=== PATIENT | female | born 1985 | race Caucasian/White ===

== ENCOUNTER 2023-05-27 11:06 | Outpatient (AMB) | payer OTHER, SELFPAY ==
--- NOTE | 2023-05-31 13:03 | MHC.OFFVISPS ---
Intake Intake Visit Reasons: depression, OCD, anxiety Medication List - Last Reconciled 05/27/23 by Mary Ellen Marie APRN buspirone 7.5 mg PO BID levothyroxine 75 mcg PO DAILY lorazepam mg PO trazodone 25 - 50 mg PO BEDTIME PRN trazodone 100 - 200 mg PO BEDTIME vortioxetine (Trintellix) mg PO HPI- Psychiatric Chief Complaint: depression, OCD, anxiety Intake Note: Patient reports continued anxiety. She is 4 months . . HPI Narrative: Patient reports continued anxiety. She is 4 months . Since the of her baby she has had more Obsessive Compulsive Disorder symptoms. She had a difficult with vaginal tearing and need for surgery which was very painful and also her from the baby. Patient has intrusive thoughts of bad things happening. She is currently very upset with her therapist who cut back her hours and is less available. Patient is obsessing about the situation with her therapist and trying to fix it despite knowing that she can not. This is triggering childhood abandonment issues. Patient reports SI with no plan and no intent. But then choose thoughts of hurting herself are very distressing this has historically been part of her Obsessive Compulsive Disorder in the past. She is taking her medication no side effects we discussed alternatives and agreed to add a small amount of Cymbalta. We discussed the options of partial hospitalization especially since her therapist is less available. I also discussed the pros and cons finding a new therapist as she has been unhappy with this therapist for quite some time. Past Psychiatric History: struggled when OCD increased 7-12 grades really good in high school and college, social anxiety decreased sports and music, friends and therapy helped . OCD at age 9, saw child psychologist for many years ages [age] OCD, anxiety, depression, suicidality, at age 14 things got a lot better; age [age] good but then anxiety increased significantly when she was in transition from HS to college ; put on xanax by PCP at age 19. No IPLOC. Has tried multpile medications lexapro- don't recall why stopped vyvanse helped adderall- rebound agitation/anxiety ritalin- agitated/anxious/paranoid/wary Effexor jittery Zoloft jittery Paxil doesnt recall Prozac doesnt recall Pristiq for years, stopped working Xanax helped with panic and insomnia Ativan Wellbutrin jittery Clonazepam helpful lamictal- not helpful and early am waking Subjective Subjective Subjective Medication Compliance: Yes Side effects from medications: No Review of Systems Medical Review of Systems: unchanged Mental Status Exam Mental Status Exam Patient Appearance: Well Grooomed and Appropriate Patient Orientation: Person, Place, Time and Situation Level of Consciousness: Awake Patient Behavior: Appropriate Mood Description: Anxious and Sad Affect Description: Sad Patient Cognition Impaired: No Ability to Follow Directions: Excellent Speech Pattern: Clear Memory Description: Intact Hallucinations: None Delusions: Not Present Thought Process: Rumination Thought Content: positive for Obsessional Thoughts Judgement: Good Judgement and Insight: insight and judgment good Assessment and Plan Assessment & Plan (1) OCD (obsessive compulsive disorder): Status: Acute Code(s): F42.9 - Obsessive-compulsive disorder, unspecified (2) anxiety: Status: Acute Code(s): O99.345 - Other mental disorders complicating the puerperium; F41.8 - Other specified anxiety disorders (3) Major depression, recurrent: Status: Acute Code(s): F33.9 - Major depressive disorder, recurrent, unspecified (4) ADHD: Status: Acute Code(s): F90.9 - Attention-deficit hyperactivity disorder, unspecified type Plan pt has been on trintellix and low dose of cymbalta in past together and done well; discussed adding cymbalta 20 mg daily pt agree to retrial return in 3 weeks Medications: New vortioxetine (Trintellix) 20 mg PO DAILY 30 days 30 tabs 3RF Counseling and coordination of Care Pt. Self Management counseling: Exercise, Light exposure, Maintenance-social rhythm, Mindfulness, Mod caffeine/ETOH intake, Sleep hygiene, Behavior activation, General coping skills and Problem solving Medication management counseling: Effectiveness, Side effects, Dosing range, Duration, Drug interaction and Adherence Diagnosis and Prognosis Counseling: Accuracy of diagnosis, Prognosis over time, Impact of diagnosis on life functions, Impact of family relationship, Problematic behaviors secondary to diagnosis and Adequacy of current interventions Details: I spent 45 minutes reviewing the record, seeing the patient and documenting in the medical record. Counseling provided to the patient/caregiver as outlined below. Addressed patient/caregiver concerns regarding current medication regime including effective adherence. Addressed patient/caregiver concerns regarding diagnosis and prognosis including accuracy of diagnosis, prognosis over time, impact of diagnosis. Addressed patient/caregiver concerns regarding impact of recent stressors. 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
--- NOTE | 2023-06-03 16:37 | ...WebTmpl.AM.PHNO ---
Nursing Note phone call to richard- pt couldn't tolerate adding cuym Cymbalta 20 mg it gave her nausea. Discussed options with her for medication. Asked her to think about tapering off the Trintellix and restarting Cymbalta or another antidepressant. Or as an alternative add Abilify or Rexulti. Patient said she will think about it and call me back.
== END 2023-05-27 12:10 | disposition home or self-care (01) ==
LOC: HO.HOP 11:06
PROVIDERS: Visit Provider Clinical Nurse Specialist Psychiatric/Mental Health
DX: F33.1 Major depressive disorder, recurrent, moderate (principal); F42.9 Obsessive-compulsive disorder, unspecified; O99.345 Other mental disorders complicating the puerperium; F41.8 Other specified anxiety disorders; F90.9 Attention-deficit hyperactivity disorder, unspecified type
CPT/HCPCS: 99215

== ENCOUNTER → 2023-05-27 11:06 | Outpatient (BNVA) | payer OTHER, SELFPAY | PROVIDERS: Visit Provider Clinical Nurse Specialist Psychiatric/Mental Health ==

== ENCOUNTER 2023-06-17 10:43 | Outpatient (AMB) | payer OTHER, SELFPAY ==
--- NOTE | 2023-06-17 11:41 | A.OFFPSYCH_ITS ---
Intake Intake Visit Reasons: depression, OCD (obsessive compulsive disorder), anxiety Log Check Scaler Required: No Allergies Penicillins Allergy (Intermediate, Verified 06/17/23 11:43) Rash Medication List - Last Reconciled 06/17/23 by Mary Ellen Marie, SERGEY buspirone 7.5 mg PO BID levothyroxine 75 mcg PO DAILY lorazepam 0.5 mg PO DAILY PRN trazodone 25 - 50 mg PO BEDTIME PRN vortioxetine (Trintellix) 20 mg PO DAILY 30 days HPI- Psychiatric Chief Complaint: depression, OCD (obsessive compulsive disorder), anxiety HPI Narrative: pt tried the cymbalta again but it caused GI upset and blurry vision. she stopped it. pt still feeling sad, low energy, little enjoyment. She is still struggling with her therapist feeling at an impasse but having difficulty making a change; she is struggling with daily pain from pulled ligaments during and . She continues with OCD symptoms including mental rituals and intrusive thoughts; her mood is low, she is anxious intermittently; using c oping skills with success. no SI or HI. she is having MRI today to eval the ligaments and she is hopeful to get some help with the pain. Past Psychiatric History: OCD at age 9, saw child psychologist for many years ages [age] OCD, anxiety, depression, suicidality, at age 14 things got a lot better; age [age] good but then anxiety increased significantly when she was in transition from HS to college; symptoms better in high school and college, social anxiety decreased sports and music, friends and therapy helped. put on xanax by PCP at age 19. No IPLOC. Has tried multiple medications lexapro- don't recall why stopped vyvanse helped adderall- rebound agitation/anxiety ritalin- agitated/anxious/paranoid/wary Effexor jittery Zoloft jittery Paxil doesnt recall Prozac doesnt recall Pristiq for years, stopped working Xanax helped with panic and insomnia Ativan Wellbutrin jittery Clonazepam helpful lamictal- not helpful and early am waking Subjective Subjective Subjective Medication Compliance: Yes Side effects from medications: Yes (from cymbalta ) Details: blurry vision, gi upset- pt stopped cymbalta with improvement Review of Systems Medical Review of Systems: unchanged Review of Systems Review of Systems pain from pelvic ligament strain reported Yes all other systems are reviewed and are negative Mental Status Exam Mental Status Exam Patient Appearance: Well Grooomed and Appropriate Patient Orientation: Person, Place, Time and Situation Level of Consciousness: Awake Patient Behavior: Appropriate and Cooperative Mood Description: Sad Affect Description: Anxious and Sad Patient Cognition Impaired: Yes Ability to Follow Directions: Excellent Speech Pattern: Clear Memory Description: Intact Hallucinations: None Thought Process: Intact Thought Content: positive for Intact and positive for Goal Oriented Judgement: Good Assessment and Plan Assessment & Plan (1) OCD (obsessive compulsive disorder): Status: Acute Qualifiers: Obsessive-compulsive disorder type: mixed obsessional thoughts and acts Qualified Code(s): F42.2 - Mixed obsessional thoughts and acts Code(s): F42.9 - Obsessive-compulsive disorder, unspecified (2) anxiety: Status: Acute Code(s): O99.345 - Other mental disorders complicating the puerperium; F41.8 - Other specified anxiety disorders (3) Major depressive disorder, recurrent episode, moderate degree: Status: Acute Code(s): F33.1 - Major depressive disorder, recurrent, moderate Plan discussed option of changing trintellix to pristiq which she was on in the past with good effect; discussed adding abilify or rexulti as options for both depression and OCD; discussed pros, cons, risks vs benefits of each options and expected outcome. Pt will continue same meds for now. Labs ordered to rule out anemia, vit D level, tsh and metabolic profile due to ongoing low mood and low energy. return in 4 weeks Medications: New buspirone 7.5 mg PO BID 60 tabs 0RF Changed From lorazepam PO To lorazepam 0.5 mg PO DAILY PRN 30 tabs 0RF anxiety Refilled vortioxetine (Trintellix) 20 mg PO DAILY 30 days 30 tabs 3RF Orders: Orders Complete Blood Count Auto Diff Today Z79.899 - Other skilled nursing (current) drug therapy Vitamin D 25-OH (D2 and D3) Today E55.9 - Vitamin D deficiency, unspecified TSH reflex Free T4 Today E03.9 - Hypothyroidism, unspecified Comprehensive [place]. 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 Self Management counseling: General coping skills Medication management counseling: Effectiveness, Side effects, Dosing range, Duration, Drug interaction and Adherence Diagnosis and Prognosis Counseling: Accuracy of diagnosis, Prognosis over time, Impact of diagnosis on life functions, Impact of family relationship, Problematic behaviors secondary to diagnosis and Adequacy of current interventions Details: I spent 30 minutes reviewing the record, seeing the patient and documenting in the medical record. Counseling provided to the patient/caregiver as outlined below. Addressed patient/caregiver concerns regarding current medication regime including effective adherence. Addressed patient/caregiver concerns regarding diagnosis and prognosis including accuracy of diagnosis, prognosis over time, impact of diagnosis. Addressed patient/caregiver concerns regarding impact of recent stressors. 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
== END 2023-06-17 11:34 | disposition home or self-care (01) ==
LOC: HO.HOP 10:43
PROVIDERS: Visit Provider Clinical Nurse Specialist Psychiatric/Mental Health
DX: F42.2 Mixed obsessional thoughts and acts (principal); O99.345 Other mental disorders complicating the puerperium; F41.8 Other specified anxiety disorders; F33.1 Major depressive disorder, recurrent, moderate
CPT/HCPCS: 99214

== ENCOUNTER → 2023-06-17 10:43 | Outpatient (BNVA) | payer OTHER, SELFPAY | PROVIDERS: Visit Provider Clinical Nurse Specialist Psychiatric/Mental Health ==

== ENCOUNTER 2023-07-09 13:15 | Outpatient (AMB) | payer OTHER, SELFPAY ==
--- NOTE | 2023-07-09 13:17 | MHC.OFFVISPS ---
Intake Intake Visit Reasons: depression, OCD (obsessive compulsive disorder), ADHD, Anxiety Allergies Penicillins Allergy (Intermediate, Verified 06/17/23 11:43) Rash HPI- Psychiatric Chief Complaint: depression, OCD (obsessive compulsive disorder), ADHD, Anxiety HPI Narrative: pt still depressed; worried often; ruminates; has intrusive thoughts; not sleeping well due to baby waking many times; pt reports financial stress; work stress. she reports trouble with paper work an disorganization at home and work; house is a mess per pt; she has trouble keeping things organized; dzx with ADHD in past and had trial of adderal and vyvanse; adderall caused anxiety and vyvanse caused blurry vision. Pt denies SI or HI. she does report feeling rageful at times when she is overwhelmed with too much stimulli; she's seeing zulema MCKENNA for therapy and working on issues- finds it very helpful. Pt did not get blood work done Past Psychiatric History: OCD at age 9, saw child psychologist for many years ages [age] OCD, anxiety, depression, suicidality, at age 14 things got a lot better; age [age] good but then anxiety increased significantly when she was in transition from HS to college; symptoms better in high school and college, social anxiety decreased sports and music, friends and therapy helped. put on xanax by PCP at age 19. No IPLOC. Has tried multiple medications lexapro- don't recall why stopped vyvanse blurry vision adderall- rebound agitation/anxiety ritalin high dose - agitated/anxious/paranoid/wary Effexor jittery Zoloft jittery Paxil doesnt recall Prozac doesnt recall Pristiq for years, stopped working Xanax helped with panic and insomnia Ativan Wellbutrin jittery Clonazepam helpful lamictal- not helpful and early am waking Subjective Subjective Subjective Medication Compliance: Yes Side effects from medications: No Review of Systems Medical Review of Systems: unchanged Mental Status Exam Mental Status Exam Patient Appearance: Appropriate Patient Orientation: Person, Place, Time and Situation Level of Consciousness: Awake Patient Behavior: Appropriate Mood Description: Anxious and Sad Affect Description: Anxious and Sad Patient Cognition Impaired: No Ability to Follow Directions: Good Speech Pattern: Clear Memory Description: Intact Hallucinations: None Thought Process: Intact and Goal Oriented Thought Content: positive for Intact and positive for Obsessional Thoughts Judgement: Fair Assessment and Plan Assessment & Plan (1) OCD (obsessive compulsive disorder): Status: Acute Qualifiers: Obsessive-compulsive disorder type: mixed obsessional thoughts and acts Qualified Code(s): F42.2 - Mixed obsessional thoughts and acts Code(s): F42.9 - Obsessive-compulsive disorder, unspecified (2) Major depressive disorder, recurrent episode, moderate degree: Status: Acute Code(s): F33.1 - Major depressive disorder, recurrent, moderate (3) ADHD: Status: Acute Qualifiers: Attention deficit-hyperactivity disorder type: predominantly inattentive Qualified Code(s): F90.0 - Attention-deficit hyperactivity disorder, predominantly inattentive type Code(s): F90.9 - Attention-deficit hyperactivity disorder, unspecified type Plan continue trintellix 20 mg daily continue other home meds discussed pros and cons and looked together at available research on [facility] for each medication Medications: New trazodone take 1/2 to whole tablet as needed for sleep 50 mg PO BEDTIME PRN 30 tabs 2RF sleep methylphenidate HCl (Ritalin) Partial Fill upon patient request. 2.5 mg (1/2 x 5 mg) PO TID 30 days 45 tabs 0RF Counseling and coordination of Care Pt. Self Management counseling: Maintenance-social rhythm, Mod caffeine/ETOH intake and Sleep hygiene Medication management counseling: Effectiveness, Side effects, Dosing range, Duration, Drug interaction and Adherence Diagnosis and Prognosis Counseling: Accuracy of diagnosis, Prognosis over time, Impact of diagnosis on life functions, Impact of family relationship, Problematic behaviors secondary to diagnosis and Adequacy of current interventions Details: I spent 45 minutes reviewing the record, seeing the patient and documenting in the medical record. Counseling provided to the patient/caregiver as outlined below. Addressed patient/caregiver concerns regarding current medication regime including effective adherence. Addressed patient/caregiver concerns regarding diagnosis and prognosis including accuracy of diagnosis, prognosis over time, impact of diagnosis. Addressed patient/caregiver concerns regarding impact of recent stressors. 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
== END 2023-07-09 14:33 | disposition home or self-care (01) ==
LOC: HO.HOP 13:15
PROVIDERS: Visit Provider Clinical Nurse Specialist Psychiatric/Mental Health
DX: F42.2 Mixed obsessional thoughts and acts (principal); F33.1 Major depressive disorder, recurrent, moderate; F90.0 Attention-deficit hyperactivity disorder, predominantly inattentive type
CPT/HCPCS: 99215

== ENCOUNTER → 2023-07-09 13:15 | Outpatient (BNVA) | payer OTHER, SELFPAY | PROVIDERS: Visit Provider Clinical Nurse Specialist Psychiatric/Mental Health | DX: Z79.899 Other long term (current) drug therapy (principal); E55.9 Vitamin D deficiency, unspecified; E03.9 Hypothyroidism, unspecified ==

== ENCOUNTER 2023-08-12 14:10 | Outpatient (AMB) | payer OTHER, SELFPAY ==
--- NOTE | 2023-08-12 14:13 | MHC.OFFVISPS ---
Intake Intake Visit Reasons: Depression, OCD (obsessive compulsive disorder) Allergies Penicillins Allergy (Intermediate, Verified 06/17/23 11:43) Rash Medication List - Last Reconciled 08/13/23 by Mary Ellen Marie APRN buspirone 7.5 mg PO BID levothyroxine 75 mcg PO DAILY lorazepam 0.5 mg PO DAILY PRN trazodone 50 mg orally take 1- 1&1/2 tablets at bedtime as needed PRN; vortioxetine (Trintellix) 20 mg PO DAILY 30 days HPI- Psychiatric Chief Complaint: Depression, OCD (obsessive compulsive disorder) HPI Narrative: pt continues to struggle with depression and anxiety; high level of stress with new baby, work, moving, medical issues, and complicated therapeutic impasse with therapist; pt is working with new therapist but has not been able to end with old therpaist and at this time the dyad unable to work through impasse and its causing pt a lot of distress. pt is more irritable and easily frustrated. no SI or HI. discussed options for meds and breast feeding impact. [facility] compared lamictal and abilify as options for mood. Past Psychiatric History: OCD at age 9, saw child psychologist for many years ages 9-12 OCD, anxiety, depression, suicidality, at age 14 things got a lot better; age [age] good but then anxiety increased significantly when she was in transition from HS to college; symptoms better in high school and college, social anxiety decreased sports and music, friends and therapy helped. put on xanax by PCP at age 19. No IPLOC. Has tried multiple medications lexapro- don't recall why stopped vyvanse helped adderall- rebound agitation/anxiety ritalin- agitated/anxious/paranoid/wary Effexor jittery Zoloft jittery Paxil doesnt recall Prozac doesnt recall Pristiq for years, stopped working Xanax helped with panic and insomnia Ativan Wellbutrin jittery Clonazepam helpful lamictal- not helpful and early am waking Subjective Subjective Subjective Medication Compliance: Yes Side effects from medications: No Review of Systems Medical Review of Systems: unchanged Mental Status Exam Mental Status Exam Patient Appearance: Well Grooomed and Appropriate Patient Orientation: Person, Place, Time and Situation Level of Consciousness: Awake Patient Behavior: Appropriate Mood Description: Anxious Affect Description: Blunted Patient Cognition Impaired: No Ability to Follow Directions: Good Speech Pattern: Clear and Delayed Memory Description: Intact Hallucinations: None Delusions: Not Present Thought Process: Intact and Distracted Thought Content: positive for Intact and positive for Preoccupation Judgement: Fair Assessment and Plan Assessment & Plan (1) OCD (obsessive compulsive disorder): Status: Acute Qualifiers: Obsessive-compulsive disorder type: mixed obsessional thoughts and acts Qualified Code(s): F42.2 - Mixed obsessional thoughts and acts Code(s): F42.9 - Obsessive-compulsive disorder, unspecified (2) anxiety: Status: Acute Code(s): O99.345 - Other mental disorders complicating the puerperium; F41.8 - Other specified anxiety disorders (3) ADHD: Status: Acute Qualifiers: Attention deficit-hyperactivity disorder type: predominantly inattentive Qualified Code(s): F90.0 - Attention-deficit hyperactivity disorder, predominantly inattentive type Code(s): F90.9 - Attention-deficit hyperactivity disorder, unspecified type (4) Major depressive disorder, recurrent episode, moderate degree: Status: Acute Code(s): F33.1 - Major depressive disorder, recurrent, moderate Medications: New trazodone 50 mg orally take 1- 1&1/2 tablets at bedtime as needed PRN; 45 tabs 2RF sleep aripiprazole (Abilify) 1 mg (1/2 x 2 mg) PO BEDTIME 15 tabs 0RF Refilled buspirone 7.5 mg PO BID 60 tabs 0RF vortioxetine (Trintellix) 20 mg PO DAILY 30 tabs 3RF 30 days lorazepam 0.5 mg PO DAILY PRN 30 tabs 0RF anxiety Discontinued trazodone Discontinued Reason: Doctor's Order 50 mg orally take 1-1 & 1/2 tab at bedtime sleep Counseling and coordination of Care Pt. Self Management counseling: Maintenance-social rhythm, Sleep hygiene, Behavior activation, General coping skills and Problem solving Medication management counseling: Effectiveness, Side effects, Dosing range, Duration, Drug interaction and Adherence Diagnosis and Prognosis Counseling: Accuracy of diagnosis, Prognosis over time, Impact of diagnosis on life functions, Impact of family relationship, Problematic behaviors secondary to diagnosis and Adequacy of current interventions Details: I spent 30 minutes reviewing the record, seeing the patient and documenting in the medical record. Counseling provided to the patient/caregiver as outlined below. Addressed patient/caregiver concerns regarding current medication regime including effective adherence. Addressed patient/caregiver concerns regarding diagnosis and prognosis including accuracy of diagnosis, prognosis over time, impact of diagnosis. Addressed patient/caregiver concerns regarding impact of recent stressors. 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
== END 2023-08-12 15:13 | disposition home or self-care (01) ==
LOC: HO.HOP 14:10
PROVIDERS: Visit Provider Clinical Nurse Specialist Psychiatric/Mental Health
DX: F42.2 Mixed obsessional thoughts and acts (principal); O99.345 Other mental disorders complicating the puerperium; F41.8 Other specified anxiety disorders; F90.0 Attention-deficit hyperactivity disorder, predominantly inattentive type; F33.1 Major depressive disorder, recurrent, moderate
CPT/HCPCS: 99214

== ENCOUNTER → 2023-08-12 14:10 | Outpatient (BNVA) | payer OTHER, SELFPAY | PROVIDERS: Visit Provider Clinical Nurse Specialist Psychiatric/Mental Health ==

== ENCOUNTER 2023-08-27 16:38 | Outpatient (AMB) | payer OTHER, SELFPAY ==
--- NOTE | 2023-08-27 10:29 | A.OFFPSYCH_ITS ---
Intake Intake Visit Reasons: depression, OCD Allergies Penicillins Allergy (Intermediate, Verified 06/17/23 11:43) Rash Medication List - Last Reconciled 08/27/23 by Mary Ellen Marie APRN aripiprazole (Abilify) 1 mg (1/2 x 2 mg) PO BEDTIME buspirone 7.5 mg PO BID levothyroxine 75 mcg PO DAILY lorazepam 0.5 mg PO DAILY PRN trazodone 50 mg orally take 1- 1&1/2 tablets at bedtime as needed PRN; vortioxetine (Trintellix) 20 mg PO DAILY 30 days HPI- Psychiatric Chief Complaint: depression, OCD HPI Narrative: pt struggling with stress of parenting, financial, owrk; her long time therapist abruptly ended with her and pt feeling intense feelings about that, ruminating at times; getting support from family and firends; pr tried the abilify but felt worse but only took 2 times so she is not sure the abilify caused worsening. no SI or HI . Past Psychiatric History: OCD at age 9, saw child psychologist for many years ages [age] OCD, anxiety, depression, suicidality, at age 14 things got a lot better; age [age] good but then anxiety increased significantly when she was in transition from HS to college; symptoms better in high school and college, s ocial anxiety decreased sports and music, friends and therapy helped. put on xanax by PCP at age 19. No IPLOC. Has tried multiple medications lexapro- don't recall why stopped vyvanse helped adderall- rebound agitation/anxiety ritalin- agitated/anxious/paranoid/wary Effexor jittery Zoloft jittery Paxil doesnt recall Prozac doesnt recall Pristiq for years, stopped working Xanax helped with panic and insomnia Ativan Wellbutrin jittery Clonazepam helpful lamictal- not helpful and early am waking Subjective Subjective Subjective Medication Compliance: Yes Review of Systems Medical Review of Systems: unchanged Mental Status Exam Mental Status Exam Patient Appearance: Well Grooomed and Appropriate Patient Orientation: Person, Place, Time and Situation Level of Consciousness: Awake Patient Behavior: Appropriate and Cooperative Mood Description: Anxious and Sad Affect Description: Anxious and Sad Patient Cognition Impaired: No Ability to Follow Directions: Good Speech Pattern: Clear and Appropriate Memory Description: Intact Hallucinations: None Delusions: Not Present Thought Process: Intact and Rumination Thought Content: positive for Intact and positive for Obsessional Thoughts Judgement: Fair Assessment and Plan Assessment & Plan (1) Major depressive disorder, recurrent episode, moderate degree: Status: Acute Code(s): F33.1 - Major depressive disorder, recurrent, moderate (2) ADHD: Status: Acute Qualifiers: Attention deficit-hyperactivity disorder type: predominantly inattentive Qualified Code(s): F90.0 - Attention-deficit hyperactivity disorder, predominantly inattentive type Code(s): F90.9 - Attention-deficit hyperactivity disorder, unspecified type (3) anxiety: Status: Acute Code(s): O99.345 - Other mental disorders complicating the puerperium; F41.8 - Other specified anxiety disorders (4) OCD (obsessive compulsive disorder): Status: Acute Qualifiers: Obsessive-compulsive disorder type: mixed obsessional thoughts and acts Qualified Code(s): F42.2 - Mixed obsessional thoughts and acts Code(s): F42.9 - Obsessive-compulsive disorder, unspecified Plan ativan 0.5 mg BID abilify 1mg daily buspar 7.5mg BID trintellix 20 mg daily trazodone as needed Counseling and coordination of Care Medication management counseling: Effectiveness, Side effects, Dosing range, Duration, Drug interaction and Adherence Diagnosis and Prognosis Counseling: Accuracy of diagnosis, Prognosis over time, Impact of diagnosis on life functions, Impact of family relationship, Problematic behaviors secondary to diagnosis and Adequacy of current interventions Details: I spent 30 minutes reviewing the record, seeing the patient and documenting in the medical record. Counseling provided to the patient/caregiver as outlined below. Addressed patient/caregiver concerns regarding current medication regime including e ffective adherence. Addressed patient/caregiver concerns regarding diagnosis and prognosis including accuracy of diagnosis, prognosis over time, impact of diagnosis. Addressed patient/caregiver concerns regarding impact of recent stressors. 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
== END 2023-08-27 18:32 | disposition home or self-care (01) ==
LOC: HO.HOP 16:38
PROVIDERS: Visit Provider Clinical Nurse Specialist Psychiatric/Mental Health
DX: F33.1 Major depressive disorder, recurrent, moderate (principal); F90.0 Attention-deficit hyperactivity disorder, predominantly inattentive type; O99.345 Other mental disorders complicating the puerperium; F41.8 Other specified anxiety disorders; F42.2 Mixed obsessional thoughts and acts
CPT/HCPCS: 99214

== ENCOUNTER → 2023-08-27 16:38 | Outpatient (BNVA) | payer OTHER, SELFPAY | PROVIDERS: Visit Provider Clinical Nurse Specialist Psychiatric/Mental Health ==

== ENCOUNTER 2023-09-10 16:02 | Outpatient (AMB) | payer OTHER, SELFPAY ==
--- NOTE | 2023-09-10 16:25 | MHC.OFFVISPS ---
Intake Intake Visit Reasons: Depression Allergies Penicillins Allergy (Intermediate, Verified 06/17/23 11:43) Rash Medication List - Last Reconciled 09/10/23 by Mary Ellen Marie APRN aripiprazole (Abilify) 2 mg PO BEDTIME buspirone 7.5 mg PO BID levothyroxine 75 mcg PO DAILY lorazepam 0.5 mg PO DAILY PRN trazodone 50 mg orally take 1- 1&1/2 tablets at bedtime as needed PRN; vortioxetine (Trintellix) 20 mg PO DAILY 30 days HPI- Psychiatric Chief Complaint: Depression HPI Narrative: pt struggling with depresson and worseing of OCD. Pt has tried many medications with inadequate response and side effects; she thinks the 1mg abilify might be helping slightly but has reduced her breast milk production in half and also increased her appetite and she is concerned about more weight gain; she is consistent with other meds but inadequate response. hhe is fatigued from baby not sleeping; partner is supportive; they are moving tomorrow morning so that is stressful as well; she is struggling with the ending with a therpaist of 12 yrs that ended with her abruptly due to impasse. Pt feel the therapist has consistently given mixed messages to her; she has started seeing awilda lara in [place] and is paying her out of pocket due to insurance not covering it. We discussed possibility of TMS as pt has not done well on many meds and now has the additional concern about nursing. pt is interested in TMS. Past Psychiatric History: OCD at age 9, saw child psychologist for many years ages [age] OCD, anxiety, depression, suicidality, at age 14 things got a lot better; age [age] good but then anxiety increased significantly when she was in transition from HS to college; symptoms better in high school and college, social anxiety decreased sports and music, friends and therapy helped. put on xanax by PCP at age 19. No IPLOC. Has tried multiple medications lexapro- pt doesn't recall why stopped vyvanse helped adderall- rebound agitation/anxiety ritalin- agitated/anxious/paranoid/wary Effexor jittery Zoloft jittery Paxil doesnt recall Prozac doesnt recall Pristiq for years, stopped working Xanax helped with panic and insomnia Ativan some help Wellbutrin jittery Clonazepam helpful lamictal- not helpful and early am waking Subjective Subjective Subjective Medication Compliance: Yes Side effects from medications: No Review of Systems Medical Review of Systems: unchanged Mental Status Exam Mental Status Exam Patient Appearance: Well Grooomed and Appropriate Patient Orientation: Person, Place, Time and Situation Level of Consciousness: Awake and Alert Patient Behavior: Appropriate Mood Description: Anxious and Sad Affect Description: Anxious and Sad Patient Cognition Impaired: No Ability to Follow Directions: Good Speech Pattern: Clear Memory Description: Working Impaired Hallucinations: None Delusions: Not Present Thought Process: Distracted and Rumination Thought Content: positive for Obsessional Thoughts and positive for Preoccupation Depressive Symptoms: Increased Anxiety, Insomnia, Diff. Making Decisions, Muscle Tension, Increased Irritability, Difficulty Sleeping, Changes in Appetite, Loss of Int. in Activity, Feelings of Worthlessness, Significant Weight Gain, Hopelessness, Feelings of Guilt, Unhappiness and Difficulty Concentrating Judgement: Good Assessment and Plan Assessment & Plan (1) Major depressive disorder, recurrent episode, moderate degree: Status: Acute Code(s): F33.1 - Major depressive disorder, recurrent, moderate (2) OCD (obsessive compulsive disorder): Status: Acute Qualifiers: Obsessive-compulsive disorder type: mixed obsessional thoughts and acts Qualified Code(s): F42.2 - Mixed obsessional thoughts and acts Code(s): F42.9 - Obsessive-compulsive disorder, unspecified (3) ADHD: Status: Acute Qualifiers: Attention deficit-hyperactivity disorder type: predominantly inattentive Qualified Code(s): F90.0 - Attention-deficit hyperactivity disorder, predominantly inattentive type Code(s): F90.9 - Attention-deficit hyperactivity disorder, unspecified type Plan continue trintellix 20mg daily, buspar 7.5 mg bid trazodone 50 mg hs, ativan 0.5mg bid prn increase abilfy to 2mg daily for now consider TMS refer for TMS consult Medications: Changed From aripiprazole (Abilify) 1 mg (1/2 x 2 mg) PO BEDTIME 15 tabs 0RF To aripiprazole (Abilify) 2 mg PO BEDTIME 30 tabs 0RF Counseling and coordination of Care Pt. Self Management counseling: Exercise, Maintenance-social rhythm, Sleep hygiene, Behavior activation and General coping skills Medication management counseling: Effectiveness, Side effects, Dosing range, Duration, Drug interaction and Adherence Diagnosis and Prognosis Counseling: Accuracy of diagnosis, Prognosis over time, Impact of diagnosis on life functions, Impact of family relationship, Problematic behaviors secondary to diagnosis and Adequacy of current interventions Details: I spent 30 minutes reviewing the record, seeing the patient and documenting in the medical record. Counseling provided to the patient/caregiver as outlined below. Addressed patient/caregiver concerns regarding current medication regime including effective adherence. Addressed patient/caregiver concerns regarding diagnosis and prognosis including accuracy of diagnosis, prognosis over time, impact of diagnosis. Addressed patient/caregiver concerns regarding impact of recent stressors. 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
== END 2023-09-10 16:30 ==
LOC: HO.HOP 16:02
PROVIDERS: Visit Provider Clinical Nurse Specialist Psychiatric/Mental Health
DX: F33.1 Major depressive disorder, recurrent, moderate (principal); F42.2 Mixed obsessional thoughts and acts; F90.0 Attention-deficit hyperactivity disorder, predominantly inattentive type
CPT/HCPCS: 99214

== ENCOUNTER → 2023-09-10 16:02 | Outpatient (BNVA) | payer OTHER, SELFPAY | PROVIDERS: Visit Provider Clinical Nurse Specialist Psychiatric/Mental Health ==

== ENCOUNTER → 2023-11-23 15:30 | Outpatient (BNV) | payer OTHER, SELFPAY | PROVIDERS: Visit Provider Psychiatry & Neurology Psychiatry | DX: F33.2 Major depressive disorder, recurrent severe without psychotic features (principal) | CPT/HCPCS: 90867; 90868; 90869 ==

== ENCOUNTER 2023-12-01 08:20 | Outpatient (REF) | payer OTHER, SELFPAY ==
[2023-12-01 08:31] LABS: MANUAL DIFF FLAG NO
[2023-12-01 09:03] LABS: Basophils Absolute Auto 0.1 X10*3/uL (0.0-0.2); Basophils Percent Auto 0.9 % (0-2); Eosinophils Absolute Auto 0.3 X10*3/uL (0.0-0.4); Eosinophils Percent Auto 3.7 % (0-4); Hematocrit 42.5 % (37.0-47.0); Hemoglobin 13.9 g/dl (12.0-16.0); Imm Gran Abs Auto 0.02 X10*3/uL (0.00-0.03); Imm Gran Pct Auto 0.3 % (0.0-0.4); Lymphocytes Absolute Auto 1.8 X10*3/uL (1.2-4.9); Lymphocytes Percent Auto 23.1 % (20-40); Mean Corpuscular HGB Conc 32.7 g/dl (31.0-35.0); Mean Corpuscular Hemoglobin 27.6 pg (27.0-33.0); Mean Corpuscular Volume 84.5 fL (80.0-98.0); Mean Platelet Volume 10.5 fL (9.4-12.3); Monocytes Absolute Auto 0.5 X10*3/uL (0.1-1.2); Monocytes Percent Auto 6.4 % (2-11); Neutrophils Absolute Auto 5.2 x10*3/uL (2.0-8.3); Neutrophils Percent Auto 65.6 % (45-73); Platelet Count 185 X10*3/uL (160-400); Red Blood Count 5.03 X10*6/uL (4.20-5.50); Red Cell Distribution Width 13.9 % (11.0-16.0); White Blood Count 7.9 X10*3/uL (4.8-10.8)
[2023-12-01 09:09] LABS: Estimated Average Glucose 108 mg/dL; Hemoglobin A1c % 5.4 % (<6.0)
[2023-12-01 09:53] LABS: Alanine Aminotransferase 15 U/L (0-31); Albumin Level 4.2 g/dL (3.5-5.0); Alkaline Phosphatase 88 U/L (39-117); Anion Gap 11 (12-20); Aspartate Amino Transferase 21 U/L (5-31); Bilirubin Total 0.3 mg/dL (0.0-1.0); Blood Urea Nitrogen 14 mg/dL (9-16); Calcium 9.4 mg/dL (8.4-10.2); Carbon Dioxide 26 mmol/L (22-29); Chloride 106 mmol/L (96-108); Estimated Glomerular Filt Rate > 60; Glucose Fasting 103 mg/dL (60-99); Potassium 3.9 mmol/L (3.3-5.1); Sodium 139 mmol/L (135-145); Total Protein 7.3 g/dL (6.5-8.0)
[2023-12-01 10:11] LABS: TSH reflex Free T4 1.03 uIU/mL (0.32-4.0)
[2023-12-06 16:23] LABS: Vitamin D 25-OH, D2 <4 ng/mL; Vitamin D 25-OH, D3 33 ng/mL; Vitamin D 25-OH, Total 33 ng/mL (30-100)
== END 2023-12-01 08:21 | disposition home or self-care (01) ==
LOC: HO.LAB 08:20
PROVIDERS: PCP Family Medicine; Visit Provider Clinical Nurse Specialist Psychiatric/Mental Health
DX: E55.9 Vitamin D deficiency, unspecified (principal); Z79.899 Other long term (current) drug therapy; E03.9 Hypothyroidism, unspecified
CPT/HCPCS: 36415; 80053; 82306; 83036; 84443; 85025

== ENCOUNTER 2024-01-18 09:00 | Outpatient (RCR) | payer OTHER, SELFPAY ==
--- NOTE | 2023-10-07 14:48 | P.CONTMS_ITS ---
History of Present Illness General Data Date of Service: 10/07/2023 Reason for consult: treatment resistant depression Requesting provider: Mary Ellen Marie History of Present Illness Patient is a 37-year-old mother of a 9-month-old daughter who is here for a TMs consult due to treatment resistant major depression and worsening Obsessive Compulsive Disorder. Patient has tried many medications with inadequate response and side effects. Patient's depression has increasingly worsened since the of her baby when she also had traumatic and vaginal tearing which required surgery. She is currently taking vortioxetine 20 mg and aripiprazole 2 mg daily BuSpar 7.5 mg b.i.d. lorazepam 0.5 mg daily p.r.n. and trazodone 50 mg 03-22-03/23 at bedtime as needed. She has tried a higher dose Abilify but has been unable to tolerate it giving her increased agitation and fatigue during the day. Cymbalta teen Cipro Zoloft Paxil Prozac Wellbutrin and Lamictal all either ineffective or caused side effects she has also been tried on Xanax Ativan and clonazepam as add on for anxiety again all without benefit. She tends to be very sensitive to medication side effects especially given her history of dysautonomia. She also has had symptoms of p.o. TMF although her evaluation for POTS was inconclusive. During this time the patient's long-term therapist for many years had her own personal emergency and became less available to Demetria. This is very difficult for Demetria to tolerate as it triggered past neglect and trauma from childhood. Despite this she sought out a new therapist and has been consistently seeing the new therapist. Patient feels ambivalent about continuing the Abilify as she feels it is increasing her appetite she has gained a few lb and she feels it makes her tired however at this point she will continue it at my urging she is interested in TMs treatments due to so many side effects from medication. The patient has no pacemaker no cochlear implant no other metal implants she does have a titanium clip on her gallbladder post surgery however she states she has had MRIs with no problem she has no history of seizures she does have a history of tension headaches and migraines in the past Patient's PHQ-9 equals 16 and Genralized Anxiety Disorder-7 equals 7. She reports the symptoms are very difficult and affect her ability to work and take care of things at home. She reports little interest or pleasure in doing things feeling down hopeless and depressed most of the time trouble falling asleep or sleeping too much feeling tired having little energy she reports poor appetite feeling bad about herself feeling like a failure she has great trouble concentrating difficulty even watching television she describes anhedonia she is working part-time due to difficulty extending she reports feeling nervous and anxious on edge not being able to control her worries she has intrusive thoughts of bad things happening she can become easily annoyed and irritable and has been somewhat more argumentative with her partner Past Psychiatric History/Medication Trials: No inpatient level of care patient attended [facility] in her early 20s. Patient's 1st symptoms of Obsessive Compulsive Disorder began at age 9 and she has been in outpatient treatment on an off since then. Patient has been seeing this physician underwriter since January 2019 [facility] Medical History Other senior care (current) drug therapy Ocular motor apraxia syndrome Dysautonomia Lyme disease Family History: Patient grew up with her mother father and 1 sister all 3 have history of depression her father has a history of Obsessive Compulsive Disorder and ADHD in childhood patient reports that when she was 9 years old her sister got very sick over a night with osteomyelitis and was hospitalized for several months her parents were very preoccupied her sister then was sick for the rest of their childhood she had surgery every year until she was 20 years old patient found this very traumatic an overwhelming and she was left her own devices to cope Social History: and has 6 month old. 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 Substance History: No history of substance abuse Trauma History: yes childhood and recent trauma Meds/Allergies Meds Home Medications ?Medication ?Instructions ?Recorded ?Confirmed ?Type levothyroxine 75 mcg tablet 75 mcg PO DAILY 05/27/23 09/10/23 History Allergies Allergies Allergy/AdvReac Type Severity Reaction Status Date / Time Penicillins Allergy Intermediate Rash Verified 06/17/23 11:43 Mental Status Exam Mental Status Exam Patient Appearance: Well Grooomed and Appropriate Patient Orientation: Person, Place, Time and Situation Level of Consciousness: Awake and Appropriate Patient Behavior: Appropriate Mood Description: Anxious and Sad Affect Description: Anxious and Sad Patient Cognition Impaired: No Ability to Follow Directions: Good Speech Pattern: Clear Memory Description: Intact Hallucinations: None Delusions: Not Present Thought Process: Distracted and Rumination Thought Content: positive for Obsessional Thoughts and positive for Preoccupation Judgement: Good Assessment & Plan Assessment & Plan (1) Major depressive disorder, recurrent episode, moderate degree: Status: Acute Code(s): F33.1 - Major depressive disorder, recurrent, moderate (2) ADHD: Qualifiers: Attention deficit-hyperactivity disorder type: predominantly inattentive Qualified Code(s): F90.0 - Attention-deficit hyperactivity disorder, predominantly inattentive type Status: Acute Code(s): F90.9 - Attention-deficit hyperactivity disorder, unspecified type (3) OCD (obsessive compulsive disorder): Qualifiers: Obsessive-compulsive disorder type: mixed obsessional thoughts and acts Qualified Code(s): F42.2 - Mixed obsessional thoughts and acts Status: Acute Code(s): F42.9 - Obsessive-compulsive disorder, unspecified Plan recommend TMS treatments given multiple trial os medications with poor results and side effects. Total time managing care of this patient today _60___ minutes. Patient educated on: diagnosis, medication risk/benefits, TMS and therapeutic strategies Informed Consent: understands
--- NOTE | 2023-11-23 17:26 | HO.TMSDAILY2 ---
TMS Daily Progress Note Daily TMS Progress Note Date of Service: 11/23/23 Week #: 1 Treatment #(04-20): 1 PHQ-9 Pre-Treatment (04-17): 16 PHQ-9 Most Recent (04-17): 14 Reviewed: TMS Tech Note Reviewed Verification: I have reviewed the TMS Field Crop Technical Officer Note and agree with the contents. The patient remains a candidate to continue TMS treatment per protocol. Assessment and Plan (1) Major depression, recurrent: Qualifiers: Major depression episode severity: moderate Status: Acute (2) OCD (obsessive compulsive disorder): Qualifiers: Obsessive-compulsive disorder type: mixed obsessional thoughts and acts Qualified Code(s): F42.2 - Mixed obsessional thoughts and acts Status: Acute Plan Initial mapping completed without difficulty patient tolerated 1st treatment without difficulty superficial pain under treatment coil noted patient was able to give informed consent understands treatment parameters
--- NOTE | 2023-11-29 18:07 | P.PNPS_ITS ---
TMS Daily Progress Note Daily TMS Progress Note Date of Service: 11/24/23 Week #: 1 Treatment #(04-20): 2 PHQ-9 Pre-Treatment (04-17): 16 PHQ-9 Most Recent (04-17): 14 Reviewed: TMS Tech Note Reviewed Verification: I have reviewed the TMS Transportation Project Manager Note and agree with the contents. The patient remains a candidate to continue TMS treatment per protocol. Assessment and Plan (1) Major depressive disorder, recurrent episode, moderate degree: Status: Acute (2) OCD (obsessive compulsive disorder): Qualifiers: Obsessive-compulsive disorder type: mixed obsessional thoughts and acts Qualified Code(s): F42.2 - Mixed obsessional thoughts and acts Status: Acute Plan Patient had headache after 1st treatment but was tolerated increased MT to 85% today
--- NOTE | 2023-11-29 18:09 | HO.TMSDAILY2 ---
TMS Daily Progress Note Daily TMS Progress Note Date of Service: 11/25/23 Week #: 1 Treatment #(04-20): 3 PHQ-9 Pre-Treatment (04-17): 16 PHQ-9 Most Recent (04-17): 14 Reviewed: TMS Tech Note Reviewed Verification: I have reviewed the TMS Checkering Machine Operator Note and agree with the contents. The patient remains a candidate to continue TMS treatment per protocol. Assessment and Plan (1) Major depressive disorder, recurrent episode, moderate degree: Status: Acute (2) OCD (obsessive compulsive disorder): Qualifiers: Obsessive-compulsive disorder type: mixed obsessional thoughts and acts Qualified Code(s): F42.2 - Mixed obsessional thoughts and acts Status: Acute Plan Patient without complaint of side effect today MT % continues to gradually increase
--- NOTE | 2023-11-29 18:11 | HO.TMSDAILY2 ---
TMS Daily Progress Note Daily TMS Progress Note Date of Service: 11/26/23 Week #: 1 Treatment #(04-20): 4 PHQ-9 Pre-Treatment (04-17): 16 PHQ-9 Most Recent (04-17): 14 Reviewed: TMS Tech Note Reviewed Verification: I have reviewed the TMS Compressed Gases Tester Note and agree with the contents. The patient remains a candidate to continue TMS treatment per protocol. Assessment and Plan (1) Major depressive disorder, recurrent severe without psychotic features: Status: Acute (2) OCD (obsessive compulsive disorder): Qualifiers: Obsessive-compulsive disorder type: mixed obsessional thoughts and acts Qualified Code(s): F42.2 - Mixed obsessional thoughts and acts Status: Acute Plan Patient tolerating treatment well MT% continues to increase
--- NOTE | 2023-11-29 18:13 | HO.TMSDAILY2 ---
TMS Daily Progress Note Daily TMS Progress Note Date of Service: 11/29/23 Week #: 1 Treatment #(04-20): 5 PHQ-9 Pre-Treatment (04-17): 16 PHQ-9 Most Recent (04-17): 14 Reviewed: TMS Tech Note Reviewed Verification: I have reviewed the TMS Carbon Accountant Note and agree with the contents. The patient remains a candidate to continue TMS treatment per protocol. Assessment and Plan (1) Major depressive disorder, recurrent severe without psychotic features: Status: Acute (2) OCD (obsessive compulsive disorder): Qualifiers: Obsessive-compulsive disorder type: mixed obsessional thoughts and acts Qualified Code(s): F42.2 - Mixed obsessional thoughts and acts Status: Acute Plan Patient tolerating treatment no significant adverse effects noted continue treatment plan
--- NOTE | 2023-12-02 22:30 | HO.TMSDAILY2 ---
TMS Daily Progress Note Daily TMS Progress Note Date of Service: 11/30/23 Week #: 2 Treatment #(04-20): 6 PHQ-9 Pre-Treatment (04-17): 16 PHQ-9 Most Recent (04-17): 14 Reviewed: TMS Tech Note Reviewed Verification: I have reviewed the TMS Field Crop Farming Supervisor Note and agree with the contents. The patient remains a candidate to continue TMS treatment per protocol. Assessment and Plan (1) Major depressive disorder, recurrent severe without psychotic features: Status: Acute abilify being decreased
--- NOTE | 2023-12-02 22:34 | HO.TMSDAILY2 ---
TMS Daily Progress Note Daily TMS Progress Note Date of Service: 12/01/23 Week #: 2 Treatment #(04-20): 7 PHQ-9 Pre-Treatment (04-17): 16 PHQ-9 Most Recent (04-17): 14 Reviewed: TMS Tech Note Reviewed Verification: I have reviewed the TMS Nurse Plastics Note and agree with the contents. The patient remains a candidate to continue TMS treatment per protocol. Assessment and Plan (1) Major depressive disorder, recurrent severe without psychotic features: Status: Acute abilify being decreased Plan cont plan of care inc mt % as tolerated
--- NOTE | 2023-12-02 22:37 | P.PNPS_ITS ---
TMS Daily Progress Note Daily TMS Progress Note Date of Service: 12/02/23 Week #: 2 Treatment #(04-20): 8 PHQ-9 Pre-Treatment (04-17): 16 PHQ-9 Most Recent (04-17): 14 Reviewed: TMS Tech Note Reviewed Verification: I have reviewed the TMS Preschool Program Director Note and agree with the contents. The patient remains a candidate to continue TMS treatment per protocol. Assessment and Plan (1) Major depressive disorder, recurrent severe without psychotic features: Status: Acute Plan cont plan of care
--- NOTE | 2023-12-07 23:13 | HO.TMSDAILY2 ---
TMS Daily Progress Note Daily TMS Progress Note Date of Service: 12/03/23 Week #: 2 Treatment #(04-20): 9 PHQ-9 Pre-Treatment (04-17): 16 PHQ-9 Most Recent (04-17): 14 Reviewed: TMS Tech Note Reviewed Verification: I have reviewed the TMS Spinning Mule Tender Note and agree with the contents. The patient remains a candidate to continue TMS treatment per protocol. Assessment and Plan (1) Major depressive disorder, recurrent severe without psychotic features: Status: Acute Plan pt unchanged tolerating tx
--- NOTE | 2023-12-07 23:14 | HO.TMSDAILY2 ---
TMS Daily Progress Note Daily TMS Progress Note Date of Service: 12/06/23 Week #: 2 Treatment #(04-20): 10 PHQ-9 Pre-Treatment (04-17): 16 PHQ-9 Most Recent (04-17): 13 Reviewed: TMS Tech Note Reviewed Verification: I have reviewed the TMS Ski Technician Note and agree with the contents. The patient remains a candidate to continue TMS treatment per protocol. Assessment and Plan (1) Major depressive disorder, recurrent severe without psychotic features: Status: Acute Plan cont plan of care no adverse effects
--- NOTE | 2023-12-07 23:17 | HO.TMSDAILY2 ---
TMS Daily Progress Note Daily TMS Progress Note Date of Service: 12/07/23 Week #: 3 Treatment #(04-20): 11 PHQ-9 Pre-Treatment (04-17): 16 PHQ-9 Most Recent (04-17): 13 Reviewed: TMS Tech Note Reviewed Verification: I have reviewed the TMS Net Front End Developer Note and agree with the contents. The patient remains a candidate to continue TMS treatment per protocol. Assessment and Plan (1) Major depressive disorder, recurrent severe without psychotic features: Status: Acute Plan no change to this point under much stress
--- NOTE | 2023-12-09 11:26 | HO.TMSDAILY2 ---
TMS Daily Progress Note Daily TMS Progress Note Date of Service: 12/08/23 Week #: 3 Treatment #(04-20): 12 PHQ-9 Pre-Treatment (04-17): 16 PHQ-9 Most Recent (04-17): 13 Reviewed: TMS Tech Note Reviewed Verification: I have reviewed the TMS Branch Associate Teller Note and agree with the contents. The patient remains a candidate to continue TMS treatment per protocol. Assessment and Plan (1) Major depressive disorder, recurrent severe without psychotic features: Status: Acute Plan cont tms mt % increaseed tolerating tx
--- NOTE | 2023-12-09 22:35 | P.PNPS_ITS ---
TMS Daily Progress Note Daily TMS Progress Note Date of Service: 12/09/23 Week #: 3 Treatment #(04-20): 13 PHQ-9 Pre-Treatment (04-17): 16 PHQ-9 Most Recent (04-17): 13 Reviewed: TMS Tech Note Reviewed Verification: I have reviewed the TMS Gasoline Engine Assembler Note and agree with the contents. The patient remains a candidate to continue TMS treatment per protocol. Assessment and Plan (1) Major depressive disorder, recurrent severe without psychotic features: Status: Acute Plan continue plan of care
--- NOTE | 2023-12-15 17:24 | P.PNPS_ITS ---
TMS Daily Progress Note Daily TMS Progress Note Date of Service: 12/10/23 Week #: 3 Treatment #(04-20): 14 PHQ-9 Pre-Treatment (04-17): 16 PHQ-9 Most Recent (04-17): 13 Reviewed: TMS Tech Note Reviewed Verification: I have reviewed the TMS Welder Fitter Arc Note and agree with the contents. The patient remains a candidate to continue TMS treatment per protocol. Assessment and Plan (1) Major depressive disorder, recurrent severe without psychotic features: Status: Acute Plan No significant side effects but no clear change noted
--- NOTE | 2023-12-15 17:25 | P.PNPS_ITS ---
TMS Daily Progress Note Daily TMS Progress Note Date of Service: 12/13/23 Week #: 3 Treatment #(04-20): 15 PHQ-9 Pre-Treatment (04-17): 16 PHQ-9 Most Recent (04-17): 13 Reviewed: TMS Tech Note Reviewed Verification: I have reviewed the TMS Material Checker Note and agree with the contents. The patient remains a candidate to continue TMS treatment per protocol. Assessment and Plan (1) Major depressive disorder, recurrent severe without psychotic features: Status: Acute Plan No significant side effects but no clear change noted given PHQ-9 RITO consider Re mapped
--- NOTE | 2023-12-15 17:27 | HO.TMSDAILY2 ---
TMS Daily Progress Note Daily TMS Progress Note Date of Service: 12/15/23 Week #: 4 Treatment #(04-20): 17 PHQ-9 Pre-Treatment (04-17): 16 PHQ-9 Most Recent (04-17): 15 Reviewed: TMS Tech Note Reviewed Verification: I have reviewed the TMS Nurse Executive Note and agree with the contents. The patient remains a candidate to continue TMS treatment per protocol. Assessment and Plan (1) Major depressive disorder, recurrent severe without psychotic features: Status: Acute Plan No significant side effects but no clear change noted patient has been tapering off Abilify has been under lot of stress trying to sell her house. Significant situational factors involved
--- NOTE | 2023-12-21 22:03 | HO.TMSDAILY2 ---
TMS Daily Progress Note Daily TMS Progress Note Date of Service: 12/16/23 Week #: 4 Treatment #(04-20): 18 PHQ-9 Pre-Treatment (04-17): 16 PHQ-9 Most Recent (04-17): 15 Reviewed: TMS Mapping/Re-mapping completed Verification: I have reviewed the TMS Market Research Intern Note and agree with the contents. The patient remains a candidate to continue TMS treatment per protocol. Assessment and Plan (1) Major depressive disorder, recurrent severe without psychotic features: Status: Acute Plan remapping completed secondary to ongoing dep sx
--- NOTE | 2023-12-21 22:05 | HO.TMSDAILY2 ---
TMS Daily Progress Note Daily TMS Progress Note Date of Service: 12/17/23 Week #: 4 Treatment #(04-20): 19 PHQ-9 Pre-Treatment (04-17): 16 PHQ-9 Most Recent (04-17): 15 Reviewed: TMS Tech Note Reviewed Verification: I have reviewed the TMS American Sign Language Teacher Note and agree with the contents. The patient remains a candidate to continue TMS treatment per protocol. Assessment and Plan (1) Major depressive disorder, recurrent severe without psychotic features: Status: Acute Plan cont plan of care s/p remapping
--- NOTE | 2023-12-21 22:07 | P.PNPS_ITS ---
TMS Daily Progress Note Daily TMS Progress Note Date of Service: 12/20/23 Week #: 4 Treatment #(04-20): 20 PHQ-9 Pre-Treatment (04-17): 16 PHQ-9 Most Recent (04-17): 12 Reviewed: TMS Tech Note Reviewed Verification: I have reviewed the TMS Applied Psychology Chair Note and agree with the contents. The patient remains a candidate to continue TMS treatment per protocol. Assessment and Plan (1) Major depressive disorder, recurrent severe without psychotic features: Status: Acute Plan pt tolerating tx doing somewhat better post remap
--- NOTE | 2023-12-21 22:15 | HO.TMSDAILY2 ---
TMS Daily Progress Note Daily TMS Progress Note Date of Service: 12/21/23 Week #: 5 Treatment #(04-20): 21 PHQ-9 Pre-Treatment (04-17): 16 PHQ-9 Most Recent (04-17): 12 Reviewed: TMS Tech Note Reviewed Verification: I have reviewed the TMS Rod Machine Operator Note and agree with the contents. The patient remains a candidate to continue TMS treatment per protocol. Assessment and Plan (1) Major depressive disorder, recurrent severe without psychotic features: Status: Acute Plan cont plan of care
--- NOTE | 2024-01-09 22:36 | HO.TMSDAILY2 ---
TMS Daily Progress Note Daily TMS Progress Note Date of Service: 12/22/23 Week #: 5 Treatment #(04-20): 22 PHQ-9 Pre-Treatment (04-17): 16 PHQ-9 Most Recent (04-17): 12 Reviewed: TMS Tech Note Reviewed Verification: I have reviewed the TMS Candy Bar Attendant Note and agree with the contents. The patient remains a candidate to continue TMS treatment per protocol. Assessment and Plan (1) Major depressive disorder, recurrent severe without psychotic features: Status: Acute Plan Patient tolerating treatment but limited improvement
--- NOTE | 2024-01-09 22:42 | HO.TMSDAILY2 ---
TMS Daily Progress Note Daily TMS Progress Note Date of Service: 12/23/23 Week #: 5 Treatment #(04-20): 23 PHQ-9 Pre-Treatment (04-17): 16 PHQ-9 Most Recent (04-17): 12 Reviewed: TMS Tech Note Reviewed Verification: I have reviewed the TMS Torch Straightener And Heater Note and agree with the contents. The patient remains a candidate to continue TMS treatment per protocol. Assessment and Plan (1) Major depressive disorder, recurrent severe without psychotic features: Status: Acute Plan Patient tolerating treatment but limited improvement
--- NOTE | 2024-01-09 22:45 | HO.TMSDAILY2 ---
TMS Daily Progress Note Daily TMS Progress Note Date of Service: 12/24/23 Week #: 5 Treatment #(04-20): 24 PHQ-9 Pre-Treatment (04-17): 16 PHQ-9 Most Recent (04-17): 12 Reviewed: TMS Tech Note Reviewed Verification: I have reviewed the TMS Spinner Open End Note and agree with the contents. The patient remains a candidate to continue TMS treatment per protocol. Assessment and Plan (1) Major depressive disorder, recurrent severe without psychotic features: Status: Acute Plan Patient tolerating treatment some improvement
--- NOTE | 2024-01-09 22:49 | HO.TMSDAILY2 ---
TMS Daily Progress Note Daily TMS Progress Note Date of Service: 01/09/24 Week #: 5 Treatment #(04-20): 25 PHQ-9 Pre-Treatment (04-17): 16 PHQ-9 Most Recent (04-17): 12 Reviewed: TMS Tech Note Reviewed Verification: I have reviewed the TMS Key Account Representative Note and agree with the contents. The patient remains a candidate to continue TMS treatment per protocol. Assessment and Plan (1) Major depressive disorder, recurrent severe without psychotic features: Status: Acute Plan Continue plan of care no significant side effects
--- NOTE | 2024-01-09 22:50 | P.PNPSO_ITS ---
Subjective Subjective Date of Service: 12/29/23 Reason For Visit: depression Discharge Plan Discharge Attending provider: Mary Ellen Marie Medications: No Action buspirone 7.5 mg tablet 7.5 mg PO BID Qty: 60 2RF trazodone 50 mg tablet 50 - 75 mg PO BEDTIME PRN (Reason: for insomnia) Qty: 45 0RF aripiprazole 2 mg tablet 2 mg PO BEDTIME Qty: 30 0RF levothyroxine 75 mcg tablet 75 mcg PO DAILY lorazepam 0.5 mg tablet 0.5 mg PO DAILY PRN (Reason: anxiety) Qty: 30 0RF Trintellix 20 mg tablet 20 mg PO DAILY 30 Days Qty: 30 3RF Print Language: Lithuanian Assessment & Plan Total time managing care of this patient today ____ minutes.
--- NOTE | 2024-01-09 22:52 | P.PNPS_ITS ---
TMS Daily Progress Note Daily TMS Progress Note Date of Service: 12/29/23 Week #: 6 Treatment #(04-20): 26 PHQ-9 Pre-Treatment (04-17): 16 PHQ-9 Most Recent (04-17): 12 Reviewed: TMS Tech Note Reviewed Verification: I have reviewed the TMS Signal Maintainer Note and agree with the contents. The patient remains a candidate to continue TMS treatment per protocol. Assessment and Plan (1) Major depressive disorder, recurrent severe without psychotic features: Status: Acute Plan Continue plan of care no significant side effects
--- NOTE | 2024-01-09 22:53 | P.PNPS_ITS ---
TMS Daily Progress Note Daily TMS Progress Note Date of Service: 12/30/23 Week #: 6 Treatment #(04-20): 27 PHQ-9 Pre-Treatment (04-17): 16 PHQ-9 Most Recent (04-17): 12 Reviewed: TMS Tech Note Reviewed Verification: I have reviewed the TMS Machinery Cleaner Note and agree with the contents. The patient remains a candidate to continue TMS treatment per protocol. Assessment and Plan (1) Major depressive disorder, recurrent severe without psychotic features: Status: Acute Plan Continue plan of care no significant side effects
--- NOTE | 2024-01-09 22:55 | P.PNPS_ITS ---
TMS Daily Progress Note Daily TMS Progress Note Date of Service: 12/31/23 Week #: 6 Treatment #(04-20): 28 PHQ-9 Pre-Treatment (04-17): 16 PHQ-9 Most Recent (04-17): 12 Reviewed: TMS Tech Note Reviewed Verification: I have reviewed the TMS Assistant Housekeeping Manager Note and agree with the contents. The patient remains a candidate to continue TMS treatment per protocol. Assessment and Plan (1) Major depressive disorder, recurrent severe without psychotic features: Status: Acute Plan Continue plan of care no significant side effects
--- NOTE | 2024-01-09 22:56 | P.PNPS_ITS ---
TMS Daily Progress Note Daily TMS Progress Note Date of Service: 01/04/24 Week #: 6 Treatment #(04-20): 29 PHQ-9 Pre-Treatment (04-17): 16 PHQ-9 Most Recent (04-17): 12 Reviewed: TMS Tech Note Reviewed Verification: I have reviewed the TMS Pattern Painter Note and agree with the contents. The patient remains a candidate to continue TMS treatment per protocol. Assessment and Plan (1) Major depressive disorder, recurrent severe without psychotic features: Status: Acute Plan Continue plan of care no significant side effects
--- NOTE | 2024-01-09 22:58 | HO.TMSDAILY2 ---
TMS Daily Progress Note Daily TMS Progress Note Date of Service: 01/05/24 Week #: 6 Treatment #(04-20): 30 PHQ-9 Pre-Treatment (04-17): 16 PHQ-9 Most Recent (04-17): 12 Reviewed: TMS Tech Note Reviewed Verification: I have reviewed the TMS Regional Flatbed Truck Driver Note and agree with the contents. The patient remains a candidate to continue TMS treatment per protocol. Assessment and Plan (1) Major depressive disorder, recurrent severe without psychotic features: Status: Acute Plan Continue plan of care
--- NOTE | 2024-01-09 23:04 | P.PNPS_ITS ---
TMS Daily Progress Note Daily TMS Progress Note Date of Service: 01/06/24 Week #: 7 Treatment #(04-20): 31 PHQ-9 Pre-Treatment (04-17): 16 PHQ-9 Most Recent (04-17): 12 Reviewed: TMS Tech Note Reviewed Verification: I have reviewed the TMS Research And Development Director Note and agree with the contents. The patient remains a candidate to continue TMS treatment per protocol. Assessment and Plan (1) Major depressive disorder, recurrent severe without psychotic features: Status: Acute Plan Continue plan of care has been under stress
--- NOTE | 2024-01-09 23:08 | HO.TMSDAILY2 ---
TMS Daily Progress Note Daily TMS Progress Note Date of Service: 01/07/24 Week #: 7 Treatment #(04-20): 32 PHQ-9 Pre-Treatment (04-17): 16 PHQ-9 Most Recent (04-17): 12 Reviewed: TMS Tech Note Reviewed Verification: I have reviewed the TMS Digital Media Intern Note and agree with the contents. The patient remains a candidate to continue TMS treatment per protocol. Assessment and Plan (1) Major depressive disorder, recurrent severe without psychotic features: Status: Acute Plan Continue plan of care has been under stress
--- NOTE | 2024-01-12 08:35 | HO.TMSDAILY2 ---
TMS Daily Progress Note Daily TMS Progress Note Date of Service: 01/10/24 Week #: 7 Treatment #(04-20): 33 PHQ-9 Pre-Treatment (04-17): 16 PHQ-9 Most Recent (04-17): 11 Reviewed: TMS Tech Note Reviewed Verification: I have reviewed the TMS Cloth Finishing Range Tender Note and agree with the contents. The patient remains a candidate to continue TMS treatment per protocol. Assessment and Plan (1) Major depressive disorder, recurrent severe without psychotic features: Status: Acute Plan Continue plan of care some improvement noted no significant side effects
--- NOTE | 2024-01-12 18:29 | P.PNPS_ITS ---
TMS Daily Progress Note Daily TMS Progress Note Date of Service: 01/12/24 Week #: 8 Treatment #(04-20): 34 PHQ-9 Pre-Treatment (04-17): 16 PHQ-9 Most Recent (04-17): 11 Reviewed: TMS Tech Note Reviewed Verification: I have reviewed the TMS Complaint Adjuster Note and agree with the contents. The patient remains a candidate to continue TMS treatment per protocol. Assessment and Plan (1) Major depressive disorder, recurrent severe without psychotic features: Status: Acute Plan Continue plan of care some improvement noted no significant side effects
--- NOTE | 2024-01-24 12:28 | HO.TMSDAILY2 ---
TMS Daily Progress Note Daily TMS Progress Note Date of Service: 01/14/24 Week #: 8 Treatment #(04-20): 35 PHQ-9 Pre-Treatment (04-17): 16 PHQ-9 Most Recent (04-17): 11 Reviewed: TMS Tech Note Reviewed Verification: I have reviewed the TMS Marketing Assistant Retail Division Note and agree with the contents. The patient remains a candidate to continue TMS treatment per protocol. Assessment and Plan (1) Major depression, recurrent: Qualifiers: Major depression episode severity: moderate Status: Acute (2) OCD (obsessive compulsive disorder): Qualifiers: Obsessive-compulsive disorder type: mixed obsessional thoughts and acts Qualified Code(s): F42.2 - Mixed obsessional thoughts and acts Status: Acute Plan pt to this point limited benefit no sig side effects
--- NOTE | 2024-01-24 12:30 | P.PNPS_ITS ---
TMS Daily Progress Note Daily TMS Progress Note Date of Service: 01/18/24 Week #: 8 Treatment #(04-20): 36 PHQ-9 Pre-Treatment (04-17): 16 PHQ-9 Most Recent (04-17): 11 Reviewed: TMS Tech Note Reviewed Verification: I have reviewed the TMS Paper Processing Machine Helper Note and agree with the contents. The patient remains a candidate to continue TMS treatment per protocol. Assessment and Plan (1) Major depression, recurrent: Qualifiers: Major depression episode severity: moderate Status: Acute Plan tx ended no some benefit tolerated tx
== END 2024-01-24 15:02 | disposition home or self-care (01) ==
LOC: HO.PTMS 09:00
PROVIDERS: Visit Provider Clinical Nurse Specialist Psychiatric/Mental Health
DX: F33.1 Major depressive disorder, recurrent, moderate (principal); F42.2 Mixed obsessional thoughts and acts; F90.0 Attention-deficit hyperactivity disorder, predominantly inattentive type
CPT/HCPCS: 90867; 90868; 90869; 99215

== ENCOUNTER 2024-02-11 10:41 | Outpatient (AMB) | payer OTHER, SELFPAY ==
--- NOTE | 2024-02-11 11:04 | A.OFFPSYCH_ITS ---
Intake Intake Visit Reasons: depression Agricultural Engineer Required: No Allergies Penicillins Allergy (Intermediate, Verified 06/17/23 11:43) Rash Medication List - Last Reconciled 02/11/24 by Mary Ellen Marie APRN aripiprazole 2 mg PO BEDTIME buspirone 7.5 mg PO BID levothyroxine 75 mcg PO DAILY lorazepam 0.5 mg PO DAILY PRN trazodone 50 - 75 mg (1 - 1.5 x 50 mg) PO BEDTIME PRN vortioxetine (Trintellix) 20 mg PO DAILY HPI- Psychiatric Chief Complaint: depression HPI Narrative: pt reports slight improvement in anxiety and depression; she reports brain fog. she finished TMS which she says helped . PHQ9= 10 RITO 7 = 8. 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 put on xanax by PCP at age 19. No IPLOC. Has tried multiple medications lexapro- pt doesn't recall why stopped vyvanse helped adderall- rebound agitation/anxiety ritalin- agitated/anxious/paranoid/wary Effexor jittery Zoloft jittery Paxil doesnt recall Prozac doesnt recall Pristiq for years, stopped working Xanax helped with panic and insomnia Ativan some help Wellbutrin jittery Clonazepam helpful lamictal- not helpful and early am waking Subjective Subjective Subjective Medication Compliance: Yes Side effects from medications: No Review of Systems Medical Review of Systems: unchanged Mental Status Exam Mental Status Exam Patient Appearance: Well Grooomed and Appropriate Patient Orientation: Person, Place and Time Level of Consciousness: Awake and Appropriate Patient Behavior: Appropriate and Cooperative Mood Description: Appropriate and Sad Affect Description: Appropriate and Sad Patient Cognition Impaired: No Ability to Follow Directions: Good Speech Pattern: Clear and Appropriate Memory Description: Intact Hallucinations: None Delusions: Not Present Thought Process: Intact Thought Content: positive for Intact Judgement: Good Assessment and Plan Assessment & Plan (1) Major depressive disorder, recurrent episode, moderate degree: Status: Acute Code(s): F33.1 - Major depressive disorder, recurrent, moderate (2) ADHD: Status: Acute Qualifiers: Attention deficit-hyperactivity disorder type: predominantly inattentive Qualified Code(s): F90.0 - Attention-deficit hyperactivity disorder, predominantly inattentive type Code(s): F90.9 - Attention-deficit hyperactivity disorder, unspecified type (3) OCD (obsessive compulsive disorder): Status: Acute Qualifiers: Obsessive-compulsive disorder type: mixed obsessional thoughts and acts Qualified Code(s): F42.2 - Mixed obsessional thoughts and acts Code(s): F42.9 - Obsessive-compulsive disorder, unspecified Plan trial of vyvanse continue meds below return in 6 weeks Medications: New lisdexamfetamine (Vyvanse) Partial Fill upon patient request. 10 mg PO DAILY 30 caps 0RF Refilled lorazepam 0.5 mg PO DAILY PRN 30 tabs 0RF anxiety buspirone 7.5 mg PO BID 60 tabs 2RF trazodone 50 - 75 mg (1 - 1.5 x 50 mg) PO BEDTIME PRN 45 tabs 2RF for insomnia vortioxetine (Trintellix) 20 mg PO DAILY 30 tabs 2RF Discontinued aripiprazole Discontinued Reason: Doctor's Order 2 mg PO BEDTIME 30 tabs 0RF Counseling and coordination of Care Pt. Self Management counseling: Maintenance-social rhythm, Mod caffeine/ETOH intake, Sleep hygiene, Behavior activation, General coping skills and Problem solving Medication management counseling: Effectiveness, Side effects, Dosing range, Duration, Drug interaction and Adherence Diagnosis and Prognosis Counseling: Accuracy of diagnosis, Prognosis over time, Impact of diagnosis on life functions, Impact of family relationship, Pr oblematic behaviors secondary to diagnosis and Adequacy of current interventions Details: I spent 40 minutes reviewing the record, seeing the patient and documenting in the medical record. Counseling provided to the patient/caregiver as outlined below. Addressed patient/caregiver concerns regarding current medication regime including effective adherence. Addressed patient/caregiver concerns regarding diagnosis and prognosis including accuracy of diagnosis, prognosis over time, impact of diagnosis. Addressed patient/caregiver concerns regarding impact of recent stressors. 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
== END 2024-02-11 11:28 | disposition home or self-care (01) ==
LOC: HO.HOP 10:41
PROVIDERS: PCP Family Medicine; Visit Provider Clinical Nurse Specialist Psychiatric/Mental Health
DX: F33.1 Major depressive disorder, recurrent, moderate (principal); F90.0 Attention-deficit hyperactivity disorder, predominantly inattentive type; F42.2 Mixed obsessional thoughts and acts
CPT/HCPCS: 99214

== ENCOUNTER 2024-05-30 16:25 | Outpatient (AMB) | payer OTHER, SELFPAY ==
--- NOTE | 2024-05-30 16:37 | A.OFFPSYCH_ITS ---
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 pt reports high stress; feels fatigued many days; depression moderate. anxiety moderate. no SI or HI. working 20 hours a week and taking care of 17 month old; recently bought house and moving soon. taking other meds consistently; no side effects. attending therapy regularly. Past Psychiatric History: OCD at age 9, saw child psychologist for many years ages [age] OCD, anxiety, depression, suicidality, at age 14 things got a lot better; age [age] good but then anxiety increased significantly when she was in transition from HS to college; symptoms better in high school and college, social anxiety decreased sports and music, friends and therapy helped. put on xanax by PCP at age 19. No IPLOC. Has tried multiple medications lexapro- pt doesn't recall why stopped vyvanse helped adderall- rebound agitation/anxiety ritalin- agitated/anxious/paranoid/wary Effexor jittery Zoloft jittery Paxil doesnt recall Prozac doesnt recall Pristiq for years, stopped working Xanax helped with panic and insomnia Ativan some help Wellbutrin jittery Clonazepam helpful lamictal- not helpful and early am waking Mental Status Exam Mental Status Exam Patient Appearance: Well Grooomed and Appropriate Patient Orientation: Person, Place, Time and Situation Level of Consciousness: Awake, Appropriate and Alert Patient Behavior: Appropriate and Cooperative Mood Description: Calm, Depressed and Cheerful (moderately) Affect Description: Withdrawn, Depressed, Anxious and Flat Patient Cognition Impaired: No Ability to Follow Directions: Good Speech Pattern: Clear and Appropriate Memory Description: Intact Hallucinations: None Delusions: Not Present Thought Process: Intact and Goal Oriented Thought Content: positive for Intact and positive for Goal Oriented Judgement: Good Telehealth Telehealth Telehealth Platform: Other (please specify) (hasmukh.) Location of provider rendering services: practice address Location of patient: address on file Patient Identification confirmed using: Name, : Yes Telehealth method: video Patient verbally consented to treatment: Yes Patient verbally consented to billing insurance company: Yes Patient informed of any privacy concerns related to visit: Yes Minutes spent on Phone/Video with Pt.: 30 Assessment and Plan Assessment & Plan (1) Major depressive disorder, recurrent episode, moderate degree: Status: Acute Code(s): F33.1 - Major depressive disorder, recurrent, moderate (2) ADHD: Status: Acute Qualifiers: Attention deficit-hyperactivity disorder type: predominantly inattentive Qualified Code(s): F90.0 - Attention-deficit hyperactivity disorder, predominantly inattentive type Code(s): F90.9 - Attention-deficit hyperactivity disorder, unspecified type (3) OCD (obsessive compulsive disorder): Status: Acute Qualifiers: Obsessive-compulsive disorder type: mixed obsessional thoughts and acts Qualified Code(s): F42.2 - Mixed obsessional thoughts and acts Code(s): F42.9 - Obsessive-compulsive disorder, unspecified Plan continue meds as per below pt will try vyvanse and message me if wants an alterantive discussed adderall as alternative and may need an extended release with a very low dose IR at end of day to reduce the rebound reaction follow up in 5-6 months soooner if needed Medications: Refilled trazodone 50 - 75 mg (1 - 1.5 x 50 mg) PO BEDTIME PRN 45 tabs 5RF for insomnia buspirone 7.5 mg PO BID 60 tabs 5RF vortioxetine (Trintellix) 20 mg PO DAILY 30 tabs 5RF lorazepam 0.5 mg PO DAILY PRN 30 tabs 3RF anxiety Counseling and coordination of Care Pt. Self Management counseling: Exercise (restorative yoga), Maintenance-social rhythm, Mod caffeine/ETOH intake, Nutrition education and improvement, Sleep hygiene and General coping skills Medication management counseling: Effectiveness, Side effects, Dosing range, Duration, Drug interaction and Adherence Diagnosis and Prognosis Counseling: Accuracy of diagnosis, Prognosis over time, Impact of diagnosis on life functions, Impact of family relationship, Problematic behaviors secondary to diagnosis and Adequacy of current interventions Details: I spent [] minutes reviewing the record, seeing the patient and documenting in the medical record. Counseling provided to the patient/caregiver as outlined below. Addressed patient/caregiver concerns regarding current medication regime including effective adherence. Addressed patient/caregiver concerns regarding diagnosis and prognosis including accuracy of diagnosis, prognosis over time, impact of diagnosis. Addressed patient/caregiver concerns regarding impact of recent stressors. 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
--- OUTSIDE RECORDS SUMMARY | 2024-05-30 19:25 | XMS_ITS | Data Portability ---
Author Organization [facility], Dip[employer]ar Address [address] [place] [address] [place] [address] Care Team Providers Care Form Worker Name Role Phone DOUGIE CRAIN Primary Care Provider IRA QUICK Referring Provider DOUGIE CRAIN Primary Care Provider IRA QUICK OTHER Assessment Encounter Date Assessment Date Assessment LastModified by Organization Details LastModified Time 11/11/2020 11/11/2020 IMPRESSION: Mid 2019 onset of brief intermittent right-sided high occipital electrical/spasm feeling, extending to daily hours long episodes that also include right jaw to center of forehead electrical/shakin g feeling. This is context many years of bilateral swollen/painful feeling jaws, with diagnosis of TMJ, now more on the right, helped partially but not sufficiently by nighttime prosthesis from dentistry. Medications reviewed from patient list: Trintellix 20 mg, BuSpar 20 mg, Lamictal ? f or anxiety, 75 mg, trazodone as needed 100 mg, [place] Thyroid 32 mg. Neurological exam is normal. This, together with her history makes worrisome neurological condition highly unlikely. She wonders about trigeminal neuralgia. This presentation does not suggest trigeminal neuralgia. It suggests uncomfortable/radha nful symptomatology in both the trigeminal and greater occipital nerve distributions. Muscular etiology is likely for her symptom complex. I find trigger points for her baseline jaw pain. I do not find trigger points for her electrical/spasm/ shaking-like right-sided symptoms. We discussed physical therapy for the former and physical therapy also for further assessment for the latter. She agrees to this. PLAN Demetria Rolle November 11, 2020 Physical therapy, with home exercises 5 times a day, for right greater than left jaw swollen painful feeling with masseter trigger points; and right-sided electrical feeling at\top of head, right jaw to center forehead that seems muscular but for which I cannot find trigger points. She is already wearing a mouth prosthesis at bedtime from dentistry with diagnosis of TMJ. Erica Rogers MBA, PT [address] [id number] [email or web address] We will send a referral to the physical therapist for physical therapy. It is your responsibility to make the initial phone call to the above number to set up an initial appointment Follow-up in 10 weeks [email or web address] Not available 11/11/2020 10:42:48 Plan of Treatment Reminders Order Date Submit Date Provider Last Modified By Organization Details Last Modified Time Details Appointments None recorded. Lab None recorded. Referral neurologic physical therapist referral - for myofascial release, with home exercises to be done at least 5 times a day for muscular part ofright greater than left jaw swollen painful feeling with masseter trigger points; and right-sided electrical feeling at\top of head, right jaw to center forehead that seems muscular but for which I cannot find trigger points. She is already wearing a mouth prosthesis at bedtime from dentistry with diagnosis of TMJ. 2020 021 mian 1 Erica Rogers PT, [address] [place], [address], 22:50:10 Procedures None recorded. Surgeries None recorded. Imaging None recorded. Medication Orders None recorded. Patient TargetsNo targets recorded. Patient InstructionsNo instructions recorded. Reason for Referral for myofascial release, with home exercises to be done at least 5 times a day for muscular part ofright greater than left jaw swollen painful feeling with masseter trigger points; and right-sided electrical feeling at\top of head, right jaw to center forehead that seems muscular but for which I cannot find trigger points. She is already wearing a mouth prosthesis at bedtime from dentistry with diagnosis of TMJ. Referring Physician: Emanuel Houston, Neurology, Encounter Date: 11/11/2020 Medical Equipment None Reported. Allergies Allergen ID Allergen Name Allergen Category Reaction Reaction Severity Criticality Documentation Date Start Date Code Code System Note Provider Name and Address Organization Details Recorded Time 405 Product containin g penicilli n (product) medicatio n Not available Not available Not available 11/11/2020 [id number] SNOMED [facility] 09:16:25 Medications Name Sig Start Date Stop Date Status Note LastModified by Organization Details LastModified Time valacyclovir 1 gram tablet active Not Available Not Availabl e Not Available ondansetron HCl 8 mg tablet TAKE 1 TABLET BY MOUTH EVERY 8 HOURS FOR 5 DAYS NEEDED active Not Available Not Available No t Available lamotrigine 25 mg tablet TAKE 3 TABLETS BY MOUTH DAILY active Not Available Not Available No t Available ketorolac 0.5 % eye drops INSTILL 1 DROP BOTH EYES ONCE DAILY active Not Available Not Available No t Available trazodone 100 mg tablet TAKE 2 TABLETS BY MOUTH AT BEDTIME active Not Available Not Available No t Available meclizine 25 mg tablet TAKE 1 TABLET BY MOUTH THREE TIMES DAILY FOR 5 DAYS NEEDED active Not Available Not Available No t Available doxycycline monohydrate 100 mg capsule TAKE 1 CAPSULE BY MOUTH TWICE DAILY FOR 7 DAYS active Not Available Not Available No t Available triamcinolone acetonide 0.1 % topical ointment APPLY THICKLY TO RASH IN RIGHT HAND UNDER OCCLUSION 1 HOUR AT NIGHT FOR NO MORE THAN 2 WEEKS active Not Available Not Available No t Available buspirone 10 mg tablet TAKE 2 TABLETS BY MOUTH TWICE DAILY active Not Available Not Available No t Available gabapentin 300 mg capsule TAKE 1 CAPSULE BY MOUTH EVERY NIGHT AT BEDTIME active Not Available Not Available No t Available [place] Thyroid 30 mg tablet active Not Available Not Available Not Available gabapentin 100 mg capsule TAKE 1 CAPSULE BY MOUTH EVERY NIGHT AT BEDTIME active Not Available Not Available No t Available lorazepam 1 mg tablet TAKE 1 TABLET BY MOUTH DAILY NEEDED FOR ANXIETY active Not Available Not Available No t Available cefuroxime axetil 500 mg tablet active Not Available Not Available Not Available propranolol 20 mg tablet active Not Available Not Available Not Available doxycycline hyclate 100 mg tablet active Not Available Not Available No t Available ketorolac 0.4 % eye drops INSTILL 1 DROP INTO BOTH EYES THREE TIMES DAILY FOR 2 WEEKS active Not Available Not Available No t Available bromfenac 0.09 % eye drops INSTILL 1 DROP INTO BOTH EYES EVERY DAY active Not Available Not Available No t Available [place] Thyroid active Not Available Not Available Not Available Lamictal active Not Available Not Avai lable Not Available BuSpar active Not Available Not Availa ble Not Available Trintellix 20 mg tablet TAKE 1 TABLET BY MOUTH DAILY active Not Available Not Available No t Available Trintellix active Not Available Not Av ailable Not Available Vitals Date Recorded Body height Body mass index (BMI) Body weight Respiratory rate Provider Name and Address Organization Details Last Updated DateTime 11/11/2020 157.48 cm 43.9 kg/m2 700922.1 7 g 12 [facility] 11/11/2020 09:19:03 Social History Question Answer Notes LastModified by Organizat ion Details LastModified Time Tobacco Smoking Status Never Smoker [facility] 11/11/2020 09:20:12 What Is Your Level Of Alcohol Consumption? Occasional Information not available 11/11/2020 What Is Your Level Of Caffeine Consumption? Moderate 1 Cup Information not available 11/11/2020 What Is The Highest Grade Or Level Of School You Have Completed Or The Highest Degree You Have Received? [id number] Information not available 11/11/2020 Which Of Your Hands Is Dominant? Right Information not available 11/11/2020 Sex: Unknown Functional Status None recorded. Mental Status None recorded. Family History Relationship Description Onset Age of this Age Resolved Age Notes LastModified by Organization Details LastModified Time Mother Headache [email or web address] Not avail able 11/11/2020 09:19:22 Medical History Condition Response Headaches Y Asthma Y Gynecological HistoryNo gynecological history recorded. 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 [id number] G51.31 Health Concerns Section Related Observation LastModified by Organization Detai ls LastModified Time None Recorded Concern Status LastModified by Organization Details LastModified Time None Recorded Advance Directives Directive None Recorded Payers Encounter Date Sequence Insurance Name Policy Number Policy Rosas Covered Member ID Rosas Member ID Guarantor Name 11/11/2020 1 [place] [employer] [place]) [id number] Demetria Heredia Sprague [id number] Demetria Darcie Notes Date Note Type Note Provider Name and Address Organization Details Recorded Time 11/11/2020 text/html She presents for right-sided jaw, right forehead and back of head electrical current-like discomfort. She is unaccompanied. Past history includes 2017 lumbar puncture for headaches and blurry vision after which pseudotumor cerebri was excluded, but also after which she had severe headache with nausea. Headaches went away with vision therapy for issues with eye teaming? for which she has consulted with [facility] who have referred her to our office. She has also previously seen neurologist Dr. Zhao for headache and tingling sensation. In ~2014, she was having headaches with blurry vision. There was suspicion of pseudotumor cerebri and lumbar puncture was done in 2016. There was no increased pressure to suggest pseudotumor cerebri, per patient. However, she had an extreme headache with nausea after the lumbar puncture. She started working with the vision therapist with diagnosis of issues with eye teaming. This has helped her headaches although it took a long time ? t hose headaches went away in ~late 2019. She also has a many year history of bilateral, symmetric jaw discomfort with clicking with opening her mouth. 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 The jaw discomfort is swollen and painful to touch and has usually been most prominent in the morning, often there at waking in the morning. It has ranged 4-7/10 intensity, with the most intense portion in the morning. By noon time the pain has been either gone or significantly less. However, she always has a tight feeling bilaterally in her jaws throughout the day. In mid 2019, ~1 year ago, she began having intermittent discomfort at the right back and top of her head distinct from the headaches that were going away with vision therapy. It felt like electrical current or spasm. Episodes lasted about 10 seconds. They did not really hurt but was annoying. By March 2020, symptoms had become daily and had extended to her right jaw with a feeling still of electrical current but also as shaking discomfort. The symptoms in her right jaw have tended to extend to the middle of her forehead. They are worse if she is walking or driving. Symptoms were intermittent throughout the day, sometimes lasting many hours, episodes always lasting at least 1 or 2 hours. She consulted with dentistry in spring 2020 who provided her with a retainer which she has been wearing for several months. It has helped both her symmetrical swollen/tender jaw symptomatology and her right-sided electrical/spasm/sha rupinder symptoms at the top back of her head and right jaw about 50%. The jaw pain that is worst in the morning is now less painful, only about 3-4/10. It is still always tight throughout the day. Her right-sided electrical current/spasm/shakin g jaw and head symptoms are about 50% less frequent. They had been only ~4 to 5 hours total per day as opposed to many more hours previously. Emanuel Houston MD [address] [place], [place] [address], [address], [facility]rology [facility] 11/11/2020 10:43:17 OBGyn Episode No OBEpisode recorded.
--- OUTSIDE RECORDS SUMMARY | 2024-05-30 19:25 | XMS_ITS | Data Portability ---
Author Organization [facility], , [facility] Address [address] [place] [address] Care Team Providers Care Load Out Person Name Role Phone AUREA KUHN OTHER RENATA SCOTT Sports Medicine SCOTT WEATHERS Primary Care Provider [phone] Assessment Encounter Date Assessment Date Assessment LastModified by Organization Details LastModified Time 04/05/2024 04/05/2024 Assessment : Session was productive today in reviewing and progressing HEP with goal of strengthening affected joint. Adductor slide was added today secondary to improved form and tolerance for right hip adduction. Pt demonstrates significantly poor kinesetic awareness and requires frequent cuing to complete HEP with appropriate form and specific dosageUsing isometric hip adduction was helpful at reducing maladaptive pelvic floor clenching. Please see procedure documentation for more details on today's session. The patient continues to require and will benefit from skilled intervention by a physical therapist to address impairments in order to achieve their identified goals. Plan : Progress HEP as tolerated. Goal Progress Comment Pt will demonstrate improved rating on Patient-Specific Functional Scale activities by 2 points (MCID). In progress Pt will be independent in comprehensive HEP. In progresss Pt will improve ability to complete x10 hip adductions in sidelying with no increase in pain In progress Pt will improve ability to walk at least 30 minutes with no increase in pain In progress Additional goals to be added as appropriate. Not available 04/05/2024 18:07:57 04/24/2024 04/24/2024 Assessment : Session was productive today in reviewing and progressing HEP with goal of strengthening affected joint. Eccentric adduction was added with goal of improving muscle capacity and tolerance. Please see procedure documentation for more details on today's session. The patient continues to require and will benefit from skilled intervention by a physical therapist to address impairments in order to achieve their identified goals. Plan : Progress HEP as tolerated. Goal Progress Comment Pt will demonstrate improved rating on Patient-Specific Functional Scale activities by 2 points (MCID). In progress Pt will be independent in comprehensive HEP. In progresss Pt will improve ability to complete x10 hip adductions in sidelying with no increase in pain In progress Pt will improve ability to walk at least 30 minutes with no increase in pain In progress Additional goals to be added as appropriate. Not available 04/24/2024 18:02:44 Plan of Treatment Reminders Order Date Submit Date Provider Last Modified By Organization Details Last Modified Time Details Appointments Same Day Appt, 2024 04:15P M Smita Tristan NP Not available Not available Not available LAB Follow-U p 2025 09:00A M [facility] Lab Not available Not available Not available Wellness Visit 30 2025 03:00P M Italo Bedolla MD Not available Not available Not available Lab BMP, serum or plasma 2024 025 [facility], [address] [place] [address], [id number], 04/26/2024 21:21:19 HbA1c (hemoglo bin A1c), blood 2024 025 [facility], [address] [place] [address], [id number], 04/11/2024 09:36:19 iron + total iron-bin ding capacity (TIBC), serum 2024 025 [facility], [address] [place] [address], [id number], 04/11/2024 10:38:12 ferritin , serum or plasma 2024 025 [facility], [address] [place] [address], [id number], 04/11/2024 11:14:41 vitamin B12, serum 2024 025 [facility], [address] [place] [address], [id number], 04/14/2024 13:50:31 CMP, serum or plasma 2024 025 [facility], [address] [place] [address], [id number], 04/11/2024 10:38:11 TSH, serum or plasma 2024 025 [facility], [address] [place] [address], [id number], 04/11/2024 11:26:48 T4, free, serum 2024 025 [facility], [address] [place] [address], [id number], 04/11/2024 11:14:40 Referral None recorded . Procedures None recorded . Surgeries None recorded . Imaging None recorded . Medication Orders None recorded . Patient TargetsNo targets recorded. Patient InstructionsNo instructions recorded. Reason for Referral None Reported. Results Created Date Observation Date Name Description Value Unit Range Abnormal Flag Note LastModifiedBy Organization Detail LastModifiedTime 04/10/1904/11/2024 HGB A1C hemoglobin A1C 5.6 % 4.8-6. 0 Goal: <7% in Patie nts with Diabe jayden An A1c betwe en 5.7-6 .4% is ident ified as pre-d iabet es and sugge sts risk for progr essio n to diabe jayden Two a1c value s of 6.5% or highe r is consi stent with a diagn osis of diabe jayden but may need furth er confi rmati on Not Available [address], [address], 04/11/2024 09:36:18 04/10/1904/11/2024 HGB A1C estimated average glucose 114.0 mg/dL Not Available [address], [address], 04/11/2024 09:36:18 04/10/1904/11/2024 COMP. METAB OLIC PANEL glucose 85 mg/dL 70-100 Not Available [address], [address], 04/11/2024 10:38:11 04/10/19 25 04/11/2024 COMP. METAB OLIC PANEL BUN 11 mg/dL 7-18 Not Available [address], [address], 04/11/2024 10:38:11 04/10/19 25 04/11/2024 COMP. METAB OLIC PANEL creatinine 0.7 mg/dL 0.8-1. 3 low Not Available [address], [address], 04/11/2024 10:38:11 04/10/19 25 04/11/2024 COMP. METAB OLIC PANEL B/C 15.7 ratio Not Available [address], [address], 04/11/2024 10:38:11 04/10/19 25 04/11/2024 COMP. METAB OLIC PANEL GFR >=60ML /MIN mL/mi n normal >=60m L/min - Marizol l or midly reduc ed <60mL /min- Decre ased kidne y funct ion <15mL /min - Kidne y failu re [facility] calcu lates estim ated Glome rular Filtr ation Rate (eGFR ) using the Chron ic Kidne y Disea se Epide miolo gy Colla borat ion (CKD- EPI) Equat ion (Nadege r et. al 2020) as recom ezequiel d by the Natio nal Kidne y Found ation . eGFR is based on age, serum creat inine , and sex. CKD-E PI does not calcu late eGFR by race, does not apply to child miladys (age <18 years ), and shoul d not be used in pregn bijan. Not Available [address], [address], 04/11/2024 10:38:11 04/10/19 25 04/11/2024 COMP. METAB OLIC PANEL sodium 142 mmol/ L 136-14 5 Not Available [address], [address], 04/11/2024 10:38:11 04/10/19 25 04/11/2024 COMP. METAB OLIC PANEL potassium 4.0 mmol/ L 3.5-5. 1 Not Available [address], [address], 04/11/2024 10:38:11 04/10/19 25 04/11/2024 COMP. METAB OLIC PANEL chloride 105 mmol/ L 96-107 Not Available [address], [address], 04/11/2024 10:38:11 04/10/19 25 04/11/2024 COMP. METAB OLIC PANEL anion gap 11.5 5.0-15 .0 Not Available [address], [address], 04/11/2024 10:38:11 04/10/19 25 04/11/2024 COMP. METAB OLIC PANEL CO2 26 mmol/ L 21-32 Not Available [address], [address], 04/11/2024 10:38:11 04/10/19 25 04/11/2024 COMP. METAB OLIC PANEL calcium 8.7 mg/dL 8.5-10 .3 Not Available [address], [address], 04/11/2024 10:38:11 04/10/19 25 04/11/2024 COMP. METAB OLIC PANEL total protein 7.0 g/dL 6.4-8. 2 Not Available [address], [address], 04/11/2024 10:38:11 04/10/19 25 04/11/2024 COMP. METAB OLIC PANEL albumin 3.5 g/dL 3.4-5. 0 Not Available [address] [place], [address], 04/11/2024 10:38:11 04/10/19 25 04/11/2024 COMP. METAB OLIC PANEL globulin 3.5 g/dL Not Available [address], [address], 04/11/2024 10:38:11 04/10/19 25 04/11/2024 COMP. METAB OLIC PANEL A/G 1.0 ratio 0.8-2. 0 Not Available [address], [address], 04/11/2024 10:38:11 04/10/19 25 04/11/2024 COMP. METAB OLIC PANEL total bilirubin 0.20 mg/dL 0.00-1 .00 Not Available [address], [address], 04/11/2024 10:38:11 04/10/19 25 04/11/2024 COMP. METAB OLIC PANEL AST 21 U/L 0-37 Not Available [address], [address], 04/11/2024 10:38:11 04/10/19 25 04/11/2024 COMP. METAB OLIC PANEL ALT 25 U/L 6-63 Not Available [address], [address], 04/11/2024 10:38:11 04/10/19 25 04/11/2024 COMP. METAB OLIC PANEL alk. phos. 88 U/L 50-136 Not Available [address], [address], 04/11/2024 10:38:11 04/10/19 25 04/11/2024 IRON PANEL iron 41 ug/dL 35-150 Not Available [address], [address], 04/11/2024 10:38:12 04/10/19 04/11/2024 IRON PANEL T.I.B.C. 383 ug/dL 250-45 0 Not Available [address], [address], 04/11/2024 10:38:12 04/10/19 25 04/11/2024 IRON PANEL % saturation 10.7 % Not Available Lesli johnson [address], [address], 04/11/2024 10:38:12 04/10/19 25 04/11/2024 FREE T4 free T4 0.82 NG/dL 0.75-1 .54 Not Available [address], [address], 04/11/2024 11:14:40 04/10/19 25 04/11/2024 YAO TIN ferritin 18 NG/mL 6-115 Not Available [address], [address], 04/11/2024 11:14:41 04/10/19 25 04/11/2024 TSH TSH 1.02 uIU/m L 0.50-6 .00 The Ameri can Colle ge of Endoc rinol ogy and Ameri can Thyro id Assoc iatio n recom mend goal TSH value s betwe en 0.4-4 .0 mIU/m L. Not Available [address], [address], 04/11/2024 11:26:48 04/10/19 25 04/14/2024 VITAM IN B12 vitamin B12 606 pg/mL 230-10 50 Not Available [address], [address], 04/14/2024 13:50:31 05/01/19 25 04/28/2024 CT, head, w/o contr ast No observ ation record ed. [address], [address], 05/13/2024 23:49:04 Result Notes None recorded. Problems Name Problem SNOMED Code Status Onset Date Resolution Date Notes Provider Name and Address Organization Details Recorded Time Joint pain in ankle and foot Completed 02/08/2013 Janki Gil [address], , [facility] [place], [place] 6 10:57:08 Morbid obesity 762676817 Active Janki Gil [address], , [facility] [place], [place] 6 10:57:08 Irritabl e bowel syndrome 48937005 Active Janki Gil [address], , [facility] [place], [place] 6 10:57:08 Asthma 743774136 Active Janki Gil [address], , [facility] [place], [place] 6 10:57:08 Irregula r periods 98126053 Active Janki Gil [address], [address] , [facility] [place], [place] 6 10:57:08 Galactor chadwick not associat ed with childbir th 73807716 Active Janki Gil [address], , [facility] [place], [place] 6 10:57:08 Abnormal weight gain 342650690 Active Janki Zhongwilbert Patelsriram [address], , [facility] [place], [place] 6 10:57:08 Acne 74879257 Active Janki Zhonguer Jeffery [address], , [facility] [place], [place] 6 10:57:08 Polycyst ic ovaries Active Janki Zhonguer Jeffery [address], , [facility] [place], [place] 6 13:00:02 Headache 51746210 Active Janki Bishop Gil, [address], [address] , [facility] [place], [place] 6 13:00:02 Depressi ve disorder 42233336 Active 2017 Janki Bishop Gil, [address], [address] , [facility] [place], [place] 8 13:04:32 History of adenomat ous polyp of colon 977886544 Active 2018 colonosc opy due 01/2024 Smita Tristan NP [address] [place] [address], [address] , [facility], [place] 0 20:09:40 Major depressi ve disorder 326049274 Active 2019 Jennifer Choudhury PA-C [address] [place] [address], [address] , [facility], [place] 0 13:19:21 Traumati c tear of left thigh adductor tendon Active 2023 SEFERINO LAZAR [address] [place] [address], [address] , [facility], [place] 4 09:53:08 Hypothyr oidism 68931571 Active 2024 DANY PONEC DO [address] [place] [address], [address] , [facility], [place] 5 13:51:11 Problem Notes None recorded. Procedures Surgical History Date Name Laterality Status Provider Name and Address Organization Details Recorded Time 04/24/19 43317: Therapeutic Exercise completed NIMO ELLIS DPT [address] [place] [address], [address], [facility], [place] 04/24/2024 17:31:25 04/24/19 25 07055: Neuromuscular Re-Education completed NIMO ELLIS DPT [address] [place] [address], [address], [facility], [place] 04/24/2024 17:31:25 04/24/19 25 Treatment and Advice completed NIMO ELLIS DPT [address] [place] [address], [address], [facility] [place], [place] 04/24/2024 18:01:50 04/05/19 52127: Therapeutic Exercise completed NIMO ELLIS DPT [address] [place] [address], [address], [facility], [place] 04/05/2024 18:05:45 04/05/19 08978: Neuromuscular Re-Education completed NIMO ELLIS DPT [address] [place], [address], [facility] [place], [place] 04/05/2024 18:05:41 04/05/19 Treatment and Advice completed NIMO ELLIS DPT [address] [place] [address], [address], [facility] [place], [place] 04/05/2024 18:07:30 03/20/20 24 38519: Therapeutic Exercise completed NIMO ELLIS DPT [address] [place] [address], [address], [facility] [place], [place] 03/20/2024 17:25:44 03/20/20 Treatment and Advice completed NIMO ELLIS DPT [address] [place] [address], [address], [facility], [place] 03/20/2024 18:06:15 03/16/20 24 64205: Therapeutic Exercise completed NIMO ELLIS DPT [address] [place] [address], [address], [facility], [place] 03/16/2024 10:35:48 03/16/20 24 Treatment and Advice completed NIMO ELLIS DPT [address] [place] [address], [address], [facility] [place], [place] 03/16/2024 10:35:40 03/06/20 24 Smoking Cessation Counselling completed NIMO ELLIS DPT [address] [place] [address], [address], [facility] [place], [place] 03/06/2024 18:11:48 03/06/20 Physical Activity Counselling completed NIMO ELLIS DPT [address] [place] [address], [address], [facility] [place], [place] 03/06/2024 17:39:04 03/06/20 01310: PT Eval Low Complexity completed NIMO ELLIS DPT [address] [place] [address], [address], [facility], [place] 03/06/2024 17:39:04 03/06/20 24 Treatment and Advice completed NIMO ELLIS, DPT [address] [place] [address], [address], [facility] [place], [place] 03/06/2024 18:11:07 02/15/20 24 Smoking Cessation Counselling cancelled NIMO ELLIS, DPT [address] [place], [address], [facility] [place], [place] 02/08/2024 08:29:33 02/15/20 24 Physical Activity Counselling cancelled NIMO ELLIS, DPT [address] [place] [address], [address], [facility] [place], [place] 02/08/2024 08:29:33 02/15/20 24 87782: PT Eval Low Complexity cancelled NIMO ELLIS, DPT [address] [place] [address], [address], [facility] [place], [place] 02/08/2024 08:29:33 02/15/20 24 Treatment and Advice cancelled ANNY LOYAT [address] [place] [address], [address], [facility], [place] 02/08/2024 08:29:33 01/03/20 16 59755: Therapeutic Exercise completed Breanne Daniel, PT [address] [place], [address], [facility], [place] 01/03/2016 15:28:32 01/03/20 16 40318: Manual Therapy completed Breanne Daniel, PT [address] [place], [address], [facility], [place] 01/03/2016 15:28:39 01/03/20 16 Treatment and Advice completed Breanne Daniel, PT [address] [place], [address], [facility], [place] 01/03/2016 12:41:12 12/25/19 16 57999: Therapeutic Exercise completed Breanne Daniel, PT [address] [place], [address], [facility], [place] 12/25/2015 10:48:44 12/25/19 16 Treatment and Advice completed Breanne Daniel, PT [address] [place] [address], [address], [facility], [place] 12/25/2015 10:35:50 12/18/19 16 POC Strep Testing completed Amanda Khan [facility] 12/18/2015 16:38:01 12/18/19 16 20675: E-Stim - Unattended completed Breanne Daniel, PT [address] [facility] [place], [address], [facility], [place] 12/18/2015 17:00:11 12/13/19 16 55241: Therapeutic Exercise completed Breanne Daniel, PT [address] [place], [address], [facility], [place] 12/13/2015 10:00:15 12/13/19 16 53926: Manual Therapy completed Breanne Daniel, PT [address] [place], [address], [facility], [place] 12/13/2015 10:00:15 12/13/19 16 Treatment and Advice completed Breanne Daniel, PT [address] [place], [address], [facility], [place] 12/13/2015 10:00:15 12/11/19 16 06831: Therapeutic Exercise completed Breanne Daniel, PT [address] [place], [address], [facility], [place] 12/11/2015 11:39:39 12/11/19 16 26193: Manual Therapy completed Breanne Daniel, PT [address] [place], [address], [facility], [place] 12/11/2015 11:39:53 12/11/19 16 Treatment and Advice completed Breanne Daniel, PT [address] [place], [address], [facility], [place] 12/11/2015 11:40:21 12/05/19 16 55928: Therapeutic Exercise completed Breanne Daniel, PT [address] [place], [address], [facility], [place] 12/05/2015 10:32:38 12/05/19 16 Treatment and Advice completed Breanne Daniel, PT [address] [place], [address], [facility], [place] 12/05/2015 10:30:09 12/03/19 16 03387: Therapeutic Exercise completed Breanne Daniel, PT [address] [place], [address], [facility], [place] 12/03/2015 15:24:27 12/03/19 16 Treatment and Advice completed Breanne Daniel, PT [address] [place], [address], [facility], [place] 12/03/2015 13:35:21 10/31/19 16 20159: PT Evaluation completed Ismael Walsh, PT [address] [place], [address], [facility], [place] 10/31/2015 07:35:11 07/01/19 16 POC Strep Testing completed Latosha Morrissey [facility] 07/01/2015 15:35:24 01/26/20 13 Nebulizer Tx completed Stephani Davis RN [facility] 01/25/2013 13:09:32 06/16/19 13 Asthma Control Test (12 + years old) completed Donaldo Davis [facility] 06/15/2012 14:13:02 06/04/19 13 Asthma Control Test (12 + years old) completed Jeannette Garg [facility] 06/03/2012 09:51:40 05/13/19 13 Asthma Control Test (12 + years old) completed Janki Gil, DOMESTIC VIOLENCE COUNSELOR-BC [address] [place], [address], [facility], [place] 05/13/2012 11:03:21 04/02/19 13 Nebulizer Tx completed Arnie Limon RN [facility] 04/02/2012 16:01:28 Imaging Results Imaging Date Name Status LastModified by Merly villanueva Details LastModified Time 04/28/2024 CT, head, w/o contrast completed [address], [address], 05/13/2024 23:49:04 Procedure Notes None recorded. Medical Equipment None Reported. Allergies Allergen ID Allergen Name Allergen Category Reaction Reaction Severity Criticality Documentation Date Start Date Code Code System Note Provider Name and Address Organization Details Recorded Time 921605 Product containin g penicilli n (product) medicatio n hives Not available Not available 11/13/2011 10245 8001 SNOMED Ernestine Hernandez MA [facility] 2 11:32:44 Medications Name Sig Start Date Stop Date Status Note LastModified by Organization Details LastModified Time amantadin e HCl 100 mg tablet 08/16 completed Not Available Not Available Not Available hydrocort isone 5 mg tablet TK 2 TS PO QD 11/14 completed Not Available Not Available Not Available cyclobenz aprine 10 mg tablet TK 1 T PO BID PRN 05/30 completed Not Available Not Available Not Available Preparati on H Hydrocort isone 1 % topical cream Apply 1 applicat ion twice a day by topical route for 7 days. 07/22 completed Not Available Not Available Not Available buspirone 5 mg tablet TK 1 T PO BID 11/14 completed Not Available Not Available Not Available metformin 500 mg tablet Take 1 tablet twice a day by oral route for 30 days. 11/03 completed Not Available Not Available Not Available Qvar 80 mcg/actua tion Metered Aerosol oral inhaler INHALE 2 PUFFS PO BID active Not Available Not Available No t Available bupropion HCl SR 150 mg tablet,12 hr sustained -release Take 1 tablet every day by oral route for 30 days. 12/06 completed Not Available Not Available Not Available nystatin 100,000 unit/mL oral suspensio n Take 5 mL 4 times a day by oral route for 5 days. 12/24 completed Not Available Not Available Not Available clonidine HCl 0.1 mg tablet TK 1 TO 2 TS PO HS PRN 05/23 completed Not Available Not Available Not Available doxycycli ne hyclate 100 mg capsule 05/16 completed Not Available Not Available Not Available ketoconaz ole 2 % shampoo APPLY TOPICALL Y TO THE SCALP 2 TO 3 TIMES WEEKLY 04/12 completed not taking 04/12/23 mk Not Available Not Available Not Available tizanidin e 2 mg tablet TK 1 T PO D HS 12/17 completed Not Available Not Available Not Available clindamyc in HCl 300 mg capsule Take 1 capsule twice a day by oral route for 7 days. 07/21 completed Not Available Not Available Not Available albuterol sulfate 2.5 mg/3 mL (0.083 %) solution for nebulizat ion INHALE VIAL Q 4 TO 6 HOURS PRN. active Not Available Not Available No t Available trazodone 50 mg tablet TAKE 1 - 1.5 TABLETS EVERY NIGHT AT BEDTIME NEEDED FOR INSOMNIA active Not Available Not Available No t Available cefpodoxi me 200 mg tablet TK 1 T PO BID FOR 7 DAYS 02/18 completed Not Available Not Available Not Available azithromy kiki 250 mg tablet TAKE 2 TABLETS (500 MG) BY ORAL ROUTE ONCE DAILY FOR 1 DAY THEN 1 TABLET (250 MG) TABLET (250 MG) BY ORAL ONCE DAILY FOR 4 DAYS 03/27 completed Not Available Not Available Not Available alprazola m 1 mg tablet TK 1 T PO QHS 12/06 completed 10/03/15- pt states dosage decrease to .5 mg-rb Not Available Not Available Not Available acetazola mide ER 500 mg capsule,e xtended release TK ONE C PO D 12/17 completed Not Available Not Available Not Available tizanidin e 4 mg tablet TK 1 T PO Q 8 H FOR 7 DAYS PRN 01/19 completed not taking Not Available Not Available Not Available acetazola mide 125 mg tablet TK 1 T PO BID 03/25 completed Not Available Not Available Not Available fluconazo le 150 mg tablet TAKE 1 TABLET BY MOUTH 1 TIME 03/03 completed Not Available Not Available Not Available sulfameth oxazole 400 mg-trimet hoprim 80 mg tablet 11/22 completed Not Available Not Available Not Available clomiphen e citrate 50 mg tablet TAKE 2 TABLETS BY MOUTH EVERY DAY FOR 5 DAYS 04/10 completed Not Available Not Available Not Available methylphe nidate 10 mg tablet TK 1 T PO BID. active Not Available Not Available No t Available valacyclo vir 1 gram tablet 03/26 completed no longer taking 11/06/20 BSL Not Available Not Available Not Available clarithro mycin 500 mg tablet TK 1 T PO BID 12/17 completed Not Available Not Available Not Available sumatript an 100 mg tablet TK 1 T PO D PRF MIGRAINE HEADACHE . MAY REPEAT DOSE AFTER 2 H UP TO A. MAXIMUM OF 2 PER DAY 10/02 completed Not Available Not Available Not Available hydrocodo ne 5 mg-acetam inophen 325 mg tablet TK 1 TO 2 TS PO Q 4 H PRN 01/19 completed not taking Not Available Not Available Not Available tretinoin 0.025 % topical cream APPLY PEA SIZED AMOUNT TOPICALL Y TO FACE AT BEDTIME FOR ACNE. FOLLOW WITH MOISTURI ZER 02/03 completed not taking 08/20/22 mk Not Available Not Available Not Available Nystop 100,000 unit/gram topical powder APPLY TOPICALL Y TO AFFECTED AREAS BID UNTIL CLEAR. active Not Available Not Available No t Available ondansetr on HCl 8 mg tablet TAKE 1 TABLET BY MOUTH EVERY 8 HOURS FOR 5 DAYS NEEDED 11/06 completed Not Available Not Available Not Available fluconazo le 200 mg tablet TK 1 T PO QD UTD 08/13 completed Not Available Not Available Not Available metronida zole 0.75 % (37.5 mg/5 gram) vaginal gel Insert 1 applicat orful every day by vaginal route for 5 days. 03/03 completed not current 02/25/24 tb Not Available Not Available Not Available ondansetr on HCl 4 mg tablet TAKE 1 TABLET BY MOUTH EVERY 6 HOURS NEEDED FOR NAUSEA 02/03 completed Not Available Not Available Not Available methylphe nidate 5 mg tablet TAKE 1/2 TABLET BY MOUTH THREE TIMES DAILY 03/03 completed not current 02/25/24 tb Not Available Not Available Not Available prednison e 20 mg tablet TAKE 2 TS PO QD FOR 4 DAYS 03/25 completed Not Available Not Available Not Available rizatript an 10 mg tablet TK 1 T PO QD PRN 12/06 completed Not Available Not Available Not Available clobetaso l 0.05 % topical cream Apply 1 applicat ion twice a day by topical route for 14 days. 10/12 completed Not Available Not Available Not Available phentermi ne 15 mg capsule 15mg by mouth once daily 08/20 completed Not Available Not Available Not Available acetazola mide 250 mg tablet TK 1 T PO D 12/17 completed Not Available Not Available Not Available sumatript an 50 mg tablet 1 tab with migraine may repeat in 2 hours no more than 4 tabs in 24 hours active Not Available Not Available No t Available topiramat e 25 mg tablet TK 2 TS PO TID 08/26 completed Not Available Not Available Not Available metronida zole 500 mg tablet TAKE 1 TABLET BY MOUTH TWICE DAILY FOR 7 DAYS. DO NOT DRINK ALCOHOL WHILE TAKING MEDICATI ON 02/03 completed Not Available Not Available Not Available lidocaine HCl 2 % mucosal jelly APPLY FOUR TIMES DAILY BY MUCOUS ROUTE NEEDED FOR 5 DAYS 10/12 completed Not taking anymore 07/22/21 JF Not Available Not Available Not Available ciproflox acin 250 mg tablet 07/22 completed Not taking anymore 07/22/21 JF Not Available Not Available Not Available olanzapin e 2.5 mg tablet 04/12 completed not taking 04/12/23 mk Not Available Not Available Not Available liothyron ine 5 mcg tablet TK 1 TO 2 TS PO UTD PER DAY 12/17 completed Not Available Not Available Not Available doxycycli ne monohydra te 100 mg tablet TK 1 T PO BID FOR 7 DAYS 11/14 completed Not Available Not Available Not Available tramadol 50 mg tablet TK 1 T PO BID FOR 7 DAYS PRN 03/25 completed Not Available Not Available Not Available amitripty line 50 mg tablet Take 1 tablet every day by oral route for 30 days. 09/10 completed Not Available Not Available Not Available triamcino lone acetonide 0.1 % topical cream APPLY A THIN LAYER TO THE AFFECTED AREA(S) BY TOPICAL ROUTE 2 TIMES PER DAY 11/14 completed Not Available Not Available Not Available lamotrigi ne 25 mg tablet TAKE 1 AND 1/2 TABLETS BY MOUTH DAILY 04/10 completed Not Available Not Available Not Available levothyro xine 75 mcg tablet TAKE 1 TABLET BY MOUTH EVERY DAY active Not Available Not Available No t Available ketorolac 0.5 % eye drops INSTILL 1 DROP INTO BOTH EYES TWICE DAILY 02/03 completed not taking 08/20/22 mk Not Available Not Available Not Available cyprohept adine 4 mg tablet TK 1 T PO TID FOR 14 DAYS 12/17 completed Not Available Not Available Not Available meloxicam 7.5 mg tablet 1 tablet daily 04/23 completed Not Available Not Available Not Available dextroamp hetamine sulfate ER 10 mg capsule,e xtended release TK 1 C PO BID. active Not Available Not Available No t Available Tessalon Perles 100 mg capsule Take 1 capsule 3 times a day by oral route for 7 days. 02/07 completed Not Available Not Available Not Available bupropion HCl 100 mg tablet TAKE 1 T PO QD active Not Available Not Available No t Available levothyro xine 88 mcg tablet TAKE 1 TABLET BY MOUTH EVERY DAY 04/10 completed Not Available Not Available Not Available alprazola m 0.5 mg tablet TK 1/2 TO 1 T PO QHS PRN 08/13 completed Not Available Not Available Not Available rifampin 300 mg capsule 03/25 completed Not Available Not Available Not Available propranol ol 10 mg tablet TK 1 T PO BID 08/16 completed Not Available Not Available Not Available alprazola m 0.25 mg tablet TK 1 TO 2 TS PO HS PRN. 08/13 completed Not Available Not Available Not Available amitripty line 25 mg tablet TK 3 TS PO QD 12/17 completed Not Available Not Available Not Available prednisol one acetate 1 % eye drops,bhargav pension 05/23 completed Not Available Not Available Not Available lorazepam 0.5 mg tablet TAKE 1 TABLET BY MOUTH DAILY NEEDED FOR ANXIETY 03/03 completed Not Available Not Available Not Available tamsulosi n 0.4 mg capsule 11/22 completed Not Available Not Available Not Available trazodone 100 mg tablet TAKE 1 TO 2 TABLETS BY MOUTH AT BEDTIME 07/30 completed not taking 04/12/23 mk Not Available Not Available Not Available amitripty line 10 mg tablet TAKE 4 TABLETs BY MOUTH EVERY DAY 12/06 completed 10/28/15-d tuscarora increase to 40 mg daily-rb Not Available Not Available Not Available meclizine 25 mg tablet TAKE 1 TABLET BY MOUTH THREE TIMES DAILY FOR 5 DAYS NEEDED 05/30 completed Not Available Not Available Not Available doxycycli ne monohydra te 100 mg capsule TAKE 1 CAPSULE BY MOUTH TWICE DAILY FOR 7 DAYS 05/30 completed Not Available Not Available Not Available flunisoli de 25 mcg (0.025 %) nasal spray USE 2 SPRAYS IN EACH NOSTRIL TWICE DAILY 05/23 completed Not Available Not Available Not Available erythromy kiki 5 mg/gram (0.5 %) eye ointment PLACE 0.5 INCHE RIBBON TO EDGE OF LOWER RIGHT EYE LID FOUR TIMES DAILY FOR 7 DAYS 03/03 completed finished course 10/13/23 Not Available Not Available Not Available tacrolimu s 0.1 % topical ointment APPLY TOPICALL Y TO THE AFFECTED AREA TWICE DAILY 04/10 completed Not Available Not Available Not Available buspirone 30 mg tablet TK 1 T PO EVERY NIGHT 08/20 completed Not Available Not Available Not Available triamcino lone acetonide 0.1 % topical ointment APPLY THICKLY TO RASH IN RIGHT HAND UNDER OCCLUSIO N 1 HOUR AT NIGHT FOR NO MORE THAN 2 WEEKS 03/26 completed Not Available Not Available Not Available nystatin 100,000 unit/gram topical cream APPLY TOPICALL Y TO AFFECTED AREA BID. active Not Available Not Available No t Available dexametha sone 4 mg tablet TK 1 T PO QD FOR 5 DAYS. 08/16 completed Not Available Not Available Not Available buspirone 10 mg tablet TAKE 2 TABLETS BY MOUTH TWICE DAILY 04/10 completed Not Available Not Available Not Available Qvar 40 mcg/actua tion Metered Aerosol oral inhaler INHALE 2 PUFFS INTO THE LUNGS BID active Not Available Not Available No t Available gabapenti n 300 mg capsule TAKE 1 CAPSULE BY MOUTH EVERY NIGHT AT BEDTIME 03/26 completed no longer taking 11/06/20 bsl Not Available Not Available Not Available sertralin e 25 mg tablet 04/10 completed Not Available Not Available Not Available buspirone 7.5 mg tablet TAKE 1 TABLET BY MOUTH TWICE DAILY active Not Available Not Available No t Available omeprazol e 20 mg capsule,d elayed release TAKE ONE CAPSULE BY MOUTH EVERY DAY 2011 active Not Available Not Available Not Avai lable diclofena c sodium 75 mg tablet,de layed release 03/25 completed Not Available Not Available Not Available monteluka st 10 mg tablet Take by oral route. 04/10 completed per teladoc note 03/29/22 Not Available Not Available Not Available codeine 10 mg-guaife nesin 100 mg/5 mL oral liquid Take 10 mL every 4 hours by oral route. 2012 active Not Available Not Available Not Avai lable bisacodyl 5 mg tablet,de layed release TK 4 TS PO 1 TIME THE DAY B PRO WITH 8 OUNCES OF WATER 05/23 completed Not Available Not Available Not Available mupirocin 2 % topical ointment MARCIAL SML AMT EXT AA TID 03/25 completed Not Available Not Available Not Available midodrine 2.5 mg tablet 05/23 completed Not Available Not Available Not Available furosemid e 20 mg tablet TK 1 T PO D 08/20 completed Not Available Not Available Not Available alprazola m 2 mg tablet TAKE 1 T PO Q NIGHT 08/16 completed Not Available Not Available Not Available Polebridge Thyroid 30 mg tablet 2 q am & 1 in the afternoo n 10/12 completed Not Available Not Available Not Available mirtazapi ne 15 mg tablet 03/26 completed Not Available Not Available Not Available gabapenti n 100 mg capsule TAKE 1 CAPSULE BY MOUTH EVERY NIGHT AT BEDTIME 03/26 completed no longer taking 11/06/20 BSL Not Available Not Available Not Available metoprolo l succinate ER 25 mg tablet,ex tended release 24 hr Take 1 tablet every day by oral route for 30 days. 05/30 completed Not Available Not Available Not Available clobetaso l 0.05 % topical ointment 04/10 completed Not Available Not Available Not Available lorazepam 1 mg tablet TAKE 1 TABLET BY MOUTH DAILY NEEDED FOR ANXIETY 02/03 completed stopped due to pregnanc y 08/20/22 mk Not Available Not Available Not Available azelastin e 137 mcg (0.1 %) nasal spray [place] 2 sprays twice a day by intranas al route. 04/10 completed per teladoc note 03/29/22 Not Available Not Available Not Available hydroxych loroquine 200 mg tablet TK 1 T PO QD 12/17 completed Not Available Not Available Not Available Tylenol-C odeine #3 300 mg-30 mg tablet Take 1 tablet every 6 hours by oral route as needed for 7 days. 02/28 completed Not Available Not Available Not Available ibuprofen 600 mg tablet TAKE 1 TABLET BY MOUTH EVERY 6 HOURS NEEDED FOR MODERATE PAIN 4-6. 03/03 completed not current 02/25/24 tb Not Available Not Available Not Available cefuroxim e axetil 500 mg tablet TK 2 TS PO BID 03/26 completed no longer taking 11/06/20 BSL Not Available Not Available Not Available letrozole 2.5 mg tablet TAKE 2 TABLETS BY MOUTH DAYS 5 TO 9 OF CYCLE 04/10 completed Not Available Not Available Not Available methylpre dnisolone 4 mg tablets in a dose pack TK UTD 01/19 completed not taking Not Available Not Available Not Available Adderall 7.5 mg tablet Take 1 tablet every day by oral route as directed . active Not Available Not Available No t Available dexametha sone 1.5 mg tablet Take 2 tablets twice a day by oral route as directed for 5 days. 01/19 completed Not Available Not Available Not Available propranol ol 20 mg tablet 1/2 qhs 03/26 completed Not Available Not Available Not Available clomipram ine 25 mg capsule TK 2 CS PO Q NIGHT active Not Available Not Available No t Available ketoconaz ole 2 % topical cream APPLY TOPICALL Y TO THE AFFECTED AREA EVERY DAY 10/12 completed Not Available Not Available Not Available ondansetr on 4 mg disintegr ating tablet DISSOLVE 1 TABLET BY MOUTH EVERY 6 HOURS NEEDED FOR NAUSEA. 02/03 completed Not Available Not Available Not Available fluticaso ne propionat e 50 mcg/actua tion nasal spray,bhargav pension USE 1 SPRAY IN EACH NOSTRIL QD UTD 07/14 completed Not Available Not Available Not Available metformin ER 500 mg tablet,ex tended release 24 hr TAKE 1 TABLET BY MOUTH TWICE DAILY. START WITH EVERY DAY WITH THE EVENING MEAL FOR 7 DAYS. INCREASE TO 2 TIMES A DAY TOLERATE D 04/12 completed 02/04/20 23 not taking LJP Not Available Not Available Not Available clotrimaz ole 1 % topical cream apply to affected area 2xd until clear 2013 active Not Available Not Available Not Avai lable fludrocor tisone 0.1 mg tablet TK 1 T PO D 05/23 completed Not Available Not Available Not Available naratript an 2.5 mg tablet TK 1 T PO QD 09/17 completed wants to talk about with you Not Available Not Available Not Available doxycycli ne hyclate 100 mg tablet 11/06 completed Not Available Not Available Not Available lamotrigi ne 100 mg tablet 05/23 completed Not Available Not Available Not Available risperido ne 0.5 mg tablet 11/22 completed Not Available Not Available Not Available naproxen 500 mg tablet TK 1 T PO BID FOR 7 DAYS 03/25 completed Not Available Not Available Not Available spironola ctone 50 mg tablet TAKE 1 TABLET BY MOUTH DAILY 03/03 completed 03/03/24 cc Not Available Not Available Not Available diazepam 5 mg tablet TAKE 1 TABLET VAGINALL Y DAILY AT BEDTIME 10/12 completed Not Available Not Available Not Available progester one micronize d 100 mg capsule INSERT 1 CAPSULE VAGINALL Y EVERY NIGHT AT BEDTIME 02/03 completed not taking 08/20/22 mk Not Available Not Available Not Available buspirone 15 mg tablet TAKE 1.5 TABLETS IN THE MORNING AND 1 TABLET AT NIGHT 04/12 completed 02/04/20 not taking this dose LJP Not Available Not Available Not Available oxycodone 5 mg tablet 11/22 completed Not Available Not Available Not Available hydroxyzi ne pamoate 25 mg capsule TAKE 1 CAPSULE BY MOUTH DAILY AT BEDTIME NEEDED FOR INSOMNIA TAKE 1 OR 2 CAPSULES NEEDED FOR SLEEP 04/12 completed 02/03/23 no longer taking LJP Not Available Not Available Not Available neomycin- polymyxin -hydrocor t 3.5 mg-10,000 unit/mL-1 % ear drops,bhargav p INSTILL 4 DROPS INTO AFFECTED EAR(S) BY OTIC ROUTE 3 TIMES PER DAY 11/14 completed Not Available Not Available Not Available clindamyc in 1 % lotion APPLY TOPICALL Y TO THE AFFECTED AREA EVERY NIGHT AT BEDTIME 04/10 completed Not Available Not Available Not Available Amphetami ne Salt Combo 10 mg tablet TK 1 T PO BID active Not Available Not Available No t Available sumatript an 6 mg/0.5 mL subcutane ous pen injector Inject 0.5 mL every day by subcutan eous route as needed for 10 days. 05/23 completed Not Available Not Available Not Available azithromy kiki 500 mg tablet TK 1 T PO QD 01/19 completed Not Available Not Available Not Available escitalop ella 10 mg tablet 04/12 completed 02/04/20 23 adjustin g dose currentl y Not Available Not Available Not Available Jaimie-BE 0.35 mg tablet Take 1 tablet every day by oral route continuo us (no missed days). Start on first day of menstrua l period. Missed dose: Take as soon as remember ed. A back up method of contrace ption should be used for 48 hours if dose is taken ?3 hours late.. 08/13 completed Not Available Not Available Not Available Strattera 60 mg capsule active Not Available Not Available Not Available cyclospor ine 0.05 % eye drops in a dropperet te 04/10 completed Not Available Not Available Not Available Ciprodex 0.3 %-0.1 % ear drops,bhargav pension INSTILL 4 DROPS INTO AFFECTED EAR(S) BY OTIC ROUTE 2 TIMES PER DAY FOR 7 DAYS 05/23 completed Not Available Not Available Not Available ketorolac 0.4 % eye drops INSTILL 1 DROP INTO BOTH EYES THREE TIMES DAILY FOR 2 WEEKS 03/26 completed Not Available Not Available Not Available escitalop ella 5 mg tablet TAKE 1 TABLET BY MOUTH DAILY 04/12 completed not taking 04/12/23 mk Not Available Not Available Not Available Topamax 50 mg tablet Take 1 tablet every day by oral route. 12/06 completed Not Available Not Available Not Available albuterol sulfate concentra te 2.5 mg/0.5 mL solution for nebulizat ion Inhale 0.5 mL every 4-6 hours by nebuliza tion route as needed. 2013 active Not Available Not Available Not Avai lable nitrofura ntoin monohydra te/macroc rystals 100 mg capsule TAKE 1 CAPSULE BY MOUTH TWICE DAILY 03/26 completed blurred vision Not Available Not Available Not Available duloxetin e 20 mg capsule,d elayed release TAKE 1 CAPSULE BY MOUTH DAILY 03/03 completed not current 02/25/24 tb Not Available Not Available Not Available duloxetin e 30 mg capsule,d elayed release TK 1 C PO QAM 03/25 completed Not Available Not Available Not Available duloxetin e 60 mg capsule,d elayed release TK 1 C PO QAM 11/14 completed Not Available Not Available Not Available Lutera (28) 0.1 mg-20 mcg tablet TK 1 T PO QD active Not Available Not Available No t Available progester one 100 mg vaginal supposito ry Once daily at bedtime 02/03 completed not taking 08/20/22 mk Not Available Not Available Not Available Flovent HFA 110 mcg/actua tion aerosol inhaler Inhale 1 puff twice a day by inhalati on route for 30 days. 06/12 completed Not Available Not Available Not Available bromfenac 0.09 % eye drops INSTILL 1 DROP INTO BOTH EYES EVERY DAY 03/26 completed no longer using 11/06/20 BSL Not Available Not Available Not Available amitripty line takes 20mg once daily 10/02 completed 10/03/15- pt states she is taking 40 mg.-rb Not Available Not Available Not Available ProAir HFA 90 mcg/actua tion aerosol inhaler INHALE 2 PUFFS INTO THE LUNGS EVERY 4 HOURS 03/03 completed prn Not Available Not Available Not Available Advair HFA 45 mcg-21 mcg/actua tion aerosol inhaler INHALE 2 PUFFS BY MOUTH TWICE DAILY 05/06 completed Not Available Not Available Not Available Advair HFA 115 mcg-21 mcg/actua tion aerosol inhaler INHALE 2 PUFFS BY MOUTH TWICE DAILY 2013 active Not Available Not Available Not Avai lable aripipraz ole 2 mg tablet TAKE 1 TABLET BY MOUTH AT BEDTIME 03/03 completed z Not Available Not Available Not Available budesonid e-formote rol HFA 80 mcg-4.5 mcg/actua tion aerosol inhaler Inhale 2 puffs twice a day by inhalati on route. 05/06 completed Not Available Not Available Not Available FeroSul 325 mg (65 mg iron) tablet TAKE 1 TABLET BY MOUTH DAILY 03/03 completed not current 02/25/24 tb Not Available Not Available Not Available [facility] roid 32.5 mg tablet TAKE 1 TABLET BY MOUTH TWICE A DAY 03/25 completed Not Available Not Available Not Available Vyvanse 20 mg capsule TK ONE C PO QAM 08/13 completed Not Available Not Available Not Available Vyvanse 40 mg capsule TK 1 C PO QAM 12/06 completed Not Available Not Available Not Available DexPak 6 Day 1.5 mg (21 tabs) tablets in a dose pack Take as directed by raegan 01/19 completed Not Available Not Available Not Available GaviLyte- G 236 gram-22.7 4 gram-6.74 gram-5.86 gram oral solution 05/23 completed Not Available Not Available Not Available benzoyl peroxide 5.3 % topical foam Apply sparingl y once daily to areas of acne; graduall y increase to 2-3 times/da y if needed. If excessiv e dryness or peeling occurs, reduce dose frequenc y or concentr ation. If excessiv e stinging or burning occurs, remove with mild soap and water; resume use the next day. 2014 active Not Available Not Available Not Avai lable azelastin e 205.5 mcg (0.15 %) nasal spray [place] 1 spray twice a day by intranas al route. 05/23 completed Not Available Not Available Not Available thyroid (pork) 15 mg tablet 03/25 completed Not Available Not Available Not Available ProChambe r USE DIRECTED active Not Available Not Available No t Available butalbita l-acetami nophen-ca ffeine 50 mg-300 mg-40 mg capsule TK 1 C PO Q 6 H 12/17 completed Not Available Not Available Not Available Dulera 100 mcg-5 mcg/actua tion HFA aerosol inhaler INHALE 2 PUFFS PO BID active Not Available Not Available No t Available Probiotic 1 capsule daily 11/22 completed Not Available Not Available Not Available [employer] Thyroid 60 mg tablet TK 1 AND 1/2 TS PO QD 1 HOUR B MEALS 11/22 completed Not Available Not Available Not Available Nature-Th roid 48.75 mg tablet TK 1 T PO BID 11/14 completed Not Available Not Available Not Available vilazodon e 10 mg tablet 04/10 completed Not Available Not Available Not Available Combivent Respimat 20 mcg-100 mcg/actua tion solution for inhalatio n INHALE 1 PUFF PO QID active Not Available Not Available No t Available Dry Mouth mucosal spray Take 1 spray by mucous route for 30 days. 12/06 completed Not Available Not Available Not Available Humulin N NPH U-100 Insulin KwikPen 100 unit/mL (3 mL) subcutane ous INJECT 2 UNITS UNDER THE SKIN ONCE AT BEDTIME 04/12 completed not taking 04/12/23 mk Not Available Not Available Not Available Biotene Dry Mouth Oral Rinse mouthwash Take 5 mL every 2 hours by mucous route for 30 days. 10/27 completed Not Available Not Available Not Available Fluvirin 6614-3746 45 mcg (15 mcg x 3)/0.5 mL intramusc ular suspensio n INJECT 0.5 ML INTRAMUS CULARLY DIRECTED . active Not Available Not Available No t Available lisdexamf etamine 10 mg capsule 03/27 completed Not Available Not Available Not Available desvenlaf axine succinate ER 25 mg tablet,ex tended release 24 hr TAKE 1 TABLET BY MOUTH DAILY 07/22 completed has not started yet 03/26/21 srp Not Available Not Available Not Available TriNessa Lo 0.18 mg/0.215 mg/0.25 mg-25 mcg tablet TK 1 T PO QD 12/17 completed Not Available Not Available Not Available Trintelli x 10 mg tablet TAKE 1 TABLET BY MOUTH DAILY 04/12 completed not taking this dosage 04/12/23 mk Not Available Not Available Not Available Trintelli x 20 mg tablet TAKE 1 TABLET BY MOUTH DAILY active Not Available Not Available No t Available Xiidra 5 % eye drops in a dropperet te INSTILL 1 DROP INTO BOTH EYES TWICE DAILY 07/22 completed Not taking anymore 07/22/21 JF Not Available Not Available Not Available FreeStyle Brianda 14 Day [place] USE ONCE DAILY FOR 14 DAYS active Not Available Not Available No t Available FreeStyle Brianda 14 Day Sensor kit USE DIRECTED active Not Available Not Available No t Available BD Nova 2nd Gen Pen Needle 32 gauge x 5/32 03/03 completed not current 02/25/24 tb Not Available Not Available Not Available BinaxNOW COVID-19 Ag Self Test kit TEST DIRECTED TODAY 03/03 completed not current 02/25/24 tb Not Available Not Available Not Available Vitals Date Recorded Body height Oxygen saturation Oxygen saturation in Arterial blood by Pulse oximetry Heart rate Systolic blood pressure Diastolic blood pressure Provider Name and Address Organization Details Last Updated DateTime 5 157.48 cm 99 % 99 % 94 /min 110 mm[Hg] 70 mm[Hg] Juanita Montiel [facility] 5 17:16:15 Date Recorded Body height Body mass index (BMI) Body weight Oxygen saturation Oxygen saturation in Arterial blood by Pulse oximetry Heart rate Systolic blood pressure Diastolic blood pressure Provider Name and Address Organization Details Last Updated DateTime 5 157.48 cm 50.8 kg/m2 517269. 68 g 99 % 99 % 97 /min 118 mm[Hg] 76 mm[Hg] Dora Metzger [facility] 5 13:38:02 Date Recorded Body height Heart rate Body mass index (BMI) Body weight Systolic blood pressure Diastolic blood pressure Provider Name and Address Organization Details Last Updated DateTime 5 157.48 cm 86 /min 50.7 kg/m2 665243. 09 g 126 mm[Hg] 66 mm[Hg] Raman Bhandari CMA [facility] 5 10:27:30 Social History Question Answer Notes LastModified by Organization Details LastModified Time Tobacco Smoking Status Never Smoker Ernestine Hernandez MA [facility], [facility] 11/13/2011 11:35:03 What Is Your Level Of Alcohol Consumption? Occasional Glass Of Wine Once A Month [email or web address] Information not available 03/27/2024 Do You Wear A Helmet When Biking? Yes [email or web address] Information not available 03/27/2024 What Is Your Level Of Caffeine Consumption? Moderate 1 Cup Of Coffee [email or web address] Information not available 08/15/2014 How Much Tobacco Do You Chew? None Information not available 06/21/2013 Are You Currently Employed? Yes Information not available 04/10/2022 What Type Of Diet Are You Following? REGULAR [email or web address] Information not available 03/27/2024 Which Illicit Or Recreational Drugs Have You Used? None [email or web address] Information not available 05/31/2015 Do You Or Have You Ever Used E-cigarettes Or Vape? 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 No Information not available 03/27/2024 How Many Days In The Past Year Have You Had A Heavy Drinking Consumption (4+ Female, 5+ Male)? 2 Information not available 08/07/2014 Are There Any Guns Present In Your Home? No Information not available 11/13/2011 Do You Use Insect Repellent Routinely? No [email or web address] Information not available 03/27/2024 Live Alone Or With Others? With Others Partner Jake And Two Dogs Information not available 05/13/2012 Patient Has Health Care Proxy Signed And In Chart No Declines Forms Information not available 11/13/2011 Marital Status Domestic Partner Girlfriend Jake [email or web address] Information not available 01/11/2015 Mosquito Repellent Used Routinely No Information not available 11/13/2011 What Was The Date Of Your Most Recent Tobacco Screening? 04/26/2024 [email or web address] Information not available 04/26/2024 How Many Children Do You Have? 0 Information not available 05/13/2012 Do You Use Your Seat Belt Or Car Seat Routinely? Yes [email or web address] Information not available 03/27/2024 Seat Belts Used Routinely Yes Information not available 11/13/2011 Are You Sexually Active? Yes Information not available 05/13/2012 Smoke Alarm In Home Yes Information not available 11/13/2011 Do You Have Smoke And Carbon Monoxide Detectors In Your Home? Yes [email or web address] Information not available 03/27/2024 Are You Passively Exposed To Smoke? No [email or web address] Information not available 03/27/2024 Do You Or Have You Ever Used Smokeless Tobacco? Never Used Smokeless Tobacco [email or web address] Information not available 05/24/2019 How Much Tobacco Do You Smoke? No Information not available 05/24/2019 General Stress Level High [email or web address] Information not available 08/21/2015 Do You Use Any Illicit Or Recreational Drugs? No Information not available 04/10/2022 Do You Use Sunscreen Routinely? No Information not available 11/13/2011 How Many Years Have You Smoked Tobacco? 0 [email or web address] Information not available 05/24/2019 Do You Or Have You Ever Used Any Other Forms Of Tobacco Or Nicotine? No spise Information not available 03/26/2021 Sex: Female Functional Status Question Answer Note LastModified by Organization D etails LastModified Time What is your exercise level? None [email or web address] Information not available 03/27/2024 Mental Status None recorded. Family History Relationship Description Onset Age of this Age Resolved Age Notes LastModified by Organization Details LastModified Time Father Hypertensive disorder previo usly record ed as Hypert ension [email or web address] Not available 05/31/2015 14:49:36 Father Acoustic neuroma resect ed 2006 [email or web address] Not available 05/31/2015 14:49:36 Father Glaucoma [email or web address] Not available 05/31/2015 14:49:36 Maternal Grandmother Malignant tumor of breast 50 60 previo usly record ed as Cancer -Breas t [id number] Not available 10/31/2012 03:01:22 Mother Endometriosi s [email or web address] Not available 2015 14:49:36 Notes:mental health Medical History Condition Response GASTROINTESTINAL Y Gynecological History Statement/Question Response Date of LMP 07/17/2021 LMP Approximate Obstetrics History GPAL:G 0 P 0 0 0 0 Immunizations Vaccine Type Date Status Note Provider Nam e and Address Organization Details Recorded Time Influenza, split virus, trivalent, PF 3 completed Not Available [facility]2019 02:39:32 [facility]dap 4 completed Not Available [facility] 04[facility]08[facility]2019 02:37:09 Influenza, split virus, trivalent, preservative 3 [facility]/25[facility]24 10:56:41 COVID-19, mRNA, LNP-S, PF, 30 mcg/0.3 mL dose 1 completed REKHA Espino [facility] 02/25/2024 10:56:56 COVID-19, mRNA, LNP-S, PF, 30 mcg/0.3 mL dose 1 completed [facility] 02/25/2024 10:56:56 Influenza, split virus, quadrivalent, PF 4 completed Obdulia Hatch MD [address] [place] [address], [address], [facility] [place], [place] 04/12/2023 17:03:44 Td (adult), 2 Lf tetanus toxoid, preservative free, adsorbed 5 completed [facility] 03/28/2024 08:38:39 COVID-19, mRNA, LNP-S, PF, 30 mcg/0.3 mL dose 1 completed [facility] 02/25/2024 10:56:56 Influenza, split virus, quadrivalent, preservative 2 completed [facility] 10/12/2021 11:06:45 influenza, unspecified formulation 2 completed MARTHA Herrera [facility] 04/10/2022 14:29:47 Influenza, MDCK, quadrivalent, PF 8 completed [facility] 02/25/2024 10:56:41 pneumococcal polysaccharide PPV23 4 completed [facility] 04/26/2024 10:32:09 Influenza, split virus, trivalent, preservative 6 completed [facility] 02/25/2024 10:56:41 Influenza, split virus, trivalent, preservative 4 completed [facility] 04/26/2024 10:32:09 Influenza, split virus, trivalent, preservative 0 completed [facility] 04/26/2024 10:32:09 Influenza, split virus, trivalent, PF 3 completed [facility] 04/26/2024 10:32:09 Influenza, MDCK, quadrivalent, PF 2 completed Krzysztof Vora [facility] 02/25/2024 10:56:56 Influenza, MDCK, quadrivalent, PF 2 completed Krzysztof Vora [place] [facility] 02/25/2024 10:56:56 COVID-19, mRNA, LNP-S, PF, 30 mcg/0.3 mL dose 1 completed Krzysztof Vora [place] [facility] 02/25/2024 10:56:56 Influenza, split virus, trivalent, PF 4 completed Krzysztof Vora [place] [facility] 02/25/2024 10:56:56 Past Encounters Encounter ID Performer Location Encounter Start Date Encounter Closed Date Diagnosis/Indication Diagnosis SNOMED-CT Code Diagnosis ICD10 Code Diagnosis Note [id number] , [facility], OFFICE [address] [place] [address] 11/13/2011 11:23:57 11/13/2011 12:09:46 [id number] Physical Therapy, [address] [address] 11/16/2011 13:36:55 11/17/2011 07:46:46 [id number] Nutrition -[address] [address] 11/17/2011 15:38:44 11/20/2011 13:07:01 [id number] Tino Hernandez , [facility], OFFICE [address] [place] [address] 02/22/2012 14:27:01 02/22/2012 15:23:44 [id number] Raman Silvestre MD , [facility], [address] [place] [address] 04/02/2012 15:07:33 04/04/2012 13:46:20 [id number] Makenzie NUR, [facility], [address] [place] [address] 04/14/2012 12:52:39 04/14/2012 14:11:21 [id number] Makenzie NUR, [facility], [address] [place] [address] 05/13/2012 10:25:11 05/13/2012 11:35:56 [id number] DESIREE Sy [facility], [address] [place] [address] 05/16/2012 13:52:30 05/16/2012 14:41:44 [id number] Anton Hart MD Radiology , [facility] [address] [place] [address] 05/16/2012 14:31:36 05/16/2012 14:39:46 [id number] DESIREE Sy [facility], [address] [place] [address] 05/18/2012 16:18:03 05/18/2012 16:52:38 [id number] Donaldo NUR [facility], [address] [place] [address] 06/03/2012 09:27:52 06/03/2012 10:43:18 [id number] [facility]ICE [address] [place] [address] 06/15/2012 13:59:46 06/15/2012 14:26:55 [id number] [facility] [address] [address] [place] [address] 09/28/2012 16:33:03 09/29/2012 10:07:55 [id number] [facility] OFFICE [address] [place] [address] 10/28/2012 15:57:16 10/28/2012 16:49:02 [id number] [facility] [address]ICE [address] [place] [address] 01/25/2013 11:44:57 01/25/2013 13:04:47 Influenza vaccine needed [id number] 106 Acute asthma 475223374 p t refusing steroids. benefit from nebulizer. advised q 6 hour treatments . follow up in 2 days. [id number] Makenzie NUR, [facility], [address] [place] [address] 01/31/2013 11:52:50 01/31/2013 12:56:33 Asthma 553244884 acute exacerbati on improving, however, pt continues with persistent symptoms. complaint with inhaler. notes increased anxiety with albuterol. does note improved aeration with nebulizer. follow up in 2 weeks. [id number] Erica Chavez LPN , [facility], [address] [place] [address] 04/20/2013 16:18:48 04/21/2013 09:30:15 Acute asthma 204822307 Suspect 2/2 URI vs bronchitis ; no wheezing, moving air fairly well, did not prescribe prednisone but this could be considered if syx worsening - she will call me or go to ED. She is very experience d w/r/t her asthma. Interested in neb - rx given. Candidiasis of mouth 82297367 Acute sinusitis 50057380 given persistenc e and descriptio n, likely ABRS. Discussed antibiotic s- she has tolerated azithromyc in in past and wishes to try again. Discussed supportive care. [id number] Mireille NUR, [facility], [address] [place] [address] 06/21/2013 08:38:22 06/22/2013 10:09:30 Examination for population survey [id number] Vaginitis and vulvovaginitis 060496580 consistent with BV. will trial metro gel. Hemorrhoids 10684836 pt to use preperatio n h at home for 2 weeks. [id number] REKHA Sun, [facility], [address] [place] [address] 07/08/2013 13:50:40 07/08/2013 14:43:47 Irregular periods 90736804 Vaginitis 25962479 Asthma 541024858 Tinea cruris 014832819 [id number] Erica Chavez LPN , [facility], [address] [place] [address] 07/14/2013 10:39:07 07/14/2013 15:18:28 Adult health examination 735382915 see Risk Assessment and Lifestyle Change Counseling section above. much of health examinatio n deferred due to acute n/v/d. however see below. up todate on routine screening. Counseling 481338162 Nausea and vomiting 28305509 acute onset. partner with same symptoms. Irregular periods 77737653 known. pcos. advised monitoring menses. consider ocps. pt to return to clinic to disucss further. does not want at this time. Morbid obesity 717612899 [facility]. Polycystic ovaries 44795881 Bacterial vaginosis 201515526 Asthma 941211672 followe d by allergy. does not tolerate previously prescribed inhaled steroids. candidate for xolair, however, insurance declined. discussed importance of prevention and steroid for maintenanc e. pt verbalized understand ing. follow up in 1 month sooner prn. [id number] , [facility], [address] [place] [address] 07/15/2013 14:14:00 07/15/2013 15:00:31 Diarrhea 80473788 Likely viral gastroente ritis. No clinical evidence of acute abdomen. Advised to ample hydration. Recommende d to continue Pedialyte, apple juice and/or Gatorade. BRAT diet discussed. OK to use Zofran and Gas-X as needed for her symptoms. Preparatio n-H 1% cream as needed for anal irritation . Also recommende d Sitz bath with Epsom salt. Patient is hemodynami jessy stable. Will check C. diff toxin. Advised to hold off on resuming Clindamyci n. Advised to contact the clinic with any worsening symptoms. Indication s for UC/ER use discussed. [id number] Erica Chavez LPN , [facility], [address] [place] [address] 08/01/2013 14:18:35 08/01/2013 15:07:57 Pharyngitis 574076763 given duration and negative strep wilil check for mono. Candidiasis of mouth 51767635 possible early thrush. will treat accordingl y. advised rinsing out mouth. Asthma 419513400 followe d by allergy. does not tolerate previously prescribed inhaled steroids. candidate for xolair, however, insurance declined. discussed importance of prevention and steroid for maintenanc e. pt verbalized understand ing. follow up in 1 month sooner prn. Conjunctivitis 3700232 r ight eye conjunctiv itis. [id number] Jeannette Garg MA , [facility], [address] [place] [address] 08/04/2013 13:34:04 08/04/2013 14:08:57 Morbid obesity 389813014 BMI at 48. interested in nutrition referral. Intertrigo 24248120 to a pply to perineum prn. Vaginitis 56306802 givne persistent symptosm will trial diflucan. Irritable bowel syndrome 87142738 advised consistent use of metameucil . Polycystic ovaries 05503854 does not meet criteria for metabolic syndrome. visulaliza tion of ovaries occured when gallbladde r removed. not interseted in ocps or at this time. may have clinical benefit from metformin will discuss with endocrine. Asthma 469197939 followe d by allergy. does not tolerate previously prescribed inhaled steroids. candidate for xolair, however, insurance declined. pt to change to advair. follow up in 2 months. sooner prn. . [id number] REKHA Sun, [facility], [address] [place] [address] 10/04/2013 10:23:58 10/04/2013 11:28:28 Asthma 075764525 followed by allergy. does not tolerate previously prescribed inhaled steroids. candidate for xolair, however, insurance declined. will refer to pulmonolog y for xolair. Polycystic ovaries 08597737 does not meet criteria for metabolic syndrome. visulaliza tion of ovaries occured when gallbladde r removed. interested in metofrming . Vaginitis 87597103 consi stent with bv and yeast. [id number] REKHA Sun, [facility], [address] [place] [address] 10/31/2013 09:58:46 10/31/2013 12:39:02 Richard [id number] Okay to restart ortho tri cyclen lo. If any issues d/c and RTC. [id number] REKHA Sun, [facility], [address] [place] [address] 11/06/2013 11:26:07 11/06/2013 12:11:41 Asthma 064502909 followed by allergy. does not tolerate previously prescribed inhaled steroids. candidate for xolair, however, insurance declined. will refer to pulmonolog y for xolair. Polycystic ovaries 90789510 does not meet criteria for metabolic syndrome. visualizat ion of ovaries occurred when gallbladde r removed. has not been taking metformin consistent ly. advised trial. Generalize d anxiety disorder 88729628 stable on current medication regimen for years. will bridge until pt gets new psychiatri st. to call with scheduled appointmen t. Major depr essive disorder 996490169 Pharyngitis 918094913 wo rks with young children. rule out strep. [id number] Carmen Cassidy , [facility], [address] [place] [address] 12/19/2013 15:01:06 12/20/2013 10:59:07 Administration of diphtheria, pertussis, and tetanus vaccine 104129434 Administra tion of pneumococcal vaccine 16748149 [id number] Latosha fisher MA , [facility], [address] [place] [address] 05/04/2014 17:44:58 05/08/2014 13:09:13 Acute sinusitis 23973001 Asthma 692432501 [id number] Hilary Garcia , [facility], [address] [place] [address] 07/03/2014 09:58:40 07/04/2014 08:03:10 Asthma 673338332 Sinusitis 19096512 Sinus infection causing increased asthma sx. Pt with PCN allergy (hives when an infant). Will treat as below with vantin bid. Enc. probiotics while on the vantin. Enc. force fluids, cont. the nasal saline spray, steam inhalation , adequate rest and f/u prn if not gradually improving or sx worsening. Pt comf. with this plan. [id number] Juan A Klein MD , [facility], [address] [place] [address] 08/07/2014 09:06:47 08/09/2014 09:24:12 Asthma 099518827 stable. encouraged compliance Dysuria 19999472 likely secondary to BV. pt also reports frequency. bs WNL. reassuranc e provided. Bacterial vaginosis 430837159 consistent with BV. will send metrogel rx, though pt due for menses so may opt to wait to see if symptoms resolve without interventi on. [id number] Janki Gil, [employer]O-[employer]ARLINE , [facility], [address] [place] [address] 08/14/2014 10:59:23 08/15/2014 09:16:04 Discharge from nipple 07170350 guiac negative. bilateral clear/stra w liquid, no s/s of infection, no changes to medication s. quite bothersome to pt. labs ordered below. will refer to endocrine if symptoms persist despite normal labs, case reviewed with Dr. Bedolla. [id number] Teena BlackmanSASABE, [place] Endocrino logy, [address] [address] 08/15/2014 09:49:05 08/15/2014 11:16:32 Irregular periods 51572400 Galactorrh ea not associated with childbirth 35019166 -repeat prolactin off of chlorproma zine in the future if prolactin high now Abnormal weight gain 255145081 -scheduled eating, work on reducing binging Acne 95212199 [id number] Smita Colonuntain Endocrino logy, [facility] [address] [place] [address] 10/19/2014 09:01:14 10/19/2014 17:18:57 Galactorrhea not associated with childbirth 71173591 Abnormal weight gain 481285315 -scheduled eating, work on reducing binging Acne 62938612 Polycystic ovaries 27262578 [id number] [facility], [address] [place] [address] 11/03/2014 13:13:45 11/03/2014 14:06:23 Diarrhea 28132747 Dehydration 23249119 mil d Nausea 607397458 [id number] [facility], [address] [place] [address] 11/07/2014 16:03:11 11/12/2014 09:02:36 Abdominal pain 57247378 recent bout of diarrhea after camping, symptoms may indicate giardia, however onset is not consistent with exposure and patient is not acutely ill. reasonable to await culture, pt comfortabl e with plan [id number] Carmen Cassidy , [facility], [address] [place] [address] 01/11/2015 17:14:22 01/14/2015 09:28:45 Dog bite of hand 329145010 S61.451D dog bite very late Wednesday started doxycyclin e Wednesday onoing pain and swelling, drainage from bite site, less swelling, no new erythema wound cleansed today with warm water, soap, gentle abrasion with guaze, dressing applied instr to keep covered and continue abx instr to call if systemic sx or if wound becomes more painful, swollen or erythema streaking out from wound pt aware of precaution s with dog to keep self and community safe pain mgmt with Tylenol or ibuprofen [id number] Carmen Cassidy , [facility], [address] [place] [address] 02/27/2015 10:56:48 03/04/2015 16:32:55 Asthma 061646521 J45.909 not acting up with this illness hasn't needed breakthrou gh inhaler since cold sx began reassuring lung exam Pharyngitis 676217048 J0 2.9 Viral syndrome 373416575 B34.9 strep negative malaise and body aches flu vs URI supportive care note for school as needed advised OTC meds, no combo products, tx individual sx as needed continue ibuprofen see pt instr. [id number] Amy NUR, [facility], [address] [place] [address] 05/22/2015 12:02:53 05/29/2015 09:17:06 Migraine 26049465 G43.909 pt with symptoms consistent with ocular migraines, has been evaluated by opthomolog y. pt undergoing treatment for fatigue, hesitant to use beta larissa due to s/e profile consider adding amitryptil ine or topamax but due to potential interactio n with psychiatri c meds will consult with psychjusto dye in the interim trial magnesium, and maximizing supportive measures for sinus symptoms. [id number] Jennifer Galeano Endocrino logy, [facility] [address] [place] [address] 05/31/2015 14:21:34 05/31/2015 16:16:46 Polycystic ovaries 04177244 E28.2 Galactorrh ea not associated with childbirth 51130512 N64.3 Abnormal weight gain 161 409741 R63.5 Obesity 025229705 E66.9 -add topiramate 25mg (1 tab) once daily for a week then 25mg (1 tab) twice daily thereafter ; if stopping, first decrease to 25mg daily for a week then stop -add phentermin e 15mg by mouth once daily [id number] Amy Coburn , [facility], [address] [place] [address] 05/31/2015 17:05:11 06/04/2015 12:23:51 Photosensitivity 66571279 L56.8 Diplopia 00508411 H53.2 photo sensitivit y, progressiv e blurriness of vision, intermitte nt headaches. r/o MS. case reviewed with Dr. Bedolla and Dr. iSlvestre. [id number] Janki Gil, DAYO-DARLINE , [facility], [address] [place] [address] 06/04/2015 09:05:45 06/05/2015 15:39:46 Visual disturbance 13596613 H53.9 MRI scheduled for , no s/s of increased intracrani al pressure, no peripheral weakness. no visual field loss. BS at goal. await results, if symptoms worsen, pt to go to ER. Nausea 414726926 R11.0 low dose as needed for symptom. [id number] Amy Coburn , [facility], [address] [place] [address] 06/07/2015 15:09:39 06/10/2015 08:36:42 Migraine 63532648 G43.909 pt has had progressio n of intermitte nt photophobi a and associated blurred vision to constant photophobi a, constant blurred vision, and intermitte nt diplopia. MS MRI negative, glucose WNL, two evaluation s from opthamolog y reassuring . upcoming evaluation with neurology. despite constant symptoms will trial treatment for ocular migraines. reviewed med options, (amitrypti line recommende d per Dr. Sarabia). Given endocrine recently prescribed topamax for weight loss and pt has not yet started, will use topamax as migraine prevention medication as well. dosing from endocrine appropriat e for migraine prophylaxi s. pt to update on 3-4 days and has visit with neurology in 2 weeks. [id number] Raman Herrera MD , [facility], [address] [place] [address] 06/13/2015 14:36:31 06/13/2015 16:57:43 Abnormal weight gain 335924599 R63.5 Migraine 98966815 G43.90 9 [id number] Amy Coburn , [facility], [address] [place] [address] 07/01/2015 15:21:51 07/03/2015 10:17:18 Acute sinusitis 80705857 J01.90 Enc. force fluids, steam inhalation prn and take antibiotic as prescribed , probiotics enc. F/u if not improving or sx worsening. Eruption 332920873 R21 Dry eczematous appearing rash on left cheek. Will try sl. stronger steroid cream for the next 7-10 days only F/u if not resolving. Epidermoid cyst of hand 461700873 L72.0 1-2 mm raised round cyst on palm of right hand with no erythema - reassured. IF growing or sx becoming more painful, f/u here [id number] [facility] [address]ICE [address] [place] [address] 07/05/2015 13:32:39 07/09/2015 10:21:00 Hypersomnia 79968319 G47.10 pt reports longtime fatigue, will repeat sleep study. Active or passive immunization 780011624 Z23 labs as needed for school. 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 [id number] Amy Coburn [facility], [address] [place] [address] 07/22/2015 16:07:15 07/24/2015 12:58:03 Disorder of vision 50971949 H53.9 working diagnosis for neurology of pseudotumo r, interested in second opinion as pt is planning to start graduate school and limited improvemen t in symptoms despite treatment. [id number] Janki Gil, [employer]AR[employer] , [facility], [address] [place] [address] 07/23/2015 14:02:20 07/25/2015 09:28:09 Blurring of visual image 143092987 H53.8 8 months of blurry vision, pt has had evaluation from opthomolog y, neurology, two LPs, MRI, CT. uncertain diagnosis of pseudotumo r , no improvemen t in symptoms as pt plans to attend graduate school in a few months, pursuing second opinions. [id number] Stew Sarabia MD , [facility], [address] [place] [address] 08/17/2015 11:02:46 08/17/2015 12:17:03 Migraine without aura 50377872 G43.009 discussed care with pt rcomend f/u with Dr Josh hawley and janki Gil discussed alternativ es - will try imitrex and will restart amitrip at 10 mg and work slowly up to 30 mg [id number] Janki Gil, [employer] , [facility], [address] [place] [address] 08/21/2015 10:32:07 08/22/2015 11:38:34 Adult health examination 779730030 Z00.01 see Risk Assessment and Lifestyle Change Counseling section above. pap completed by outside provider. Headache 78442183 R51 6 months of debilitati ng headaches, associated photophobi a, blurry vision, initially dx with pseudotumo r, now thought to be complex migraine syndrome. pt has delayed graduate school due to disability from these headaches. Nausea 316592202 R11.0 low dose as needed for symptom. Polycystic ovaries 18388 008 E28.2 pt with PCOS and inability to lose weight. pt associates this with inhaled steroids for asthma. Obesity 289971285 E66.9 pt is currently struggling with weight loss, delayed medication management due to migraine symptoms. Depressive disorder 3548 9007 F32.9 pt in care with psychiatry . [id number] Sandro Plasencia , [facility], [address] [place] [address] 08/27/2015 16:34:24 08/28/2015 13:04:28 Chronic headache disorder 654392520 G43.719 had a diagnosis of pseudotumo r cerebri; now ahs seen neurophtho and he does not think so; currently on topamax with she thinks minimal effect, metoprolol , likewise minimal if any effect; diamox not indicated if not pseudotumo r; and just started amitriptyl ine, expect 4-6 weeks for that to help. suggest stopping topamax (taper) diamox (stop) and metoprolol (stop). follow up in 4 weeks to see how amitriptyl tejas is working; if no effective could try depakote and then verapamil (in my opinion) after Stopping amitriptyl tejas if ineffectiv e. Migraine 52205584 G43.90 9 since Sat vision is blurry, waxing and waning; also pressure on one side of head, can move to a couple of places. Imitrex was working, but is not any more really. Hand pain 71619391 M79.6 41 dog bite, led to cyst [id number] Italo Bedolla MD , [facility], [address] [place] [address] 09/18/2015 08:48:26 09/18/2015 09:40:02 Morbid obesity 200884749 E66.01 was 180 lbs in high school; currently really unable to exercise well; will work on getting back down to 200 lbs slowly Major depr essive disorder 672347991 F32.0 resoved now. Migraine 89252795 G43.90 9 increase amitriptyl ine; see what happens with headaches. naratripta n has become ineffectiv e; try anotehr triptan Environmental allergy 42 [id number] T78.49XA continue montelukas t Acute sciatica 363557960 M54.31 ibuprofen, ice and PT [id number] Italo Bedolla MD , [facility], [address] [place] [address] 10/03/2015 10:10:26 10/03/2015 11:00:28 Knee pain 92795403 M25.562 unclear cause; have SPorts help generate differenti al; refer to ID as concern about Lyme/otehr ID cause is valid despite recent negative test Headache 80242365 R51 newly much more active, visual changes are crippling, send to [facility] for anotehr opinion Disease of mouth 5193956 08 K13.70 cannot toelrate dry mouth causing such morbid side effects; speak with pahrmacist about which meds to target to stop; we will prioritize those as so far no meds have been curative for ehr; try reducing meds and see how she does [id number] Janki Gil, DAYO-DARLINE , [facility], [address] [place] [address] 10/28/2015 10:06:39 10/28/2015 11:19:25 Menorrhagia 740732222 N92.0 heavy mesnes, interested in exercise and tapering amitryptli ne. interested in endocrine input, hesitant to resume ocps due to possibilit y of weight gain and headache. not interested in IUD at this time. Metabolic syndrome X 237 627788 E88.81 [id number] Ismael Walsh , PT Physical Therapy, [facility] [address] [place] [address] 10/31/2015 07:07:12 11/01/2015 07:19:07 Low back pain 261283932 M54.5 [id number] Breanne robert, PT Physical Therapy, [address] [address] 12/03/2015 13:05:12 12/03/2015 15:30:18 Low back pain 638276671 M54.5 [id number] Breanne robert, PT Physical Therapy, [address] [address] 12/05/2015 10:05:49 12/05/2015 10:36:27 Low back pain 110718728 M54.5 [id number] Mary Ellen Weiss NP FP, [facility], [address] [place] [address] 12/07/2015 10:41:40 12/07/2015 11:55:16 Sciatica 75280976 M54.31 worsening sciaticawi ll tx with dexPak 6 day- does not do well with prednisone also given flexeril 10 mg- aware of potential side effectsc/w PT Morbid obesity 747419986 E66.01 BMI 45understa nds impact of weight on backwill work on exercise as sxs improve [id number] Breanne robert, PT Physical Therapy, [facility] [address] [place] [address] 12/11/2015 09:03:13 12/11/2015 12:42:54 Low back pain 133490369 M54.5 [id number] Breanne robert, PT Physical Therapy, [facility] [address] [place] [address] 12/11/2015 09:41:57 12/11/2015 10:35:44 [id number] Breanne robert, PT Physical Therapy, [address] [address] 12/13/2015 09:39:06 12/13/2015 10:11:22 Low back pain 383728415 M54.5 [id number] Breanne robert, PT Physical Therapy, [address] [address] 12/18/2015 12:37:50 12/19/2015 07:13:06 Low back pain 764866844 M54.5 [id number] , [facility], OFFICE [address] [place] [address] 12/18/2015 16:01:44 12/19/2015 09:06:09 Inflammation of sacroiliac joint 79318678 M46.1 4 months of right lower extremity pain. was treated for sciatica, however no improvemen t with PT, rest or prednisone . recent fall. now worsening SI joint pain, requesting MRI. outside notes and images reviewed. 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 rapid negative. [id number] Breanne robert, PT Physical Therapy, [address] [address] 12/25/2015 09:59:15 12/25/2015 10:54:56 Low back pain 268037722 M54.5 [id number] Breanne robert, PT Physical Therapy, [address] [address] 01/03/2016 12:29:53 01/03/2016 16:04:29 Low back pain 076656211 M54.5 [id number] Breanne robert, PT Physical Therapy, [address] [address] 01/10/2016 08:08:23 01/10/2016 10:36:18 Low back pain 607685089 M54.5 [id number] Breanne robert, PT Physical Therapy, [address] [address] 01/15/2016 10:05:38 01/15/2016 11:14:17 Low back pain 205794769 M54.5 [id number] Breanne robert, PT Physical Therapy, [address] [address] 01/17/2016 10:05:54 01/17/2016 14:25:42 Low back pain 725921827 M54.5 [id number] Luna Holley LPN , [facility], [address] [place] [address] 01/20/2016 13:48:53 01/22/2016 14:19:17 Tachycardia 8105669 R00.0 unclear cause, check Holter Sacroiliac joint pain 20 7681973 M53.3 re-refer to , sx have returned, PT not working. [id number] June [facility]. LENKA FP, [facility], [address] [place] [address] 01/24/2016 17:23:34 01/27/2016 11:56:43 Tachycardia 8561585 R00.0 unclear cause, check Holter [id number] Breanne robert, PT Physical Therapy, [facility] [address] [place] [address] 01/29/2016 12:31:20 01/29/2016 13:53:27 Low back pain 176133499 M54.5 [id number] Breanne robert, PT Physical Therapy, [facility] [address] [place] [address] 02/25/2016 09:10:33 02/25/2016 12:56:08 Low back pain 279667837 M54.5 [id number] Demetria Daly MD FP, [facility], [address] [place] [address] 08/13/2016 09:49:21 08/13/2016 11:21:33 Acute low back pain 328738599 M54.5 ? positional after colonic hydrothera py. Neuro exam normal. No red flags. Tx acutely with NSAIDs. Tramadol as needed for severe pain. Advsied f/u with pcp and call if any weakness, numbness, fevers, incontinen ce. Discussed indication s for new opiod presciptio n, risks and benefits of medication , common side effects and how to manage, and reasons to notify prescriber of adverse effects or discontinu ation. Do not take with alcohol, other sedating medication s or recreation al drugs, do not operate machinery or drive while taking. Bowel regimen reviewed. Recommend saurabh softener like doccusate (colace) 100 mg twice a day. May add a powdered laxative like Miralax or glycolax 1 capful a day mixed with coffee, tea, or juice as needed. These medication s are available over the counter. Mass pat reviewed. Morbid obesity 034342312 E66.01 Low back pain 036309750 M54.5 Discussed pathopysio logy of acute back pain/strai n/lumbago. Natural history of gradual resolution over weeks to months reviewed. Recommend PT for review of ergonomics , strengthen ing, stretching , and modalities . May use over the counter nonsteroid al anti-infla mmatories as needed for pain; I suggest Ibuoprofen 400-600 mg every 6 hours with food or Alleve 1-2 tabs twice a day with food unless contraindi cations exist. Discussed risks and benefits of muscle relaxants like cyclobenza alec. They can cause dizziness and sleepiness . They should not be mixed with alcohol or sedating drugs. Those under their influence should not drive or operate machinery as risk of injury or accident is increased. Avoid complete bed rest. Avoid lifting > 10 lbs repeatedly if this worsens pain. May participat e in usual activities unless they make pain worse. Follow-up if numbness, tingling, weakness, incontinen ce, or fever develop or if pain fails to resolve with conservati ve care. [id number] Raman Silvestre MD , [facility], [address] [place] [address] 12/17/2016 11:22:20 12/18/2016 08:15:30 Sinusitis 35065768 J32.9 [id number] DESIREE Sy , [facility], [address] [place] [address] 01/13/2017 16:40:18 01/14/2017 08:39:04 Acute low back pain 402738562 M54.5 Neuro exam normal. No red flags. Tx acutely with NSAIDs. Tramadol as needed for severe pain. Advsied f/u with pcp and call if any weakness, numbness, fevers, incontinen ce. Discussed indication s for new opiod presciptio n, risks and benefits of medication , common side effects and how to manage, and reasons to notify prescriber of adverse effects or discontinu ation. Do not take with alcohol, other sedating medication s or recreation al drugs, do not operate machinery or drive while taking. Bowel regimen reviewed. Recommend saurabh softener like doccusate (colace) 100 mg twice a day. May add a powdered laxative like Miralax or glycolax 1 capful a day mixed with coffee, tea, or juice as needed. These medication s are available over the counter. Mass pat reviewed. Low back pain 164121435 M54.5 Discussed pathopysio logy of acute back pain/strai n/lumbago. Natural history of gradual resolution over weeks to months reviewed. Recommend PT for review of ergonomics , strengthen ing, stretching , and modalities . May use over the counter nonsteroid al anti-infla mmatories as needed for pain; I suggest Ibuoprofen 400-600 mg every 6 hours with food or Alleve 1-2 tabs twice a day with food unless contraindi cations exist. Discussed risks and benefits of muscle relaxants like cyclobenza alec. They can cause dizziness and sleepiness . They should not be mixed with alcohol or sedating drugs. Those under their influence should not drive or operate machinery as risk of injury or accident is increased. Avoid complete bed rest. Avoid lifting > 10 lbs repeatedly if this worsens pain. May participat e in usual activities unless they make pain worse. Follow-up if numbness, tingling, weakness, incontinen ce, or fever develop or if pain fails to resolve with conservati ve care. Infection of sebaceous cyst 453176263 L72.3 left ear, advised discussion with patient admitting representative. does appear to be rejecting or allergy. [id number] Dany Munoz MD , [facility], [address] [place] [address] 02/18/2017 10:06:59 02/18/2017 15:17:11 Impacted cerumen 39856637 H61.22 partial obstructio n of canal cleared with irrigation Otalgia 93976982 H92.02 after irrigatioj felt better but not sure the real cause of the pain was. will follow call prn [id number] Italo Bedolla MD , [facility], [address] [place] [address] 03/25/2017 08:57:07 03/25/2017 09:53:18 Urinary tract infectious disease 03949165 N39.0 Patient instructed to push fluids, to follow up for persistent or worsening symptoms or fever or back pain. Nocturia 916715798 R35.1 multiple times at night Environmental allergy 42 0235917 T78.49XA continue montelukas t Migraine 95365170 G43.90 9 increase amitriptyl ine; see what happens with headaches. naratripta n has become ineffectiv e; try anotehr triptan Lesion of vulva 46850989 6 N90.9 refer for removal [id number] Sharee Ratliff MD , [facility], [address] [place] [address] 04/23/2017 16:27:09 04/26/2017 08:21:29 Adult health examination 299799248 Z00.00 see Risk Assessment and Lifestyle Change Counseling section above, pap due 2019 Counseling 985398112 Z71 .9 Palpitations 05029880 R0 0.2 requesting medication for symptoms. will trial low dose betablocke r, update in 1 -2 weeks. monitor for hypotensio n or bradycardi a. Overweight 857542219 E66 .3 labs as ordered below Morbid obesity 800756182 E66.01 encouraged heart healthy lifestyle. Polycystic ovaries 77738 008 E28.2 Asthma 953272671 J45.90 9 stable. Depressive disorder 3548 9007 F32.9 pt in care with psychiatry . [id number] Luis Fernando Oneill MD , [facility], [address] [place] [address] 05/30/2017 10:00:08 05/30/2017 10:57:17 Dehiscence of surgical wound 97997768 T81.30XA small vular biopsy site has dehisced.t he single braided suture was removed from the eft margin, using scissors. there may be eary infection. recommend triple abx OINTMENT, cotton panties, epsom soaks as much as feasable. I expect there will be dscomfort for a few days ecause of its location on convexity of labia majora,but should fully healwe [facility] [id number] Shahana Guerin , [facility], [address] [place] [address] 07/14/2017 13:29:00 07/14/2017 14:03:28 Dysfunction of eustachian tube 83687229 H69.92 Some of the ear symptoms are likely related to this combined with allergies. Recommenda tion re: allergies as below. Ulnar nerv e entrapment 865000394 G56.22 Likely due to medial epicondyli tis. Recommend occupation al therapy assessment for management in add Allergic rhinitis 030898 04 J30.9 Pt has been on flonase and nasacort in the past. WIll change to flunisolid e and continue with azelastine . To continue with zyrtec. Neck pain 86555549 M54.2 [id number] Juan A Klein MD , [facility], [address] [place] [address] 11/14/2017 10:14:58 11/14/2017 11:26:23 Vaginal discharge 887371964 N89.8 Abdominal pain 77898778 R10.9 Discharge from anus 2496 04621 R85.9 [id number] Italo Bedolla MD , [facility], [address] [place] [address] 11/18/2017 15:19:18 11/25/2017 11:00:33 Vaginal discharge 654822305 N89.8 unclear cause; wet remigio negative [id number] Italo Bedolla MD , [facility], [address] [place] [address] 01/10/2018 11:00:26 01/13/2018 15:42:39 Acute otitis externa 80485719 H60.502 take ibuprofen 800 mg three times a day, start drops, RTO 1 week if not better Pruritus ani 51145286 L2 9.0 unclear cause. try steroid cream, f/u if not improved 1-2 weeks. Major depr essive disorder 007551656 F32.0 resolved now on meds. Solitary sacroiliitis 23 5493420 M46.1 right side; intermitte nt [id number] Alina Mendez MD , [facility], [address] [place] [address] 02/06/2018 10:01:23 02/07/2018 07:00:59 Fatigue 96260572 R53.83 Low grade pyrexia 475004 008 R50.9 [id number] Janki ZhongROOPA LoraP-DARLINE , [facility], [address] [place] [address] 11/14/2018 10:15:28 11/14/2018 11:38:44 Palpitations 54047250 R00.2 [id number] Stew Sarabia MD , [facility], [address] [place] [address] 05/24/2019 13:28:38 05/24/2019 17:48:56 Diarrhea 09019276 R19.7 >7 loose watery stools per day x 2 weeks - persisting . Lab work and stool samples today. Continue pushing fluids, eat what you can, continue daily probiotic and psyllium husk fiber. F/u in 2 days if sxs persist or sooner if sxs worsen. [id number] Jennifer Choudhury PA-C , [facility], [address] [place] [address] 11/23/2019 12:39:43 11/24/2019 13:35:22 Major depressive disorder 852862876 F32.9 Managed by psychiatri c [employer] MA[employer]GER for med management . States Buspar dose went up last week. Hypothyroidism 58380918 E03.9 Pt reports h/o hypothyroi dism (no details in recor) which has been managed by a telecommunications officer ic doctor in [place] and currently by an endocrinol ogist, Dr. Flores in [place]. Pt has been on [facility] thyroid and currently on [facility] thyroid. We do not have records and advised to please forward. Advised to f/u with her specialist since he monitors and prescribes her armour thyroid. Exposure t o SARS-CoV-2 736257852 Z20.828 Pt with mild URI sxs. Discussed COVID testing and pt will have done at a [facility]. Advised about high false negative rate of 30% + and to quarantine at home while awaiting results and if continues to be symptomati c and to follow CDC guidelines on this.Any acute sxs, please call.For left ear pulsing, may be related to URI. If persists, can have in person exam and referral to ENT if needed. Any acute worsening, please call. [id number] SEFERINO Fernandez , [facility], [address] [place] [address] 12/07/2019 11:10:56 12/08/2019 16:13:31 Pain in finger 06546445 M79.644 wear splint to prevent reinjury, take off and do genlte rom when not using hand [id number] Jeyson Garner MD , [facility], [address] [place] [address] 12/18/2019 15:04:28 12/19/2019 09:16:40 Injury of finger 14962189 S69.91XA Right 5th finger injury during tubing. No open injury. Has been alexsander taping. Still with pain and swelling in the PIP joint area. Difficulty with full flexion at DIP/PIP joints. Distal tissue well perfused. Will check X-ray to rule out fracture and consider a referral to Hand Surgery given persistent symptoms. [id number] Gavin Ocampo MD , [facility], [address] [place] [address] 05/06/2020 16:42:28 05/07/2020 12:48:38 Paresthesia 74716217 R20.2 [id number] DESIREE Sy , [facility], [address] [place] [address] 05/08/2020 16:28:31 05/23/2020 15:27:47 Acute sinusitis 88270264 J01.90 pt presents with ear pain, ear fullness, off sensation and sinus tenderness while not usual sinus infection presentati on reasonable to trial treatment given head fullness Benign par oxysmal positional vertigo 013907499 H81.13 reassuring neuralgic exam, gait , station in tact no focal findings follow up if worsens, [id number] DESIREE Sy , [facility], [address] [place] [address] 05/30/2020 08:44:12 05/31/2020 09:02:52 Paresthesia 06958946 R20.2 right sided head parasthesi a unremarkab le head CT but symptoms are persisting referral to neurology for further work up [id number] Italo Bedolla MD , [facility], [address] [place] [address] 11/06/2020 10:50:36 11/07/2020 16:39:01 Eczema 25128598 L30.1 Dysfunctio n of eustachian tube 43067737 H68.002 try sudafed if not try flonase [id number] DAYO Sy-DARLINE , [facility], [address] [place] [address] 03/26/2021 11:45:12 04/03/2021 11:04:00 Increased frequency of urination 479929557 R35.0 recently treated, reassuring ua, repeat culture Urethritis 06012860 N34. 2 recent UTI treated, UA reassuring rx for ongoign urethral discomfort Vaginal irritation 87339 6004 N89.8 Bacterial vaginosis 4197 74139 N76.0 consistent with BV. will send metrogel rx, if does not respond [facility] [id number] Italo Bedolla MD , [facility], [address] [place] [address] 07/22/2021 09:32:12 07/22/2021 14:02:14 Screening for disorder 166686502 Z11.59 Hypothyroidism 19396536 E03.9 try changing check TSH monthly for 3 monthsf/u 4 weeks Pruritic rash 05859217 L 28.2 try ketoconazo le instead of steroid as poor reaction last time Sebaceous cyst of skin 262254190 L72.3 reassured [id number] Quin Martinez MA , [facility], [address] [place] [address] 10/12/2021 10:44:21 10/12/2021 11:29:57 Urinary tract infectious disease 53973180 N39.0 Patient instructed to push fluids, to follow up for persistent or worsening symptoms or fever or back pain. Increased frequency of urination 753690627 R35.0 [id number] DAYO Zarate , [facility], [address] [place] [address] 04/10/2022 14:16:30 04/10/2022 16:24:28 Lightheadedness 845331070 R42 While eating. Suspect r/t hypoglycem ia - she may be waiting too long to eat or drink. Will try snacking on healthy fats and proteins and staying well hydrated. If sxs persist she will f/u w/ PCP/ Labs today. Denies sxs r/t position - she eats sitting and standing, etc (does not seem postural). 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 Denies change in vision, vomiting, no loss of consciousn ess, slurred speech, facial asymmetry, weakness, numbness. Handout given from [facility].Review ed concepts of traumatic brain injury. Reviewed importance of avoiding further trauma until current injury has recovered. Reviewed importance of good sleep hygiene, nutrition, and hydration. Advised limiting of screen time. Reviewed concepts of gradual return to regular physical activity provided concussion symptoms do not return as excercise increases. [id number] Riddhi ewing PA-C , [facility], [address] [place] [address] 05/16/2022 11:37:12 05/16/2022 12:25:58 Dysfunction of left eustachian tube 8071626519 442572 H69.92 TM clear, reassured no infectionT ry OTC antihistam ine, warm compresses Impacted c erumen of bilateral ears 1167623471 202099 H61.23 removed w/ instrument ation 05411514 Z33.1 recently confirmed, planned ; about 4 wkscongrat s [id number] Smita Tristan NP , [facility], [address] [place] [address] 08/20/2022 08:31:38 08/20/2022 16:00:06 Chronic recurrent sinusitis 165759681 J32.9 ENT referral = increase to bid saline rinses, cont shandra, [id number] DAYO Canales , [facility], [address] [place] [address] 02/03/2023 14:03:54 02/03/2023 16:30:26 Strain of muscle of left groin region 2109479558 7851948 S76.012A advised can use alleve prn and can try topicals like icyhot and lidocainew ill send for PT referral state 2265177 1 Z39.2 first babypartne r home for another couple weeksbaby w/ significan t tongue tie, breastfeed ing has been hardhas another couple mos off work [id number] Obdulia Hatch MD , [facility], [address] [place] [address] 04/12/2023 10:21:12 04/12/2023 14:32:56 Active or passive immunization 250006049 Z23 History of adenomatous polyp of colon 981240352 Z86.010 Please call [facility] regarding colonoscop y Inguinal pain 654207942 R10.2 I am concerned that you may have a hernia. Lets gets imaging to rule this out. If no hernia, then refer to sports medicine or ortho. [id number] Renata Scott MD Sports Medicine, [facility] [address] [place] [address] 05/04/2023 10:36:05 05/04/2023 10:56:16 Hip pain 90226156 M25.552 Demetria is a 37-year-ol d female with left hip pain of some uncertain etiology. I feel the main differenti al includes a hip labral tear versus athletic pubalgia and injury of the common aponeurosi s at the pubic symphysis. I discussed both of these potential causes of her symptoms today as well as discussing treatment. I did ask that she have x-rays done after the office visit to evaluate for any hip degenerati ve changes or evidence of significan t osteitis pubis. I have advised continuing with her physical therapy but trying to do a more aggressive home exercise program 5-6 days per week. We discussed the possibilit y of an MRI if she has ongoing symptoms. She will follow-up in 6 weeks for reevaluati on. [id number] Obdulia Hatch MD , [facility], [address] [place] [address] 05/14/2023 11:54:12 05/14/2023 15:04:05 Inguinal pain 274198043 R10.2 No improvemen t with PT. I will reach out to Dr. Scott regarding MRI [id number] Renata Scott MD Sports Medicine, [address] [address] 05/19/2023 08:51:34 05/19/2023 12:20:39 Hip pain 59271726 M25.552 Demetria is a 37-year-ol d female with left hip and groin pain concerning for athletic pubalgia/c ore muscle injury. I reviewed this diagnosis with her today as well as discussing treatment. Unfortunat troy she has had ongoing pain despite extensive physical therapy. Her x-rays were normal and I advised a MRI of the pelvis to evaluate for a proximal abductor apurosis tear/rectu s abdominous tear causing her symptoms. She will plan to follow-up with me after MRI for reevaluati on. [id number] Renata Scott MD Sports Medicine, [address] [address] 06/30/2023 14:08:16 07/02/2023 14:41:03 Hip pain 21701235 M25.552 Demetria is a 37-year-ol d female with left hip and groin pain due to athletic pubalgia. Her recent MRI demonstrat ed a cleft sign with tearing of the aponeurosi s at the attachment of the adductor tendon. More superiorly the rectus abdominis muscle and attachment appeared normal. I discussed this diagnosis with her today as well as discussing treatment. We discussed mainly continued physical therapy as conservati ve treatment. We discussed considerat ion of a corticoste roid injection as well as PRP injections . We also discussed possible surgical management . She is interested in both a surgical consultati on as well as a trial of PRP. She was given a referral to Dr. Maldonado at [facility] and will call to set up an appointmen t to discuss surgical options. In regards to PRP we had a lengthy discussion regarding the nature of the treatment as well as procedure to have this done. I did advise that she cannot be on any NSAID medication or aspirin 2 weeks before and 4 weeks after the procedure. She does understand that this has an out-of-poc ket cost and is not covered by insurance. She was scheduled today prior to leaving the office for a PRP injection of her left proximal adductor tendon at the [facility]. I also did advise Demetria to follow up with her HORSE TRADER to discuss further imaging of the ovarian cyst seen on her MRI. 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 Her MRI from May of this year demonstrat ed a cleft sign and evidence of tearing of the adductor aponeurosi s. I again reviewed this pathology with her as well as her as well as discussing treatment. She has been given a referral to Dr. Maldonado at [facility] to discuss operative options but has not yet made an appointmen t. She also has tried extensive physical therapy but continues to have further symptoms. We discussed further options for treatment including continued therapy, surgery, observatio n, use of oral analgesics , and PRP injections . Due to her ongoing symptoms she would like to proceed with a PRP injection of her adductor proximal tendon. We again reviewed that this is not covered by insurance and is considered experiment al which she understand s. We also discussed a post-treat ment protocol which includes no NSAIDs for an additional 4 weeks. We discussed relative rest for the next week and then gradually returning to normal activity. I advised against any aggressive activity or physical therapy exercises for 4 weeks. Demetria did undergo a left adductor proximal tendon PRP injection under ultrasound guidance today in the office. This was done with some difficulty due to her body habitus but she tolerated the procedure well without complicati on. She will plan to follow up with me in 8 weeks for reevaluati on. [id number] CHON Medrano, [facility], [address] [place] [address] 07/31/2023 09:24:36 07/31/2023 10:27:35 Dysuria [id number] R30.0 Patient with urinary symptoms.H istory and exam and urinalysis negative for UTINo symptoms of pyelonephr itis.Low risk of . Will send urine for culture.Di scussed supportive and preventive measures.P atient instructed to follow up if not better or with new symptoms. Bacterial vaginosis [id number] [id number] N76.0 - Start metronidaz ole twice daily for five days - Using condoms can help prevent symptoms as the semen can change the pH of the vagina- No follow up is necessary as long as symptoms resolve- It is not necessary to treat sexual partners- A daily probiotic may be helpful although, there is not enough data to officially support this [id number] Renata Scott MD Sports Medicine, [address] [address] 10/13/2023 10:38:13 10/20/2023 10:53:04 Hip pain 07802716 M25.552 Demetria is a 37-year-ol d female with left hip and groin pain due to athletic pubalgia with a tear of the adductor upon neurosis as seen on her MRI. I reviewed this diagnosis again with her today as well as discussing treatment. Unfortunat troy she has ongoing symptoms despite quite extensive physical therapy and only had short-term relief with a PRP injection. Do feel ultimately she will need surgical interventi on. Due to her difficulty in obtaining an appointmen t with Dr. Maldonado at [facility] did provide her with a new referral to [facility] orth[facility]. It does appear from informatio n on their website that this is a entity they treat. Demetria will plan to call and schedule an appointmen t and I am of course happy to see her back as needed if surgery is anticipate d in the future. [id number] SEFERINO LAZAR , [facility], [address] [place] [address] 02/25/2024 10:48:08 02/28/2024 08:38:23 Tetanus vaccination declined by patient [id number] Z28.21 Past pregn bijan history of gestational diabetes mellitus 126809927 Z86.32 Recent fasting glucose in the prediabeti c range, per pt - not on fileDiscus sed metformin as a common treatment for prediabete s, however pt poorly tolerated in the past [place] hump 33963282 R2 2.2 Unintentio nal weight gain 4449520239 87521 R63.5 Significan t weight gain (>40 lbs) since giving 13 months ago.Report s hair thinning, acne, and heavy periods.Di fferential diagnosis includes PCOS and Vishnu's syndrome.H istory of insulin resistance and gestationa l diabetes.l abs ordered above [id number] Debra Robledo MD FP, [facility], [address] [place] [address] 03/03/2024 15:02:20 03/03/2024 15:46:58 Bronchitis 75903508 J40 Persistent productive cough for 2 weeksFatig ue and myalgia present as wellWill treat with Zpak.Advis ed pt to take a probiotic away from the antibiotic Pt does take Trazadone for sleep. Ok to continue with a short course of Zpak.Revie wed red flags & when to seek UC/ED or RTO such as worsening or new symptoms or developmen t of fever. Pt states understand ing & is in agreement with plan. Enlarged tonsil [id number] 2 J35.1 Right tonsil > left. Usual per pt.Pocket noted right tonsil with mucus. Pt has hx of tonsil stones.Dis cussed home remedies for tonsil stones such as oral hygiene, swishing with salt water, swishing with apple cider vinegar, and chewing gum.Pt will continue to monitor and RTO if worsening symptoms or developmen t of new symptoms such as fever, or SOB. [id number] NIMO ELLIS DPT Physical Therapy, [facility] [address] [place] [address] 03/06/2024 17:19:34 03/08/2024 11:37:48 Pain of left hip joint [id number] 87813 M25.552 [id number] NIMO ELLIS DPT Physical Therapy, [facility] [address] [place] [address] 03/16/2024 10:00:38 03/16/2024 11:28:39 Pain of left hip joint [id number] 18196 M25.552 [id number] NIMO ELLIS DPT Physical Therapy, [facility] [address] [place] [address] 03/20/2024 17:30:26 03/21/2024 17:05:24 Pain of left hip joint 0381351691 89871 M25.552 [id number] MD BOOM Whitaker, [facility], [address] [place] [address] 03/27/2024 17:09:29 03/28/2024 13:06:00 Abnormal weight gain 348934238 R63.5 40 lb. weight gain since childbirth 14 months ago, primarily in the abdominal region. Patient reports feeling pressure and distension . No pain reported.- Physical assessment negative for a hernia.-Di scussed that changes to hormones and metabolism are common following childbirth .- Encouraged health diet and regular exercise. Pt is currently walking around [place] a few days a week.-Orde r labs including TSH, ferritin, CBC, and chemistry panel to assess for potential hormonal or metabolic causes.- A1C and 24 urinary cortisol already ordered. Pt has not yet completed. -Monitor symptoms and reassess at follow-up [facility] t in April.- RTO with new or worsening symptoms. Active or passive immunization 981724382 Z23 Blepharospasm 37837786 G 24.5 Persistent right eyelid twitching for over a month. Patient reports a fall with head impact approximat troy a month ago. No significan t vision disturbanc es reported.- Monitor symptoms. If worsening, patient to call back sooner. [id number] NIMO ELLIS DPT Physical Therapy, [facility] [address] [place] [address] 04/05/2024 17:32:30 04/06/2024 11:19:07 Pain of left hip joint [id number] 42709 M25.552 [id number] DANY PONCE DO , [facility], [address] [place] [address] 04/10/2024 13:30:31 04/14/2024 08:37:45 Twitching eye 097648369 H55.89 Persistent right upper eyelid spasm for the past two months. No new medication s or significan t caffeine intake. No associated weakness or slurring of speech. Some associated numbness at night and droopiness by the end of the day. History of recent head trauma from a fall.-Orde r labs including calcium level to rule out hypocalcem ia. state 2725531 1 Z39.2 hx gestationa l db with unintentio nal weight gain and eye twitching. Hypothyroidism 31502819 E03.9 Monitor TSH level. Patient is currently on levothyrox ine 75 mcg daily.Occa sional headaches. History of recent head trauma from a fall.-Orde r labs including TSH and B12 to rule out hyperthyro idism and vitamin B12 deficiency . Malaise and fatigue 2717 52646 R53.83 Ongoing fatigue and low energy. Rule out iron deficiency anemia. [id number] NIMO ELLIS DPT Physical Therapy, [facility] [address] [place] [address] 04/24/2024 17:25:28 04/25/2024 08:52:20 Pain of left hip joint [id number] 93997 M25.552 [id number] Italo Bedolla MD FP, [facility], [address] [place] [address] 04/26/2024 10:00:41 04/26/2024 11:23:58 Adult health examination 760591800 Z00.00 Td due 2034; due for Pap July 2025; Depression screening 171 026182 Z13.31 depression screening tool administer ed Screening for alcohol abuse 939820786 Z13.39 Alcohol use screening tool administer ed Strain of adductor muscle of thigh 396891781 S76.212D left; has had a complete tear; platelets, therapy not helping much Visual disturbance 75391 001 H53.9 accomodati ve insufficie ncy, has had 5 years of vision therapy, now able to read Family his tory of breast cancer 108392435 Z80.3 start mammos at 47 Maternal h istory of gestational diabetes 608219971 Z83.3 watch sugars yeraly Overweight 644614961 E66 .3 gained 30 lbs after due to not being able to exercise Body mass index 40+ - severely obese 970086385 Z68.43 disucssed weight watchers as she wishes to lose 30 lbs before a second and does not qualify for GLP-1's and no DM; counseled >15 mniutes Health Concerns Section Related Observation LastModified by Organization Detai ls LastModified Time None Recorded Concern Status LastModified by Organization Details LastModified Time None Recorded Advance Directives Directive None Recorded Payers Encounter Date Sequence Insurance Name Policy Number Policy Rosas Covered Member ID Rosas Member ID Guarantor Name 03/27/2024 1 [facility] [id number] Demetria Sprague [id number] Demetria Sprague 04/05/2024 1 [facility] [id number] Demetria Sprague [id number] Demetria Sprague 04/10/2024 1 [facility] [id number] Demetria Sprague [id number] Demetria Sprague 04/24/2024 1 [facility] [id number] Demetria Sprague [id number] Demetria Sprague 04/26/2024 1 [facility] [id number] Demetria Sprague [id number] Demetria Sprague Notes Date Note Type Note Provider Name and Address Organization Details Recorded Time 03/27/2024 text/html Demetria presents with two main concerns. Firstly, she reports a 40 lb weight gain since giving 14 months ago. The weight is particularly in the abdominal area. She describes her abdomen as feeling hard and distended, with a sensation of pressure pushing outwards. She also reports difficulty with physical activity due to the distention. The patient had a complicated , with extensive cervical tearing requiring surgery, and wonders if scar tissue could be contributing to her symptoms. She also reports hair loss and acne.She reports regular periods, and bowel movements. She denies any abdominal pain. She is seeing pelvic floor therapy for urinary incontinence. She denies dysuria. Demetria also reports a persistent twitch in her right eyelid that has been present for over a month. The twitch has progressed to a full-blown spasm, causing the eyelid to droop and impairing vision when it occurs. The patient does not report any significant changes in sleep, stress, or caffeine intake, which are common triggers for eyelid twitching. She did, however, experience a fall about a month ago where she hit the back of her head, and she wonders if this could be related to the twitching. She reports feeling unwell for a couple of days after the fall, but did not seek medical attention at the time. Gavin Ocampo MD [address] [place] [address], [phone], [facility] [place], [place] 03/28/2024 07:42:22 04/05/2024 text/html Subjective: Pt presents to follow-up physical therapy session reporting {{compliance with HEP no change in symptoms improved symptom management feeling a muscular soreness associated with last session being unable to complete HEP at dosage required due to time constraints sometime s it feels like it's getting better #}}. NIMO ELLIS DPT [address] [place], [address], [facility] [place], [place] 04/05/2024 18:08:09 04/10/2024 text/html 04/10/24- Pt here today for a same day visitcomplains of right side eye spasms, stated happens consistently every couple minutesNumbness around eyeReports family history acoustic neuroma. History of Present [age]xf14 yo patient with past medical history of hypothyroidism, IBS, and depression presents to discuss a two-month history of right eyelid spasms occurring every few minutes. She initially attributed the spasms to stress and lack of sleep, but despite addressing these issues, the spasms have persisted. She describes the spasms as distracting and notes that her eye feels droopy by the end of the day. She also reports experiencing numbness at night. She has had some headaches and mentions a fall a couple of months ago where she hit the back of her head. However, she does not believe the fall is related to the current symptoms.The patient also reports weight gain in the belly area since giving a year ago, despite not gaining much weight during the . She had gestational diabetes during the . She has been experiencing urinary incontinence since giving and has been attending pelvic floor physical therapy, which has not been very helpful. She also reports feeling as if her abdomen is still distended as if she were . Her appetite increased significantly after giving and while , but has since returned to normal.She has been on levothyroxine for several years due to hypothyroidism. She also takes fish oil, a multivitamin, a vitamin, and vitamin D. She reports feeling tired all the time and has some cold intolerance. She also reports frequent urination at night. DANY PONCE, [address] [place], [address], [facility] [place], [place] 04/13/2024 22:44:16 04/24/2024 text/html Subjective: Pt presents to follow-up physical therapy session reporting {{compliance with HEP no change in symptoms improved symptom management feeling a muscular soreness associated with last session being unable to complete HEP at dosage required due to time constraints surgeon appt did not have any options at this time#}}. NIMO ELLIS DPT [address] [place], [address], [facility] [place], [place] 04/24/2024 18:02:54 04/26/2024 text/html Physical Exam/FemaleReported bypatient.Notes: Risk Assessment and Lifestyle Change Counseling 18-50Reported bypatient.Coronary Artery Disease Risk Assesment:No Family history of coronary artery disease; No personal history of diabetes; No history of peripheral vascular disease, AAA, or carotid disease; No personal history of coronary artery disease Breast Cancer Risk Assessment:Family history of breast cancer(mgm - in her 50s.); maternal grandmother. Lung Cancer Risk Assessment:Never smoked; No asbestos exposure Cognitive/Behavioral Risk Assessment:Personal history of mental illness;Family history of mental illness Safety Risk Assessment:No evidence of abuse/neglect Colon Cancer Risk:Family history of colon polyps or canncer; Patient has risk for colon cancer (adenomatous polyp) Exercise counseling:Discussed the importance of daily physical activity; Discussed the importance of weight bearing exercise 04/26/24 Pt is here for wellness visit. 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
--- OUTSIDE RECORDS SUMMARY | 2024-05-30 19:25 | XMS_ITS | Referral Summary ---
Author Organization [facility] Address [address] [place] [address] Care Team Providers Care Tool Supervisor Name Role Phone Italo Bedolla Primary Care Provider [phone] Encounters Date Type Department Care Team Description 04/12/2024 10:30 AM EST Follow-Up [facility] [address] [place] [address] Alan Maldonado MD Left groin pain (Primary Dx) from Last 3 Months Allergies Active Allergy Reactions Criticality Noted Date Comments Penicillin Unknown Medications acetaZOLAMIDE (DIAMOX) 500 mg capsule Active amitriptyline (ELAVIL) 25 mg tablet Active DULoxetine DR (CYMBALTA) 60 mg capsule Active montelukast (SINGULAIR) 10 mg tablet Active thyroid, pork, (NATURE-THROID) 32.5 mg tablet Activ e Lactobacillus acidophilus capsule 1 capsule daily. Active norgestimate-ethi nyl estradiol (TRINESSA LO) 0.18/0.215/0.25 mg-25 mcg per tablet Active UNABLE TO FIND: MISCELLANEOUS CLINIC ADMINISTERED MEDICATION Supplement , bacopa twice daily Active TURMERIC ROOT EXTRACT ORAL Twice daily Activ e UNABLE TO FIND: MISCELLANEOUS CLINIC ADMINISTERED MEDICATION Supplement , ala 1 twice daily Active Active Problems Problem Noted Date Diagnosed Date Left groin pain 11/24/2023 Social History Tobacco Use Types Packs/Day Years Used Date Smoking Tobacco: Never Smokeless Tobacco: Never Tobacco Cessation:Counseling Given: Not Answered Comments Unknown Sex and Gender Information Value Date Recorded Sex Assigned at Female 09/27/2023 12:38 PM EDT Legal Sex Female 7:19 PM EDT Gender Identity Female 09/30/2023 1:17 PM EDT Sexual Orientation Not on file Last Filed Vital Signs Vital Sign Reading Time Taken Comments Blood Pressure 118/72 10/29/2016 12:40 PM EDT Pulse 100 10/29/2016 12:40 PM EDT Temperature 36.6 ??C (97.8 ??F) 10/29/2016 12:40 PM E DT Respiratory Rate - - Oxygen Saturation - - Inhaled Oxygen Concentration - - Weight 95.7 kg (211 lb) 10/29/2016 12:40 PM EDT Height 156.2 cm (5' 1.5 ) 10/29/2016 12:40 PM ED T Body Mass Index 39.22 10/29/2016 12:40 PM EDT Plan of Treatment Not on file Insurance , [address] [place] [address] [facility] Care Teams Tool Supervisor Relationship Specialty Start Date End Date Italo Bedolla [address] [place] [phone] PCP - General Family Medicine 09/27/23
--- OUTSIDE RECORDS SUMMARY | 2024-05-30 19:25 | XMS_ITS | Patient Health Record ---
Author Organization [facility] Address [address] [place] [address] Support Name Relationship Address Phone Jeffery Saavedra Emergency Contact [address] [place] [address] Demetria Sprague Guarantor Unknown [phone] Reason For Referral No Information Medications Medication SIG (Take, Route, Frequency, Duration) Notes Start Date End Date Status ALPRAZolam 0.5 MG 0 Oral 1 qhs for 30 10/29/2015 Active acetaZOLAMIDE 250 MG 0 Oral 1 qhs for 30 10/29/2015 Active SUMATRIPTAN SUCC 100 MG TABLET 9 Take 1 tab at onset of migraine, repeat after 2 hours prn. Take with 2 naproxen. for 30 *please review for potential update for e-prescription and drug interaction check* 0% complete relief. best: 50% relief. 10/29/2015 Active PROAIR HFA 90 MCG INHALER MCG/ACTUATION 0 uses rarely for 30 *please review for potential update for e-prescription and drug interaction check* 10/29/2015 Active MONTELUKAST SOD 10 MG TABLET 0 1 qhs for 30 *please review for potential update for e-prescription and drug interaction check* 10/29/2015 Active MIGRELIEF CAPLET 200-180-50 MG 0 1 qhs x 5/16 for 30 *please review for potential update for e-prescription and drug interaction check* decr SHUKLA 20% 10/29/[address] 60 MG CAP 0 1 qhs for anxiety x 5 y for 30 *please review for potential update for e-prescription and drug interaction check* decr anx 80%, no ae. 10/29/2015 Active CYANOCOBALAMIN 1,000 MCG/ML 0 3/week IM for 30 *please review for potential update for e-prescription and drug interaction check* 10/22/2015 Active AMITRIPTYLINE HCL 10 MG TAB 0 4 tabs qhs for 30 *please review for potential update for e-prescription and drug interaction check* 10/29/2015 Active Topiramate 50 MG 30 Oral 1 qhs for 30 fatigue 10/29/2015 Active Ranitidine HCl 150 MG 0 Oral PRn gerd for 30 *please review for potential update for e-prescription and drug interaction check* 10/29/2015 Active cloNIDine HCl 0.1 MG 0 Oral 2 tabs qhs for sleep for 30 10/29/2015 Active Mary seed oil for pcos 0 Also helps allergies for 30 *please review for potential update for e-prescription and drug interaction check* 10/29/2015 Active Plan Of Treatment No Information Insurance Providers Payer Name Payer Address Payer Phone Subscriber Number Group Number Insured Name Patient Relationship to Insured Coverage Start Date Coverage End Date [employer]BS PPO [address] [place], [place] [id number] Demetria Sprague Self - patient is the insured
--- OUTSIDE RECORDS SUMMARY | 2024-05-30 19:25 | XMS_ITS | Clinical Summary ---
Author Organization [facility] Address [address] [place] [address] Care Team Providers Care Call Center Manager Name Role Phone Italo Bedolla Primary Care Provider [phone] Allergies Active Allergy Reactions Criticality Noted Date [...] Date Diagnosed Date Left groin pain 11/24/2023 Encounters Date Type Department Care Team Description 04/12/2024 10:30 AM EST Follow-Up [facility] [address] [place] [address] Alan Maldonado MD Left groin pain (Primary Dx) from Last 3 Months Social History Tobacco Use Types Packs/Day Years [...] 10/29/2016 12:40 PM EDT Plan of Treatment Health Maintenance Due Date Last Done Comments Cervical Cancer Screening 1987 HIV Screening 1987 HPV and Pap Smear 1987 Hepatitis C Screening 1987 Pap Smear 1987 Varicella Vaccines (1 of 2 - 13+ 2-dose series) 12/13/2000 Hepatitis B Vaccines (1 of 3 - 19+ 3-dose series) 12/13/2006 Pneumococcal Vaccine: Pediat mckay (0-5 Years) and At-Risk Patients (6-50 Years) (2 of 2 - PCV) 12/19/2014 12/19/2013 COVID-19 Vaccine (4 - 2023-2 5 season) 2023 02/18/2021, 06/21/2020, 05/30/2020 Influenza Vaccine (#1) 2023 , 02/15/2022, 01/05/2022, Additional history exists Alcohol/Substance Use Screening 03/22/2024 Depression Screening and Follow-Up 03/22/2024 [employer] D[employer] ual Screening 03/22/2024 DTaP,Tdap,and Td Vaccines (3 - Td or Tdap) 11/11/2032 11/11/2022, 12/19/2013 RSV Vaccine (60+ years old a nd patients) (1 - 1-dose 75+ series) 12/13/2062 Insurance [facility] Care Teams Call Center Manager Relationship Specialty Start Date End Date Italo Bedolla [address] [place] [address] PCP - General Family Medicine 09/27/23
== END 2024-05-30 17:10 | disposition home or self-care (01) ==
LOC: HO.HOP 16:25
PROVIDERS: PCP Family Medicine; Visit Provider Clinical Nurse Specialist Psychiatric/Mental Health
DX: F33.1 Major depressive disorder, recurrent, moderate (principal); F90.0 Attention-deficit hyperactivity disorder, predominantly inattentive type; F42.2 Mixed obsessional thoughts and acts
CPT/HCPCS: 99214

== ENCOUNTER 2024-11-14 09:41 | Outpatient (AMB) | payer OTHER, SELFPAY ==
--- NOTE | 2024-11-14 09:51 | A.OFFPSYCH_ITS ---
Intake Intake Visit Reasons: depression Electrical Assembler Required: No Allergies Penicillins Allergy (Intermediate, Verified 06/17/23 11:43) Rash Medication List - Last Reconciled 11/14/24 by Mary Ellen Marie APRN buspirone 7.5 mg PO BID levothyroxine 75 mcg PO DAILY lorazepam 0.5 mg PO DAILY PRN trazodone 50 - 75 mg (1 - 1.5 x 50 mg) PO BEDTIME PRN vortioxetine (Trintellix) 20 mg PO DAILY HPI- Psychiatric Chief Complaint: depression HPI Narrative: Pt here for follow up re: depression anxiety ADHD. pt reports not able to get vyvanse due to high copay even with PA. pt reports depression, anxiety and high stress due to house problems with new house. Pt struggling with attention, focus, organization, motivation. Pt feels fatigued many days; PHQ9=14 and GAD7=11. no SI or HI. Taking meds consistently; no side effects. started onmetformin. attending therapy regularly. Past Psychiatric History: OCD at age 9, saw child psychologist for many years ages [age] OCD, anxiety, depression, suicidality, at age 14 things got a lot better; age [age] good but then anxiety increased significantly when she was in transition from HS to college; symptoms better in high school and college, social anxiety decreased sports and music, friends and therapy helped. put on xanax by PCP at age 19. No IPLOC. Has tried multiple medications lexapro- pt doesn't recall why stopped vyvanse helped adderall- rebound agitation/anxiety ritalin- agitated/anxious/paranoid/wary Effexor jittery Zoloft jittery Paxil doesnt recall Prozac doesnt recall Pristiq for years, stopped working Xanax helped with panic and insomnia Ativan some help Wellbutrin jittery Clonazepam helpful lamictal- not helpful and early am waking Subjective Subjective Subjective Medication Compliance: Yes Side effects from medications: No Review of Systems Medical Review of Systems: unchanged Mental Status Exam Mental Status Exam Patient Appearance: Well Grooomed and Appropriate Patient Orientation: Person, Place, Time and Situation Level of Consciousness: Awake, Appropriate and Alert Patient Behavior: Appropriate and Cooperative Mood Description: Depressed and Anxious Affect Description: Depressed and Anxious Patient Cognition Impaired: No Ability to Follow Directions: Good Speech Pattern: Clear and Appropriate Memory Description: Intact Hallucinations: None Delusions: Not Present Thought Process: Intact and Goal Oriented Thought Content: positive for Intact and positive for Goal Oriented Judgement: Good Assessment and Plan Assessment & Plan (1) Major depressive disorder, recurrent episode, moderate degree: Status: Acute Code(s): F33.1 - Major depressive disorder, recurrent, moderate (2) ADHD: Status: Acute Qualifiers: Attention deficit-hyperactivity disorder type: predominantly inattentive Qualified Code(s): F90.0 - Attention-deficit hyperactivity disorder, predominantly inattentive type Code(s): F90.9 - Attention-deficit hyperactivity disorder, unspecified type (3) OCD (obsessive compulsive disorder): Status: Acute Qualifiers: Obsessive-compulsive disorder type: mixed obsessional thoughts and acts Qualified Code(s): F42.2 - Mixed obsessional thoughts and acts Code(s): F42.9 - Obsessive-compulsive disorder, unspecified Plan continue meds as per below trial of adderall due to not able to afford Unigo with high copay Medications: New dextroamphetamine-amphetamine 5 mg ER (Adderall XR) Partial Fill upon patient request. 5 mg PO DAILY 30 caps 0RF trazodone 75 mg (1/2 x 150 mg) PO BEDTIME PRN 45 tabs 1RF sleep dextroamphetamine-amphetamine 5 mg (Adderall) 2.5mg - 5 mg orally DAILY@1500; Partial Fill upon patient request. 30 tabs 0RF Discontinued trazodone Discontinued Reason: Doctor's Order 50 - 75 mg (1 - 1.5 x 50 mg) PO BEDTIME PRN 45 tabs 5RF for insomnia Counseling and coordination of Care Pt. Self Management counseling: Exercise (restorative yoga), Maintenance-social rhythm, Mod caffeine/ETOH intake, Nutrition education and improvement, Sleep hygiene and General coping skills Medication management counseling: Effectiveness, Side effects, Dosing range, Duration, Drug interaction and Adherence Diagnosis and Prognosis Counseling: Accuracy of diagnosis, Prognosis over time, Impact of diagnosis on life functions, Impact of family relationship, Prob lematic behaviors secondary to diagnosis and Adequacy of current interventions Details: I spent 30 minutes reviewing the record, seeing the patient and documenting in the medical record. Counseling provided to the patient/caregiver as outlined below. Addressed patient/caregiver concerns regarding current medication regime including effective adherence. Addressed patient/caregiver concerns regarding diagnosis and prognosis including accuracy of diagnosis, prognosis over time, impact of diagnosis. Addressed patient/caregiver concerns regarding impact of recent stressors. 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
--- OUTSIDE RECORDS SUMMARY | 2024-11-14 10:18 | XMS_ITS | Encounter Summary ---
Author Organization [facility] Address [address] [facility] [address] [place] [address] Phone Care Team Providers Care Senior Structural Engineer Name Role Phone Keri Gil EQUIPMENT OPERATOR Primary Care Provider Lolis Rowe EQUIPMENT OPERATOR Unavailable [phone] Claudy Ramsey MD, MS Unavailable Susie Michael EQUIPMENT OPERATOR Unavailable Keri Gil EQUIPMENT OPERATOR Unavailable [phone] Jennifer Henson EQUIPMENT OPERATOR Unavailable [phone] Lionel Reich MD Unavailable Mily Ball MD Unavailable Keri iGl EQUIPMENT OPERATOR Primary Care Provider Italo Bedolla MD, MPH Primary Care Provider + Encounter Details Date Type Department Care Team (Late st Contact Info) Description 09/06/2020 Ancillary Orders [facility],Outside Imaging [address] [place], [place] [id number] System, Provider Not In, PhD Partners [address] [address] Social History Tobacco Use Types Packs/Day Years Used Date Smoking Tobacco: Never Smokeless Tobacco: Never Alcohol Use Standard Drinks/Week Comments Yes 0 (1 standard drink = 0.6 oz pur e alcohol) occ Comments No Sex and Gender Information Value Date Recorded Sex Assigned at Choose not to disclose 03/2017 10:36 PM EST Legal Sex Female 6:08 PM EST Gender Identity Choose not to disclose 8 10:36 PM EST Sexual Orientation Choose not to disclose 2017 10:36 PM EST 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 Not on file Not o n file documented as of this encounter Plan of Treatment Upcoming Encounters Date Type Department Care Team (Late st Contact Info) Description 10/11/2024 Procedure Pass [facility], Ct Scan - [address] [address] 11/18/2024 2:00 PM EDT Appointment [facility], [place] Scan [address] [address] Stew Sarabia MD [address] [place] [address] [email or web address] documented as of this encounter Results * MRI Brain Outside (No Interpretation) (07/01/2015 12:00 AM EDT) Narrative SYSTEMGENERATED, DOCUMENTATION - 09/06/2020 8:05 AM EDT This study is for PACS storage only and not for interpretation. us Provider Not In System PhD IMG OUTSIDE IMAGING W /OUT INTERPRETATION Final Result documented in this encounter Visit Diagnoses Not on filedocumented in this encounter Care Teams Senior Structural Engineer Relationship Specialty Start Date End Date Keri Gil NP PCP - General Family Medicine 07/22/15 09/18/24 Keri Gil NP [address] [place] [address] PCP - General Nurse Practitioner 09/19/24 10/01/24 Italo Bedolla MD, MPH [address] [place] [address] PCP - General Family Medicine 10/02/24 Lolis Rowe, EQUIPMENT OPERATOR [address] [place] [address] [email or web address] Historical LMR Provider 01/06/17 03/29/21 Claudy Ramsey MD, MS [address] [place] [address] [email or web address] Historical LMR Provider 01/06/17 03/29/21 Susie Michael, FORREST [address] [place] [address] Historical LMR Provider 01/06/17 2 Keri Gil EQUIPMENT OPERATOR Historical LMR Provider 01/06/17 Jennifer Henson NP [address] [place] [address] Historical LMR Provider 01/06/17 2 Lionel Reich MD [address] [place] [address] Historical LMR Provider 01/06/17 Mily Ball MD [address] [place] [address] Orthopedics & Sports Medicine, [facility] [address] Historical LMR Provider 01/06/17 documented as of this encounter Additional Source Comments The information contained in this document represents components of the legal health record. It is not the complete legal health record.[facility]
--- OUTSIDE RECORDS SUMMARY | 2024-11-14 10:18 | XMS_ITS | Encounter Summary ---
Author Organization [facility] Address [address] [place] [address] Phone Care Team Providers Care Yard Rigger Name Role Phone Keri Gil ANTIQUE COLLECTOR Primary Care Provider Lolis Rowe ANTIQUE COLLECTOR Unavailable [phone] Claudy Ramsey MD, MS Unavailable Susie Michael ANTIQUE COLLECTOR Unavailable [phone] Keri Gil ANTIQUE COLLECTOR Unavailable [phone] Jennifer Henson ANTIQUE COLLECTOR Unavailable [phone] Lionel Reich MD Unavailable Mily Ball MD Unavailable [phone] Keri Gil ANTIQUE COLLECTOR Primary Care Provider Italo Bedolla MD, MPH Primary Care Provider + Reason for Referral * MRI/CAT Scan - Closed Specialty Diagnoses / Procedures Referred By Willie t Referred To Contact Radiology Diagnoses Blurred vision Numbness of face Numbness in feet Numbness in both hands Procedures MRI Brain CHG MRI BRAIN COMBO CHG MRI BRAIN CHG MRI BRAIN CONTRAST Ismael Zhao MD Phone: tel: fax: mailto:[email or web address] [address] [address] Phone: tel: Referral ID Status Reason Start Date Expiration Date Visits Re quested Visits Authorized [id number] Closed 08/01/2020 09/29/2020 1 1 Encounter Details Date Type Department Care Team (Latest Contact Info) Description 08/01/2020 Transcribe Orders Virtual Department [address] [place] [address] Ismael Zhao MD [address] [place] [address], [address] [place] [address] [email or web address] Blurred vision (Primary Dx); Numbness of face; Numbness in feet; Numbness in both hands Social History Tobacco Use Types Packs/Day Years Used Date Smoking Tobacco: Never Smokeless Tobacco: Never Alcohol Use Standard Drinks/Week Comments Yes 1 (1 standard drink = 0.6 oz pur e alcohol) monthly Comments No Sex and Gender Information Value [...] st Contact Info) Description 10/11/2024 Procedure Pass [address] [address] 11/18/2024 2:00 PM EDT Appointment [address] [address] Stew Sarabia MD [address] [place] [address] documented as of this encounter Results * MRI BRAIN WITH AND WITHOUT CONTRAST (09/11/2020 3:20 PM EDT) Anatomical Region Laterality Modality Head Magnetic Resonan ce 09/11/2020 3:28 PM EDT Impressions 09/11/2020 3:32 PM EDT No evidence for demyelination. No blood-brain barrier breakdown or other finding of concern. No mass, hemorrhage, or infarction is seen. Narrative 09/11/2020 3:32 PM EDT HISTORY: Numbness and paresthesias. COMPARISON: Several prior, most recent November 11, 2015 CT brain May 24, 2020 TECHNIQUE: Exam performed on a 1.5 Nury high-field MRI scanner. Axial T1, T2*, T2, T2 FLAIR and diffusion-weighted imaging with ADC map, sagittal T1 and T2 FLAIR sequences were obtained. Postcontrast sagittal and axial T1-weighted sequences were then obtained. FINDINGS: No abnormal vjjoo-matii-gaool blood or fluid collection, mass, or mass effect is identified. No white matter lesions characteristic of demyelination. Sulci and ventricles normal without volume loss. Mucosal thickening in the lower maxillary sinuses noted. No fluid. No areas of blood-brain barrier breakdown or restricted diffusion. No worrisome susceptibility effects. Cerebellar tonsils not ectopic. No orbital lesions identified. Procedure Note Anton Woodard MD - 09/11/2020 HISTORY: Numbness and paresthesias. COMPARISON: Several prior, most recent November 11, 2015 CT brain May TECHNIQUE: Exam performed on a 1.5 Nury high-field MRI scanner. AxialT1, T2*, T2, T2 FLAIR and diffusion-weighted imaging with ADC map,sagittal T1 and T2 FLAIR sequences were obtained. Postcontrast sagittaland axial T1-weighted sequences were then obtained. FINDINGS: No abnormal vgulf-hkiiz-okawo blood or fluid collection, mass, or masseffect is identified. No white matter lesions characteristic ofdemyelination. Sulci and ventricles normal without volume loss. Mucosalthickening in the lower maxillary sinuses noted. No fluid. No areas ofblood-brain barrier breakdown or restricted diffusion. No worrisomesusceptibility effects. Cerebellar tonsils not ectopic. No orbital lesionsidentified. IMPRESSION: No evidence for demyelination. No blood-brain barrier breakdown or otherfinding of concern. No mass, hemorrhage, or infarction is seen. Ismael Zhao MD IMG MR HEAD/NECK Final Resul t documented in this encounter Visit Diagnoses Diagnosis Blurred vision- Primary Other specified visual disturbances Numbness of face Disturbance of skin sensation Numbness in feet Numbness in both hands Disturbance of skin sensation Blurred vision Other specified visual disturbances Numbness of face Disturbance of skin sensation Numbness in feet Numbness in both hands Disturbance of skin sensation documented in this encounter Care Teams Yard Rigger Relationship Specialty Start Date End Date Keri Gil NP PCP - General Family Medicine 07/22/15 09/18/24 Keri Gil NP [address] [place] [address] PCP - General Nurse Practitioner 09/19/24 10/01/24 Italo Bedolla MD, MPH [address] [place] [address] [email or web address] PCP - General Family Medicine 10/02/24 Lolis Rowe NP [address] [place] [address] [email or web address] Historical LMR Provider 01/06/17 03/29/21 Claudy Ramsey MD, MS [address] [place] [address] [email or web address] Historical LMR Provider 01/06/17 03/29/21 Susie Michael NP [address] [place] [address] Historical LMR Provider 01/06/17 2 Keri Gil NP Historical LMR Provider 01/06/17 Jennifer Henson NP [address] [place] [address] Historical LMR Provider 01/06/172 2 Lionel Reich MD [address] [place] [address] [address] [place] [address] Historical LMR Provider 01/06/17 Mily Ball MD [address] [place] [address] Orthopedics & Sports Medicine, [facility] [place] [address] Historical LMR Provider 01/06/17 documented as of this encounter Additional Source Comments The information contained in this document represents components of the legal health record. It is not the complete legal health record.[facility]
--- OUTSIDE RECORDS SUMMARY | 2024-11-14 10:18 | XMS_ITS | Patient Health Record ---
Author Organization [facility] Address [address] [place] [address] Support Name Relationship Address Phone Jeffery Saavedra Emergency Contact [address] [place] [address] Demetria Sprague Guarantor Unknown [phone] Reason For Referral No Information Medications Medication SIG (Take, Route, Frequency, Duration) Notes Start Date End Date Status ALPRAZolam 0.5 MG 0 Oral 1 qhs; Duration: 30 10/29/2015 Active acetaZOLAMIDE 250 MG 0 Oral 1 qhs; Duration: 30 10/29/2015 Active SUMATRIPTAN SUCC 100 MG TABLET 9 Take 1 tab at onset of migraine, repeat after 2 hours prn. Take with 2 naproxen.; Duration: 30 *please review for potential update for e-prescription and drug interaction check* 0% complete relief. best: 50% relief. 10/29/2015 Active PROAIR HFA 90 MCG INHALER MCG/ACTUATION 0 uses rarely; Duration: 30 *please review for potential update for e-prescription and drug interaction check* 10/29/2015 Active MONTELUKAST SOD 10 MG TABLET 0 1 qhs; Duration: 30 *please review for potential update for e-prescription and drug interaction check* 10/29/2015 Active MIGRELIEF CAPLET 200-180-50 MG 0 1 qhs x /16; Duration: 30 *please review for potential update for e-prescription and drug interaction check* decr SHUKLA 20% 10/29/[address] 60 MG CAP 0 1 qhs for anxiety x 5 y; Duration: 30 *please review for potential update for e-prescription and drug interaction check* decr anx 80%, no ae. 10/29/2015 Active CYANOCOBALAMIN 1,000 MCG/ML 0 3/week IM; Duration: 30 *please review for potential update for e-prescription and drug interaction check* 10/22/2015 Active AMITRIPTYLINE HCL 10 MG TAB 0 4 tabs qhs; Duration: 30 *please review for potential update for e-prescription and drug interaction check* 10/29/2015 Active Topiramate 50 MG 30 Oral 1 qhs; Duration: 30 fatigue 10/29/2015 Active Ranitidine HCl 150 MG 0 Oral PRn gerd; Duration: 30 *please review for potential update for e-prescription and drug interaction check* 10/29/2015 Active cloNIDine HCl 0.1 MG 0 Oral 2 tabs qhs for sleep; Duration: 30 10/29/2015 Active Amry seed oil for pcos 0 Also helps allergies; Duration: 30 *please review for potential update for e-prescription and drug interaction check* 10/29/2015 Active Plan Of Treatment No Information Insurance Providers Payer Name Payer Address Payer Phone Subscriber Number Group Number Insured Name Patient Relationship to Insured Coverage Start Date Coverage End Date [employer]BS PPO [address] [place], [place] [id number] Demetria Sprague Self - patient is the insured
--- OUTSIDE RECORDS SUMMARY | 2024-11-14 10:18 | XMS_ITS | Encounter Summary ---
Author Organization [facility] Address [address] [place] [address] Phone Care Team Providers Care Manager Of School Name Role Phone Keri Gil SAUSAGE SMOKER Primary Care Provider Lolis Rowe SAUSAGE SMOKER Unavailable Claudy Ramsey MD, MS Unavailable Susie Michael SAUSAGE SMOKER Unavailable [phone] Keri Gil SAUSAGE SMOKER Unavailable [phone] Jennifer Henson SAUSAGE SMOKER Unavailable [phone] Lionel Reich MD Unavailable Mily Ball MD Unavailable [phone] Keri Gil SAUSAGE SMOKER Primary Care Provider Italo Bedolla MD, MPH Primary Care Provider + Encounter Details Date Type Department Care Team (Late st Contact Info) Description 07/03/2020 Procedure Pass [facility] - [address] [place] [address] Social History Tobacco Use Types Packs/Day Years [...] st Contact Info) Description 10/11/2024 Procedure Pass [facility], Ct Scan - [address] [address] 11/18/2024 2:00 PM EDT Appointment [facility] Ct Scan [address] [address] Stew Sarabia MD [address] [place] [address] [email or web address] documented as of this encounter Visit Diagnoses Not on filedocumented in this encounter Care Teams Manager Of School Relationship Specialty Start Date End Date Keri Gil NP PCP - General Family Medicine 07/22/15 09/18/24 Keri Gil NP [address] [place] [address] PCP - General Nurse Practitioner 09/19/24 10/01/24 Italo Bedolla MD, MPH [address] [place] [address] PCP - General Family Medicine 10/02/24 Lolis Rowe NP [address] [place] [address] Historical LMR Provider 01/06/17 03/29/21 Claudy Ramsey MD, MS [address] [place] [address] [email or web address] Historical LMR Provider 01/06/17 03/29/21 Susie Michael, SAUSAGE SMOKER [address] [place] [address] Historical LMR Provider 01/06/17 2 Keri Gil NP Historical LMR Provider 01/06/17 Jennifer Henson SAUSAGE SMOKER [address] [place] [address] Historical LMR Provider 01/06/17 2 Lionel Reich MD [address] [place] [address] [email or web address] Historical LMR Provider 01/06/17 Mily Ball MD [address] [place] [address] Orthopedics & Sports Medicine, [facility] [place] [address] Historical LMR Provider 01/06/17 documented as of this encounter Additional Source Comments The information contained in this document represents components of the legal health record. It is not the complete legal health record.[facility]
--- OUTSIDE RECORDS SUMMARY | 2024-11-14 10:18 | XMS_ITS | Encounter Summary ---
Author Organization [facility] Address [address] [place] [address] Phone Care Team Providers Care Medical Numerical Control Operator Name Role Phone Keri Gil BANBURY MACHINE OPERATOR Primary Care Provider [phone] Lolis Rowe BANBURY MACHINE OPERATOR Unavailable Claudy Ramsey MD, MS Unavailable Susie Michael BANBURY MACHINE OPERATOR Unavailable [phone] Keri Gil BANBURY MACHINE OPERATOR Unavailable [phone] Jennifer Henson BANBURY MACHINE OPERATOR Unavailable [phone] Lionel Reich MD Unavailable Mily Ball MD Unavailable Keri Gil BANBURY MACHINE OPERATOR Primary Care Provider Italo Bedolla MD, MPH Primary Care Provider + Encounter Details Date Type Department Care Team (Late st Contact Info) Description 01/06/2019 Procedure Pass [facility]oscopy Admitting Dept Virtual Department [address] [place] [address] Social History Tobacco Use Types Packs/Day Years Used Date Smoking Tobacco: Never Smokeless Tobacco: Never Alcohol Use Standard Drinks/Week Comments Yes 1 (1 standard drink = 0.6 oz pur e alcohol) monthly Comments Unknown Sex and Gender Information Value [...] st Contact Info) Description 10/11/2024 Procedure Pass [facility], [place] Scan - [address] [address] 11/18/2024 2:00 PM EDT Appointment [facility], [place] Scan - [address] [address] Stew Sarabia MD [address] [place] [address] [email or web address] documented as of this encounter Visit Diagnoses Not on filedocumented in this encounter Care Teams Medical Numerical Control Operator Relationship Specialty Start Date End Date Keri Gil NP PCP - General Family Medicine 07/22/15 09/18/24 Keri Gil NP [address] [place] [address] PCP - General Nurse Practitioner 09/19/24 10/01/24 Italo Bedolla MD, MPH [address] [place] [address] PCP - General Family Medicine 10/02/24 Lolis Rowe NP [address] [place] [address] Historical LMR Provider 01/06/17 03/29/21 Claudy Ramsey MD, MS [address] [place] [address] [email or web address] Historical LMR Provider 01/06/17 03/29/21 Susie Michael, BANBURY MACHINE OPERATOR [address] [place] [address] Historical LMR Provider 01/06/17 2 Keri Gil NP Historical LMR Provider 01/06/17 Jennifer Henson NP [address] [place] [address] Historical LMR Provider 01/06/17 2 Lionel Reich MD [address] [place] [address] [email or web address] Historical LMR Provider 01/06/17 Mily Ball MD [address] [place] [address] Orthopedics & Sports Medicine, [place] [address] Historical LMR Provider 01/06/17 documented as of this encounter Additional Source Comments The information contained in this document represents components of the legal health record. It is not the complete legal health record.[facility]
--- OUTSIDE RECORDS SUMMARY | 2024-11-14 10:18 | XMS_ITS | Encounter Summary ---
Author Organization [facility] Address [address] [place] [address] Phone Care Team Providers Care Electrical Checkout Mechanic Name Role Phone Keri Gil CEMENT RUBBER Primary Care Provider Lolis Rowe CEMENT RUBBER Unavailable Claudy Ramsey MD, MS Unavailable [phone] Susie Michael CEMENT RUBBER Unavailable Keri Gil CEMENT RUBBER Unavailable [phone] Jennifer Henson CEMENT RUBBER Unavailable [phone] Lionel Reich MD Unavailable Mily Ball MD Unavailable [phone] Keri Gil CEMENT RUBBER Primary Care Provider Italo Bedolla MD, MPH Primary Care Provider + Reason for Referral * MRI/CAT Scan - Closed Specialty Diagnoses / Procedures Referred By Willie t Referred To Contact Radiology Diagnoses Dizziness and giddiness Procedures CT Head CHG CT SCAN,HEAD/BRAIN,W/O CONTRAST MATL CHG CT SCAN HEAD CONTRAST CHG CT SCAN HEAD COMBO Keri Gil, CEMENT RUBBER Phone: tel: fax: Referral ID Status Reason Start Date Expiration Date Visits Re quested Visits Authorized [id number] Closed 05/17/2020 07/15/2020 1 1 Encounter Details Date Type Department Care Team (Latest Contact Info) Description 05/21/2020 Transcribe Orders Virtual Department [address] [place] [address] Keri Gil NP [address] [place] [address] Dizziness and giddiness (Primary Dx) Social History Tobacco Use Types Packs/Day Years [...] 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 file 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 n file documented as of this encounter Plan of Treatment Upcoming Encounters Date Type Department Care Team (Late st Contact Info) Description 10/11/2024 Procedure Pass [facility], [address] [address] 11/18/2024 2:00 PM EDT Appointment [address] [address] Stew Sarabia MD [address] [place] [address] [email or web address] documented as of this encounter Results * CT HEAD WITHOUT CONTRAST (05/24/2020 1:50 PM EST) Anatomical Region Laterality Modality Head Computed Tomogra phy 05/24/2020 2:02 PM EST Impressions 05/24/2020 2:04 PM EST No intracranial hemorrhage, mass, infarction detected. No fracture is seen. Narrative 05/24/2020 2:04 PM EST HISTORY: Post concussive symptoms following closed head injury subacute bleed. COMPARISON: July 19, 2015 TECHNIQUE: Unenhanced imaging obtained from skull base to vertex. Sagittal and coronal reformats generated. Manual dose reduction technique tailored for patient and site of imaging. FINDINGS: No abnormal intra or extra-axial blood or fluid collection, mass, or mass effect is identified. Sulci and ventricles appear within the range of normal with patent and midline fourth ventricle. Some calcification is seen sagittal sinus on the right is unchanged with associated soft tissue mass. Pituitary is not enlarged with greater than average amount of CSF again noted in the sella turcica. No gross orbital lesion. Visualized paranasal sinuses are clear. Mastoids and middle ear spaces clear. No calvarial fracturing or bony destructive lesion. Procedure Note Anton Woodard MD - 05/24/2020 HISTORY: Post concussive symptoms following closed head injury subacutebleed. COMPARISON: July 19, 2015 TECHNIQUE: Unenhanced imaging obtained from skull base to vertex.Sagittal and coronal reformats generated. Manual dose reduction techniquetailored for patient and site of imaging. FINDINGS: No abnormal intra or extra-axial blood or fluid collection, mass, or masseffect is identified. Sulci and ventricles appear within the range ofnormal with patent and midline fourth ventricle. Some calcification isseen sagittal sinus on the right is unchanged with associated soft tissuemass. Pituitary is not enlarged with greater than average amount of CSFagain noted in the sella turcica. No gross orbital lesion. Visualizedparanasal sinuses are clear. Mastoids and middle ear spaces clear. Nocalvarial fracturing or bony destructive lesion. IMPRESSION: No intracranial hemorrhage, mass, infarction detected. No fracture isseen. Keri Gil NP IMG CT HEAD/NECK Final Result documented in this encounter Visit Diagnoses Diagnosis Dizziness and giddiness- Primary Dizziness and giddiness documented in this encounter Care Teams Electrical Checkout Mechanic Relationship Specialty Start Date End Date Keri Gil, CEMENT RUBBER PCP - General Family Medicine 07/22/15 09/18/24 Keri Gil, CEMENT RUBBER [address] [place] [address] PCP - General Nurse Practitioner 09/19/24 10/01/24 Italo Bedolla MD, MPH [address] [place] [address] PCP - General Family Medicine 10/02/24 Lolis Rowe, CEMENT RUBBER [address] [place] [address] [email or web address] Historical LMR Provider 01/06/17 03/29/21 Claudy Ramsey MD, MS [address] [place] [address] [email or web address] Historical LMR Provider 01/06/17 03/29/21 Susie Michael, CEMENT RUBBER [address] [place] [address] Historical LMR Provider 01/06/17 2 Keri Gil CEMENT RUBBER Historical LMR Provider 01/06/17 Jennifer Henson NP [address] [place] [address] Historical LMR Provider 01/06/17 2 Lionel Reich MD [address] [place] [address] Historical LMR Provider 01/06/17 Mily Ball MD [address] [place] [address] Orthopedics & Sports Medicine, [facility] [place] [address] Historical LMR Provider 01/06/17 documented as of this encounter Additional Source Comments The information contained in this document represents components of the legal health record. It is not the complete legal health record.[facility]
--- OUTSIDE RECORDS SUMMARY | 2024-11-14 10:18 | XMS_ITS | Encounter Summary ---
Author Organization [facility] Address [address] [place] [address] Phone Care Team Providers Care Real Estate Investor Name Role Phone Keri Gil TERRAZZO INSTALLER Primary Care Provider Lolis Rowe TERRAZZO INSTALLER Unavailable [phone] Claudy Ramsey MD, MS Unavailable Susie Michael TERRAZZO INSTALLER Unavailable [phone] Keri Gil TERRAZZO INSTALLER Unavailable [phone] Jennifer Henson TERRAZZO INSTALLER Unavailable [phone] Lionel Reich MD Unavailable Mily Ball MD Unavailable [phone] Keri Gil TERRAZZO INSTALLER Primary Care Provider Italo Bedolla MD, MPH Primary Care Provider + Reason for Referral * Physical Therapy (Routine) - Closed Specialty Diagnoses / Procedures Referred By Willie gaming Referred To Contact Physical Therapy Diagnoses Encounter for rehabilitation Sariah Rios MD [address] [place] [address] Phone: tel: fax: [facility] [address] [place] [address] Phone: tel: Referral ID Status Reason Start Date Expiration Date Visits Re quested Visits Authorized [id number] Closed 04/05/2019 03/21/2020 30 30 Encounter Details Date Type Department Care Team (Latest Contact Info) Description 04/05/2019 Transcribe Orders [facility] [address] [place] [address] Sariah Rios MD [address] [place] [address] Encounter for rehabilitation (Primary Dx) Social History Tobacco Use Types [...] st Contact Info) Description 10/11/2024 Procedure Pass [address] [address] 11/18/2024 2:00 PM EDT Appointment [address] [address] Stew Sarabia MD [address] [place] [address] [email or web address] documented as of this encounter Procedures Procedure Name Priority Date/Time Associated Diagnosis Comments AMB REFERRAL TO [facility] PHYSICAL THERAPY Routine 05/15/2019 5:34 PM EST Encounter for rehabilitation documented in this encounter Results * Ambulatory referral to [facility] Physical Therapy (05/15/2019 5:34 PM EST) Sariah Rios MD AMB [facility] REFERRALS Final Res ult documented in this encounter Visit Diagnoses Diagnosis Encounter for rehabilitation- Primary documented in this encounter Care Teams Real Estate Investor Relationship Specialty Start Date End Date Keri Gil, TERRAZZO INSTALLER PCP - General Family Medicine 07/22/15 09/18/24 Keri Gil TERRAZZO INSTALLER [address] [place] [address] PCP - General Nurse Practitioner 09/19/24 10/01/24 Italo Bedolla MD, MPH [address] [place] [address] [email or web address] PCP - General Family Medicine 10/02/24 Lolis Rowe TERRAZZO INSTALLER [address] [place] [address] [email or web address] Historical LMR Provider 01/06/17 03/29/21 Claudy Ramsey MD, MS [address] [place] [address] [email or web address] Historical LMR Provider 01/06/17 03/29/21 Susie Michael, FORREST [address] [place] [address] Historical LMR Provider 01/06/17 2 Keri Gil TERRAZZO INSTALLER Historical LMR Provider 01/06/17 Jennifer Henson NP [address] [place] [address] Historical LMR Provider 01/06/17 2 Lionel Reich MD [address] [place] [address], [address] [place] [address] [email or web address] Historical LMR Provider 01/06/17 Mily Ball MD [address] [place] [address] Orth[facility] Medicine, [place] [address] [email or web address] Historical LMR Provider 01/06/17 documented as of this encounter Additional Source Comments The information contained in this document represents components of the legal health record. It is not the complete legal health record.[facility]
--- OUTSIDE RECORDS SUMMARY | 2024-11-14 10:18 | XMS_ITS | Encounter Summary ---
Author Organization [facility] Address [address] [place] [address] Phone Care Team Providers Care Computer Art Instructor Name Role Phone Keri Gil TIRE FABRIC INSPECTOR Primary Care Provider [phone] Lolis Rowe TIRE FABRIC INSPECTOR Unavailable [phone] Claudy Ramsey MD, MS Unavailable Susie Michael TIRE FABRIC INSPECTOR Unavailable Keri Gil TIRE FABRIC INSPECTOR Unavailable [phone] Jennifer Henson TIRE FABRIC INSPECTOR Unavailable [phone] Lionel Reich MD Unavailable [phone] Mily Ball MD Unavailable [phone] Keri Gil TIRE FABRIC INSPECTOR Primary Care Provider Italo Bedolla MD, MPH Primary Care Provider + Encounter Details Date Type Department Care Team (Late st Contact Info) Description 08/01/2020 Procedure Pass [address] [place] [address] Social History Tobacco Use Types Packs/Day Years [...] Contact Info) Description 10/11/2024 Procedure Pass [facility], Ct Scan - [address] [address] 11/18/2024 2:00 PM EDT Appointment [facility], [place] Scan [address] [address] Stew Sarabia MD [address] [place] [address] [email or web address] documented as of this encounter Visit Diagnoses Not on filedocumented in this encounter Care Teams Computer Art Instructor Relationship Specialty Start Date End Date Keri Gil NP PCP - General Family Medicine 07/22/15 09/18/24 Keri Gil NP [address] [place] [address] PCP - General Nurse Practitioner 09/19/24 10/01/24 Italo Bedolla MD, MPH [address] [place] [address] PCP - General Family Medicine 10/02/24 Lolis Rowe NP [address] [place] [address] Historical LMR Provider 01/06/17 03/29/21 Claudy Ramsey MD, MS [address] [place] [address] [email or web address] Historical LMR Provider 01/06/17 03/29/21 Susie Michael, TIRE FABRIC INSPECTOR [address] [place] [address] Historical LMR Provider 01/06/17 2 Keri Gil NP Historical LMR Provider 01/06/17 Jennifer Henson NP [address] [place] [address] Historical LMR Provider 01/06/17 2 Lionel Reich MD [address] [place] [address] [email or web address] Historical LMR Provider 01/06/17 Mily Ball MD [address] [place] [address] Orthopedics & Sports Medicine, [facility] [place] [address] Historical LMR Provider 01/06/17 documented as of this encounter Additional Source Comments The information contained in this document represents components of the legal health record. It is not the complete legal health record.[facility]
--- OUTSIDE RECORDS SUMMARY | 2024-11-14 10:18 | XMS_ITS | Encounter Summary ---
Author Organization [facility] Address [address] [facility] [address] [place] [address] Phone Care Team Providers Care Maori Liaison Adviser Name Role Phone Keri Gil CHAIR MAKER Primary Care Provider Lolis Rowe CHAIR MAKER Unavailable [phone] Claudy Ramsey MD, MS Unavailable [phone] Susie Michael CHAIR MAKER Unavailable Keri Gil CHAIR MAKER Unavailable [phone] Jennifer Henson CHAIR MAKER Unavailable [phone] Lionel Reich MD Unavailable Mily Ball MD Unavailable [phone] Keri Gil CHAIR MAKER Primary Care Provider Italo Bedolla MD, MPH Primary Care Provider + Encounter Details Date Type Department Care Team (Late st Contact Info) Description 09/06/2020 Ancillary Orders [facility],Outside Imaging [address] [place], [place] [phone] System, Provider Not In, [facility] [address] [address] Social History Tobacco Use Types Packs/Day Years [...] st Contact Info) Description 10/11/2024 Procedure Pass [facility], Ct Scan - [address] [address] 11/18/2024 2:00 PM EDT Appointment [place], Ct Scan [address] [address] Stew Sarabia MD [address] [place] [address] [email or web address] documented as of this encounter Results * CT Head Outside (No Interpretation) (02/17/2017 12:00 AM EST) Narrative SYSTEMGENERATED, DOCUMENTATION - 09/06/2020 8:07 AM EDT This study is for PACS storage only and not for interpretation. us Provider Not In System PhD IMG OUTSIDE IMAGING W /OUT INTERPRETATION Final Result documented in this encounter Visit Diagnoses Not on filedocumented in this encounter Care Teams Maori Liaison Adviser Relationship Specialty Start Date End Date Keri Gil NP PCP - General Family Medicine 07/22/15 09/18/24 Keri Gil NP [address] [place] [address] PCP - General Nurse Practitioner 09/19/24 10/01/24 Italo Bedolla MD, MPH [address] [place] [address] PCP - General Family Medicine 10/02/24 Lolis Rowe, CHAIR MAKER [address] [place] [address] [email or web address] Historical LMR Provider 01/06/17 03/29/21 Claudy Ramsey MD, MS [address] [place] [address] [email or web address] Historical LMR Provider 01/06/17 03/29/21 Susie Michael, FORREST [address] [place] [address] Historical LMR Provider 01/06/17 2 Keri Gil CHAIR MAKER Historical LMR Provider 01/06/17 Jennifer Henson CHAIR MAKER [address] [place] [address] Historical LMR Provider 01/06/17 2 Lioenl Reich MD [address] [place] [address] Historical LMR Provider 01/06/17 Mily Ball MD [address] [place] [address] Orthopedics & Sports Medicine, [facility] [place] [address] Historical LMR Provider 01/06/17 documented as of this encounter Additional Source Comments The information contained in this document represents components of the legal health record. It is not the complete legal health record.[facility]
--- OUTSIDE RECORDS SUMMARY | 2024-11-14 10:18 | XMS_ITS | Encounter Summary ---
Author Organization [facility] Address [address] [facility] [address] [place] [address] Phone Care Team Providers Care Centrifugal Separator Name Role Phone Keri Gil BOX FOLDING MACHINE OPERATOR Primary Care Provider Lolis Rowe BOX FOLDING MACHINE OPERATOR Unavailable [phone] Claudy Ramsey MD, MS Unavailable Susie Michael BOX FOLDING MACHINE OPERATOR Unavailable Keri Gil BOX FOLDING MACHINE OPERATOR Unavailable [phone] Jennifer Henson BOX FOLDING MACHINE OPERATOR Unavailable [phone] Lionel Reich MD Unavailable Mily Ball MD Unavailable Keri Gil BOX FOLDING MACHINE OPERATOR Primary Care Provider Italo Bedolla MD, MPH Primary Care Provider + Encounter Details Date Type Department Care Team (Late st Contact Info) Description 09/06/2020 Ancillary Orders [facility],Outside Imaging [address] [place], [place] [phone] System, Provider Not In, [facility] [address] [address] Social History Tobacco Use Types Packs/Day Years [...] st Contact Info) Description 10/11/2024 Procedure Pass [facility], Ct Scan - [address] [address] 11/18/2024 2:00 PM EDT Appointment [facility], [place] Scan [address] [address] Stew Sarabia MD [address] [place] [address] [email or web address] documented as of this encounter Results * MRI Brain Outside (No Interpretation) (11/11/2015 12:00 AM EDT) Narrative SYSTEMGENERATED, DOCUMENTATION - 09/06/2020 8:06 AM EDT This study is for PACS storage only and not for interpretation. us Provider Not In System PhD IMG OUTSIDE IMAGING W /OUT INTERPRETATION Final Result documented in this encounter Visit Diagnoses Not on filedocumented in this encounter Care Teams Centrifugal Separator Relationship Specialty Start Date End Date Keri Gil NP PCP - General Family Medicine 07/22/15 09/18/24 Keri Gil NP [address] [place] [address] PCP - General Nurse Practitioner 09/19/24 10/01/24 Italo Bedolla MD, MPH [address] [place] [address] PCP - General Family Medicine 10/02/24 Lolis Rowe, BOX FOLDING MACHINE OPERATOR [address] [place] [address] [email or web address] Historical LMR Provider 01/06/17 03/29/21 Claudy Ramsey MD, MS [address] [place] [address] [email or web address] Historical LMR Provider 01/06/17 03/29/21 Susie Michael, FORREST [address] [place] [address] Historical LMR Provider 01/06/17 2 Keri Gil BOX FOLDING MACHINE OPERATOR Historical LMR Provider 01/06/17 Jennifer Henson NP [address] [place] [address] Historical LMR Provider 01/06/17 2 Lionel Reich MD [address] [place] [address] Historical LMR Provider 01/06/17 Mily Ball MD [address] [place] [address] Orthopedics & Sports Medicine, [facility] [address] Historical LMR Provider 01/06/17 documented as of this encounter Additional Source Comments The information contained in this document represents components of the legal health record. It is not the complete legal health record.[facility]
--- OUTSIDE RECORDS SUMMARY | 2024-11-14 10:18 | XMS_ITS | Encounter Summary ---
Author Organization [facility] Address [address] [place] [address] Phone Care Team Providers Care Global Consumer Sector Vice President Name Role Phone Keri Gil MOLDER HELPER Primary Care Provider Lolis Rowe MOLDER HELPER Unavailable [phone] Claudy Ramsey MD, MS Unavailable [phone] Susie Michael MOLDER HELPER Unavailable [phone] Keri Gil MOLDER HELPER Unavailable Jennifer Henson MOLDER HELPER Unavailable [phone] Lionel Reich MD Unavailable [phone] Mily Ball MD Unavailable [phone] Keri Gil MOLDER HELPER Primary Care Provider Italo Bedolla MD, MPH Primary Care Provider + Encounter Details Date Type Department Care Team (Late st Contact Info) Description 07/03/2020 Procedure Pass [facility] - [address] [place] [address] Social History Tobacco Use Types Packs/Day Years [...] st Contact Info) Description 10/11/2024 Procedure Pass [facility], Ct Scan - [address] [address] 11/18/2024 2:00 PM EDT Appointment [place], Ct Scan [address] [address] Stew Sarabia MD [address] [place] [address] [email or web address] documented as of this encounter Visit Diagnoses Not on filedocumented in this encounter Care Teams Global Consumer Sector Vice President Relationship Specialty Start Date End Date Keri Gil NP PCP - General Family Medicine 07/22/15 09/18/24 Keri Gil NP [address] [place] [address] PCP - General Nurse Practitioner 09/19/24 10/01/24 Italo Bedlola MD, MPH [address] [place] [address] PCP - General Family Medicine 10/02/24 Lolis Rowe NP [address] [place] [address] Historical LMR Provider 01/06/17 03/29/21 Claudy Ramsey MD, MS [address] [place] [address] [email or web address] Historical LMR Provider 01/06/17 03/29/21 Susie Michael, MOLDER HELPER [address] [place] [address] Historical LMR Provider 01/06/17 2 Keri Gil NP Historical LMR Provider 01/06/17 Jennifer Henson MOLDER HELPER [address] [place] [address] Historical LMR Provider 01/06/17 2 Lionel Reich MD [address] [place] [address] [email or web address] Historical LMR Provider 01/06/17 Mily Ball MD [address] [place] [address] Orthopedics & Sports Medicine, [facility] [place] [address] Historical LMR Provider 01/06/17 documented as of this encounter Additional Source Comments The information contained in this document represents components of the legal health record. It is not the complete legal health record.[facility]
--- OUTSIDE RECORDS SUMMARY | 2024-11-14 10:18 | XMS_ITS | Encounter Summary ---
Author Organization [facility] Address [address] [place] [address] Phone Care Team Providers Care Website Admin Name Role Phone Keri Gil TILE PICKER Primary Care Provider [phone] Lolis Rowe TILE PICKER Unavailable [phone] Claudy Ramsey MD, MS Unavailable Susie Michael TILE PICKER Unavailable [phone] Keri Gil TILE PICKER Unavailable [phone] Jennifer Henson TILE PICKER Unavailable [phone] Lionel Reich MD Unavailable [phone] Mily Ball MD Unavailable Keri Gil TILE PICKER Primary Care Provider Italo Bedolla MD, MPH Primary Care Provider + Encounter Details Date Type Department Care Team (Late st Contact Info) Description 08/30/2019 Procedure Pass [facility], Ct Scan - [address] [address] Social History Tobacco Use Types Packs/Day Years [...] st Contact Info) Description 10/11/2024 Procedure Pass [facility], Ct Scan - [address] [address] 11/18/2024 2:00 PM EDT Appointment [place], Ct Scan [address] [address] Stew Sarabia MD 70 [place] [address] [email or web address] documented as of this encounter Visit Diagnoses Not on filedocumented in this encounter Care Teams Website Admin Relationship Specialty Start Date End Date Keri Gil NP PCP - General Family Medicine 07/22/15 09/18/24 Keri Gil NP [address] [place] [address] PCP - General Nurse Practitioner 09/19/24 10/01/24 Italo Bedolla MD, MPH [address] [place] [address] PCP - General Family Medicine 10/02/24 Lolis Rowe NP [address] [place] [address] Historical LMR Provider 01/06/17 03/29/21 Claudy Ramsey MD, MS [address] [place] [address] [email or web address] Historical LMR Provider 01/06/17 03/29/21 Susie Michael, TILE PICKER [address] [place] [address] Historical LMR Provider 01/06/17 2 Keri Gil NP Historical LMR Provider 01/06/17 Jennifer Henson TILE PICKER [address] [place] [address] Historical LMR Provider 01/06/17 2 Lionel Reich MD [address] [place] [address] [email or web address] Historical LMR Provider 01/06/17 Mily Ball MD [address] [place] [address] Orthopedics & Sports Medicine, [facility] [place] [address] Historical LMR Provider 01/06/17 documented as of this encounter Additional Source Comments The information contained in this document represents components of the legal health record. It is not the complete legal health record.[facility]
--- OUTSIDE RECORDS SUMMARY | 2024-11-14 10:18 | XMS_ITS | Encounter Summary ---
Author Organization [facility] Address [address] [place] [address] Phone Care Team Providers Care Fire Engineer Name Role Phone Keri Gil INSURANCE WRITER Primary Care Provider Lolis Rowe INSURANCE WRITER Unavailable [phone] Claudy Ramsey MD, MS Unavailable Susie Michael INSURANCE WRITER Unavailable Keri Gil INSURANCE WRITER Unavailable [phone] Jennifer Henson INSURANCE WRITER Unavailable [phone] Lionel Reich MD Unavailable Mily Ball MD Unavailable [phone] Keri Gil INSURANCE WRITER Primary Care Provider Italo Bedolla MD, MPH Primary Care Provider + Encounter Details Date Type Department Care Team (Latest Contact Info) Description 06/10/2017 Prep for Surgery [facility] [address] [place] [address] Mily Ball MD [address] [place] [address] [facility] 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 file Not o n file documented as of this encounter Plan of Treatment Upcoming Encounters Date Type Department Care Team (Late st Contact Info) Description 10/11/2024 Procedure Pass [address] [address] 11/18/2024 2:00 PM EDT Appointment [address] [address] Stew Sarabia MD [address] [place] [address] [email or web address] documented as of this encounter Visit Diagnoses Diagnosis Mass of finger of right hand- Primary Localized superficial swelling, mass, or lump documented in this encounter Care Teams Fire Engineer Relationship Specialty Start Date End Date Keri Gil NP PCP - General Family Medicine 07/22/15 09/18/24 Keri Gil NP [address] [place] [address] PCP - General Nurse Practitioner 09/19/24 10/01/24 Italo Bedolla MD, MPH [address] [place], [place] [phone] PCP - General Family Medicine 10/02/24 Lolis Rowe, INSURANCE WRITER [address] [place] [address] [email or web address] Historical LMR Provider 01/06/17 03/29/21 Claudy Ramsey MD, MS [address] [place] [address] [email or web address] Historical LMR Provider 01/06/17 03/29/21 Susie Michael, FORREST [address] [place] [address] Historical LMR Provider 01/06/17 2 Keri Gil NP Historical LMR Provider 01/06/17 Jennifer Henson INSURANCE WRITER [address] [place] [address] Historical LMR Provider 01/06/17 2 Lionel Reich MD [address] [place] [address] [email or web address] Historical LMR Provider 01/06/17 Mily Ball MD [address] [place] [address] [facility] Medicine, [place] [address] [email or web address] Historical LMR Provider 01/06/17 documented as of this encounter Additional Source Comments The information contained in this document represents components of the legal health record. It is not the complete legal health record.[facility]
--- OUTSIDE RECORDS SUMMARY | 2024-11-14 10:18 | XMS_ITS | Encounter Summary ---
Author Organization [facility] Address [address] [place] [address] Phone Care Team Providers Care Financial Services Rep Name Role Phone Keri Gil BUSINESS PROFESSOR Primary Care Provider [phone] Lolis Rowe BUSINESS PROFESSOR Unavailable [phone] Claudy Ramsey MD, MS Unavailable Susie Michael BUSINESS PROFESSOR Unavailable Keri Gil BUSINESS PROFESSOR Unavailable [phone] Jennifer Henson BUSINESS PROFESSOR Unavailable [phone] Lionel Reich MD Unavailable Mily Ball MD Unavailable [phone] Keri Gil BUSINESS PROFESSOR Primary Care Provider Italo Bedolla MD, MPH Primary Care Provider + Reason for Referral * Physical Therapy (Routine) - Closed Specialty Diagnoses / Procedures Referred By Willie gaming Referred To Contact Physical Therapy Diagnoses Encounter for rehabilitation Raman Mcclelland MD Phone: tel: fax: [email or web address] [address] [place] [address] Phone: tel: Referral ID Status Reason Start Date Expiration Date Visits Re quested Visits Authorized [id number] Closed 01/24/2019 01/25/2020 1 1 Encounter Details Date Type Department Care Team (Latest Contact Info) Description 01/24/2019 Transcribe Orders [facility] [address] [place] [address] Raman Mcclelland MD [address] [place] [address] [email or web address] Encounter for rehabilitation (Primary Dx) Social History [...] st Contact Info) Description 10/11/2024 Procedure Pass [facility] Ct Scan [address] [address] 11/18/2024 2:00 PM EDT Appointment [address] [address] Stew Sarabia MD [address] [place] [address] Scheduled Referrals Name Type Priority Associated Diagnoses Orde r Schedule Ambulatory referral to [facility] Physical Therapy Outpatient Referral Routine Encounter for rehabilitation Ordered: 01/24/2019 documented as of this encounter Visit Diagnoses Diagnosis Encounter for rehabilitation- Primary documented in this encounter Care Teams Financial Services Rep Relationship Specialty Start Date End Date Keri Gil, BUSINESS PROFESSOR PCP - General Family Medicine 07/22/15 09/18/24 Keri Gil, BUSINESS PROFESSOR [address] [place] [address] PCP - General Nurse Practitioner 09/19/24 10/01/24 Italo Bedolla MD, MPH [address] [place] [address] [email or web address] PCP - General Family Medicine 10/02/24 Lolis Rowe, BUSINESS PROFESSOR [address] [place] [address] [email or web address] Historical LMR Provider 01/06/17 03/29/21 Claudy Ramsey MD, MS [address] [place] [address] [email or web address] Historical LMR Provider 01/06/17 03/29/21 Susie Michael, BUSINESS PROFESSOR [address] [place] [address] Historical LMR Provider 01/06/17 2 Keri Gil, BUSINESS PROFESSOR Historical LMR Provider 01/06/17 Jennifer Henson NP [address] [place] [address] Historical LMR Provider 01/06/17 2 Lionel Reich MD [address] [place] [address] [address] [place] [address] Historical LMR Provider 01/06/17 Mily Ball MD [address] [place] [address] Orthopedics & Sports Medicine, [place] [address] Historical LMR Provider 01/06/17 documented as of this encounter Additional Source Comments The information contained in this document represents components of the legal health record. It is not the complete legal health record.[facility]
--- OUTSIDE RECORDS SUMMARY | 2024-11-14 10:19 | XMS_ITS | Encounter Summary ---
Author Organization [facility] Address [address] [place] [address] Phone Care Team Providers Care Victim Advocate Name Role Phone Keri Gil OPERATING ROOM NURSE Primary Care Provider [phone] Lolis Rowe OPERATING ROOM NURSE Unavailable [phone] Claudy Ramsey MD, MS Unavailable [phone] Susie Michael OPERATING ROOM NURSE Unavailable Keri Gil OPERATING ROOM NURSE Unavailable Jennifer Henson OPERATING ROOM NURSE Unavailable [phone] Lionel Reich MD Unavailable [phone] Mily Ball MD Unavailable Keri Gil OPERATING ROOM NURSE Primary Care Provider Italo Bedolla MD, MPH Primary Care Provider + Encounter Details Date Type Department Care Team (Late st Contact Info) Description 01/18/2017 Procedure Pass [facility], Ct Scan - [address] [phone] Social History Tobacco Use Types Packs/Day Years Used Date Smoking Tobacco: Never Comments Unknown Sex and Gender Information Value Date Recorded Sex Assigned at Choose not to disclose 03/2017 10:36 PM EST Legal Sex Female 6:08 PM EST Gender Identity Choose not to disclose 8 10:36 PM EST Sexual Orientation Choose not to disclose 2017 10:36 PM EST documented as of this encounter Plan of Treatment Upcoming Encounters Date Type Department Care Team (Late st Contact Info) Description 10/11/2024 Procedure Pass [facility], Ct Scan - [address] [address] 11/18/2024 2:00 PM EDT Appointment [facility], Ct Scan - [address] [address] Stew Sarabia MD [address] [place] [address] [email or web address] documented as of this encounter Visit Diagnoses Not on filedocumented in this encounter Care Teams Victim Advocate Relationship Specialty Start Date End Date Keri Gil NP PCP - General Family Medicine 07/22/15 09/18/24 Keri Gil NP [address] [place] [address] PCP - General Nurse Practitioner 09/19/24 10/01/24 Italo Bedolla MD, MPH [address] [place] [address] [email or web address] PCP - General Family Medicine 10/02/24 Lolis Rowe OPERATING ROOM NURSE [address] [place] [address] [email or web address] Historical LMR Provider 01/06/17 03/29/21 Claudy Ramsey MD, MS [address] [place] [address] Historical LMR Provider 01/06/17 03/29/21 Susie Michael, FORREST [address] [place] [address] Historical LMR Provider 01/06/17 2 Keri Gil, OPERATING ROOM NURSE Historical LMR Provider 01/06/17 Jennifer Henson NP [address] [place] [address] Historical LMR Provider 01/06/17 2 Lionel Reich MD [address] [place] [address] Historical LMR Provider 01/06/17 Mily Ball MD [address] [place] [address] Orthopedics [facility] Sports Medicine, [place] [address] Historical LMR Provider 01/06/17 documented as of this encounter Additional Source Comments The information contained in this document represents components of the legal health record. It is not the complete legal health record.[facility]
--- OUTSIDE RECORDS SUMMARY | 2024-11-14 10:19 | XMS_ITS | Encounter Summary ---
Author Organization [facility] Address [address] [place] [address] [place] [address] Phone Care Team Providers Care Engraving Supervisor Name Role Phone Keri Gil COIL MACHINE OPERATOR Primary Care Provider [phone] Keri Gil COIL MACHINE OPERATOR Unavailable [phone] Lionel Reich MD Unavailable [phone] Mily Ball MD Unavailable Keri Gil COIL MACHINE OPERATOR Primary Care Provider Italo Bedolla MD, MPH Primary Care Provider + Encounter Details Date Type Department Care Team (Late st Contact Info) Description 05/20/2023 Procedure Pass [address] [place] [address] Social History Tobacco Use Types Packs/Day Years Used Date Smoking Tobacco: Never Smokeless Tobacco: Never Alcohol Use Standard Drinks/Week Comments Yes 0 (1 standard drink = 0.6 oz pur e alcohol) 1 monthly Education Answer Date Recorded Are you interested in more education? Not on haley e 07/18/2022 Are you concerned about learning? Not on file 07/18/2022 No 07/18/2022 No 07/18/2022 Digital Access Answer Date Recorded No 08/16/2022 No 08/16/2022 Reliable internet access at home? Not on file 08/16/2022 Device with a working camera? 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 Not on file Not on file documented as of this encounter Plan of Treatment Upcoming Encounters Date Type Department Care Team (Late st Contact Info) Description 10/11/2024 Procedure Pass [facility], Ct Scan [address] [address] 11/18/2024 2:00 PM EDT Appointment [address] [address] Stew Sarabia MD [address] [place] [address] [email or web address] documented as of this encounter Visit Diagnoses Not on filedocumented in this encounter Care Teams Engraving Supervisor Relationship Specialty Start Date End Date Keri Gil NP PCP - General Family Medicine 07/22/15 09/18/24 Keri Gil NP [address] [place] [address] PCP - General Nurse Practitioner 09/19/24 10/01/24 Italo Bedolla MD, MPH [address] [place] [address] [email or web address] PCP - General Family Medicine 10/02/24 Keri Gil NP Historical LMR Provider 01/06/17 Lionel Reich MD [address] [place] [address], [address] [place] [address] [email or web address] Historical LMR Provider 01/06/17 Mily Ball MD [address] [place] [address] Orth[facility] Medicine, [place] [address] [email or web address] Historical LMR Provider 01/06/17 documented as of this encounter Additional Source Comments The information contained in this document represents components of the legal health record. It is not the complete legal health record.[facility]
--- OUTSIDE RECORDS SUMMARY | 2024-11-14 10:19 | XMS_ITS | Clinical Summary ---
Author Organization [facility] Address [address] [place] [address] Phone Care Team Providers Care Rating Officer Name Role Phone Keri Gil NP Unavailable [phone] Lionel Reich MD Unavailable Mily Ball MD Unavailable [phone] Italo Bedolla MD, MPH Primary Care Provider + Allergies Active Allergy Reactions Criticality Noted Date Comments Phenazopyridine Nausea and/or Vomiting 04/02/19 22 Gluten Protein Other (See Comments) Medium 12/30/2018 fatigue Other Sneezing Medium 10/04/2015 Dust mold animals Penicillins Hives,Unknown Low 08/01/2015 Medications albuterol 2.5 mg /3 mL (0.083 %) nebulizer solution 3 ml Inhalation Three Q 4 hours as needed Active albuterol 90 mcg/actuation inhaler Inhale 2 puffs into the lungs every 4 (four) hours as needed. Active traZODone (DESYREL) 100 MG tablet Take 50 mg by mouth nightly at bedtime. Active omega 2-lnf-obc-fish oil 1,000 mg (120 mg-180 mg) Cap Take 1 capsule by mouth daily. Active ibuprofen (ADVIL,MOTRIN) 200 MG tablet Take 600 mg by mouth every 6 (six) hours as needed for pain (specific location in comments). Active busPIRone (BUSPAR) 10 MG tablet Take 10 mg by mouth 2 (two) times a day. Active TRINTELLIX 20 mg Tab Take 10 mg by mouth daily. 1 Active ketorolac (ACULAR LS) 0.4 % Drop INSTILL 1 DROP INTO BOTH EYES THREE TIMES DAILY FOR 2 WEEKS 1 Active LACTOBACILLUS ACIDOPHILUS ORAL 1 capsule. Ac tive LORazepam (ATIVAN) 1 MG tablet Take 1 mg by mouth daily as needed. 1 Active clobetasol (TEMOVATE) 0.05 % ointment 2 Active levothyroxine (SYNTHROID, LEVOTHROID) 75 MCG tablet Take 75 mcg by mouth daily. 2 Active triamcinolone acetonide 0.1 % ointment APPLY THICKLY TO RASH IN RIGHT HAND UNDER OCCLUSION 1 HOUR AT NIGHT FOR NO MORE THAN 2 WEEKS Active Active Problems Problem Noted Date Diagnosed Date Paratubal cyst 01/30/2022 Assessment & Plan (07/19/2023 1:28 PM EDT): This was noted on films from 2021 and appears overall stable in size and appearance. I did explain that they can cause occasional discomfort. Assessment & Plan (01/30/2022 1:27 PM EST): Reviewed the natural history of paratubal cyst and explained that they can cause pelvic pain. However, it is usually on the side that the cyst is present in her longstanding history of pain tends to be more generalized. The pain she experienced more recently on the right was most likely secondary to ovulation as confirmed by ultrasound and her positive OPK. It is improving. PMS (premenstrual syndrome) 08/12/2020 Overview (08/12/2020): Emotional, tearful, angry, in past 1-2 years Anxiety 08/12/2020 Overview (08/12/2020): Has psych nurse practitioner Assessment & Plan (08/12/2020 9:25 AM EDT): No change in meds in last few years Left breast mass 08/12/2020 Overview (08/12/2020): Noted 2020 by patient, nontender Normal imaging Class 3 severe obesity due t o excess calories without serious comorbidity with body mass index (BMI) of 40.0 to 44.9 in adult 08/12/2020 Assessment & Plan (08/12/2020 9:28 AM EDT): Reports stable weight over past years Walks hikes for exercise Vulvar itching 12/07/2017 Overview (12/07/2017): Chronic; yeast not documented Assessment & Plan (12/07/2017 1:29 PM EDT): Yeast not confirmed today; will try empiric use of terazol follow with external betamethasone; culture sent Doubt RV fistula - would not give a rectal discharge, usually gives very foul vaginal discharge; no risk factors; would have to have imaging with contrast to find Would also do test to r/o pinworms , maybe have tape viewed under microscope Dysmenorrhea 12/07/2017 Overview (08/12/2020): Moderate, 1-2 days Assessment & Plan (12/07/2017 1:31 PM EDT): Discussed possible EMS, role of medical management and OCPs - reports the migraine is not ocular, no aura - prefers to try proestin only OCP for this, stop the progesterone while on this (does not prevent cramps at that dosage) Mass of finger of right hand Resolved Problems Problem Noted Date Diagnosed Date Resolved Date Pelvic pain 12/07/2017 08/12/2020 Irregular menses 12/07/2017 08/12/2020 Overview (12/07/2017): With obesity and adrenal insufficiency Assessment & Plan (12/07/2017 1:30 PM EDT): May be PCOS- would like to get results of the blood tests done by endocrine; she is sure insulin and glucose never tested, those ordered Vulvar lesion 05/28/2017 08/12/2020 Overview (05/28/2017): Left, pigmented, enlarging Assessment & Plan (05/28/2017 3:16 PM EST): Excised today with some subepidermal Encounters Date Type Department Care Team Description 10/18/2024 9:06 AM EDT - 10/18/2024 11:59 PM EDT Hospital Encounter [address] [address] Rose Mary Da Silva PA Discharge Disposition: Home or Self Care 10/18/2024 Ancillary Orders [address] [address] Rose Mary Da Silva PA Spondylosis (Primary Dx) 10/11/2024 Transcribe Orders [address] [address] Stew Sarabia MD Abdominal pain, unspecified abdominal location (Primary Dx) 10/02/2024 11:35 AM EDT Anesthesia Event [facility] Admitting Dept Virtual Department [address] [place] [phone] Obdulia Live MD 10/02/2024 11:00 AM EDT - 10/02/2024 11:15 AM EDT Surgery [facility] Admitting [facility] Virtual Department [address] [place] [phone] Carlos Graves MD COLONOSCOPY 10/02/2024 10:09 AM EDT - 10/02/2024 12:16 PM EDT Hospital Encounter [facility] Virtual Department [address] [place] [address] Carlos Graves MD Discharge Disposition: Home or Self Care 10/02/2024 Procedure Pass [facility] Admitting [facility] Virtual Department [address] [place] [phone] from Last 3 Months Immunizations Immunization Administration Dates Next Due INFLUENZA, SPLIT VIRUS, TRIVALENT PF 01/25/2013, 04/11/2012 INFLUENZA, SPLIT VIRUS, TRIV ALENT W/ PRESERVATIVE IM 04/09/2015,12/19/2013,01/14/2010 Influenza Quadrivalent MDCK Preservative Free IM 04/11/2021,04/20/2017 Influenza Quadrivalent w/ Preservative IM 2021 PPD Test 08/05/2017 Pneumococcal polysaccharide PPSV23 12/19/2013 Tdap 12/19/2013 Family History Medical History Relation Comments Hypertension Father Lung cancer Maternal Grandfather smoker Breast cancer Maternal Grandmother Endometriosis Mother Colon cancer Paternal Grandfather Endometriosis Sister Relation Status Comments Father Alive Maternal Grandfather Maternal Grandmother Mother Alive Paternal Grandfather Paternal Grandmother Sister Alive Social History Tobacco Use Types Packs/Day Years Used Date Smoking Tobacco: Never Smokeless Tobacco: Never Tobacco Cessation:Counseling Given: Not Answered Alcohol Use Standard Drinks/Week Comments Yes 0 [...] file Not on file Not on file Last Filed Vital Signs Vital Sign Reading Time Taken Comments Blood Pressure 112/84 10/02/2024 12:08 PM EDT Pulse 99 10/02/2024 12:08 PM EDT Temperature 36 C (96.8 F) 10/02/2024 11:53 AM EDT Respiratory Rate 19 10/02/2024 12:08 PM EDT Oxygen Saturation 100% 10/02/2024 12:08 PM EDT Inhaled Oxygen Concentration - - Weight 120.2 kg (265 lb) 07/19/2023 12:28 PM EDT Height 157.5 cm (5' 2 ) 07/19/2023 12:28 PM EDT Body Mass Index 48.47 07/19/2023 12:28 PM EDT Plan of Treatment Upcoming Encounters Date Type Department Care Team (Late st Contact Info) Description 10/11/2024 Procedure Pass [facility], Ct Scan [address] [address] 11/18/2024 2:00 PM EDT Appointment [facility], Ct Scan [address] [address] Stew Sarabia MD [address] [place] [phone] [email or web address] Health Maintenance Due Date Last Done Comments DEPRESSION SCREENING 1999 HEPATITIS C SCREENING 12/13/2005 HIV ONE-TIME SCREENING (18-6 5 YEARS) 12/13/2005 SCREENING FOR DIABETES 12/13/2022 08/30/2019 TSH LEVEL 05/13/2023 05/13/2022, 11/07/2018, 04/22/2017 PAP SMEAR 08/13/2023 08/12/2020, 05/23/2015, 05/16/2015 COVID-19 VACCINE (2023-2 5 season) 2023 02/18/2021, 06/21/2020, 05/30/2020 Adult Td,Tdap Booster 12/20/2023 12/19/2013 PNEUMOCOCCAL VACCINES (0-49 years) Aged Out 12/19/2013 No longer eligible b ased on patient's age to complete this topic SMOKING STATUS SCREENING (On ce After 26 Yrs) Completed 10/02/2024 HEPATITIS A VACCINES Aged Out No long er eligible based on patient's age to complete this topic HIB VACCINES Aged Out No longer eligi ble based on patient's age to complete this topic MENINGOCOCCAL VACCINES (ACWY) Aged Out No longer eligible based on patient's age to complete this topic MENINGOCOCCAL VACCINES (B) Aged Out N o longer eligible based on patient's age to complete this topic Medical Devices Not on file Procedures Procedure Name Priority Date/Time Associated Diagnosis Comments XR LUMBOSACRAL SPINE 4 OR MORE VIEWS Routine 10/18/2024 9:[address] COLSC FLX W/RMVL OF TUMOR POLYP LESION SNARE TQ 10/02/2024 11:34 AM EDT Colon cancer screening CT COLONOSCOPY W/BIOPSY SINGLE/MULTIPLE 10/02/2024 11:34 AM EDT Colon cancer screening CT COLONOSCOPY FLX DX W/COLLJ SPEC WHEN PFRMD 10/02/2024 11:34 AM EDT Colon cancer screening ENDOSCOPY, COLON 10/02/2024 11:3 0 AM EDT TSH WITH REFLEX Routine 05/13/2022 2:18 PM EST , unspecified gestational age PAP TEST Routine 08/12/2020 12:00 AM EDT from Last 3 Months or Most Recently Relevant to Health Maintenance Results * XR LUMBOSACRAL SPINE 4 OR MORE VIEWS (10/18/2024 9:58 AM EDT) Anatomical Region Laterality Modality L-spine Computed Radiogr aphy 10/19/2024 11:2 8 AM EDT Impressions 10/19/2024 11:30 AM EDT No evidence of acute fracture or malalignment. Mild facet arthropathy at L5-S1 Narrative 10/19/2024 11:30 AM EDT XR LUMBOSACRAL SPINE 4 OR MORE VIEWS 10/18/2024 9:30 AM Referring clinician's provided indication for this examination in Epic: spondylosis COMPARISON: CT abdomen and pelvis 08/30/2019 FINDINGS: There is no evidence of acute fracture or malalignment. There is no significant anterior degenerative endplate marginal osteophytosis or loss of disc space height. The pedicles appear grossly intact. There is mild degenerative change of the L5- S1 facet joints. The sacroiliac joints are unremarkable. Procedure Note Luna Hernandez MD - 10/19/2024 XR LUMBOSACRAL SPINE 4 OR MORE VIEWS 10/18/2024 9:30 AM Referring clinician's provided indication for this examination in Epic:spondylosis COMPARISON: CT abdomen and pelvis 08/30/2019 FINDINGS: There is no evidence of acute fracture or malalignment. There is nosignificant anterior degenerative endplate marginal osteophytosis or lossof disc space height. The pedicles appear grossly intact. There is milddegenerative change of the L5- S1 facet joints. The sacroiliac joints areunremarkable. IMPRESSION: No evidence of acute fracture or malalignment. Mild facet arthropathy atL5-S1 us Rose Mary GENTILE IMG XR SPINE Final Result * ENDOSCOPY, COLON (10/02/2024 11:30 AM EDT) Narrative Transcriptions Carlos Graves MD - 10/02/2024 11:30 AM EDT [facility] Patient Name: Freddie Darcie Attending MD:: CARLOS GRAVES MD, Procedure Date: 10/02/2024 11:30 AM Date of : 1985 Age: 38 Admit Type: Outpatient Gender: Female Room: [place] [address] Referring MD: Italo Bedolla MD Exam Type: Colonoscopy Indications: Surveillance: Personal history of adenomatouspolyps on last colonoscopy > 5 years ago, Lastcolonoscopy: December 2018 Medications: Monitored Anesthesia Care Procedure: Informed consent was obtained from the patientafter discussion of the indications, limitations, alternatives, benefits, and risks of the procedure. Risks specifically discussed include but are not limited to medication reactions, missed lesions, bleeding, perforation, or the need for emergent surgery. Throughout the procedure, the patient's blood pressure, pulse, end-tidal CO2, and oxygensaturations were monitored continuously. The Olympus adult variable colonoscope [id number] #1 was introduced through the anus and advanced to the cecum, identified by the appendiceal orifice, ileocecal valve and palpation. The colonoscopy was somewhat difficult due to the patient's bodyhabitus. Successful completion of the procedure was aided by increasing the dose of sedation medication. The patient tolerated the procedure. The quality of the bowel preparation was evaluated using the BBPS(Strawberry Bowel Preparation Scale) with scores of: RightColon = 3, Transverse Colon = 3 and Left Colon = 3 (entire mucosa seen well with no residual staining, small fragments of stool or opaque liquid). The totalBBPS score equals 9. The ileocecal valve, appendiceal orifice, and rectum were photographed. Complications: No immediate complications. Estimated blood loss: Minimal. Findings: The perianal and digital rectal examinations were normal. Pertinent negatives include normalsphincter tone. Retroflexion in the right colon was performed. The colon (entire examined portion) was mildly redundant. Non-bleeding internal hemorrhoids were found during retroflexion. The hemorrhoids were small. The exam was otherwise without abnormality ondirect and retroflexion views. Impression: - Redundant colon. - Non-bleeding internal hemorrhoids. - The examination was otherwise normal on directand retroflexion views. - No specimens collected. Recommendation: - Repeat colonoscopy in 7 years for surveillance. CARLOS GRAVES MD 10/02/2024 11:51:14 AM This report has been signed electronically. Number of Addenda: 0 Note Initiated On: 10/02/2024 11:30 AM Procedure Code(s): --- Professional --- 97365, Colonoscopy, flexible; diagnostic, including collection of specimen(s) by brushing or washing, when performed (separateprocedure) --- Technical --- 56261, Colonoscopy, flexible; diagnostic, including collection of specimen(s) by brushing or washing, when performed (separateprocedure) Diagnosis Code(s): --- Professional --- Z86.010, Personal history of colonic polyps K64.8, Other hemorrhoids Q43.8, Other specified congenital malformations of intestine --- Technical --- Z86.010, Personal history of colonic polyps K64.8, Other hemorrhoids Q43.8, Other specified congenital malformations of intestine CPT copyright 2021 [employer]. All rights reserved. The codes documented in this report are preliminary and upon medical biller/coder reviewmay be revised to meet current compliance requirements. Procedure Date: 10/02/2024 11:30:[address] [place] [id number] Italo Bedolla MD, MPH GI PROCEDURE ORDERABLES Final Result * TSH with reflex (05/13/2022 2:18 PM EST) TSH 1.00 0.27 - 4.20 uIU/mL [facility] Blood 05/13/2022 2:18 PM EST 05/13/2022 2:21 PM EST Tracee Pruitt [facility] BLOOD ORDERABLES Final Result [address] [address] * Pap Smear (08/12/2020 12:00 AM EDT) 08/12/2020 08/13/2020 8:4 2 AM EDT Narrative SEE NARRATIVE - 08/20/2020 2:30 PM EDT [address] [address] Canvass Manager: Jamilah Snow MD [employer] OPERATOR Cytology Report FINAL DIAGNOSIS A. PAP SMEAR (SUREPATH) CE: SPECIMEN ADEQUACY: Satisfactory for evaluation; transformation zone present. INTERPRETATION: NEGATIVE FOR INTRAEPITHELIAL LESION OR MALIGNANCY. Electronically Signed Out By: PATI Hart(ASCP) The Pap test is a screening test primarily for squamous cancers and precursors and has associated false-negative and false-positive results. New technologies such as liquid-based preparations may decrease but will not eliminate all false-negative results. Regular sampling and follow-up of unexplained clinical signs and symptoms are recommended to minimize false negative results. PROCEDURES/ADDENDA HPV Testing (Requested) Ordered Date: 08/13/2020 A. PAP SMEAR (SUREPATH) CE: Human Papilloma Virus Test Negative for high-risk human papillomavirus types 16, 18, 45 and the Other high risk probe set (Includes 31, 33, 35, 39, 51, 52, 56, 58, 59, 66, 68) by Amarin HR-HPV analysis. Clinical correlation is advised. This HPV test was performed at [facility], [address] [place] [address]. This test has been FDA approved for SurePath cervical cytology specimens. The accuracy and precision of this test for all other specimen sources has been verified in the Cytopathology Laboratory of the [facility] and has not been cleared or approved by the U.S. Food and Drug Administration. Clinical correlation is advised. CLINICAL HISTORY Date of Last Menstrual Period: Not Provided Menstrual History: Unknown Other Clinical Conditions: Screening Pap SPECIMEN SOURCE A: PAP SMEAR (SUREPATH) CE Patient Name: FREDDIE BAH : 1985 (Age: 34) Sex: F Institution: [facility] Location: [facility] Date of Collection: 08/12/2020 Date of Reported: 08/20/2020 14:30 Results to: Marti Moreno MD us Marti Moreno MD CYTOLOGY ORDERABLES Final Result SEE NARRATIVE from Last 3 Months or Most Recently Relevant to Health Maintenance Insurance HMO O O O O O O HMO HMO Advance Directives For more information, please contact: [phone] (9AM - 5PM [facility], Wednesday-Wednesday) * Full Code (Presumed) (Latest Code Status on File) Date Activated Date Inactivated Comments 06/16/2017 6:17 AM 06/16/2017 10:59 AM Care Teams Rating Officer Relationship Specialty Start Date End Date Italo Bedolla MD, MPH [address] [place] [phone] PCP - General Family Medicine 10/02/24 Keri Gil NP Historical LMR Provider 01/06/17 Lionel Reich MD [address], [place] [phone] Historical LMR Provider 01/06/17 Mily Ball MD [address] [place] [address] Orthopedics & Sports Medicine, [facility] [address] [email or web address] Historical LMR Provider 01/06/17 Additional Source Comments The information contained in this document represents components of the legal health record. It is not the complete legal health record.[facility]
--- OUTSIDE RECORDS SUMMARY | 2024-11-14 10:19 | XMS_ITS | Encounter Summary ---
Author Organization [facility] Address [address] [place] [address] Phone Care Team Providers Care Endless Belt Finisher Name Role Phone Keri Gil ASSISTANT LABORATORY DIRECTOR Primary Care Provider Keri Gil ASSISTANT LABORATORY DIRECTOR Unavailable [phone] Lionel Reich MD Unavailable Mily Ball MD Unavailable [phone] Keri Gil ASSISTANT LABORATORY DIRECTOR Primary Care Provider Italo Bedolla MD, MPH Primary Care Provider + Encounter Details Date Type Department Care Team (Late st Contact Info) Description 05/21/2022 Transcribe Orders [facility] Laboratory [address] [place] [address] Mo Carrero, FORREST [address] [place] [address] [email or web address] Tobacco Use Types Packs/Day Years Used Date Smoking Tobacco: Never Smokeless Tobacco: Never Alcohol Use Standard Drinks/Week Comments Yes 0 (1 standard drink = 0.6 oz pur e alcohol) 1 monthly Comments No Sex and Gender Information [...] st Contact Info) Description 10/11/2024 Procedure Pass [facility], Ct Scan - [address] [address] 11/18/2024 2:00 PM EDT Appointment [facility], Ct Scan - [address] [address] Stew Sarabia MD [address] [place] [phone] [email or web address] documented as of this encounter Visit Diagnoses Not on filedocumented in this encounter Care Teams Endless Belt Finisher Relationship Specialty Start Date End Date Keri Gil NP PCP - General Family Medicine 07/22/15 09/18/24 Keri Gil NP [address] [place] [phone] PCP - General Nurse Practitioner 09/19/24 10/01/24 Italo Bedolla MD, MPH [address] [place] [address] [email or web address] PCP - General Family Medicine 10/02/24 Keri Gil NP Historical LMR Provider 01/06/17 Lionel Reich MD [address] [place] [address], [address] [place] [address] Historical LMR Provider 01/06/17 Mily Ball MD [address] [place] [address] Orthopedics & Sports Medicine, [place] [address] Historical LMR Provider 01/06/17 documented as of this encounter Additional Source Comments The information contained in this document represents components of the legal health record. It is not the complete legal health record.[facility]
--- OUTSIDE RECORDS SUMMARY | 2024-11-14 10:19 | XMS_ITS | Encounter Summary ---
Author Organization [facility] Address [address] [place] [address] [place] [phone] Phone Care Team Providers Care Lumber Salvager Name Role Phone Keri Gil SAP BUSINESS OBJECTS CONSULTANT Unavailable [phone] Lionel Reich MD Unavailable [phone] Mily Ball MD Unavailable [phone] Italo Bedolla MD, MPH Primary Care Provider + Reason for Referral * MRI/CAT Scan - Authorized Specialty Diagnoses / Procedures Referred By Willie t Referred To Contact Radiology Diagnoses Abdominal pain, unspecified abdominal location Procedures CT Abdomen/Pelvis CHG CT SCAN,ABDOMENT AND PELVIS,W CONTRAST Stew Sarabia MD [address] [place] [address] Phone: tel: fax: [email or web address] Referral ID Status Reason Start Date Expiration Date V isits Requested Visits Authorized [id number] Authorized 10/11/2024 12/09/2025 1 1 Encounter Details Date Type Department Care Team (Latest Contact Info) Description 10/11/2024 Transcribe Orders Virtual Department [address] [place] [address] Stew Sarabia MD [address] [place] [phone] [email or web address] Abdominal pain, unspecified abdominal location (Primary Dx) Social History Tobacco Use Types [...] st Contact Info) Description 10/11/2024 Procedure Pass [address] [address] 11/18/2024 2:00 PM EDT Appointment [address] [address] Stew Sarabia MD [address] [place] [phone] [email or web address] Scheduled Orders Name Type Priority Associated Diagnoses Orde r Schedule CT Abdomen/Pelvis Imaging Routine Abdominal pain, unspecified abdominal location Expected: 10/11/2024, Expires: 10/11/2025 documented as of this encounter Visit Diagnoses Diagnosis Abdominal pain, unspecified abdominal location- Primary documented in this encounter Care Teams Lumber Salvager Relationship Specialty Start Date End Date Italo Bedolla MD, MPH [address] [place] [address] [email or web address] PCP - General Family Medicine 10/02/24 Keri Gil SAP BUSINESS OBJECTS CONSULTANT Historical LMR Provider 01/06/17 Lionel Reich MD [address] [place] [address] [address] [place] [address] [email or web address] Historical LMR Provider 01/06/17 Mily Ball MD [address] [place] [address] Orthopedics & Sports Medicine, [facility] [address] [email or web address] Historical LMR Provider 01/06/17 documented as of this encounter Additional Source Comments The information contained in this document represents components of the legal health record. It is not the complete legal health record.[facility]
--- OUTSIDE RECORDS SUMMARY | 2024-11-14 10:19 | XMS_ITS | Encounter Summary ---
Author Organization [facility] Address [address] [place] [address] [place] [address] Phone Care Team Providers Care Acid Cutter Name Role Phone Keri Gil BILINGUAL BRANCH MANAGER Unavailable [phone] Lionel Reich MD Unavailable Mily Ball MD Unavailable [phone] Italo Bedolla MD, MPH Primary Care Provider + Encounter Details Date Type Department Care Team (Late st Contact Info) Description 10/02/2024 Procedure Pass [facility] Admitting Dept Virtual Department [address] [place] [address] Social History Tobacco Use Types Packs/Day Years [...] [facility], Ct Scan - [address] [address] 11/18/2024 2:00 PM EDT Appointment [facility], Ct Scan [address] [address] Stew Sarabia MD [address] [place] [address] [email or web address] documented as of this encounter Visit Diagnoses Not on filedocumented in this encounter Care Teams Acid Cutter Relationship Specialty Start Date End Date Italo Bedolla MD, MPH [address] [place] [address] PCP - General Family Medicine 10/02/24 Keri Gil NP Historical LMR Provider 01/06/17 Lionel Reich MD [address] [place] [address] Historical LMR Provider 01/06/17 Mily Ball MD [address] [place] [address] Orthopedics & Sports Medicine, [facility] [place] [address] Historical LMR Provider 01/06/17 documented as of this encounter Additional Source Comments The information contained in this document represents components of the legal health record. It is not the complete legal health record.[facility]
--- OUTSIDE RECORDS SUMMARY | 2024-11-14 10:19 | XMS_ITS | Encounter Summary ---
Author Organization [facility] Address [address] [place] [address] Phone Care Team Providers Care [employer] Assistant Manager Name Role Phone Keri Gil SUPERVISOR INSTRUMENT MAINTENANCE Primary Care Provider Lolis Rowe SUPERVISOR INSTRUMENT MAINTENANCE Unavailable [phone] Claudy Ramsey MD, MS Unavailable Susie Michael SUPERVISOR INSTRUMENT MAINTENANCE Unavailable Keri Gil SUPERVISOR INSTRUMENT MAINTENANCE Unavailable [phone] Jennifer Henson SUPERVISOR INSTRUMENT MAINTENANCE Unavailable [phone] Lionel Reich MD Unavailable Mily Ball MD Unavailable [phone] Keri Gil SUPERVISOR INSTRUMENT MAINTENANCE Primary Care Provider Italo Bedolla MD, MPH Primary Care Provider + Encounter Details Date Type Department Care Team (Late st Contact Info) Description 06/16/2017 Procedure Pass [place] Admitting Dept - Virtual Department [address] [place] [address] Social History Tobacco Use Types [...] st Contact Info) Description 10/11/2024 Procedure Pass [facility], Ct Scan - [address] [address] 11/18/2024 2:00 PM EDT Appointment [facility] Ct Scan [address] [address] Stew Sarabia MD [address] [place] [address] [email or web address] documented as of this encounter Visit Diagnoses Not on filedocumented in this encounter Care Teams [employer] Assistant Manager Relationship Specialty Start Date End Date Keri Gil NP PCP - General Family Medicine 07/22/15 09/18/24 Keri Gil NP [address] [place] [address] PCP - General Nurse Practitioner 09/19/24 10/01/24 Italo Bedolla MD, MPH [address] [place] [address] PCP - General Family Medicine 10/02/24 Lolis Rowe NP [address] [place] [address] Historical LMR Provider 01/06/17 03/29/21 Claudy Ramsey MD, MS [address] [place] [address] [email or web address] Historical LMR Provider 01/06/17 03/29/21 Susie Michael, SUPERVISOR INSTRUMENT MAINTENANCE [address] [place] [address] Historical LMR Provider 01/06/17 2 Keir Gil NP Historical LMR Provider 01/06/17 Jennifer eHnson SUPERVISOR INSTRUMENT MAINTENANCE [address] [place] [address] Historical LMR Provider 01/06/17 2 Lionel Reich MD [address] [place] [address] [email or web address] Historical LMR Provider 01/06/17 Mily Ball MD [address] [place] [address] Orthopedics & Sports Medicine, [facility] [place] [address] Historical LMR Provider 01/06/17 documented as of this encounter Additional Source Comments The information contained in this document represents components of the legal health record. It is not the complete legal health record.[facility]
--- OUTSIDE RECORDS SUMMARY | 2024-11-14 10:19 | XMS_ITS | Encounter Summary ---
Author Organization [facility] Address [address] [place] [address] Phone Care Team Providers Care Mortgage Originator Name Role Phone Keri Gil CAN LABELER Primary Care Provider Lolis Rowe CAN LABELER Unavailable [phone] Claudy Ramsey MD, MS Unavailable [phone] Susie Michael CAN LABELER Unavailable Keri Gil CAN LABELER Unavailable [phone] Jennifer Henson CAN LABELER Unavailable [phone] Lionel Reich MD Unavailable [phone] Mily Ball MD Unavailable Keri Gil CAN LABELER Primary Care Provider Italo Bedolla MD, MPH Primary Care Provider + Encounter Details Date Type Department Care Team (Late st Contact Info) Description 05/21/2020 Procedure Pass [facility], Ct Scan - [address] [phone] Social History Tobacco Use Types Packs/Day Years [...] st Contact Info) Description 10/11/2024 Procedure Pass [facility], Ct Scan - [address] [address] 11/18/2024 2:00 PM EDT Appointment [facility] Ct Scan [address] [address] Stew Sarabia MD [address] [place] [address] [email or web address] documented as of this encounter Visit Diagnoses Not on filedocumented in this encounter Care Teams Mortgage Originator Relationship Specialty Start Date End Date Keri Gil NP PCP - General Family Medicine 07/22/15 09/18/24 Keri Gil NP [address] [place] [address] PCP - General Nurse Practitioner 09/19/24 10/01/24 Italo Bedolla MD, MPH [address] [place] [address] PCP - General Family Medicine 10/02/24 Lolis Rowe NP [address] [place] [address] Historical LMR Provider 01/06/17 03/29/21 Claudy Ramsey MD, MS [address] [place] [address] [email or web address] Historical LMR Provider 01/06/17 03/29/21 Susie Michael, CAN LABELER [address] [place] [address] Historical LMR Provider 01/06/17 2 Keri Gil NP Historical LMR Provider 01/06/17 Jennifer Henson CAN LABELER [address] [place] [address] Historical LMR Provider 01/06/17 2 Lionel Reich MD [address] [place] [address] [email or web address] Historical LMR Provider 01/06/17 Mily Ball MD [address] [place] [address] Orthopedics & Sports Medicine, [facility] [place] [address] Historical LMR Provider 01/06/17 documented as of this encounter Additional Source Comments The information contained in this document represents components of the legal health record. It is not the complete legal health record.[facility]
--- OUTSIDE RECORDS SUMMARY | 2024-11-14 10:19 | XMS_ITS | Encounter Summary ---
Author Organization [facility] Address [address] [place] [address] [place] [address] Phone Care Team Providers Care Special Education Aide Name Role Phone Keri Gil HAND PLUG SHAPER Unavailable [phone] Lionel Reich MD Unavailable [phone] Mily Ball MD Unavailable Italo Bedolla MD, MPH Primary Care Provider + Encounter Details Date Type Department Care Team (Late st Contact Info) Description 10/18/2024 Ancillary Orders [facility], X-Ray - [address] [address] Rose Mary Da Silva, SEFER[place] [address] [place] [address] [email or web address] Spondylosis (Primary Dx) Social History Tobacco Use Types [...] st Contact Info) Description 10/11/2024 Procedure Pass [facility], [address] [address] 11/18/2024 2:00 PM EDT Appointment [address] [address] Stew Sarabia MD [address] [place] [address] [email or web address] documented as of this encounter Results * XR LUMBOSACRAL SPINE 4 OR [...] fracture or malalignment. Mild facet arthropathy atL5-S1 Rose Mary GENTILE IMG XR SPINE Final Result documented in this encounter Visit Diagnoses Diagnosis Spondylosis- Primary Spondylosis of unspecified site without mention of myelopathy Spondylosis Spondylosis of unspecified site without mention of myelopathy documented in this encounter Care Teams Special Education Aide Relationship Specialty Start Date End Date Italo Bedolla MD, MPH [address] [place] [address] [email or web address] PCP - General Family Medicine 10/02/24 Keri Gil NP Historical LMR Provider 01/06/17 Lionel Reich MD [address] [place] [address], [address] [place] [address] [email or web address] Historical LMR Provider 01/06/17 Mily Ball MD [address] [place] [address] Orthopedics & Sports Medicine, [facility] [place] [address] Historical LMR Provider 01/06/17 documented as of this encounter Additional Source Comments The information contained in this document represents components of the legal health record. It is not the complete legal health record.[facility]
--- OUTSIDE RECORDS SUMMARY | 2024-11-14 10:19 | XMS_ITS | Encounter Summary ---
Author Organization [facility] Address [address] [place] [address] Phone Care Team Providers Care City Collector Name Role Phone Keri Gil LEAD FRONT END DEVELOPER Primary Care Provider Lolis Rowe LEAD FRONT END DEVELOPER Unavailable [phone] Claudy Ramsey MD, MS Unavailable Susie Michael LEAD FRONT END DEVELOPER Unavailable [phone] Keri Gil LEAD FRONT END DEVELOPER Unavailable [phone] Jennifer Henson LEAD FRONT END DEVELOPER Unavailable [phone] Lionel Reich MD Unavailable Mily Ball MD Unavailable [phone] Keri Gil LEAD FRONT END DEVELOPER Primary Care Provider Italo Bedolla MD, MPH Primary Care Provider + Reason for Referral * MRI/CAT Scan - Closed Specialty Diagnoses / Procedures Referred By Willie t Referred To Contact Radiology Diagnoses Acute sinusitis, recurrence not specified, unspecified location Procedures CT Face Shahana Loaiza MD Phone: tel: fax: [email or web address] Referral ID Status Reason Start Date Expiration Date Visits Re quested Visits Authorized [id number] Closed 01/18/2017 03/18/2017 1 1 Encounter Details Date Type Department Care Team (Late Contact Info) Description 01/18/2017 Ancillary Orders Virtual Department [address] [place] [address] Shahana Loaiza MD [address] [place] [address], [address] [place] [address] [email or web address] Acute sinusitis, recurrence not specified, unspecified location Social History Tobacco Use Types Packs/Day Years [...] Encounters Date Type Department Care Team (Late Contact Info) Description 10/11/2024 Procedure Pass [place], Ct Scan [address] [address] 11/18/2024 2:00 PM EDT Appointment [place], Ct Scan [address] [address] Stew Sarabia MD [address] [place] [address] [email or web address] documented as of this encounter Results * CT FACE (SINUS) WITHOUT CONTRAST (01/22/2017 8:08 AM EDT) Anatomical Region Laterality Modality Face Computed Tomogra phy 01/22/2017 8:21 AM EDT Impressions 01/22/2017 8:23 AM EDT Mild inflammatory changes in the ethmoid and maxillary air cells without evidence of acute bacterial sinusitis or ostiomeatal complex occlusion. TOTAL CTDIvol: mGy POS [id number] Narrative 01/22/2017 8:23 AM EDT COMPARISON: 07/19/2015 CT TECHNIQUE: Helical scanning was performed without intravenous administration of contrast material, with sagittal and coronal reformats generated and reviewed. Automated exposure control was utilized. FINDINGS: There is mild to moderate mucosal thickening along the margins of the maxillary antra, most pronounced at the bases. Ostiomeatal channels are patent. There are scattered inflammatory opacities in the ethmoid air cells. There is negligible mucosal thickening along the medial margin of the left sphenoid sinus. Frontal sinuses are clear. There is nasal septal deviation to the left narrowing the middle meatus, with mild turbinate mucosal congestion but no nasal polyps apparent. No zones of bony destruction are noted. Procedure Note Carlos Ponce MD - 01/22/2017 COMPARISON: 07/19/2015 CT TECHNIQUE: Helical scanning was performed without intravenousadministration of contrast material, with sagittal and coronal reformatsgenerated and reviewed. Automated exposure control was utilized. FINDINGS: There is mild to moderate mucosal thickening along the margins of themaxillary antra, most pronounced at the bases. Ostiomeatal channels arepatent. There are scattered inflammatory opacities in the ethmoid aircells. There is negligible mucosal thickening along the medial margin ofthe left sphenoid sinus. Frontal sinuses are clear. There is nasalseptal deviation to the left narrowing the middle meatus, with mildturbinate mucosal congestion but no nasal polyps apparent. No zones ofbony destruction are noted. IMPRESSION: Mild inflammatory changes in the ethmoid and maxillary air cells withoutevidence of acute bacterial sinusitis or ostiomeatal complex occlusion. TOTAL CTDIvol: mGy POS [id number] Shahana Loaiza MD IMG CT HEAD/NECK Final Res ult documented in this encounter Visit Diagnoses Diagnosis Acute sinusitis, recurrence not specified, unspecified location Acute sinusitis, recurrence not specified, unspecified location documented in this encounter Care Teams City Collector Relationship Specialty Start Date End Date Keri Gil NP PCP - General Family Medicine 07/22/15 09/18/24 Keri Gil LEAD FRONT END DEVELOPER [address] [place] [address] PCP - General Nurse Practitioner 09/19/24 10/01/24 Italo Bedolla MD, MPH [address] [place] [address] [email or web address] PCP - General Family Medicine 10/02/24 Lolis Rowe NP [address] [place] [address] [email or web address] Historical LMR Provider 01/06/17 03/29/21 Claudy Ramsey MD, MS [address] [place] [address] [email or web address] Historical LMR Provider 01/06/17 03/29/21 Susie Michael, FORREST [address] [place] [address] Historical LMR Provider 01/06/17 2 Keri Gil LEAD FRONT END DEVELOPER Historical LMR Provider 01/06/17 Jennifer Henson NP [address] [place] [address] Historical LMR Provider 01/06/17 2 Lionel Reich MD [address] [place] [address], [address] [place] [address] Historical LMR Provider 01/06/17 Mily Ball MD [address] [place] [address] Orthopedics & Sports Medicine, [facility] [place] [address] [email or web address] Historical LMR Provider 01/06/17 documented as of this encounter Additional Source Comments The information contained in this document represents components of the legal health record. It is not the complete legal health record.[facility]
--- OUTSIDE RECORDS SUMMARY | 2024-11-14 10:19 | XMS_ITS | Encounter Summary ---
Author Organization [facility] Address [address] [place] [address] Phone Care Team Providers Care Aircraft Shipping Checker Name Role Phone Keri Gil PARTS COUNTER SPECIALIST Primary Care Provider Lolis Rowe PARTS COUNTER SPECIALIST Unavailable [phone] Claudy Ramsey MD, MS Unavailable Susie Michael PARTS COUNTER SPECIALIST Unavailable [phone] Keri Gil PARTS COUNTER SPECIALIST Unavailable [phone] Jennifer Henson PARTS COUNTER SPECIALIST Unavailable [phone] Lionel Reich MD Unavailable Mily Ball MD Unavailable Keri Gil PARTS COUNTER SPECIALIST Primary Care Provider Italo Bedolla MD, MPH Primary Care Provider + Encounter Details Date Type Department Care Team (Latest Contact Info) Description 11/07/2018 Transcribe Orders [facility] Laboratory [address] [id number] Lynne Wade PA-C [address] [place] [address] Change in bowel habit (Primary Dx) Social History Tobacco Use Types [...] st Contact Info) Description 10/11/2024 Procedure Pass [address] [address] 11/18/2024 2:00 PM EDT Appointment [address] [address] Stew Sarabia MD [address] [place] [address] [email or web address] documented as of this encounter Results * Fecal occult blood, multiple (11/22/2018 12:04 PM EDT) FECAL OCC BLD 1 DATE ,, [facility] Occult bld, stool, #1 Negative Negative [facility] FECAL OCC BLD 2 DATE [id number] [facility] OCCULT BLD, STOOL, #2 Negative Negative [facility] FECAL OCC BLD 3 DATE 9,,019 [facility] FECAL OCC BLD 3 RSLT Negative Negative [facility] Stool (Stool) 11/22/2018 12: 04 PM EDT 11/22/2018 12:06 PM EDT us Lynne Wade PA-C BODY FLUIDS AND STOOLS ORDERABL ES Final Result [address] [place] [address] * Stool fat/fiber exam (11/16/2018 10:07 AM EDT) Pathologist [facility] FATTY ACID NORMAL NORMAL [facility] Neutral Fat, stool NORMAL NORMAL [facility] Stool (Stool) 11/16/2018 10: 07 AM EDT 11/16/2018 10:11 AM EDT us Lynne Wade PA-C BODY FLUIDS AND STOOLS ORDERABL ES Final Result Performing Organization Address City/[facility]/ZIP Co de Phone Number [address] [address] * Giardia antigen screen (11/16/2018 10:07 AM EDT) Pathologist [facility] ST GIARDIA ANTIGEN Negative Negative [facility] DPT OF LAB MED AND PAT+ Stool (Stool) 11/16/2018 10: 07 AM EDT 11/16/2018 10:11 AM EDT us Lynne Wade PA-C MICROBIOLOGY - GENERAL ORDERABL ES Final Result Performing Organization Address City/[facility]/ZIP Co de Phone Number [facility] DPT OF LAB MED AND PAT+ [address] [place] [address] * Fecal leukocyte examination (11/16/2018 10:07 AM EDT) Special Requests None 11/16/2018 10:07 AM EDT [facility] GRAM STAIN NO WBC'S Observed 11/17/2018 8:04 AM EDT [facility] Stool (Stool) 11/16/2018 10: 07 AM EDT 11/16/2018 10:11 AM EDT us Lynne Wade PA-C MICROBIOLOGY - GENERAL ORDERABL ES Final Result Performing Organization Address City/[facility]/ZIP Co de Phone Number [address] [address] * Stool culture (11/16/2018 10:07 AM EDT) Special Requests None 11/16/2018 10:07 AM EDT [facility] Stool Culture NO SALMONELLA, SHIGELLA OR CAMPYLOBACTER ISOLATED 11/17/2018 7:53 AM EDT [facility] Stool (Stool) 11/16/2018 10: 07 AM EDT 11/16/2018 10:11 AM EDT Lynne Wade PA-C MICROBIOLOGY - GENERAL ORDERABL ES Final Result Performing Organization Address [facility] de Phone Number [address] [address] * C. DIFFICILE PCR (11/16/2018 10:07 AM EDT) C.DIFFICILE PCR Negative Negative [facility] C.DIFFICILE STRAIN PRESUMPTIVE NEGATIVE PRESUMPTIVE NEGATIVE [facility] Comment:Detection of 027/NAP 1/BI strains of C.difficile is presumptive and is solely for epidemiological purposes and is not intended to guide or monitor treatment of infections. Stool (Stool) 11/16/2018 10: 07 AM EDT 11/16/2018 10:12 AM EDT Lynne Wade PA-C MICROBIOLOGY - GENERAL PIAABL ES Final Result Performing Organization Address [facility] de Phone Number [address] [address] * Ova and parasites, stool (11/10/2018 10:10 AM EDT) Special Requests None 11/16/2018 10:10 AM EDT [facility] DIRECT EXAM NO PARASITES FOUND BY DIRECT OR CONCENTRATION METHODS 11/23/2018 1:12 PM EDT [facility] DIRECT EXAM No parasites found by Trichrome Stain 11/23/2018 1:12 PM EDT [facility] Stool (Stool) 11/10/2018 10: 10 AM EDT 11/16/2018 10:14 AM EDT Lynne Wade PA-C MICROBIOLOGY - GENERAL ORDERABL ES Final Result Performing Organization Address [facility]/ZIP Co de Phone Number [address] [address] * Ova and parasites, stool (11/09/2018 10:09 AM EDT) Special Requests None 11/16/2018 10:09 AM EDT [facility] DIRECT EXAM NO PARASITES FOUND BY DIRECT OR CONCENTRATION METHODS 11/23/2018 1:08 PM EDT [facility] DIRECT EXAM No parasites found by Trichrome Stain 11/23/2018 1:08 PM EDT [facility] Stool (Stool) 11/09/2018 10: 09 AM EDT 11/16/2018 10:13 AM EDT us Lynne Wade PA-C MICROBIOLOGY - GENERAL ORDERABL ES Final Result Performing Organization Address [facility] Co de Phone Number [address] [address] * Ova and parasites, stool (11/08/2018 10:09 AM EDT) Special Requests None 11/16/2018 10:09 AM EDT [facility] DIRECT EXAM NO PARASITES FOUND BY DIRECT OR CONCENTRATION METHODS 11/23/2018 1:04 PM EDT [facility] DIRECT EXAM No parasites found by Trichrome Stain 11/23/2018 1:04 PM EDT [facility] Stool (Stool) 11/08/2018 10: 09 AM EDT 11/16/2018 10:12 AM EDT us Lynne Wade PA-C MICROBIOLOGY - GENERAL ORDERABL ES Final Result Performing Organization Address [facility] Co de Phone Number [address] [address] * TSH (11/07/2018 10:10 AM EDT) TSH 0.90 0.27 - 4.20 uIU/mL [facility] Blood 11/07/2018 10:1 0 AM EDT 11/07/2018 10:19 AM EDT us Lynne Wade PA-C LAB BLOOD ORDERABLES Final Resu lt Performing Organization Address City/[facility]/ZIP Co de Phone Number [address] [address] * Immunoglobulin A (11/07/2018 10:10 AM EDT) IgA 221 70 - 400 mg/dL [facility] Blood 11/07/2018 10:1 0 AM EDT 11/07/2018 10:19 AM EDT us Lynne Wade PA-C LAB BLOOD ORDERABLES Final Resu lt Performing Organization Address [facility] Co de Phone Number [address] [address] * (ABNORMAL) C-Reactive Protein (11/07/2018 10:10 AM EDT) C REACTIVE PROTEIN 4.5(H) 0.0 - 4.0 mg/L [facility] Blood 11/07/2018 10:1 0 AM EDT 11/07/2018 10:19 AM EDT us Lynne Wade PA-C LAB BLOOD ORDERABLES Final Resu lt Performing Organization Address [facility] Co de Phone Number [address] [address] * Comprehensive metabolic panel (11/07/2018 10:10 AM EDT) SODIUM 139 133 - 146 mmol/L [facility] POTASSIUM 4.0 3.3 - 5.1 mmol/L [facility] CHLORIDE 103 96 - 108 mmol/L [facility] CO2 23 21 - 35 mmol/L [facility] BUN 10 6 - 19 mg/dL [facility] CREATININE 0.50 0.5 - 1.5 mg/dL [facility] GLUCOSE 92 70 - 99 mg/dL [facility] ALBUMIN 4.2 3.9 - 4.8 g/dL [facility] TOTAL PROTEIN 6.6 6.5 - 8.0 g/dL [facility] CALCIUM 9.8 8.4 - 10.3 mg/dL [facility] ALKALINE PHOSPHATASE 70 39 - 117 U/L [facility] TOTAL BILIRUBIN 0.2 0.0 - 1.2 mg/dL [facility] AST 28 0 - 37 U/L [facility] ALT 17 0 - 40 U/L [facility] GLOBULIN 2.4 1 - 4.8 g/dL [facility] EGFR >120 >59 mL/min/1.7 3m2 [facility] Comment:If patient is black, multiply result by 1.159. Estimated glomerular filtration rate calculated using the CKD-EPI equation. ANION GAP 17 10 - 20 mmol/L [facility] Blood 11/07/2018 10:1 0 AM EDT 11/07/2018 10:19 AM EDT us Lynne Wade PA-C LAB BLOOD ORDERABLES Final Resu lt [facility] [address] [place] [address] * CBC (11/07/2018 10:10 AM EDT) WBC 8.70 3.40 - 11.20 K/uL [facility] RBC 4.59 3.80 - 4.80 M/uL [facility] HGB 14.0 12.0 - 15.0 g/dL [facility] HCT 41.1 36.0 - 46.0 % [facility] PLT 276 130 - 400 K/uL [facility] MCV 89.5 79.0 - 98.0 [facility] MCH 30.5 27.0 - 34.8 pg [facility] MCHC 34.1 31.5 - 36.0 g/dL [facility] RDW 12.8 10.8 - 14.6 % [facility] MPV 11.1 9.4 - 12.4 [facility] NRBC 0.00 0.00 /100 WBCs [facility] ABSOLUTE NRBC 0.00 0.00 K/uL [facility] Blood 11/07/2018 10:1 0 AM EDT 11/07/2018 10:19 AM EDT us Lynne Wade PA-C LAB BLOOD ORDERABLES Final Resu lt Performing Organization Address City/[facility]/ZIP Co de Phone Number [facility] [address] [place] [address] * Tissue transglutaminase IgA (11/07/2018 10:10 AM EDT) TTG IGA ANTIBODY <1.2 <4.0 (Negative) U/mL [facility] Blood 11/07/2018 10:1 0 AM EDT 11/07/2018 10:19 AM EDT us Lynne Wade PA-C LAB BLOOD ORDERABLES Final Resu lt Performing Organization Address City/[facility]/ZIP Co de Phone Number [facility] LAB MED/[facility] [address] [place] [address] documented in this encounter Visit Diagnoses Diagnosis Change in bowel habit- Primary documented in this encounter Care Teams Aircraft Shipping Checker Relationship Specialty Start Date End Date Keri Gil NP PCP - General Family Medicine 07/22/15 09/18/24 Keri Gil NP [address] [place] [address] PCP - General Nurse Practitioner 09/19/24 10/01/24 Italo Bedolla MD, MPH [address] [place] [address] PCP - General Family Medicine 10/02/24 Lolis Rowe NP [address] [place] [address] Historical LMR Provider 01/06/17 03/29/21 Claudy Ramsey MD, MS [address] [place] [address] [email or web address] Historical LMR Provider 01/06/17 03/29/21 Susie Michael, FORREST [address] [place] [address] Historical LMR Provider 01/06/17 2 Keri Gil NP Historical LMR Provider 01/06/17 Jennifer Henson PARTS COUNTER SPECIALIST [address] [place] [address] Historical LMR Provider 01/06/17 2 Lionel Reich MD [address] [place] [address] Historical LMR Provider 01/06/17 Mily Ball MD [address] [place] [address] Orthopedics & Sports Medicine, [facility] [place] [address] Historical LMR Provider 01/06/17 documented as of this encounter Additional Source Comments The information contained in this document represents components of the legal health record. It is not the complete legal health record.[facility]
--- OUTSIDE RECORDS SUMMARY | 2024-11-14 10:19 | XMS_ITS | Encounter Summary ---
Author Organization [facility] Address [address] [place] [address] Care Team Providers Care Ladler Name Role Phone Italo Bedolla Primary Care Provider Encounter Details Date Type Department Care Team (Late Contact Info) Description 10/19/2024 myChart Message [facility] [place] [facility] Sports Medicine [address] [place] [address] Rib Cloth Knitter: Emanuel Durbin MD [address] [place] [address] Pain relief injection Social History Tobacco Use Types Packs/Day Years Used Date Smoking Tobacco: Never Smokeless Tobacco: Never Comments Unknown Sex and Gender Information Value Date Recorded Sex Assigned at Female 09/27/2023 12:38 PM EDT Legal Sex Female 7:19 PM EDT Gender Identity Female 09/30/2023 1:17 PM EDT Sexual Orientation Not on file documented as of this encounter Plan of Treatment Upcoming Encounters Date Type Department Care Team (Late st Contact Info) Description 12/06/2024 10:00 AM EDT Follow-Up [facility] [address] [place] [address] Alan Maldonado MD [address] [place] [address] 12/06/2024 10:00 AM EDT Follow-Up [facility] [address] [place] [address] Saurabh Méndez MD [address] [place] [phone] documented as of this encounter Visit Diagnoses Not on filedocumented in this encounter Care Teams Ladler Relationship Specialty Start Date End Date Italo Bedolla [address] [place] [address] PCP - General Family Medicine 09/27/23 documented as of this encounter
--- OUTSIDE RECORDS SUMMARY | 2024-11-14 10:19 | XMS_ITS | Clinical Summary ---
Author Organization [facility] Address [address] [place] [address] Care Team Providers Care Guest History Clerk Name Role Phone Italo Bedolla Primary Care Provider [phone] Allergies Active Allergy Reactions Criticality Noted Date [...] Supplement , ala 1 twice daily Active Hospital, Clinic, or Other Facility Administered Medication Ordered Dose Route Frequency Start Date End Date Status lidocaine PF (XYLOCAINE) 1% (10 mg/mL) injection 10 mLIndications:Left groin pain 10 mL injection One-time injection 10/20/2024 10/20/2024 Ended methylPREDNISolone acetate (DEPO-Medrol) injection 80 mgIndications:Left groin pain 80 mg intraartic One-time injection 10/20/2024 10/20/2024 Ended Active Problems Problem Noted Date Diagnosed Date Left groin pain 11/24/2023 Encounters Date Type Department Care Team Description 10/20/2024 2:15 PM EDT Procedure visit [facility] Sports Medicine [address] [place] [address] [place] [address] Emanuel Hayward MD Left groin pain (Primary Dx) 10/19/2024 myChart Message [facility] Sports Medicine [address] [place] [address] Catering Chef: Emanuel Durbin MD Pain relief injection 09/04/2024 Telephone [facility] [address] [place] [address] Telephone Intake, Staff PAC Appt Request - Established-HUMBERTO from Last 3 Months Social History Tobacco [...] 100 10/29/2016 12:40 PM EDT Temperature 36.6 C (97.8 F) 10/29/2016 12:40 PM EDT Respiratory Rate - - Oxygen Saturation - - Inhaled Oxygen Concentration - - Weight 95.7 kg (211 lb) 10/29/2016 12:40 PM EDT Height 156.2 cm (5' 1.5 ) 10/29/2016 12:40 PM ED T Body Mass Index 39.22 10/29/2016 12:40 PM EDT Plan of Treatment Upcoming Encounters Date Type Department Care Team (Late st Contact Info) Description 12/06/2024 10:00 AM EDT Follow-Up [facility] [address] [place] [address] Alan Maldonado MD [address] [place] [address] 12/06/2024 10:00 AM EDT Follow-Up [facility] [address] [place] [address] Saurabh Méndez MD [address] [place] [address] Health Maintenance Due Date Last Done Comments [...] 2023-2 5 season) 2023 02/18/2021, 06/21/2020, 05/30/2020 Alcohol/Substance Use Screening 03/22/2024 Depression Screening and Follow-Up 03/22/2024 Social [employer] ual Screening 03/22/2024 Influenza Vaccine (#1) 2024 , 02/15/2022, 01/05/2022, Additional history exists DTaP,Tdap,and Td Vaccines (3 - Td or Tdap) 11/11/2032 11/11/2022, 12/19/2013 RSV Vaccine (60+ years old a nd patients) (1 - 1-dose 75+ series) 12/13/2062 Procedures * Due to [place] law, this organization might not be sharing negative HIV tests. Procedure Name Priority Date/Time Associated Diagnosis Comments CO ARTHROCENTESIS ASPIR&/INJ MAJOR JT/BURSA W/US Routine 10/20/2024 2:15 PM EDT Left groin pain from Last 3 Months Results * Due to [place] law, this organization might not be sharing negative HIV tests. * CO ARTHROCENTESIS ASPIR&/INJ MAJOR JT/BURSA W/US (10/20/2024 2:15 PM EDT) Emanuel Tapia MD - 10/20/2024 2:15 PM EDT Emanuel Hayward MD 10/20/2024 5:55 PM Ultrasound Guided - Large Joint Inj/Asp L Hip Intra-articular Indication(s): Hip Pain Date/Time: 10/20/2024 2:15 PM Performed by: Emanuel Hayward MD Authorized by: Emanuel Hayward MD Consent: Patient identity confirmed: Name and with patient and Verbally Verbal consent obtained: Yes Written consent obtained: Yes Risk and benefits discussed: Yes Written informed consent was obtained from the patient and guardian. Patient states understanding of procedure being performed: Yes Patient's understanding of procedure matches consent: Yes [place] Protocol: Procedure consent matches procedure scheduled: Yes All relevant documents/tests are correctly identified, labeled, and matched to patient: Yes Relevant tests/ Imaging studies available/reviewed: Yes Correct site marked: Yes Required blood products, implants, devices and special equipment available: Yes Immediately prior to the procedure a time out was called: Yes An attending physician was present for the procedure OR the procedure was performed by an Advanced Practice Provider: Yes Procedure Details: Location: hip - L hip joint Patient was prepped and draped in the usual sterile fashion. Site Prep: Betadine Guidance: ultrasound Left Topical Anesthetic: ethyl chloride (cold spray) Syringe Size:10 mL Needle size: 22 G Approach: anterior Medications administered: 10 mL lidocaine PF 1% (10 mg/mL); 80 mg methylPREDNISolone acetate 80 mg/mL Dressing: Band-Aid Post-procedure Details: Patient tolerance: patient tolerated the procedure well with no immediate complications Instructions: post-procedure instructions were reviewed Discharge: patient discharged from clinic in stable condition Comments: A hip intra-articular injection was performed after risks, benefits and alternative therapies were reviewed. Written consent was obtained. Risks reviewed included but were not limited to potential risk of infection, injury to local tendon, joint as well as neurovascular structures, potential worsening of pain and/or function. Under direct ultrasound visualization 80 mg of corticosteroid and 5 cc of lidocaine was injected intra-articularly utilizing an anterior approach. Patient tolerated the procedure well and there were no complications. Plan is to avoid all heavy impact loading activities over the next week. Patient will gradually advance activities thereafter as tolerated. All the patient's questions were addressed and answered at time of the office visit. Emanuel Hayward MD IN CLINIC/BEDSIDE ORDERA BLES Final Result from Last 3 Months Insurance [facility] Care Teams Guest History Clerk Relationship Specialty Start Date End Date Italo Bedolla [address] [place] [address] PCP - General Family Medicine 09/27/23
--- OUTSIDE RECORDS SUMMARY | 2024-11-14 10:19 | XMS_ITS | Encounter Summary ---
Author Organization [facility] Address [address] [place] [address] Phone Care Team Providers Care Sewing Machine Bobbin Winder Name Role Phone Keri Gil MEDICAL AFFAIRS LEADER Primary Care Provider Lolis Rowe MEDICAL AFFAIRS LEADER Unavailable [phone] Claudy Ramsey MD, MS Unavailable Susie Michael MEDICAL AFFAIRS LEADER Unavailable Keri Gil MEDICAL AFFAIRS LEADER Unavailable [phone] Jennifer Henson MEDICAL AFFAIRS LEADER Unavailable [phone] Lionel Reich MD Unavailable Mily Ball MD Unavailable [phone] Keri Gil MEDICAL AFFAIRS LEADER Primary Care Provider Italo Bedolla MD, MPH Primary Care Provider + Reason for Referral * Consultation (Elective) - Closed Specialty Diagnoses / Procedures Referred By Willie gaming Referred To Contact Neurology Diagnoses Encounter for consultation System, Provider Not In, PhD [address] [address] Referral ID Status Reason Start Date Expiration Date Visits Re quested Visits Authorized [id number] Closed 07/25/2015 07/24/2016 1 1 Encounter Details Date Type Department Care Team (Latest Contact Info) Description 07/25/2015 Transcribe Orders [facility] Department of Neurology [address] [facility], 8th Floor, [address] [place] [address] Keri Gil MEDICAL AFFAIRS LEADER [address] [place] [address] Encounter for consultation (Primary Dx) Social History Tobacco Use Types Packs/Day Years Used Date Smoking Tobacco: Never Assessed Comments Unknown Sex and Gender Information Value [...] st Contact Info) Description 10/11/2024 Procedure Pass [facility] [address] [address] 11/18/2024 2:00 PM EDT Appointment [address] [address] Stew Sarabia MD [address] [place] [address] [email or web address] Scheduled Referrals Name Type Priority Associated Diagnoses Orde r Schedule Ambulatory referral to [facility] Neurology Outpatient Referral Routine Encounter for consultation Ordered: 07/25/2015 documented as of this encounter Visit Diagnoses Diagnosis Encounter for consultation- Primary documented in this encounter Care Teams Sewing Machine Bobbin Winder Relationship Specialty Start Date End Date Keri Gil NP PCP - General Family Medicine 07/22/15 09/18/24 Keri Gil NP [address] [place] [address] PCP - General Nurse Practitioner 09/19/24 10/01/24 Italo Bedolla MD, MPH [address] [place] [address] PCP - General Family Medicine 10/02/24 Lolis Rowe, MEDICAL AFFAIRS LEADER [address] [place] [address] [email or web address] Historical LMR Provider 01/06/17 03/29/21 Claudy Ramsey MD, MS [address] [place] [address] [email or web address] Historical LMR Provider 01/06/17 03/29/21 Susie Michael, FORREST [address] [place] [address] Historical LMR Provider 01/06/17 2 Keri Gil MEDICAL AFFAIRS LEADER Historical LMR Provider 01/06/17 Jennifer Henson MEDICAL AFFAIRS LEADER [address] [place] [address] Historical LMR Provider 01/06/17 2 Lionel Reich MD [address] [place] [address] Historical LMR Provider 01/06/17 Mily Ball MD [address] [place] [address] Orthopedics & Sports Medicine, [place] [address] Historical LMR Provider 01/06/17 documented as of this encounter Additional Source Comments The information contained in this document represents components of the legal health record. It is not the complete legal health record.[facility]
--- OUTSIDE RECORDS SUMMARY | 2024-11-14 10:19 | XMS_ITS | Encounter Summary ---
Author Organization [facility] Address [address] [place] [address] Phone Care Team Providers Care Refractive Surgeon Name Role Phone Keri Gil SAUSAGE WRAPPER Primary Care Provider [phone] Keri Gil SAUSAGE WRAPPER Unavailable [phone] Lionel Reich MD Unavailable Mily Ball MD Unavailable Keri Gil SAUSAGE WRAPPER Primary Care Provider Italo Bedolla MD, MPH Primary Care Provider + Reason for Referral * MRI/CAT Scan - Closed Specialty Diagnoses / Procedures Referred By Contparth t Referred To Contact Radiology Diagnoses Left hip pain Procedures MRI Pelvis (GI/) CHG MRI, PELVIS, W/O CONTRAST Earle Scott MD [address] [place] [address] Phone: tel: fax: mailto: Referral ID Status Reason Start Date Expiration Date Visits Re quested Visits Authorized [id number] Closed 05/20/2023 07/18/2023 1 1 Encounter Details Date Type Department Care Team (Latest Contact Info) Description 05/20/2023 Transcribe Orders Virtual Department [address] [place] [address] Earle Scott MD [address] [place] [address] [email or web address] Left hip pain (Primary Dx) Social History Tobacco Use Types [...] st Contact Info) Description 10/11/2024 Procedure Pass [facility] Ct Scan [address] [address] 11/18/2024 2:00 PM EDT Appointment [place], Ct Scan [address] [address] Stew Sarabia MD [address] [place] [address] [email or web address] documented as of this encounter Results * MRI PELVIS WITHOUT CONTRAST (06/17/2023 5:42 PM EDT) Anatomical Region Laterality Modality Pelvis Magnetic Resonan ce 06/21/2023 5:08 PM EDT Impressions 06/21/2023 5:23 PM EDT Acute/subacute appearing tear involving the left-sided prepubic aponeurosis and adductor longus tendon insertion. T1 hyperintense focus in the left ovary could represent a hemorrhagic cyst or endometrioma. RECOMMENDATION: Pelvic ultrasound. Narrative 06/21/2023 5:23 PM EDT MRI PELVIS WITHOUT CONTRAST Referring clinician's provided indication for this examination in [facility]: Outside Radiology Order; hip pain TECHNIQUE: Multiplanar MR imaging of the pelvis was performed using T1, T2, and diffusion weighted techniques. COMPARISON: none FINDINGS: Tear involving the left-sided prepubic aponeurosis and adductor longus tendon insertion with formation of a secondary cleft sign and with reactive marrow edema in the left pubic body. The rectus abdominis tendons are grossly intact. No evidence of fracture, osteonecrosis or marrow replacing lesion. No soft tissue mass or collection. A T1 hyperintense focus is present in the left ovary without loss of signal on fat suppression images. Procedure Note Sagar العراقي MD - 06/21/2023 MRI PELVIS WITHOUT CONTRAST Referring clinician's provided indication for this examination in [facility]:Outside Radiology Order; hip pain TECHNIQUE: Multiplanar MR imaging of the pelvis was performed using T1,T2, and diffusion weighted techniques. COMPARISON: none FINDINGS: Tear involving the left-sided prepubic aponeurosis and adductor longustendon insertion with formation of a secondary cleft sign and withreactive marrow edema in the left pubic body. The rectus abdominis tendonsare grossly intact. No evidence of fracture, osteonecrosis or marrow replacing lesion. No soft tissue mass or collection. A T1 hyperintense focus is present in the left ovary without loss ofsignal on fat suppression images. IMPRESSION: Acute/subacute appearing tear involving the left-sided prepubicaponeurosis and adductor longus tendon insertion. T1 hyperintense focus in the left ovary could represent a hemorrhagic cystor endometrioma. RECOMMENDATION: Pelvic ultrasound. Earle Scott MD IMG MR PELVIS Final Result documented in this encounter Visit Diagnoses Diagnosis Left hip pain- Primary Pain in joint, pelvic region and thigh Left hip pain Pain in joint, pelvic region and thigh documented in this encounter Care Teams Refractive Surgeon Relationship Specialty Start Date End Date Keri Gil SAUSAGE WRAPPER PCP - General Family Medicine 07/22/15 09/18/24 Keri Gil SAUSAGE WRAPPER [address] [place] [address] PCP - General Nurse Practitioner 09/19/24 10/01/24 Italo Bedolla MD, MPH 70 [place] [address] PCP - General Family Medicine 10/02/24 Keri Gil, SAUSAGE WRAPPER Historical LMR Provider 01/06/17 Lionel Reich MD [address] [place] [address], [facility] [address] [place] [address] Historical LMR Provider 01/06/17 Mily Ball MD [address] [place] [address] Orthopedics & Sports Medicine, [facility] [place] [address] Historical LMR Provider 01/06/17 documented as of this encounter Additional Source Comments The information contained in this document represents components of the legal health record. It is not the complete legal health record.[facility]
--- OUTSIDE RECORDS SUMMARY | 2024-11-14 10:19 | XMS_ITS | Encounter Summary ---
Author Organization [facility] Address [address] [place] [address] [place] [address] Phone Care Team Providers Care Circle Edger Name Role Phone Keri Gil CLIENT DELIVERY SPECIALIST Primary Care Provider [phone] Keri Gil CLIENT DELIVERY SPECIALIST Unavailable [phone] Lionel Reich MD Unavailable Mily Ball MD Unavailable [phone] Keri Gil CLIENT DELIVERY SPECIALIST Primary Care Provider Italo Bedolla MD, MPH Primary Care Provider + Encounter Details Date Type Department Care Team (Late st Contact Info) Description 04/17/2024 Procedure Pass [facility], Ct Scan - [address] [address] Social History Tobacco Use Types Packs/Day Years [...] st Contact Info) Description 10/11/2024 Procedure Pass [facility], Ct Scan [address] [address] 11/18/2024 2:00 PM EDT Appointment [address] [address] Stew Sarabia MD 70 [place] [address] [email or web address] documented as of this encounter Visit Diagnoses Not on filedocumented in this encounter Care Teams Circle Edger Relationship Specialty Start Date End Date Keri Gil NP PCP - General Family Medicine 07/22/15 09/18/24 Keri Gil NP [address] [place] [address] PCP - General Nurse Practitioner 09/19/24 10/01/24 Italo Bedolla MD, MPH [address] [place] [address] [email or web address] PCP - General Family Medicine 10/02/24 Keri Gil NP Historical LMR Provider 01/06/17 Lionel Reich MD 22 [facility], [facility] 102 [place] [address] [email or web address] Historical LMR Provider 01/06/17 Mily Ball MD [address] [place] [address] Orthopedics & Sports Medicine, [place] [address] [email or web address] Historical LMR Provider 01/06/17 documented as of this encounter Additional Source Comments The information contained in this document represents components of the legal health record. It is not the complete legal health record.[facility]
== END 2024-11-14 10:18 | disposition home or self-care (01) ==
LOC: HO.HOP 09:41
PROVIDERS: PCP Family Medicine; Visit Provider Clinical Nurse Specialist Psychiatric/Mental Health
DX: F33.1 Major depressive disorder, recurrent, moderate (principal); F90.0 Attention-deficit hyperactivity disorder, predominantly inattentive type; F42.2 Mixed obsessional thoughts and acts
CPT/HCPCS: 99214

== ENCOUNTER 2025-01-16 16:49 | Outpatient (AMB) | payer OTHER, SELFPAY ==
--- NOTE | 2025-01-16 16:05 | A.OFFPSYCH_ITS ---
Intake Intake Visit Reasons: depression Sas Sql Developer Required: No Allergies Penicillins Allergy (Intermediate, Verified 06/17/23 11:43) Rash Medication List - Last Reconciled 01/16/25 by Mary Ellen Marie APRN buspirone 7.5 mg PO BID dextroamphetamine-amphetamine 5 mg (Adderall) 2.5mg - 5 mg orally DAILY@1500; Partial Fill upon patient request. dextroamphetamine-amphetamine 5 mg ER (Adderall XR) 5 mg PO DAILY levothyroxine 75 mcg PO DAILY lorazepam 0.5 mg PO DAILY PRN trazodone 75 mg (1/2 x 150 mg) PO BEDTIME PRN vortioxetine (Trintellix) 20 mg PO DAILY HPI- Psychiatric Chief Complaint: depression HPI Narrative: Pt seen via video telehealth appt for follow up re: depression, anxiety, and ADHD. Pt reports down mood. worry and anxiety at times. She reports significant PMDD symptoms and mood changes before her period; she is working with A P SUPERVISOR endocrinology. She recently learned she has zinc deficiency which may be contributing to symtpoms including mood, brain fog, and slow wound healing. She tried the adderall one day and felt chest tightness. She did not take any more but the tightness continued and she saw PCP who tole her it was muscular. Reports depression, anxiety and high stress. Pt struggling with attention, focus, organization, motivation. Pt feels fatigued many days; She denies SI or HI. Taking meds consistently; no side effects. attending therapy regularly. Past Psychiatric History: OCD at age 9, saw child psychologist for many years ages [age] OCD, anxiety, depression, suicidality, at age 14 things got a lot better; age [age] good but then anxiety increased significantly when she was in transition from HS to college; symptoms better in high school and college, soci al anxiety decreased sports and music, friends and therapy helped. put on xanax by PCP at age 19. No IPLOC. Has tried multiple medications lexapro- pt doesn't recall why stopped vyvanse helped adderall- rebound agitation/anxiety ritalin- agitated/anxious/paranoid/wary Effexor jittery Zoloft jittery Paxil doesnt recall Prozac doesnt recall Pristiq for years, stopped working Xanax helped with panic and insomnia Ativan some help Wellbutrin jittery Clonazepam helpful lamictal- not helpful and early am waking Subjective Subjective Subjective Medication Compliance: Yes Side effects from medications: No Review of Systems Medical Review of Systems: unchanged Mental Status Exam Mental Status Exam Patient Appearance: Well Grooomed and Appropriate Patient Orientation: Person, Place, Time and Situation Level of Consciousness: Awake, Appropriate and Alert Patient Behavior: Appropriate, Cooperative and Good Eye Contact Mood Description: Depressed Affect Description: Depressed Patient Cognition Impaired: No Ability to Follow Directions: Good Speech Pattern: Clear and Appropriate Memory Description: Intact Hallucinations: None Delusions: Not Present Thought Process: Intact and Goal Oriented Thought Content: positive for Intact, positive for Goal Oriented and positive for Poverty of Content Judgement: Good Telehealth Telehealth Telehealth Platform: MediaV Location of provider rendering services: practice address Location of patient: address on file Patient Identification confirmed using: Name, : Yes Telehealth method: video Patient verbally consented to treatment: Yes Patient verbally consented to billing insurance company: Yes Patient informed of any privacy concerns related to visit: Yes Minutes spent on Phone/Video with Pt.: 28 Assessment and Plan Assessment & Plan (1) Major depressive disorder, recurrent episode, moderate degree: Status: Acute Code(s): F33.1 - Major depressive disorder, recurrent, moderate (2) ADHD: Status: Acute Qualifiers: Attention deficit-hyperactivity disorder type: predominantly inattentive Qualified Code(s): F90.0 - Attention-deficit hyperactivity disorder, predominantly inattentive type Code(s): F90.9 - Attention-deficit hyperactivity disorder, unspecified type (3) OCD (obsessive compulsive disorder): Status: Acute Qualifiers: Obsessive-compulsive disorder type: mixed obsessional thoughts and acts Qualified Code(s): F42.2 - Mixed obsessional thoughts and acts Code(s): F42.9 - Obsessive-compulsive disorder, unspecified Plan decrease trintellix to 10 mg daily start pristiq 25mg daily continue other meds except adderall ok to retrial 2.5mg of adderall IR in 2 weeks after above med change. encouraged pt to start zinc supplement and consider buffered vit castro C 1000 mg daily for wound healing as she has groin tear from that is not healing Medications: New desvenlafaxine succinate ER (Pristiq) 25 mg PO DAILY 30 tabs 1RF vortioxetine (Trintellix) 10 mg PO DAILY 30 tabs 1RF Counseling and coordination of Care Pt. Self Management counseling: Exercise (restorative yoga), Maintenance-social rhythm, Mod caffeine/ETOH intake, Nutrition education and improvement, Sleep hygiene and General coping skills Medication management counseling: Effectiveness, Side effects, Dosing range, Duration, Drug interaction and Adherence Diagnosis and Prognosis Counseling: Accuracy of diagnosis, Prognosis over time, Impact of diagnosis on life functions, Impact of family relationship, Problematic behaviors secondary to diagnosis and Adequacy of current int erventions Details: I spent 40 minutes reviewing the record, seeing the patient and documenting in the medical record. Counseling provided to the patient/caregiver as outlined below. Addressed patient/caregiver concerns regarding current medication regime including effective adherence. Addressed patient/caregiver concerns regarding diagnosis and prognosis including accuracy of diagnosis, prognosis over time, impact of diagnosis. Addressed patient/caregiver concerns regarding impact of recent stressors. 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
--- OUTSIDE RECORDS SUMMARY | 2025-01-16 20:14 | XMS_ITS | Encounter Summary ---
Author Organization [facility] Address [address] [place] [address] Phone Care Team Providers Care Laborer Car Barn Name Role Phone Keri Gil BULL FIDDLE PLAYER Primary Care Provider Lolis Rowe BULL FIDDLE PLAYER Unavailable [phone] Claudy Ramsey MD, MS Unavailable Susie Michael BULL FIDDLE PLAYER Unavailable Keri Gil BULL FIDDLE PLAYER Unavailable [phone] Jennifer Henson BULL FIDDLE PLAYER Unavailable [phone] Lionel Reich MD Unavailable Mily Ball MD Unavailable [phone] Keri Gil BULL FIDDLE PLAYER Primary Care Provider Italo Bedolla MD, MPH Primary Care Provider + Reason for Referral * Physical Therapy (Routine) - Closed Specialty Diagnoses / Procedures Referred By Willie gaming Referred To Contact Physical Therapy Diagnoses Encounter for rehabilitation Raman Mcclelland MD Phone: tel: fax: [email or web address]:[email or web address] 30 [place] [address] Phone: tel: Referral ID Status Reason Start Date Expiration Date Visits Re quested Visits Authorized [id number] Closed 01/24/2019 01/25/2020 1 1 Encounter Details Date Type Department Care Team (Latest Contact Info) Description 01/24/2019 Transcribe Orders [facility] [address] [place] [address] Raman Mcclelland MD [address] [address] [email or web address] Encounter for rehabilitation (Primary Dx) Social [...] as of this encounter Plan of Treatment Scheduled Referrals Name Type Priority Associated Diagnoses Orde r Schedule Ambulatory referral to [facility] Physical Therapy Outpatient Referral Routine Encounter for rehabilitation Ordered: 01/24/2019 documented as of this encounter Visit Diagnoses Diagnosis Encounter for rehabilitation- Primary documented in this encounter Care Teams Laborer Car Barn Relationship Specialty Start Date End Date Keri Gil NP PCP - General Family Medicine 07/22/15 09/18/24 Keri Gil NP [address] [place] [address] PCP - General Nurse Practitioner 09/19/24 10/01/24 Italo Bedolla MD, MPH 70 [place] [address] PCP - General Family Medicine 10/02/24 Lolis Rowe, BULL FIDDLE PLAYER [address] [place] [address] Historical LMR Provider 01/06/17 03/29/21 Claudy Ramsey MD, MS [address] [place] [address] Historical LMR Provider 01/06/17 03/29/21 Susie Michael, FORREST [address] [place] [address] Historical LMR Provider 01/06/17 2 Keri Gil NP Historical LMR Provider 01/06/17 Jennifer Henson NP 30 [place] [address] Historical LMR Provider 01/06/17 2 Lionel Reich MD [address] [place] [address] Historical LMR Provider 01/06/17 Mily Ball MD [address] [place] [address] Orthopedics & Sports Medicine, [place] [address] Historical LMR Provider 01/06/17 documented as of this encounter Additional Source Comments The information contained in this document represents components of the legal health record. It is not the complete legal health record.[facility]
--- OUTSIDE RECORDS SUMMARY | 2025-01-16 20:14 | XMS_ITS | Encounter Summary ---
Author Organization [facility] Address [address] [place] [address] [place] [address] Phone Care Team Providers Care Red Cross Executive Director Name Role Phone Keri Gil NP Unavailable [phone] Lionel Reich MD Unavailable Mily Ball MD Unavailable Italo Bedolla MD, MPH Primary Care Provider + Encounter Details Date Type Department Care Team (Late st Contact Info) Description 10/11/2024 Procedure Pass [facility], Ct Scan - [facility] 30 [place] [address] Social History Tobacco Use Types Packs/Day Years [...] as of this encounter Plan of Treatment Not on file documented as of this encounter Visit Diagnoses Not on filedocumented in this encounter Care Teams Red Cross Executive Director Relationship Specialty Start Date End Date Italo Bedolla MD, MPH 70 [place] [address] PCP - General Family Medicine 10/02/24 Keri Gil ER RN Historical LMR Provider 01/06/17 Lionel Reich MD [address] [place] [address], [facility] 102 [place] [address] Historical LMR Provider 01/06/17 Mily Ball MD [address] [place] [address] Orthopedics & Sports Medicine, [facility] [place] [address] Historical LMR Provider 01/06/17 documented as of this encounter Additional Source Comments The information contained in this document represents components of the legal health record. It is not the complete legal health record.[facility]
--- OUTSIDE RECORDS SUMMARY | 2025-01-16 20:14 | XMS_ITS | Encounter Summary ---
Author Organization [facility] Address [address] [place] [address] Phone Care Team Providers Care Extrusion Bender Name Role Phone Keri Gil CD MANUFACTURING SUPERVISOR Primary Care Provider Lolis Rowe CD MANUFACTURING SUPERVISOR Unavailable [phone] Claudy Ramsey MD, MS Unavailable [phone] Susie Michael CD MANUFACTURING SUPERVISOR Unavailable [phone] Keri Gil CD MANUFACTURING SUPERVISOR Unavailable Jennifer Henson CD MANUFACTURING SUPERVISOR Unavailable [phone] Lionel Reich MD Unavailable Mily Ball MD Unavailable [phone] Keri Gil CD MANUFACTURING SUPERVISOR Primary Care Provider Italo Bedolla MD, MPH Primary Care Provider + Encounter Details Date Type Department Care Team (Late st Contact Info) Description 08/01/2020 Procedure Pass [address] [place] [address] Social History Tobacco Use Types Packs/Day Years [...] on filedocumented in this encounter Care Teams Extrusion Bender Relationship Specialty Start Date End Date Keri Gil CD MANUFACTURING SUPERVISOR PCP - General Family Medicine 07/22/15 09/18/24 Keri Gil CD MANUFACTURING SUPERVISOR [address] [place] [address] PCP - General Nurse Practitioner 09/19/24 10/01/24 Italo Bedolla MD, MPH [address] [place] [address] [email or web address] PCP - General Family Medicine 10/02/24 Lolis Rowe CD MANUFACTURING SUPERVISOR [address] [place] [address] [email or web address] Historical LMR Provider 01/06/17 03/29/21 Claudy Ramsey MD, MS [address] [place] [address] [email or web address] Historical LMR Provider 01/06/17 03/29/21 Susie Michael CD MANUFACTURING SUPERVISOR [address] [place] [address] Historical LMR Provider 01/06/17 2 Keri Gil CD MANUFACTURING SUPERVISOR Historical LMR Provider 01/06/17 Jennifer Henson NP [address] [place] [address] Historical LMR Provider 01/06/17 2 Lionel Reich MD [address] [place] [address] 102 [place] [address] Historical LMR Provider 01/06/17 Mily Ball MD [address] [place] [address] Orthopedics & Sports Medicine, [facility] [place] [address] Historical LMR Provider 01/06/17 documented as of this encounter Additional Source Comments The information contained in this document represents components of the legal health record. It is not the complete legal health record.[facility]
--- OUTSIDE RECORDS SUMMARY | 2025-01-16 20:14 | XMS_ITS | Encounter Summary ---
Author Organization [facility] Address [address] [place] [address] Phone Care Team Providers Care Art Director Name Role Phone Keri Gil PLANT ETIOLOGIST Primary Care Provider Lolis Rowe PLANT ETIOLOGIST Unavailable [phone] Claudy Ramsey MD, MS Unavailable Susie Michael PLANT ETIOLOGIST Unavailable Keri Gil PLANT ETIOLOGIST Unavailable [phone] Jennifer Henson PLANT ETIOLOGIST Unavailable [phone] Lionel Reich MD Unavailable [phone] Mily Ball MD Unavailable Keri Gil PLANT ETIOLOGIST Primary Care Provider Italo Bedolla MD, MPH Primary Care Provider + Encounter Details Date Type Department Care Team (Late st Contact Info) Description 08/30/2019 Procedure Pass [facility], Ct Scan - [address] [address] Social History Tobacco Use Types Packs/Day Years [...] on filedocumented in this encounter Care Teams Art Director Relationship Specialty Start Date End Date Keri Gil PLANT ETIOLOGIST PCP - General Family Medicine 07/22/15 09/18/24 Keri Gil PLANT ETIOLOGIST [address] [place] [address] PCP - General Nurse Practitioner 09/19/24 10/01/24 Italo Bedolla MD, MPH [address] [place] [address] [email or web address] PCP - General Family Medicine 10/02/24 Lolis Rowe PLANT ETIOLOGIST [address] [place] [address] [email or web address] Historical LMR Provider 01/06/17 03/29/21 Claudy Ramsey MD, MS [address] [place] [address] [email or web address] Historical LMR Provider 01/06/17 03/29/21 Susie Michael NP [address] [place] [address] Historical LMR Provider 01/06/17 2 Keri Gil PLANT ETIOLOGIST Historical LMR Provider 01/06/17 Jennifer Henson NP [address] [place] [address] Historical LMR Provider 01/06/17 2 Lionel Reich MD [address] [place] [address] 102 [place] [address] Historical LMR Provider 01/06/17 Mily Ball MD [address] [place] [address] Orthopedics & Sports Medicine, [facility] [place] [address] Historical LMR Provider 01/06/17 documented as of this encounter Additional Source Comments The information contained in this document represents components of the legal health record. It is not the complete legal health record.[facility]
--- OUTSIDE RECORDS SUMMARY | 2025-01-16 20:14 | XMS_ITS | Encounter Summary ---
Author Organization [facility] Address [address] [place] [address] Care Team Providers Care Child Center Assistant Name Role Phone Italo Bedolla Primary Care Provider [phone] Encounter Details Date Type Department Care Team (Late st Contact Info) Description 12/21/2024 myChart Message [facility] [address] [place], [place] [phone] Cable Installation Manager: Saurabh Ledesma MD [address] [place] [address] MRI denied by insurance Social History Tobacco Use Types Packs/Day Years [...] Care Team (Late st Contact Info) Description 01/24/2025 9:45 AM EST Follow-Up [facility] [address] [place] [address] Saurabh Méndez MD [address] [place] [address] 01/24/2025 9:45 AM EST Follow-Up [facility] [address] [place], [place] [phone] Alan Maldonado MD [address] [place] [address] documented as of this encounter Visit Diagnoses Not on filedocumented in this encounter Care Teams Child Center Assistant Relationship Specialty Start Date End Date Jose Francisco Bedollamary jane [address] [place] [address] PCP - General Family Medicine 09/27/23 documented as of this encounter
--- OUTSIDE RECORDS SUMMARY | 2025-01-16 20:14 | XMS_ITS | Encounter Summary ---
Author Organization [facility] Address [address] [place] [address] Phone Care Team Providers Care Supervisor Baking Name Role Phone Keri Gil HEALTH PLAN MANAGER Primary Care Provider [phone] Lolis Rowe HEALTH PLAN MANAGER Unavailable [phone] Claudy Ramsey MD, MS Unavailable [phone] Susie Michael HEALTH PLAN MANAGER Unavailable Keri Gil HEALTH PLAN MANAGER Unavailable [phone] Jennifer Henson HEALTH PLAN MANAGER Unavailable [phone] Lionel Reich MD Unavailable Mily Ball MD Unavailable [phone] Keri Gil HEALTH PLAN MANAGER Primary Care Provider Italo Bedolla MD, MPH Primary Care Provider + Encounter Details Date Type Department Care Team (Late st Contact Info) Description 07/03/2020 Procedure Pass [facility] - [address] [place] [address] Social History Tobacco Use Types Packs/Day Years [...] on filedocumented in this encounter Care Teams Supervisor Baking Relationship Specialty Start Date End Date Keri Gil HEALTH PLAN MANAGER PCP - General Family Medicine 07/22/15 09/18/24 Keri Gil HEALTH PLAN MANAGER [address] [place] [address] PCP - General Nurse Practitioner 09/19/24 10/01/24 Italo Bedolla MD, MPH [address] [place] [address] [email or web address] PCP - General Family Medicine 10/02/24 Lolis Rowe HEALTH PLAN MANAGER [address] [place] [address] [email or web address] Historical LMR Provider 01/06/17 03/29/21 Claudy Ramsey MD, MS [address] [place] [address] [email or web address] Historical LMR Provider 01/06/17 03/29/21 Susie Michael NP [address] [place] [address] Historical LMR Provider 01/06/17 2 Keri Gil HEALTH PLAN MANAGER Historical LMR Provider 01/06/17 Jennifer Henson NP [address] [place] [address] Historical LMR Provider 01/06/17 2 Lionel Reich MD [address] [place] [address] [address] [place] [address] Historical LMR Provider 01/06/17 Mily Ball MD [address] [place] [address] Orthopedics & Sports Medicine, [facility] [place] [address] Historical LMR Provider 01/06/17 documented as of this encounter Additional Source Comments The information contained in this document represents components of the legal health record. It is not the complete legal health record.[facility]
--- OUTSIDE RECORDS SUMMARY | 2025-01-16 20:14 | XMS_ITS | Encounter Summary ---
Author Organization [facility] Address [address] [place] [address] Phone Care Team Providers Care Storage Engineer Name Role Phone Keri Gil SYSTEMS PROJECT MANAGER Primary Care Provider Lolis Rowe SYSTEMS PROJECT MANAGER Unavailable [phone] Claudy Ramsey MD, MS Unavailable Susie Michael SYSTEMS PROJECT MANAGER Unavailable [phone] Keri Gil SYSTEMS PROJECT MANAGER Unavailable [phone] Jennifer Henson SYSTEMS PROJECT MANAGER Unavailable [phone] Lionel Reich MD Unavailable [phone] Mily Ball MD Unavailable [phone] Keri Gil SYSTEMS PROJECT MANAGER Primary Care Provider Italo Bedolla MD, [...] Ismael Zhao MD Phone: tel: fax: [email or web address]:[email or web address] [address] [place] [address] Phone: tel: Referral ID Status Reason Start Date Expiration Date Visits Re quested Visits Authorized [id number] Closed 08/01/2020 09/29/2020 1 1 Encounter Details Date Type Department Care Team (Latest Contact Info) Description 08/01/2020 Transcribe Orders Virtual Department [address] [place] [address] Ismael Zhao MD [address] [place] [address], [address] [place], [place] [phone] [email or web address] Blurred vision (Primary Dx); Numbness of [...] on file documented as of this encounter Results * [...] sequences were then obtained. FINDINGS: No abnormal obdiw-reuyq-zaemr blood or fluid collection, mass, or mass [...] sequences were then obtained. FINDINGS: No abnormal jmudp-okvcb-oqqyu blood or fluid collection, mass, or masseffect [...] sensation documented in this encounter Care Teams Storage Engineer Relationship Specialty Start Date End Date Keri Gil SYSTEMS PROJECT MANAGER PCP - General Family Medicine 07/22/15 09/18/24 Keri Gil SYSTEMS PROJECT MANAGER [address] [place] [address] PCP - General Nurse Practitioner 09/19/24 10/01/24 Italo Bedolla MD, MPH [address] [place] [address] [email or web address] PCP - General Family Medicine 10/02/24 Lolis Rowe NP [address] [place] [address] [email or web address] Historical LMR Provider 01/06/17 03/29/21 Claudy Ramsey MD, MS [address] [place] [address] [email or web address] Historical LMR Provider 01/06/17 03/29/21 Susie Michael NP [address] [place] [address] Historical LMR Provider 01/06/17 2 Keri Gil SYSTEMS PROJECT MANAGER Historical LMR Provider 01/06/17 Jennifer Henson NP [address] [place] [address] Historical LMR Provider 01/06/17 2 Lionel Reich MD [address] [place] [address], [address] [place] [address] [email or web address] Historical LMR Provider 01/06/17 Mily Ball MD [address] [place] [address] Orthopedics & Sports Medicine, [place] [address] [email or web address] Historical LMR Provider 01/06/17 documented as of this encounter Additional Source Comments The information contained in this document represents components of the legal health record. It is not the complete legal health record.[facility]
--- OUTSIDE RECORDS SUMMARY | 2025-01-16 20:14 | XMS_ITS | Encounter Summary ---
Author Organization [facility] Address [address] [place] [address] Phone Care Team Providers Care Tube Coater Name Role Phone Keri Gil IT SECURITY ENGINEER Primary Care Provider [phone] Lolis Rowe IT SECURITY ENGINEER Unavailable [phone] Claudy Ramsey MD, MS Unavailable [phone] Susie Michael IT SECURITY ENGINEER Unavailable Keri Gil IT SECURITY ENGINEER Unavailable [phone] Jennifer Henson IT SECURITY ENGINEER Unavailable [phone] Lionel Reich MD Unavailable Mily Ball MD Unavailable Keri Gil IT SECURITY ENGINEER Primary Care Provider Italo Bedolla MD, MPH Primary Care Provider + Encounter Details Date Type Department Care Team (Late st Contact Info) Description 01/06/2019 Procedure Pass [facility] Endoscopy Admitting Dept Virtual Department [address] [place] [address] Social History Tobacco Use Types [...] on filedocumented in this encounter Care Teams Tube Coater Relationship Specialty Start Date End Date Keri Gil IT SECURITY ENGINEER PCP - General Family Medicine 07/22/15 09/18/24 Keri Gil IT SECURITY ENGINEER [address] [place] [address] PCP - General Nurse Practitioner 09/19/24 10/01/24 Italo Bedolla MD, MPH [address] [place] [address] [email or web address] PCP - General Family Medicine 10/02/24 Lolis Rowe IT SECURITY ENGINEER [address] [place] [address] [email or web address] Historical LMR Provider 01/06/17 03/29/21 Claudy Ramsey MD, MS [address] [place] [address] [email or web address] Historical LMR Provider 01/06/17 03/29/21 Susie Michael NP [address] [place] [address] Historical LMR Provider 01/06/17 2 Keri Gil IT SECURITY ENGINEER Historical LMR Provider 01/06/17 Jennifer Henson NP [address] [place] [address] Historical LMR Provider 01/06/17 2 Lionel Reich MD [address] [place] [address] [address] [place] [address] Historical LMR Provider 01/06/17 Mily Ball MD [address] [place] [address] Orthopedics & Sports Medicine, [facility] [place] [address] Historical LMR Provider 01/06/17 documented as of this encounter Additional Source Comments The information contained in this document represents components of the legal health record. It is not the complete legal health record.[facility]
--- OUTSIDE RECORDS SUMMARY | 2025-01-16 20:14 | XMS_ITS | Data Portability ---
Author Organization [facility] [employer], [employer] Address [address] [place] [address] [place] JONSERAN, REKHA [address] Care Team Providers Care Curtain Stretcher Name Role Phone DOUGIE CRAIN Primary Care Provider IRA QUICK Referring Provider [phone] DOUGIE CRAIN Primary Care Provider IRA QUICK [...] Trintellix 20 mg, BuSpar 20 mg, Lamictal f or anxiety, 75 mg, trazodone as needed 100 mg, Hickory Thyroid 32 mg. Neurological exam is normal. [...] of TMJ. Erica Rogers MBA, PT [address] [facility]. [address] [place] [address] [email or web address] We will send a referral to the physical therapist for physical therapy. It is your responsibility to make the initial phone call to the above number to set up an initial appointment Follow-up in 10 weeks lila Not available 11/11/2020 10:42:48 Plan of Treatment [...] 021 mian 1 Erica Rogers PT, [address] [place], [address], 22:50:10 Procedures None recorded. Surgeries None recorded. [...] Not available Not available Not available 11/11/2020 [id number] 8001 SNOMED [facility] 09:16:25 Medications Name Sig Start Date Stop [...] Not Available Not Available No t Available Hickory Thyroid 30 mg tablet active Not Available [...] Not Available Not Available No t Available Hickory Thyroid active Not Available Not Available Not [...] Updated DateTime 11/11/2020 157.48 cm 43.9 kg/m2 217421.1 7 g 12 /min Tracee [facility] 11/11/2020 09:19:03 Social History Question Answer Notes LastModified by Organizat ion Details LastModified Time Tobacco Smoking Status Never Smoker [facility] 11/11/2020 09:20:12 What Is Your Level Of Caffeine Consumption? Moderate 1 Cup Information not available 11/11/2020 What Is The Highest Grade Or Level Of School You Have Completed Or The Highest Degree You Have Received? [id number] Information not available 11/11/2020 Which Of Your Hands Is Dominant? Right Information not available 11/11/2020 Sex: Unknown Functional Status Question Answer Note LastModified by Organizat ion Details LastModified Time What is your level of alcohol consumption? Occasional Information not available 11/11/2020 Mental Status None recorded. 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 [id number] G51.31 Health Concerns Section Related Observation LastModified by Organization Detai ls LastModified Time None Recorded Concern Status LastModified by Organization Details LastModified Time None Recorded Advance Directives Directive None Recorded Payers Insurance Date Sequence Insurance Name Policy Number Policy Rosas Covered Member ID Rosas Member ID Guarantor Name 01/10/2021 1 [place] [id number] Demetria Sprague [id number] Demetria Darcie Notes Date Note Type [...] with vision therapy for issues with eye teaming for which she has consulted with [employer] [facility] who have referred her to our [...] headaches although it took a long time t hose headaches went away in ~late 2019. She also has a many year history of bilateral, symmetric jaw discomfort with clicking with opening her mouth. 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 The jaw discomfort is swollen and painful [...] many more hours previously. Emanuel Houston MD [address] [place] [address] [place], [address], [facility] 11/11/2020 10:43:17 OBGyn Episode No OBEpisode recorded.
--- OUTSIDE RECORDS SUMMARY | 2025-01-16 20:14 | XMS_ITS | Encounter Summary ---
Author Organization [facility] Address [address] [place] [address] [place] [address] Phone Care Team Providers Care Feed Grinder Name Role Phone Keri Gil PHARMACOMETRICIAN Primary Care Provider Lolis Rowe PHARMACOMETRICIAN Unavailable [phone] Claudy Ramsey MD, MS Unavailable Susie Michael PHARMACOMETRICIAN Unavailable Keri Gil PHARMACOMETRICIAN Unavailable [phone] Jennifer Henson PHARMACOMETRICIAN Unavailable [phone] Lionel Reich MD Unavailable Mily Ball MD Unavailable Keri Gil PHARMACOMETRICIAN Primary Care Provider Italo Bedolla MD, MPH Primary Care Provider + Encounter Details Date Type Department Care Team (Late st Contact Info) Description 09/06/2020 Ancillary Orders [facility],Outside Imaging [address] [place], [place] [phone] System, Provider Not In, [facility] [address] [address] Social History Tobacco Use Types Packs/Day Years [...] on filedocumented in this encounter Care Teams Feed Grinder Relationship Specialty Start Date End Date Keri Gil NP PCP - General Family Medicine 07/22/15 09/18/24 Keri Gil NP [address] [place] [address] PCP - General Nurse Practitioner 09/19/24 10/01/24 Italo Bedolla MD, MPH [address] [place] [address] PCP - General Family Medicine 10/02/24 Lolis Rowe NP [address] [place] [address] Historical LMR Provider 01/06/17 03/29/21 Claudy Ramsey MD, MS [address] [place] [address] Historical LMR Provider 01/06/17 03/29/21 Susie Michael NP [address] [place] [address] Historical LMR Provider 01/06/17 2 Keri Gil NP Historical LMR Provider 01/06/17 eJnnifer Henson NP [address] [place] [address] Historical LMR Provider 01/06/17 2 Lionel Reich MD [address] [place] [address] [address] [place] [address] Historical LMR Provider 01/06/17 Mily Ball MD [address] [place] [address] Orthopedics & Sports Medicine, [facility] [place] [address] Historical LMR Provider 01/06/17 documented as of this encounter Additional Source Comments The information contained in this document represents components of the legal health record. It is not the complete legal health record.[facility]
--- OUTSIDE RECORDS SUMMARY | 2025-01-16 20:14 | XMS_ITS | Encounter Summary ---
Author Organization [facility] Address [address] [place] [address] Phone Care Team Providers Care Telecom Network Manager Name Role Phone Keri Gil HISTORICAL INTERPRETER Primary Care Provider Lolis Rowe HISTORICAL INTERPRETER Unavailable [phone] Claudy Ramsey MD, MS Unavailable Susie Michael HISTORICAL INTERPRETER Unavailable [phone] Keri Gil HISTORICAL INTERPRETER Unavailable [phone] Jennifer Henson HISTORICAL INTERPRETER Unavailable [phone] Lionel Reich MD Unavailable Mily Ball MD Unavailable [phone] Keri Gil HISTORICAL INTERPRETER Primary Care Provider Italo Bedolla MD, MPH Primary Care Provider + Reason for Referral * Physical Therapy (Routine) - Closed Specialty Diagnoses / Procedures Referred By Willie gaming Referred To Contact Physical Therapy Diagnoses Encounter for rehabilitation Sariah Rios MD [address] [place] [address] Phone: tel: fax: [facility] [address] [place] [address] Phone: tel: Referral ID Status Reason Start Date Expiration Date Visits Re quested Visits Authorized [id number] Closed 04/05/2019 03/21/2020 30 30 Encounter Details Date Type Department Care Team (Latest Contact Info) Description 04/05/2019 Transcribe Orders [facility] [address] [place] [address] Sariah Rios MD [address] [place] [address] Encounter for rehabilitation (Primary Dx) Social History [...] on file documented as of this encounter Procedures Procedure Name Priority Date/Time Associated Diagnosis Comments AMB REFERRAL TO [facility] PHYSICAL THERAPY Routine 05/15/2019 5:34 PM EST Encounter for rehabilitation documented in this encounter Results * Ambulatory referral to [facility] Physical Therapy (05/15/2019 5:34 PM EST) Sariah Rios MD AMB [facility] REFERRALS Final Res ult documented in this encounter Visit Diagnoses Diagnosis Encounter for rehabilitation- Primary documented in this encounter Care Teams Telecom Network Manager Relationship Specialty Start Date End Date Keri Gil NP PCP - General Family Medicine 07/22/15 09/18/24 Keri Gil NP [address] [place] [address] PCP - General Nurse Practitioner 09/19/24 10/01/24 Italo Bedolla MD, MPH [address] [place] [address] [email or web address] PCP - General Family Medicine 10/02/24 Lolis Rowe, HISTORICAL INTERPRETER [address] [place] [address] [email or web address] Historical LMR Provider 01/06/17 03/29/21 Claudy Ramsey MD, MS [address] [place] [address] [email or web address] Historical LMR Provider 01/06/17 03/29/21 Susie Michael, FORREST [address] [place] [address] Historical LMR Provider 01/06/17 2 Keri Gil HISTORICAL INTERPRETER Historical LMR Provider 01/06/17 Jennifer Henson HISTORICAL INTERPRETER [address] [place] [address] Historical LMR Provider 01/06/17 2 Lionel Reich MD [address] [place] [address] [email or web address] Historical LMR Provider 01/06/17 Mily Ball MD [address] [place] [address] Orthopedics & Sports Medicine, [facility] [place] [address] (work) [email or web address] Historical LMR Provider 01/06/17 documented as of this encounter Additional Source Comments The information contained in this document represents components of the legal health record. It is not the complete legal health record.[facility]
--- OUTSIDE RECORDS SUMMARY | 2025-01-16 20:14 | XMS_ITS | Encounter Summary ---
Author Organization [facility] Address [address] [place] [address] Phone Care Team Providers Care Electrical Superintendent Name Role Phone Keri Gil BIOCHEMICAL DEVELOPMENT ENGINEER Primary Care Provider Lolis Rowe BIOCHEMICAL DEVELOPMENT ENGINEER Unavailable [phone] Claudy Ramsey MD, MS Unavailable Susie Michael BIOCHEMICAL DEVELOPMENT ENGINEER Unavailable Keri Gil BIOCHEMICAL DEVELOPMENT ENGINEER Unavailable [phone] Jennifer Henson BIOCHEMICAL DEVELOPMENT ENGINEER Unavailable Lionel Reich MD Unavailable Mily Ball MD Unavailable [phone] Keri Gil BIOCHEMICAL DEVELOPMENT ENGINEER Primary Care Provider Italo Bedolla MD, MPH Primary Care Provider + Reason for Referral * MRI/CAT Scan - Closed Specialty Diagnoses / Procedures Referred By Willie t Referred To Contact Radiology Diagnoses Dizziness and giddiness Procedures CT Head CHG CT SCAN,HEAD/BRAIN,W/O CONTRAST MATL CHG CT SCAN HEAD CONTRAST CHG CT SCAN HEAD COMBO Keri Gil, BIOCHEMICAL DEVELOPMENT ENGINEER Phone: tel: fax: Referral ID Status Reason Start Date Expiration Date Visits Re quested Visits Authorized [id number] Closed 05/17/2020 07/15/2020 1 1 Encounter Details Date Type Department Care Team (Latest Contact Info) Description 05/21/2020 Transcribe Orders Virtual Department [address] [place] [address] Keri Gil NP [address] [place] [address] Dizziness and giddiness (Primary Dx) Social History [...] documented in this encounter Care Teams Electrical Superintendent Relationship Specialty Start Date End Date Keri Gil NP PCP - General Family Medicine 07/22/15 09/18/24 Keri Gil NP [address] [place] [address] PCP - General Nurse Practitioner 09/19/24 10/01/24 Italo Bedolla MD, MPH [address] [place] [address] PCP - General Family Medicine 10/02/24 Lolis Rowe, BIOCHEMICAL DEVELOPMENT ENGINEER [address] [place] [address] Historical LMR Provider 01/06/17 03/29/21 Claudy Ramsey MD, MS [address] [place] [address] [email or web address] Historical LMR Provider 01/06/17 03/29/21 Susie Michael, FORREST [address] [place] [address] Historical LMR Provider 01/06/17 2 Keri Gil NP Historical LMR Provider 01/06/17 Jennifer Henson NP [address] [place] [address] Historical LMR Provider 01/06/17 2 Lionel Reich MD [address] [place] [address] Historical LMR Provider 01/06/17 Mily Ball MD [address] [place] [address] Orthopedics & Sports Medicine, [facility] [place] [address] Historical LMR Provider 01/06/17 documented as of this encounter Additional Source Comments The information contained in this document represents components of the legal health record. It is not the complete legal health record.[facility]
--- OUTSIDE RECORDS SUMMARY | 2025-01-16 20:14 | XMS_ITS | Encounter Summary ---
Author Organization [facility] Address [address] [place] [address] Phone Care Team Providers Care Sample Examiner Name Role Phone Keri Gil MAINFRAME APPLICATIONS DEVELOPER Primary Care Provider [phone] Lolis Rowe MAINFRAME APPLICATIONS DEVELOPER Unavailable [phone] Claudy Ramsey MD, MS Unavailable Susie Michael MAINFRAME APPLICATIONS DEVELOPER Unavailable [phone] Keri Gil MAINFRAME APPLICATIONS DEVELOPER Unavailable [phone] Jennifer Henson MAINFRAME APPLICATIONS DEVELOPER Unavailable Lionel Reich MD Unavailable Mily Ball MD Unavailable [phone] Keri Gil MAINFRAME APPLICATIONS DEVELOPER Primary Care Provider Italo Bedolla MD, MPH Primary Care Provider + Encounter Details Date Type Department Care Team (Late st Contact Info) Description 07/03/2020 Procedure Pass [facility] - [address] [place] [address] Social History Tobacco Use Types Packs/Day Years [...] on filedocumented in this encounter Care Teams Sample Examiner Relationship Specialty Start Date End Date Keri Gil MAINFRAME APPLICATIONS DEVELOPER PCP - General Family Medicine 07/22/15 09/18/24 Keri Gil MAINFRAME APPLICATIONS DEVELOPER [address] [place] [address] PCP - General Nurse Practitioner 09/19/24 10/01/24 Italo Bedolla MD, MPH [address] [place] [address] [email or web address] PCP - General Family Medicine 10/02/24 Lolis Rowe, MAINFRAME APPLICATIONS DEVELOPER [address] [place] [address] [email or web address] Historical LMR Provider 01/06/17 03/29/21 Claudy Ramsey MD, MS [address] [place] [address] [email or web address] Historical LMR Provider 01/06/17 03/29/21 Susie Michael, MAINFRAME APPLICATIONS DEVELOPER [address] [place] [address] Historical LMR Provider 01/06/17 2 Keri Gil NP Historical LMR Provider 01/06/17 Jennifer Henson NP [address] [place] [address] Historical LMR Provider 01/06/17 2 Lionel Reich MD [address] [place] [address] [address] [place] [address] Historical LMR Provider 01/06/17 Mily Ball MD [address] [place] [address] Orthopedics & Sports Medicine, [place] [address] Historical LMR Provider 01/06/17 documented as of this encounter Additional Source Comments The information contained in this document represents components of the legal health record. It is not the complete legal health record.[facility]
--- OUTSIDE RECORDS SUMMARY | 2025-01-16 20:14 | XMS_ITS | Encounter Summary ---
Author Organization [facility] Address [address] [place] [address] Phone Care Team Providers Care Concierge Name Role Phone Keri Gil CABIN AGENT Primary Care Provider Lolis Rowe CABIN AGENT Unavailable [phone] Claudy Ramsey MD, MS Unavailable [phone] Susie Michael CABIN AGENT Unavailable Keri Gil CABIN AGENT Unavailable [phone] Jennifer Henson CABIN AGENT Unavailable [phone] Lionel Reich MD Unavailable Mily Ball MD Unavailable Keri Gil CABIN AGENT Primary Care Provider Italo Bedolla MD, MPH Primary Care Provider + Encounter Details Date Type Department Care Team (Late st Contact Info) Description 05/21/2020 Procedure Pass [facility], [facility] Scan - [address] [phone] Social History Tobacco Use Types Packs/Day Years [...] on filedocumented in this encounter Care Teams Concierge Relationship Specialty Start Date End Date Keri Gil CABIN AGENT PCP - General Family Medicine 07/22/15 09/18/24 Keri Gil CABIN AGENT [address] [place] [address] PCP - General Nurse Practitioner 09/19/24 10/01/24 Italo Bedolla MD, MPH [address] [place] [address] [email or web address] PCP - General Family Medicine 10/02/24 Lolis Rowe, CABIN AGENT [address] [place] [address] [email or web address] Historical LMR Provider 01/06/17 03/29/21 Claudy Ramsey MD, MS [address] [place] [address] [email or web address] Historical LMR Provider 01/06/17 03/29/21 Susie Michael, CABIN AGENT [address] [place] [address] Historical LMR Provider 01/06/17 2 Keri Gil NP Historical LMR Provider 01/06/17 Jennifer Henson NP [address] [place] [address] Historical LMR Provider 01/06/17 2 Lionel Reich MD [address] [place] [address] 102 [place] [address] Historical LMR Provider 01/06/17 Mily Ball MD [address] [place] [address] Orthopedics & Sports Medicine, [facility] [place] [address] Historical LMR Provider 01/06/17 documented as of this encounter Additional Source Comments The information contained in this document represents components of the legal health record. It is not the complete legal health record.[facility]
--- OUTSIDE RECORDS SUMMARY | 2025-01-16 20:14 | XMS_ITS | Patient Health Record ---
Author Organization [facility] Address [address] [place] [address] Support Name Relationship Address Phone Jeffery Saavedra Emergency Contact [address] [place] [address] Demetria Sprague Guarantor Unknown [phone] Reason For Referral No Information Medications Medication [...] qhs for sleep; Duration: 30 10/29/2015 Active Mary seed oil for pcos 0 Also helps allergies; Duration: 30 *please review for potential update for e-prescription and drug interaction check* 10/29/2015 Active Plan Of Treatment No Information Insurance Providers Payer Name Payer Address Payer Phone Subscriber Number Group Number Insured Name Patient Relationship to Insured Coverage Start Date Coverage End Date BCBS PPO [address] [place], [place] [id number] Demetria Sprague Self - patient is the insured
--- OUTSIDE RECORDS SUMMARY | 2025-01-16 20:14 | XMS_ITS | Encounter Summary ---
Author Organization [facility] Address [address] [place] [address] [place] [address] Phone Care Team Providers Care Facility Maintenance Helper Name Role Phone Keri Gil HEAD UP OPERATOR HELPER Primary Care Provider Lolis Rowe HEAD UP OPERATOR HELPER Unavailable Claudy Ramsey MD, MS Unavailable [phone] Susie Michael HEAD UP OPERATOR HELPER Unavailable Keri Gil HEAD UP OPERATOR HELPER Unavailable [phone] Jennifer Henson HEAD UP OPERATOR HELPER Unavailable [phone] Lionel Reich MD Unavailable Mily Ball MD Unavailable [phone] Keri Gil HEAD UP OPERATOR HELPER Primary Care Provider Italo Bedolla MD, MPH Primary Care Provider + Encounter Details Date Type Department Care Team (Late st Contact Info) Description 09/06/2020 Ancillary Orders [facility],Outside Imaging [address] [place], [place] [phone] System, Provider Not In, [facility] [address] [address] Social History Tobacco Use Types Packs/Day Years [...] on filedocumented in this encounter Care Teams Facility Maintenance Helper Relationship Specialty Start Date End Date Keri Gil NP PCP - General Family Medicine 07/22/15 09/18/24 Keri Gil NP [address] [place] [address] PCP - General Nurse Practitioner 09/19/24 10/01/24 Italo Bedolla MD, MPH [address] [place] [address] PCP - General Family Medicine 10/02/24 Lolis Rowe NP [address] [place] [address] Historical LMR Provider 01/06/17 03/29/21 Claudy Ramsey MD, MS [address] [place] [address] Historical LMR Provider 01/06/17 03/29/21 Susie Michael, FORREST [address] [place] [address] Historical LMR Provider 01/06/17 2 Keri Gil NP Historical LMR Provider 01/06/17 Jennifer Henson NP [address] [place] [address] Historical LMR Provider 01/06/17 2 Lionel Reich MD [address] [place] [address] 102 [place] [address] Historical LMR Provider 01/06/17 Mily Ball MD [address] [place] [address] Orthopedics & Sports Medicine, [facility] [place] [address] Historical LMR Provider 01/06/17 documented as of this encounter Additional Source Comments The information contained in this document represents components of the legal health record. It is not the complete legal health record.[facility]
--- OUTSIDE RECORDS SUMMARY | 2025-01-16 20:14 | XMS_ITS | Encounter Summary ---
Author Organization [facility] Address [address] [place] [address] [place] [address] Phone Care Team Providers Care Finished Cloth Examiner Name Role Phone Keri Gil TEACHER ASSOCIATE Primary Care Provider Lolis Rowe TEACHER ASSOCIATE Unavailable [phone] Claudy Ramsey MD, MS Unavailable Susie Michael TEACHER ASSOCIATE Unavailable Keri Gil TEACHER ASSOCIATE Unavailable [phone] Jennifer Henson TEACHER ASSOCIATE Unavailable [phone] Lionel Reich MD Unavailable Mily Ball MD Unavailable Keri Gil TEACHER ASSOCIATE Primary Care Provider Italo Bedolla MD, MPH Primary Care Provider + Encounter Details Date Type Department Care Team (Late st Contact Info) Description 09/06/2020 Ancillary Orders [facility],Outside Imaging [address] [place], [place] [phone] System, Provider Not In, [facility] [address] [address] Social History Tobacco Use Types Packs/Day Years [...] on filedocumented in this encounter Care Teams Finished Cloth Examiner Relationship Specialty Start Date End Date Keri Gil NP PCP - General Family Medicine 07/22/15 09/18/24 Keri Gil NP [address] [place] [address] PCP - General Nurse Practitioner 09/19/24 10/01/24 Italo Bedolla MD, MPH [address] [place] [address] PCP - General Family Medicine 10/02/24 Lolis Rowe NP [address] [place] [address] Historical LMR Provider 01/06/17 03/29/21 Claudy Ramsey MD, MS [address] [place] [address] Historical LMR Provider 01/06/17 03/29/21 Susie Michael NP [address] [place] [address] Historical LMR Provider 01/06/17 2 Keri Gil NP Historical LMR Provider 01/06/17 Jennifer Henson NP [address] [place] [address] Historical LMR Provider 01/06/17 2 Lionel Reich MD [address] [place] [address] 102 [place] [address] Historical LMR Provider 01/06/17 Mily Ball MD [address] [place] [address] Orthopedics & Sports Medicine, [facility] [place] [address] Historical LMR Provider 01/06/17 documented as of this encounter Additional Source Comments The information contained in this document represents components of the legal health record. It is not the complete legal health record.[facility]
--- OUTSIDE RECORDS SUMMARY | 2025-01-16 20:14 | XMS_ITS | Encounter Summary ---
Author Organization [facility] Address [address] [place] [address] Phone Care Team Providers Care Loan Review Officer Name Role Phone Keri Gil MERCHANDISE FLOW TEAM MEMBER Primary Care Provider Lolis Rowe MERCHANDISE FLOW TEAM MEMBER Unavailable [phone] Claudy Ramsey MD, MS Unavailable Susie Michael MERCHANDISE FLOW TEAM MEMBER Unavailable Keri Gil MERCHANDISE FLOW TEAM MEMBER Unavailable [phone] Jennifer Henson MERCHANDISE FLOW TEAM MEMBER Unavailable [phone] Lionel Reich MD Unavailable Mily Ball MD Unavailable Keri Gil MERCHANDISE FLOW TEAM MEMBER Primary Care Provider Italo Bedolla MD, MPH Primary Care Provider + Encounter Details Date Type Department Care Team (Latest Contact Info) Description 06/10/2017 Prep for Surgery [facility] Medicine [address] [place] [address] Mily Ball MD [address] [place] [address] [facility] [address] [place] of finger of right [...] lump documented in this encounter Care Teams Loan Review Officer Relationship Specialty Start Date End Date Keri Gil NP PCP - General Family Medicine 07/22/15 09/18/24 Keri Gil NP [address] [place] [address] PCP - General Nurse Practitioner 09/19/24 10/01/24 Italo Bedolla MD, MPH 70 [place] [address] PCP - General Family Medicine 10/02/24 Lolis Rowe NP 30 [place] [address] Historical LMR Provider 01/06/17 03/29/21 Claudy Ramsey MD, MS [address] [address] Historical LMR Provider 01/06/17 03/29/21 Susie Michael, FORREST [address] [place] [address] Historical LMR Provider 01/06/17 2 Keri Gil, MERCHANDISE FLOW TEAM MEMBER Historical LMR Provider 01/06/17 Jennifer Henson MERCHANDISE FLOW TEAM MEMBER [address] [place] [address] Historical LMR Provider 01/06/17 2 Lionel Reich MD [address] [place] [address] 102 [place] [address] Historical LMR Provider 01/06/17 Mily Ball MD [address] [place] [address] Orth[facility] Sports Medicine, [place] [address] Historical LMR Provider 01/06/17 documented as of this encounter Additional Source Comments The information contained in this document represents components of the legal health record. It is not the complete legal health record.[facility]
--- OUTSIDE RECORDS SUMMARY | 2025-01-16 20:15 | XMS_ITS | Encounter Summary ---
Author Organization [facility] Address [address] [place] [address] [place] [address] Phone Care Team Providers Care Plating Tank Operator Apprentice Name Role Phone Keri Gil BIOSTATISTICIAN Unavailable [phone] Lionel Reich MD Unavailable Mily Ball MD Unavailable Italo Bedolla MD, MPH Primary Care Provider + Encounter Details Date Type Department Care Team (Late st Contact Info) Description 10/18/2024 Ancillary Orders [facility], X-Ray - [address] [address] Rose Mary Da Silva, SEFERINO [address] [place] [address] [email or web address] Spondylosis (Primary Dx) Social History Tobacco Use [...] clinician's provided indication for this examination in [facility]: spondylosis COMPARISON: CT abdomen and pelvis 08/30/2019 [...] clinician's provided indication for this examination in [facility]:spondylosis COMPARISON: CT abdomen and pelvis 08/30/2019 FINDINGS: [...] myelopathy documented in this encounter Care Teams Plating Tank Operator Apprentice Relationship Specialty Start Date End Date Italo Bedolla MD, MPH [address] [place] [address] PCP - General Family Medicine 10/02/24 Keri Gil NP Historical LMR Provider 01/06/17 Lionel Reich MD [address] [facility], [facility] [address] [place] [address] Historical LMR Provider 01/06/17 Mily Ball MD [address] [place] [address] Orthopedics & Sports Medicine, [facility] [place] [address] Historical LMR Provider 01/06/17 documented as of this encounter Additional Source Comments The information contained in this document represents components of the legal health record. It is not the complete legal health record.[facility]
--- OUTSIDE RECORDS SUMMARY | 2025-01-16 20:15 | XMS_ITS | Encounter Summary ---
Author Organization [facility] Address [address] [place] [address] Phone Care Team Providers Care Photolithographer Name Role Phone Keri Gil CASSANDRA DEVELOPER Primary Care Provider Lolis Rowe CASSANDRA DEVELOPER Unavailable [phone] Claudy Ramsey MD, MS Unavailable Susie Michael CASSANDRA DEVELOPER Unavailable [phone] Keri Gil CASSANDRA DEVELOPER Unavailable [phone] Jennifer Henson CASSANDRA DEVELOPER Unavailable [phone] Lionel Reich MD Unavailable Mily Ball MD Unavailable Keri Gil CASSANDRA DEVELOPER Primary Care Provider Italo Bedolla MD, MPH Primary Care Provider + Encounter Details Date Type Department Care Team (Latest Contact Info) Description 11/07/2018 Transcribe Orders [facility] Laboratory [address] [id number] Lynne Wade PA-C [address] [place] [address] [email or web address] Change in bowel habit (Primary Dx) Social [...] PM EDT) FECAL OCC BLD 1 DATE , [facility] Occult bld, stool, #1 Negative Negative [facility] FECAL OCC BLD 2 DATE ,,019 [facility] OCCULT BLD, STOOL, #2 Negative Negative [facility] FECAL OCC BLD 3 DATE ,,019 [facility] FECAL OCC BLD 3 RSLT Negative Negative [facility] Stool (Stool) 11/22/2018 12: 04 PM EDT 11/22/2018 12:06 PM EDT us Lynne Wade PA-C BODY FLUIDS AND STOOLS ORDERABL ES Final Result Performing Organization Address [facility] Co de Phone Number [facility] [address] [place] [address] * Stool fat/fiber exam (11/16/2018 10:07 AM EDT) FATTY ACID NORMAL NORMAL [facility] Neutral Fat, stool NORMAL NORMAL [facility] Stool (Stool) 11/16/2018 10: 07 AM EDT 11/16/2018 10:11 AM EDT Lynne Wade PA-C BODY FLUIDS AND STOOLS ORDERABL ES Final Result [address] [address] * Giardia antigen screen (11/16/2018 10:07 AM EDT) ST GIARDIA ANTIGEN Negative Negative [facility] PAT+ Stool (Stool) 11/16/2018 10: 07 AM EDT 11/16/2018 10:11 AM EDT us Lynne Wade PA-C MICROBIOLOGY - GENERAL ORDERABL ES Final Result Performing Organization Address [facility] Co de Phone Number [facility] OF LAB MED AND PAT+ [address] [place] [address] * Fecal leukocyte examination (11/16/2018 10:07 AM EDT) Special Requests None 11/16/2018 10:07 AM EDT [facility] GRAM STAIN NO WBC'S Observed 11/17/2018 8:04 AM EDT [facility] Stool (Stool) 11/16/2018 10: 07 AM EDT 11/16/2018 10:11 AM EDT us Lynne Wade PA-C MICROBIOLOGY - GENERAL ORDERABL ES Final Result Performing Organization Address [facility] Co de Phone Number [address] [address] * Stool culture (11/16/2018 10:07 AM EDT) Special Requests None 11/16/2018 10:07 AM EDT [facility] Stool Culture NO SALMONELLA, SHIGELLA OR CAMPYLOBACTER ISOLATED 11/17/2018 7:53 AM EDT [facility] Stool (Stool) 11/16/2018 10: 07 AM EDT 11/16/2018 10:11 AM EDT Lynne Wade PA-C MICROBIOLOGY - GENERAL ORDERABL ES Final Result Performing Organization Address City/[facility]/ZIP Co de Phone Number [address] [place] [address] * C. DIFFICILE PCR (11/16/2018 10:07 AM EDT) C.DIFFICILE PCR Negative Negative [facility] C.DIFFICILE STRAIN PRESUMPTIVE NEGATIVE PRESUMPTIVE NEGATIVE [facility] Comment:Detection of 027/NAP 1/BI strains of C.difficile is presumptive and is solely for epidemiological purposes and is not intended to guide or monitor treatment of infections. Stool (Stool) 11/16/2018 10: 07 AM EDT 11/16/2018 10:12 AM EDT Lynne Wade PA-C MICROBIOLOGY - GENERAL ORDERABL ES Final Result Performing Organization Address [facility]/ZIP Co de Phone Number [address] [address] * Ova and parasites, stool (11/10/2018 10:10 AM EDT) Special Requests None 11/16/2018 10:10 AM EDT [facility] DIRECT EXAM NO PARASITES FOUND BY DIRECT OR CONCENTRATION METHODS 11/23/2018 1:12 PM EDT [facility] DIRECT EXAM No parasites found by Trichrome Stain 11/23/2018 1:12 PM EDT [facility] Stool (Stool) 11/10/2018 10: 10 AM EDT 11/16/2018 10:14 AM EDT Lynne Wade PA-C MICROBIOLOGY - GENERAL ORDERABL ES Final Result [address] [address] * Ova and parasites, stool (11/09/2018 10:09 AM EDT) Special Requests None 11/16/2018 10:09 AM EDT [facility] DIRECT EXAM NO PARASITES FOUND BY DIRECT OR CONCENTRATION METHODS 11/23/2018 1:08 PM EDT [facility] DIRECT EXAM No parasites found by Trichrome Stain 11/23/2018 1:08 PM EDT [facility] Stool (Stool) 11/09/2018 10: 09 AM EDT 11/16/2018 10:13 AM EDT us Lynne Wade PA-C MICROBIOLOGY - GENERAL ORDERABL ES Final Result Performing Organization Address [facility] Co de Phone Number [address] [address] * Ova and parasites, stool (11/08/2018 10:09 AM EDT) Special Requests None 11/16/2018 10:09 AM EDT [facility] DIRECT EXAM NO PARASITES FOUND BY DIRECT OR CONCENTRATION METHODS 11/23/2018 1:04 PM EDT [facility] DIRECT EXAM No parasites found by Trichrome Stain 11/23/2018 1:04 PM EDT [facility] Stool (Stool) 11/08/2018 10: 09 AM EDT 11/16/2018 10:12 AM EDT us Lynne Wade PA-C MICROBIOLOGY - GENERAL ORDERABL ES Final Result Performing Organization Address [facility] Co de Phone Number [address] [address] * TSH (11/07/2018 10:10 AM EDT) TSH 0.90 0.27 - 4.20 uIU/mL [facility] Blood 11/07/2018 10:1 0 AM EDT 11/07/2018 10:19 AM EDT us Lynne Wade PA-C LAB BLOOD ORDERABLES Final Resu lt Performing Organization Address [facility]/ZIP Co de Phone Number [address] [address] * Immunoglobulin A (11/07/2018 10:10 AM EDT) IgA 221 70 - 400 mg/dL [facility] Blood 11/07/2018 10:1 0 AM EDT 11/07/2018 10:19 AM EDT us Lynne Wade PA-C LAB BLOOD ORDERABLES Final Resu lt Performing Organization Address City/[facility]/ZIP Co de Phone Number [address] [address] * (ABNORMAL) C-Reactive Protein (11/07/2018 10:10 AM EDT) C REACTIVE PROTEIN 4.5(H) 0.0 - 4.0 mg/L [facility] Blood 11/07/2018 10:1 0 AM EDT 11/07/2018 10:19 AM EDT us Lynne Wade PA-C LAB BLOOD ORDERABLES Final Resu lt Performing Organization Address [facility] Co de Phone Number [address] [address] * Comprehensive metabolic panel (11/07/2018 10:10 AM EDT) SODIUM 139 133 - 146 mmol/L [facility] POTASSIUM 4.0 3.3 - 5.1 mmol/L [facility] CHLORIDE 103 96 - 108 mmol/L [facility] CO2 23 21 - 35 mmol/L [facility] BUN 10 6 - 19 mg/dL [facility] CREATININE 0.50 0.5 - 1.5 mg/dL [facility] GLUCOSE 92 70 - 99 mg/dL [facility] ALBUMIN 4.2 3.9 - 4.8 g/dL [facility] TOTAL PROTEIN 6.6 6.5 - 8.0 g/dL [facility] CALCIUM 9.8 8.4 - 10.3 mg/dL [facility] ALKALINE PHOSPHATASE 70 39 - 117 U/L [facility] TOTAL BILIRUBIN 0.2 0.0 - 1.2 mg/dL [facility] AST 28 0 - 37 U/L [facility] ALT 17 0 - 40 U/L [facility] GLOBULIN 2.4 1 - 4.8 g/dL [facility] EGFR >120 >59 mL/min/1.7 3m2 [facility] Comment:If patient is black, multiply result by 1.159. Estimated glomerular filtration rate calculated using the CKD-EPI equation. ANION GAP 17 10 - 20 mmol/L [facility] Blood 11/07/2018 10:1 0 AM EDT 11/07/2018 10:19 AM EDT Lynne Wade PA-C LAB BLOOD ORDERABLES Final Resu lt Performing Organization Address City/[facility]/ZIP Co de Phone Number [address] [address] * CBC (11/07/2018 10:10 AM EDT) WBC 8.70 3.40 - 11.20 K/uL [facility] RBC 4.59 3.80 - 4.80 M/uL [facility] HGB 14.0 12.0 - 15.0 g/dL [facility] HCT 41.1 36.0 - 46.0 % [facility] PLT 276 130 - 400 K/uL [facility] MCV 89.5 79.0 - 98.0 fL [facility] MCH 30.5 27.0 - 34.8 pg [facility] MCHC 34.1 31.5 - 36.0 g/dL [facility] RDW 12.8 10.8 - 14.6 % [facility] MPV 11.1 9.4 - 12.4 fl [facility] NRBC 0.00 0.00 /100 WBCs [facility] ABSOLUTE NRBC 0.00 0.00 K/uL [facility] Blood 11/07/2018 10:1 0 AM EDT 11/07/2018 10:19 AM EDT Lynne Wade PA-C LAB BLOOD ORDERABLES Final Resu lt Performing Organization Address City/[facility]/ZIP Co de Phone Number [address] [address] * Tissue transglutaminase IgA (11/07/2018 10:10 AM EDT) TTG IGA ANTIBODY <1.2 <4.0 (Negative) U/mL [facility] Blood 11/07/2018 10:1 0 AM EDT 11/07/2018 10:19 AM EDT us Lynne Wade PA-C LAB BLOOD ORDERABLES Final Resu lt [facility] [address] [place] [address] documented in this encounter Visit Diagnoses Diagnosis Change in bowel habit- Primary documented in this encounter Care Teams Photolithographer Relationship Specialty Start Date End Date Keri Gil CASSANDRA DEVELOPER PCP - General Family Medicine 07/22/15 09/18/24 Keri Gil CASSANDRA DEVELOPER [address] [place] [address] PCP - General Nurse Practitioner 09/19/24 10/01/24 Italo Bedolla MD, MPH [address] [place] [address] [email or web address] PCP - General Family Medicine 10/02/24 Lolis Rowe, CASSANDRA DEVELOPER [address] [place] [address] [email or web address] Historical LMR Provider 01/06/17 03/29/21 Claudy Ramsey MD, MS [address] [address] [email or web address] Historical LMR Provider 01/06/17 03/29/21 Susie Michael, FORREST [address] [place] [address] Historical LMR Provider 01/06/17 2 Keri Gil NP Historical LMR Provider 01/06/17 Jennifer Henson NP [address] [place] [address] Historical LMR Provider 01/06/17 2 Lionel Reich MD [address] [place] [address] [address] [place] [address] Historical LMR Provider 01/06/17 Mily Ball MD [address] [place] [address] Orthopedics & Sports Medicine, [facility] [place] [address] Historical LMR Provider 01/06/17 documented as of this encounter Additional Source Comments The information contained in this document represents components of the legal health record. It is not the complete legal health record.[facility]
--- OUTSIDE RECORDS SUMMARY | 2025-01-16 20:15 | XMS_ITS | Encounter Summary ---
Author Organization [facility] Address [address] [place] [address] [place] [address] Phone Care Team Providers Care Bass Fisher Name Role Phone Keri Gil AUTO VINYL TOP INSTALLER Primary Care Provider [phone] Keri Gil AUTO VINYL TOP INSTALLER Unavailable [phone] Lionel Reich MD Unavailable [phone] Mily Ball MD Unavailable [phone] Keri Gil AUTO VINYL TOP INSTALLER Primary Care Provider Italo Bedolla MD, MPH Primary Care Provider + Encounter Details Date Type Department Care Team (Late st Contact Info) Description 04/17/2024 Procedure [facility], Ct Scan - [address] [address] Social History Tobacco Use Types Packs/Day Years [...] on filedocumented in this encounter Care Teams Bass Fisher Relationship Specialty Start Date End Date Keri Gil NP PCP - General Family Medicine 07/22/15 09/18/24 Keri Gil NP [address] [place] [address] PCP - General Nurse Practitioner 09/19/24 10/01/24 Italo Bedolla MD, MPH [address] [place] [address] [email or web address] PCP - General Family Medicine 10/02/24 Keri Gil AUTO VINYL TOP INSTALLER Historical LMR Provider 01/06/17 Lionel Reich MD [address] [place] [address], [address] [place] [address] Historical LMR Provider 01/06/17 Mily Ball MD [address] [place] [address] Orthopedics & Sports Medicine, [facility] [place] [place] [address] Historical LMR Provider 01/06/17 documented as of this encounter Additional Source Comments The information contained in this document represents components of the legal health record. It is not the complete legal health record.[facility]
--- OUTSIDE RECORDS SUMMARY | 2025-01-16 20:15 | XMS_ITS | Encounter Summary ---
Author Organization [facility] Address [address] [place] [address] Phone Care Team Providers Care Systems Applications Programming Lead Name Role Phone Keri Gil ENVIRONMENTAL DEPARTMENT MANAGER Primary Care Provider oLlis Rowe ENVIRONMENTAL DEPARTMENT MANAGER Unavailable [phone] Claudy Ramsey MD, MS Unavailable Susie Michael ENVIRONMENTAL DEPARTMENT MANAGER Unavailable Keri Gil ENVIRONMENTAL DEPARTMENT MANAGER Unavailable [phone] Jennifer Henson ENVIRONMENTAL DEPARTMENT MANAGER Unavailable [phone] Lionel Reich MD Unavailable Mily Ball MD Unavailable [phone] Keri Gil ENVIRONMENTAL DEPARTMENT MANAGER Primary Care Provider Italo Bedolla MD, MPH Primary Care Provider + Reason for Referral * Consultation (Elective) - Closed Specialty Diagnoses / Procedures Referred By Willie gaming Referred To Contact Neurology Diagnoses Encounter for consultation System, Provider Not In, PhD [address] [address] Referral ID Status Reason Start Date Expiration Date Visits Re quested Visits Authorized [id number] Closed 07/25/2015 07/24/2016 1 1 Encounter Details Date Type Department Care Team (Latest Contact Info) Description 07/25/2015 Transcribe Orders [facility] Department of Neurology [address] [facility], 8th Floor, [address] [place] [address] Keri Gil, ENVIRONMENTAL DEPARTMENT MANAGER [address] [place] [address] Encounter for consultation (Primary Dx) Social History [...] Diagnoses Orde r Schedule Ambulatory referral to [facility] Neurology Outpatient Referral Routine Encounter for consultation Ordered: 07/25/2015 documented as of this encounter Visit Diagnoses Diagnosis Encounter for consultation- Primary documented in this encounter Care Teams Systems Applications Programming Lead Relationship Specialty Start Date End Date Keri Gil ENVIRONMENTAL DEPARTMENT MANAGER PCP - General Family Medicine 07/22/15 09/18/24 Keri Gil ENVIRONMENTAL DEPARTMENT MANAGER [address] [place] [address] PCP - General Nurse Practitioner 09/19/24 10/01/24 Italo Bedolla MD, MPH [address] [place] [address] [email or web address] PCP - General Family Medicine 10/02/24 Lolis Rowe ENVIRONMENTAL DEPARTMENT MANAGER [address] [place] [address] [email or web address] Historical LMR Provider 01/06/17 03/29/21 Claudy Ramsey MD, MS [address] [place] [address] [email or web address] Historical LMR Provider 01/06/17 03/29/21 Susie Michael, ENVIRONMENTAL DEPARTMENT MANAGER [address] [place] [address] Historical LMR Provider 01/06/17 2 Keri Gil ENVIRONMENTAL DEPARTMENT MANAGER Historical LMR Provider 01/06/17 Jennifer Henson NP [address] [place] [address] Historical LMR Provider 01/06/17 2 Lionel Reich MD [address] [place] [address] Historical LMR Provider 01/06/17 Mily Ball MD [address] [place] [address] Orthopedics & Sports Medicine, [facility] [place] [address] Historical LMR Provider 01/06/17 documented as of this encounter Additional Source Comments The information contained in this document represents components of the legal health record. It is not the complete legal health record.[facility]
--- OUTSIDE RECORDS SUMMARY | 2025-01-16 20:15 | XMS_ITS | Clinical Summary ---
Author Organization [facility] Address [address] [place] [address] Care Team Providers Care Choir Accompanist Name Role Phone Italo Bedolla Primary Care Provider [phone] Allergies Active Allergy Reactions Criticality Noted Date [...] Problems Problem Noted Date Diagnosed Date Left inguinal pain 11/24/2023 Encounters Date Type Department Care Team Description 12/21/2024 myChart Message [facility] [address] [place] [phone] Engineering Design Supervisor: Saurabh Ledesma MD MRI denied by insurance 12/06/2024 10:00 AM EDT Follow-Up [facility] [address] [place] [address] Saurabh Méndez MD Left inguinal pain (Primary Dx) 12/06/2024 10:00 AM EDT Follow-Up [facility] [address] [place] [address] Alan Maldonado MD Left groin pain (Primary Dx) 10/20/2024 2:15 PM EDT Procedure visit [facility] Medicine [address] [place] [address] Emanuel Hayward MD Left groin pain (Primary Dx) 10/19/2024 myChart Message [facility] [address] [place] [address] Engineering Design Supervisor: Eamnuel Durbin MD Pain relief injection from Last 3 Months Social History Tobacco [...] Info) Description 01/24/2025 9:45 AM EST Follow-Up [facility] [address] [place] [address] Saurabh Méndez MD [address] [place] [address] 01/24/2025 9:45 AM EST Follow-Up [facility] [address] [place] [address] Alan Maldonado MD [address] [place] [address] Health Maintenance Due Date Last Done Comments [...] (2 of 2 - PCV) 12/19/2014 12/19/2013 Alcohol/Substance Use Screening 03/22/2024 Depression Screening and Follow-Up 03/22/2024 [employer] ual Screening 03/22/2024 COVID-19 Vaccine (4 - 2024-2 6 season) 2024 02/18/2021, 06/21/2020, 05/30/2020 Influenza Vaccine (#1) 2024 , 02/15/2022, 01/05/2022, Additional history exists DTaP,Tdap,and Td Vaccines (3 - Td or Tdap) 11/11/2032 11/11/2022, 12/19/2013 RSV Vaccine (60+ years old a nd patients) (1 - 1-dose 75+ series) 12/13/2062 Procedures * Due to [place] Novadiol law, this organization might not be sharing negative HIV tests. Procedure Name Priority Date/Time Associated Diagnosis Comments [place] ARTHROCENTESIS ASPIR&/INJ MAJOR JT/BURSA W/US Routine 10/20/2024 2:15 PM EDT Left groin pain from Last 3 Months Results * Due to [place] Novadiol law, this organization might not be sharing negative HIV tests. * [place] ARTHROCENTESIS ASPIR&/INJ MAJOR JT/BURSA W/US (10/20/2024 2:15 [...] Patient's understanding of procedure matches consent: Yes [place] Protocol: Procedure consent matches procedure scheduled: Yes [...] answered at time of the office visit. us Emanuel Hayward MD IN CLINIC/BEDSIDE ORDERA DELILAH Final Result from Last 3 Months Insurance [facility] Care Teams Choir Accompanist Relationship Specialty Start Date End Date Italo Bedolla [address] [place] [phone] PCP - General Family Medicine 09/27/23
--- OUTSIDE RECORDS SUMMARY | 2025-01-16 20:15 | XMS_ITS | Clinical Summary ---
Author Organization [facility] Address [address] [place] [address] Phone Care Team Providers Care Printing Machine Operator Name Role Phone Keri Gil NP Unavailable [phone] Lionel Reich MD Unavailable Mily Ball MD Unavailable [phone] Italo Bedolla MD, MPH Primary Care [...] by mouth nightly at bedtime. Active omega 6-wcy-rfp-fish oil 1,000 mg (120 mg-180 mg) Cap [...] Encounters Date Type Department Care Team Description 11/18/2024 1:01 PM EDT - 11/18/2024 11:59 PM EDT Hospital Encounter [address] [address] Stew Sarabia MD Discharge Disposition: Home or Self Care 10/18/2024 9:06 AM EDT - 10/18/2024 11:59 PM EDT Hospital Encounter [address] [address] Rose Mary Da Silva PA Discharge Disposition: Home or Self Care 10/18/2024 Ancillary Orders [address] [address] Rose Mary Da Silva PA Spondylosis (Primary Dx) 10/11/2024 Procedure Pass [address] [address] from Last 3 Months Immunizations Immunization Administration [...] 07/19/2023 12:28 PM EDT Plan of Treatment Health Maintenance Due Date Last Done Comments DEPRESSION SCREENING 1999 HEPATITIS C SCREENING 12/13/2005 HIV ONE-TIME SCREENING (18-65 YEARS) 12/13/2005 SCREENING FOR DIABETES 12/13/2022 08/30/2019 TSH LEVEL 05/13/2023 05/13/2022, 0811/2018, 04/22/2017 PAP SMEAR 08/13/2023 08/12/2020, 05/2015, 05/16/2015 Adult Td,Tdap Booster 12/20/2023 12/19/2013 INFLUENZA VACCINE (#1) 2024 , 02/15/2022, 01/05/2022, Additional history exists COVID-19 VACCINE ( season) 2024 02/18/2021, 06/21/2020, 05/30/2020 PNEUMOCOCCAL VACCINES (0-49 years) Aged Out 12/19/2013 No longer eligible based on patient's age to complete this topic SMOKING STATUS SCREENING (Once After 26 Yrs) Completed 10/02/2024 HEPATITIS A [...] Procedure Name Priority Date/Time Associated Diagnosis Comments CT ABDOMEN/PELVIS WITH CONTRAST Routine 11/18/2024 1:55 PM EDT Abdominal pain, unspecified abdominal location XR LUMBOSACRAL SPINE 4 OR MORE VIEWS Routine 10/18/2024 9:58 AM EDT Spondylosis TSH WITH REFLEX Routine 05/13/2022 2:18 PM EST , unspecified gestational age PAP TEST Routine 08/12/2020 12:00 AM EDT from Last 3 Months or Most Recently Relevant to Health Maintenance Results * CT ABDOMEN/PELVIS WITH CONTRAST (11/18/2024 1:55 PM EDT) Anatomical Region Laterality Modality Abdomen, Pelvis Computed Tomogra phy 11/21/2024 10:5 1 PM EDT Impressions 11/21/2024 10:58 PM EDT 1. No explanation for pain. Narrative 11/21/2024 10:[address] ABDOMEN/PELVIS WITH CONTRAST Referring clinician's provided indication for this examination in [facility]: Outside Radiology Order; ABDOMINAL PAIN, USPECIFIED ABDOMINAL LOCATION TECHNIQUE: Multidetector-row CT of the abdomen and pelvis was performed after administration of intravenous contrast using tailored dose modulation techniques. Images were reconstructed in the axial, coronal, and sagittal planes. COMPARISON: CT ABDOMEN/PELVIS WITH CONTRAST FINDINGS: Lower chest: Clear lung bases. No effusions. Liver: Diffusely decreased density of the liver is compatible with steatosis. This lowers the sensitivity for focal lesions. No focal lesions. Biliary: No biliary ductal dilatation. Postcholecystectomy. Spleen: No splenomegaly or focal lesions. Pancreas: No masses or ductal dilatation. Adrenal glands: No nodules. Kidneys/ureters: No solid masses or hydronephrosis. No stones. Bowel: No dilation or wall thickening. Normal appendix. Peritoneum/retroperitoneum: No masses, free air, or fluid. Lymph nodes: No lymphadenopathy. Pelvic organs/bladder: No masses. Vessels: No abdominal aortic aneurysm. Bones/soft tissues: No destructive osseous lesions. Procedure Note Raman Euceda MD, TAPAN - 11/21/2024 CT ABDOMEN/PELVIS WITH CONTRAST Referring clinician's provided indication for this examination in [facility]:Outside Radiology Order; ABDOMINAL PAIN, USPECIFIED ABDOMINAL LOCATION TECHNIQUE: Multidetector-row CT of the abdomen and pelvis was performedafter administration of intravenous contrast using tailored dosemodulation techniques. Images were reconstructed in the axial, coronal,and sagittal planes. COMPARISON: CT ABDOMEN/PELVIS WITH CONTRAST FINDINGS: Lower chest: Clear lung bases. No effusions. Liver: Diffusely decreased density of the liver is compatible withsteatosis. This lowers the sensitivity for focal lesions. No focallesions. Biliary: No biliary ductal dilatation. Postcholecystectomy. Spleen: No splenomegaly or focal lesions. Pancreas: No masses or ductal dilatation. Adrenal glands: No nodules. Kidneys/ureters: No solid masses or hydronephrosis. No stones. Bowel: No dilation or wall thickening. Normal appendix. Peritoneum/retroperitoneum: No masses, free air, or fluid. Lymph nodes: No lymphadenopathy. Pelvic organs/bladder: No masses. Vessels: No abdominal aortic aneurysm. Bones/soft tissues: No destructive osseous lesions. IMPRESSION: 1. No explanation for pain. Stew Sarabia MD IMG CT ABD/PELVIS Final Resul t * XR LUMBOSACRAL SPINE 4 OR MORE [...] GENTILE IMG XR SPINE Final Result * TSH with reflex (05/13/2022 2:18 PM EST) TSH 1.00 0.27 - 4.20 uIU/mL [facility] Blood 05/13/2022 2:18 PM EST 05/13/2022 2:21 PM EST Tracee Pruitt [facility] BLOOD ORDERABLES Final Result [address] [address] * Pap Smear (08/12/2020 12:00 AM EDT) 08/12/2020 08/13/2020 8:4 2 AM EDT Narrative SEE NARRATIVE - 08/20/2020 2:30 PM EDT [address] [address] Sales Promotion Director: Jamilah Snow MD [employer]OPER Cytology Report FINAL DIAGNOSIS A. PAP SMEAR [...] 52, 56, 58, 59, 66, 68) by [employer] Onclarity HR-HPV analysis. Clinical correlation is advised. This HPV test was performed at [facility], [address] [place] [address]. This test has been FDA approved for SurePath cervical cytology specimens. The accuracy and precision of this test for all other specimen sources has been verified in the Cytopathology Laboratory of the [facility] and has not been cleared or approved by the U.S. Food and Drug Administration. Clinical correlation is advised. CLINICAL HISTORY Date of Last Menstrual Period: Not Provided Menstrual History: Unknown Other Clinical Conditions: Screening Pap SPECIMEN SOURCE A: PAP SMEAR (SUREPATH) CE Patient Name: OLVIN FREDDIE : 1985 (Age: 34) Sex: F Institution: [facility] Location: [facility] Date of Collection: 08/12/2020 Date of Reported: 08/20/2020 14:30 Results to: Marti Moreno MD Marti Moreno MD CYTOLOGY ORDERABLES Final Result SEE NARRATIVE from Last 3 Months or Most Recently Relevant to Health Maintenance Insurance HMO O O O O HMO O O O Advance Directives For more information, please contact: [phone] (9AM - 5PM [place]/[facility], Wednesday-Wednesday) * Full Code (Presumed) (Latest Code Status on File) Date Activated Date Inactivated Comments 06/16/2017 6:17 AM 06/16/2017 10:59 AM Care Teams Printing Machine Operator Relationship Specialty Start Date End Date Italo Bedolla MD, MPH [address] [place] [address] PCP - General Family Medicine 10/02/24 Keri Gil NP Historical LMR Provider 01/06/17 Lionel Reich MD [address] [place] [address], [facility] [address] [place] [address] Historical LMR Provider 01/06/17 Mily Ball MD [address] [place] [address] Orthopedics & Sports Medicine, [facility] [place] [address] Historical LMR Provider 01/06/17 Additional Source Comments The information contained in this document represents components of the legal health record. It is not the complete legal health record.[facility]
--- OUTSIDE RECORDS SUMMARY | 2025-01-16 20:15 | XMS_ITS | Encounter Summary ---
Author Organization [facility] Address [address] [place] [address] Phone Care Team Providers Care Certified Social Workers In Health Care Name Role Phone Keri Gil CRAS Primary Care Provider Lolis Rowe CRAS Unavailable [phone] Claudy Ramsey MD, MS Unavailable Susie Michael CRAS Unavailable [phone] Keri Gil CRAS Unavailable [phone] Jennifer Henson CRAS Unavailable [phone] Lionel Reich MD Unavailable Mily Ball MD Unavailable [phone] Keri Gil CRAS Primary Care Provider Italo Bedolla MD, MPH Primary Care Provider + Reason for Referral * MRI/CAT Scan - Closed Specialty Diagnoses / Procedures Referred By Willie t Referred To Contact Radiology Diagnoses Acute sinusitis, recurrence not specified, unspecified location Procedures CT Face Shahana Loaiza MD Phone: tel: fax: [email or web address] Referral ID Status Reason Start Date Expiration Date Visits Re quested Visits Authorized [id number] Closed 01/18/2017 03/18/2017 1 1 Encounter Details Date Type Department Care Team (Late st Contact Info) Description 01/18/2017 Ancillary Orders Virtual Department 30 [place] [address] Shahana Loaiza MD [address] [facility], [address] [place] [address] [email or web address] Acute sinusitis, recurrence not specified, unspecified [...] CTDIvol: mGy POS [id number] Shahana Loaiza MD [facility] HEAD/NECK Final Res ult documented in this encounter Visit Diagnoses Diagnosis Acute sinusitis, recurrence not specified, unspecified location Acute sinusitis, recurrence not specified, unspecified location documented in this encounter Care Teams Certified Social Workers In Health Care Relationship Specialty Start Date End Date Keri Gil NP PCP - General Family Medicine 07/22/15 09/18/24 Keri Gil NP [address] [place] [address] PCP - General Nurse Practitioner 09/19/24 10/01/24 Italo Bedolla MD, MPH 70 [place] [address] PCP - General Family Medicine 10/02/24 Lolis Rowe, CRAS [address] [place] [address] [email or web address] Historical LMR Provider 01/06/17 03/29/21 Claudy Ramsey MD, MS [address] [place] [address] [email or web address] Historical LMR Provider 01/06/17 03/29/21 Susie Michael NP [address] [place] [address] Historical LMR Provider 01/06/17 2 Keri Gil NP Historical LMR Provider 01/06/17 Jennifer Henson NP [address] [place] [address] Historical LMR Provider 01/06/17 2 Lionel Reich MD [address] [place] [address] Historical LMR Provider 01/06/17 Mily Ball MD [address] [place] [address] Orthopedics & Sports Medicine, [place] [address] [email or web address] Historical LMR Provider 01/06/17 documented as of this encounter Additional Source Comments The information contained in this document represents components of the legal health record. It is not the complete legal health record.[facility]
--- OUTSIDE RECORDS SUMMARY | 2025-01-16 20:15 | XMS_ITS | Encounter Summary ---
Author Organization [facility] Address [address] [place] [address] [place] [address] Phone Care Team Providers Care Floor Service Worker Spring Name Role Phone Keri Gil CANDY POLISHER Unavailable [phone] Lionel Reich MD Unavailable Mily Ball MD Unavailable Italo Bedolla MD, MPH Primary Care Provider + Encounter Details Date Type Department Care Team (Late st Contact Info) Description 10/02/2024 Procedure Pass [facility] Endoscopy Admitting Dept Virtual Department 30 [place] [address] Social History Tobacco Use Types Packs/Day Years [...] on filedocumented in this encounter Care Teams Floor Service Worker Spring Relationship Specialty Start Date End Date Italo Bedolla MD, MPH [address] [place] [address] PCP - General Family Medicine 10/02/24 Keri Gil, CANDY POLISHER Historical LMR Provider 01/06/17 Lionel Reich MD [address] [place] [address] Historical LMR Provider 01/06/17 Mily Ball MD [address] [place] [address] Orthopedics & Sports Medicine, [facility] [place] [address] Historical LMR Provider 01/06/17 documented as of this encounter Additional Source Comments The information contained in this document represents components of the legal health record. It is not the complete legal health record.[facility]
--- OUTSIDE RECORDS SUMMARY | 2025-01-16 20:15 | XMS_ITS | Encounter Summary ---
Author Organization [facility] Address [address] [place] [address] Phone Care Team Providers Care Middleware Solutions Architect Name Role Phone Keri Gil CLOUD SERVICES ARCHITECT Primary Care Provider Keri Gil CLOUD SERVICES ARCHITECT Unavailable [phone] Lionel Reich MD Unavailable Mily Ball MD Unavailable [phone] Keri Gil CLOUD SERVICES ARCHITECT Primary Care Provider Italo Bedolla MD, MPH Primary Care Provider + Encounter Details Date Type Department Care Team (Late st Contact Info) Description 05/21/2022 Transcribe Orders [facility] 30 [place] [address] Mo Carrero, FORREST [address] [place] [address] [email or web address] Social History Tobacco Use Types Packs/Day Years [...] on filedocumented in this encounter Care Teams Middleware Solutions Architect Relationship Specialty Start Date End Date Keri Gil NP PCP - General Family Medicine 07/22/15 09/18/24 Keri Gil NP 70 [place] [address] PCP - General Nurse Practitioner 09/19/24 10/01/24 Italo Bedolla MD, MPH 70 [place] [address] [email or web address] PCP - General Family Medicine 10/02/24 Keri Gil NP Historical LMR Provider 01/06/17 Lionel Reich MD [address] [place] [address] Historical LMR Provider 01/06/17 Mily Ball MD [address] [place] [address] Orthopedics & Sports Medicine, [place] [address] Historical LMR Provider 01/06/17 documented as of this encounter Additional Source Comments The information contained in this document represents components of the legal health record. It is not the complete legal health record.[facility]
--- OUTSIDE RECORDS SUMMARY | 2025-01-16 20:15 | XMS_ITS | Encounter Summary ---
Author Organization [facility] Address [address] [place] [address] Phone Care Team Providers Care Molder Sweep Name Role Phone Keri Gil MITOCHONDRIAL DISORDERS COUNSELOR Primary Care Provider Lolis Rowe MITOCHONDRIAL DISORDERS COUNSELOR Unavailable Claudy Ramsey MD, MS Unavailable Susie Michael MITOCHONDRIAL DISORDERS COUNSELOR Unavailable Keri Gil MITOCHONDRIAL DISORDERS COUNSELOR Unavailable Jennifer Henson MITOCHONDRIAL DISORDERS COUNSELOR Unavailable [phone] Lionel Reich MD Unavailable [phone] Mily Ball MD Unavailable [phone] Keri Gil MITOCHONDRIAL DISORDERS COUNSELOR Primary Care Provider Italo Bedolla MD, MPH Primary Care Provider + Encounter Details Date Type Department Care Team (Late st Contact Info) Description 01/18/2017 Procedure Pass [facility], Ct Scan - [address] [id number] Social History Tobacco Use Types Packs/Day Years [...] on filedocumented in this encounter Care Teams Molder Sweep Relationship Specialty Start Date End Date Keri Gil, MITOCHONDRIAL DISORDERS COUNSELOR PCP - General Family Medicine 07/22/15 09/18/24 Keri Gil MITOCHONDRIAL DISORDERS COUNSELOR [address] [place] [address] PCP - General Nurse Practitioner 09/19/24 10/01/24 Italo Bedolla MD, MPH [address] [place] [address] PCP - General Family Medicine 10/02/24 Lolis Rowe, MITOCHONDRIAL DISORDERS COUNSELOR 30 [place] [address] Historical LMR Provider 01/06/17 03/29/21 Claudy Ramsey MD, MS [address] [place] [address] Historical LMR Provider 01/06/17 03/29/21 Susie Michael, MITOCHONDRIAL DISORDERS COUNSELOR [address] [place] [address] Historical LMR Provider 01/06/17 2 Keri Gil, MITOCHONDRIAL DISORDERS COUNSELOR Historical LMR Provider 01/06/17 Jennifer Henson MITOCHONDRIAL DISORDERS COUNSELOR [address] [place] [address] Historical LMR Provider 01/06/17 2 Lionel Reich MD 22 [facility], [facility] 102 [place] [address] Historical LMR Provider 01/06/17 Mily Ball MD [address] [place] [address] Orthopedics & Sports Medicine, [facility] [place] [address] Historical LMR Provider 01/06/17 documented as of this encounter Additional Source Comments The information contained in this document represents components of the legal health record. It is not the complete legal health record.[facility]
--- OUTSIDE RECORDS SUMMARY | 2025-01-16 20:15 | XMS_ITS | Encounter Summary ---
Author Organization [facility] Address [address] [place] [address] Phone Care Team Providers Care Circuit Rider Name Role Phone Keri Gil HATCHERY SUPERVISOR Primary Care Provider Lolis Rowe HATCHERY SUPERVISOR Unavailable [phone] Claudy Ramsey MD, MS Unavailable [phone] Susie Michael HATCHERY SUPERVISOR Unavailable Keri Gil HATCHERY SUPERVISOR Unavailable [phone] Jennifer Henson HATCHERY SUPERVISOR Unavailable [phone] Lionel Reich MD Unavailable [phone] Mily Ball MD Unavailable [phone] Keri Gil HATCHERY SUPERVISOR Primary Care Provider Italo Bedolla MD, MPH Primary Care Provider + Encounter Details Date Type Department Care Team (Late st Contact Info) Description 06/16/2017 Procedure Pass [place] Admitting Dept - Virtual Department 30 [place] [address] Social History Tobacco Use Types [...] on filedocumented in this encounter Care Teams Circuit Rider Relationship Specialty Start Date End Date Keri Gil HATCHERY SUPERVISOR PCP - General Family Medicine 07/22/15 09/18/24 Keri Gil HATCHERY SUPERVISOR [address] [place] [address] PCP - General Nurse Practitioner 09/19/24 10/01/24 Italo Bedolla MD, MPH [address] [place] [address] [email or web address] PCP - General Family Medicine 10/02/24 Lolis Rowe, HATCHERY SUPERVISOR [address] [place] [address] [email or web address] Historical LMR Provider 01/06/17 03/29/21 Claudy Ramsey MD, MS [address] [place] [address] [email or web address] Historical LMR Provider 01/06/17 03/29/21 Susie Michael, HATCHERY SUPERVISOR [address] [place] [address] Historical LMR Provider 01/06/17 2 Keri Gil NP Historical LMR Provider 01/06/17 Jennifer Henson NP [address] [place] [address] Historical LMR Provider 01/06/17 2 Lionel Reich MD [address] [place] [address] 102 [place] [address] Historical LMR Provider 01/06/17 Mily Ball MD [address] [place] [address] Orthopedics & Sports Medicine, [place] [address] Historical LMR Provider 01/06/17 documented as of this encounter Additional Source Comments The information contained in this document represents components of the legal health record. It is not the complete legal health record.[facility]
--- OUTSIDE RECORDS SUMMARY | 2025-01-16 20:15 | XMS_ITS | Encounter Summary ---
Author Organization [facility] Address [address] [place] [address] Phone Care Team Providers Care High School Biology Teacher Name Role Phone Keri Gil SUPERVISORY AIR INTERCEPT CONTROLLER Primary Care Provider [phone] Keri Gil SUPERVISORY AIR INTERCEPT CONTROLLER Unavailable [phone] Lionel Reich MD Unavailable [phone] Mily Ball MD Unavailable Keri Gil SUPERVISORY AIR INTERCEPT CONTROLLER Primary Care Provider Italo Bedolla MD, MPH Primary Care Provider + Reason for Referral * MRI/CAT Scan - Closed Specialty Diagnoses / Procedures Referred By Contparth t Referred To Contact Radiology Diagnoses Left hip pain Procedures MRI Pelvis (GI/) CHG MRI, PELVIS, W/O CONTRAST Earle Scott MD [address] [place] [address] Phone: tel: fax: [email or web address]:[email or web address] Referral ID Status Reason Start Date Expiration Date Visits Re quested Visits Authorized [id number] Closed 05/20/2023 07/18/2023 1 1 Encounter Details Date Type Department Care Team (Latest Contact Info) Description 05/20/2023 Transcribe Orders Virtual Department [address] [place] [address] Earle Scott MD [address] [place] [address] [email or web address] Left hip pain (Primary Dx) Social History [...] provided indication for this examination in Epic: Outside Radiology Order; hip pain TECHNIQUE: Multiplanar [...] clinician's provided indication for this examination in [facility]:Outside Radiology Order; hip pain TECHNIQUE: Multiplanar [...] thigh documented in this encounter Care Teams High School Biology Teacher Relationship Specialty Start Date End Date Keri Gil NP PCP - General Family Medicine 07/22/15 09/18/24 Keri Gil NP [address] [place] [address] PCP - General Nurse Practitioner 09/19/24 10/01/24 Italo Bedolla MD, MPH 70 [place] [address] [email or web address] PCP - General Family Medicine 10/02/24 Keri Gil, SUPERVISORY AIR INTERCEPT CONTROLLER Historical LMR Provider 01/06/17 Lionel Reich MD [address] [place] [address] 102 [place] [address] [email or web address] Historical LMR Provider 01/06/17 Mily Ball MD [address] [place] [address] Orthopedics & Sports Medicine, [place] [address] Historical LMR Provider 01/06/17 documented as of this encounter Additional Source Comments The information contained in this document represents components of the legal health record. It is not the complete legal health record.[facility]
--- OUTSIDE RECORDS SUMMARY | 2025-01-16 20:15 | XMS_ITS | Encounter Summary ---
Author Organization [facility] Address [address] [place] [address] [place] [address] Phone Care Team Providers Care Alarm Service Technician Name Role Phone Keri Gil SCALE TECHNICIAN Primary Care Provider [phone] Keri Gil SCALE TECHNICIAN Unavailable [phone] Lionel Reich MD Unavailable Mily Ball MD Unavailable [phone] Keri Gil SCALE TECHNICIAN Primary Care Provider Italo Bedolla MD, MPH Primary Care Provider + Encounter Details Date Type Department Care Team (Late st Contact Info) Description 05/20/2023 Procedure Pass [address] [place] [address] Social History Tobacco Use Types Packs/Day Years [...] on filedocumented in this encounter Care Teams Alarm Service Technician Relationship Specialty Start Date End Date Keri Gil NP PCP - General Family Medicine 07/22/15 09/18/24 Keri Gil NP 70 [place] [address] PCP - General Nurse Practitioner 09/19/24 10/01/24 Italo Bedolla MD, MPH 70 [place] [address] [email or web address] PCP - General Family Medicine 10/02/24 Keri Gil SCALE TECHNICIAN Historical LMR Provider 01/06/17 Lionel Reich MD [address] [place] [address], [facility] 102 [place] [address] Historical LMR Provider 01/06/17 Mily Ball MD [address] [place] [address] Orthopedics & Sports Medicine, [facility] [place] [address] Historical LMR Provider 01/06/17 documented as of this encounter Additional Source Comments The information contained in this document represents components of the legal health record. It is not the complete legal health record.[facility]
== END 2025-01-16 16:50 | disposition home or self-care (01) ==
LOC: HO.HOP 16:49
PROVIDERS: PCP Family Medicine; Visit Provider Clinical Nurse Specialist Psychiatric/Mental Health
DX: F33.1 Major depressive disorder, recurrent, moderate (principal); F90.0 Attention-deficit hyperactivity disorder, predominantly inattentive type; F42.2 Mixed obsessional thoughts and acts
CPT/HCPCS: 99214

== ENCOUNTER 2025-03-05 16:58 | Outpatient (AMB) | payer OTHER, SELFPAY ==
--- NOTE | 2025-03-05 16:39 | A.OFFPSYCH_ITS ---
Intake Intake Visit Reasons: depression Checkout Operator Required: No Allergies Penicillins Allergy (Intermediate, Verified 06/17/23 11:43) Rash Medication List - Last Reconciled 03/05/25 by Mary Ellen Marie APRN buspirone 7.5 mg PO BID desvenlafaxine succinate ER (Pristiq) 25 mg PO DAILY dextroamphetamine-amphetamine 5 mg (Adderall) 2.5mg - 5 mg orally DAILY@1500; Partial Fill upon patient request. dextroamphetamine-amphetamine 5 mg ER (Adderall XR) 5 mg PO DAILY levothyroxine 75 mcg PO DAILY lorazepam 0.5 mg PO DAILY PRN trazodone 75 mg (1/2 x 150 mg) PO BEDTIME PRN vortioxetine (Trintellix) 10 mg PO DAILY HPI- Psychiatric Chief Complaint: depression HPI Narrative: Pt seen via video telehealth appt for follow up re: depression, anxiety, and ADHD. Pt reports she couldn't tolerate the pristiq; she reports significant blurry vision; she is back on the trintellix ; she reports down mood, feeling depressed, low energy, tired all the time, she reports worry and anxiety most days. She reports significant PMDD symptoms and mood changes before her period; she is working with [facility] end[facility]inology. She recently learned she has zinc deficiency which may be contributing to symtpoms including mood, brain fog, and slow wound healing. she could not tolerate the adderall. Reports depression, anxiety and high stress. Pt reports high reactivity to stress. Pt struggling with attention, focus, organization, motivation. Pt feels fatigued many days; She does not have energy or motivation to exercise more; she is craving carbs. She denies SI or HI. Taking meds consistently; no side effects. attending therapy regularly. Past Psychiatric History: OCD at age 9, saw child psychologist for many years ages [age] OCD, anxiety, depression, suicidality, at age 14 things got a lot better; age [age] good but then anxiety increased significantly when she was in transition from HS to college; symptoms better in high school and college, social anxiety decreased sports and music, friends and therapy helped. put on xanax by PCP at age 19. No IPLOC. Has tried multiple medications lexapro- pt doesn't recall why stopped vyvanse helped adderall- rebound agitation/anxiety ritalin- agitated/anxious/paranoid/wary Effexor jittery Zoloft jittery Paxil doesnt recall Prozac doesnt recall Pristiq for years, stopped working Xanax helped with panic and insomnia Ativan some help Wellbutrin jittery Clonazepam helpful lamictal- not helpful and early am waking Subjective Subjective Medication Compliance: Yes Side effects from medications: Yes Review of Systems Medical Review of Systems: unchanged Mental Status Exam Mental Status Exam Patient Appearance: Appropriate Patient Orientation: Person, Place, Time and Situation Level of Consciousness: Appropriate and Alert Patient Behavior: Appropriate, Cooperative and Good Eye Contact Mood Description: Depressed and Flat Affect Description: Depressed and Flat Patient Cognition Impaired: No Ability to Follow Directions: Good Speech Pattern: Clear, Impoverished, Appropriate and Soft-Spoken Memory Description: Intact Hallucinations: None Delusions: Not Present Thought Process: Intact and Distracted Thought Content: positive for Intact and positive for Poverty of Content Judgement: Good Telehealth Telehealth Telehealth Platform: [employer]ue[employer] Location of provider rendering services: practice address Location of patient: address on file Patient Identification confirmed using: Name, : Yes Telehealth method: video Patient verbally consented to treatment: Yes Patient verbally consented to billing insurance company: Yes Patient informed of any privacy concerns related to visit: Yes Minutes spent on Phone/Video with Pt.: 26 Assessment and Plan Assessment & Plan (1) Major depressive disorder, recurrent episode, moderate degree: Status: Acute Code(s): F33.1 - Major depressive disorder, recurrent, moderate (2) ADHD: Status: Acute Qualifiers: Attention deficit-hyperactivity disorder type: predominantly inattentive Qualified Code(s): F90.0 - Attention-deficit hyperactivity disorder, predominantly inattentive type Code(s): F90.9 - Attention-deficit hyperactivity disorder, unspecified type (3) OCD (obsessive compulsive disorder): Status: Acute Qualifiers: Obsessive-compulsive disorder type: mixed obsessional thoughts and acts Qualified Code(s): F42.2 - Mixed obsessional thoughts and acts Code(s): F42.9 - Obsessive-compulsive disorder, unspecified Plan stop pristiq decrease trintellix to 10 mg daily start prozac 5mg daily x 14 days then increase to 10mg daily continue other meds Labs ordered Medications: New fluoxetine Take 1/2 tablet daily x 14 days then take 1 full tablet daily thereafter 5 mg (1/2 x 10 mg) PO DAILY 30 tabs 0RF Discontinued dextroamphetamine-amphetamine 5 mg ER (Adderall XR) Partial Fill upon patient request. Discontinued Reason: Doctor's Order 5 mg PO DAILY 30 caps 0RF desvenlafaxine succinate ER (Pristiq) Discontinued Reason: Doctor's Order 25 mg PO DAILY 30 tabs 1RF vortioxetine (Trintellix) Discontinued Reason: Doctor's Order 10 mg PO DAILY 30 tabs 1RF dextroamphetamine-amphetamine 5 mg (Adderall) Discontinued Reason: Doctor's Order 2.5mg - 5 mg orally DAILY@1500; Partial Fill upon patient request. 30 tabs 0RF Orders: Orders Complete Blood Count Auto Diff Today R53.83 - Other fatigue, Z79.899 - Other fdc (current) drug therapy Comprehensive [place]. Panel Fast Today F33.1 - Major depressive disorder, recurrent, moderate, R53.83 - Other fatigue, Z79.899 - Other manager long term care (current) drug therapy IRON PROFILE Today F33.1 - Major depressive disorder, recurrent, moderate, F90.0 - Attention-deficit hyperactivity disorder, predominantly inattentive type, R53.83 - Other fatigue Zinc Today R53.83 - Other fatigue Vitamin D 25-OH (D2 and D3) Today E55.9 - Vitamin D deficiency, unspecified Vitamin B1 Today F33.1 - Major depressive disorder, recurrent, moderate, F90.0 - Attention-deficit hyperactivity disorder, predominantly inattentive type, R53.83 - Other fatigue Vitamin B6 Today F33.1 - Major depressive disorder, recurrent, moderate, F90.0 - Attention-deficit hyperactivity disorder, predominantly inattentive type, R 53.83 - Other fatigue Hemoglobin A1c Today F33.1 - Major depressive disorder, recurrent, moderate, Z79.899 - Other manager long term care (current) drug therapy Vitamin B12 and Folate Today F33.1 - Major depressive disorder, recurrent, moderate, F90.0 - Attention-deficit hyperactivity disorder, predominantly inattentive type, R53.83 - Other fatigue, Z79.899 - Other fdc (current) drug therapy Magnesium Today F33.1 - Major depressive disorder, recurrent, moderate, R53.83 - Other fatigue TSH reflex Free T4 Today F33.1 - Major depressive disorder, recurrent, moderate, R53.83 - Other fatigue Counseling and coordination of Care Pt. Self Management counseling: Exercise (restorative yoga), Maintenance-social rhythm, Mod caffeine/ETOH intake, Nutrition education and improvement, Sleep hygiene and General coping skills Medication management counseling: Effectiveness, Side effects, Dosing range, Duration, Drug interaction and Adherence Diagnosis and Prognosis Counseling: Accuracy of diagnosis, Prognosis over time, Impact of diagnosis on life functions, Impact of family relationship, Problematic behaviors secondary to diagnosis and Adequacy of current interventions Details: I spent 34 minutes reviewing the record, seeing the patient and documenting in the medical record. Counseling provided to the patient/caregiver as outlined below. Addressed patient/caregiver concerns regarding current medication regime including effective adherence. Addressed patient/caregiver concerns regarding diagnosis and prognosis including accuracy of diagnosis, prognosis over time, impact of diagnosis. Addressed patient/caregiver concerns regarding impact of recent stressors. 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
--- OUTSIDE RECORDS SUMMARY | 2025-03-05 22:40 | XMS_ITS | Encounter Summary ---
Author Organization [facility] Address [address] [place] [address] Phone Care Team Providers Care Elevator Repairer Apprentice Name Role Phone Keri Gil BOOK TRIMMER Primary Care Provider Keri Gil BOOK TRIMMER Unavailable [phone] Lionel Reich MD Unavailable Mily Ball MD Unavailable Keri Gil BOOK TRIMMER Primary Care Provider Italo Bedolla MD, MPH Primary Care Provider + Encounter Details Date Type Department Care Team (Late st Contact Info) Description 05/21/2022 Transcribe Orders [facility] [address] [place] [address] Mo Carrero, FORREST [address] [place], [place] [id number] [email or web address] Social History Tobacco Use Types Packs/Day Years Used Date Smoking Tobacco: Never Smokeless Tobacco: Never Alcohol Use Standard Drinks/Week Comments Yes 0 (1 standard drink = 0.6 oz pur e alcohol) 1 monthly Comments No Sex and Gender Information Value Date Recorded Sex Assigned at Not on file Legal Sex Female 6:08 PM EST Gender [...] on filedocumented in this encounter Care Teams Elevator Repairer Apprentice Relationship Specialty Start Date End Date Keri Gil NP PCP - General Family Medicine 07/22/15 09/18/24 Keri Gil NP [address] [place] [address] PCP - General Nurse Practitioner 09/19/24 10/01/24 Italo Bedolla MD, MPH [address] [place] [address] PCP - General Family Medicine 10/02/24 Keri Gil BOOK TRIMMER Historical LMR Provider 01/06/17 Lionel Reich MD 22 [facility], [facility] [address] [place] [address] Historical LMR Provider 01/06/17 Mily Ball MD [address] [place] [address] Orthopedics & Sports Medicine, [place] [address] Historical LMR Provider 01/06/17 documented as of this encounter Additional Source Comments The information contained in this document represents components of the legal health record. It is not the complete legal health record.[facility]
--- OUTSIDE RECORDS SUMMARY | 2025-03-05 22:40 | XMS_ITS | Encounter Summary ---
Author Organization [facility] Address [address] [place] [address] [place] [address] Phone Care Team Providers Care Manager Math Name Role Phone Keri Gil NP Unavailable [phone] Lionel Reich MD Unavailable Mily Ball MD Unavailable Italo Bedolla MD, MPH Primary Care Provider + Encounter Details Date Type Department Care Team (Late st Contact Info) Description 10/11/2024 Procedure Pass [facility], Ct Scan - [facility] [address] [place] [address] Social History Tobacco Use Types Packs/Day Years [...] filedocumented in this encounter Care Teams Manager Math Relationship Specialty Start Date End Date Italo Bedolla MD, MPH 70 [place] [address] PCP - General Family Medicine 10/02/24 Keri Gil NP Historical LMR Provider 01/06/17 Lionel Reich MD 22 [facility], [facility] [address] [place] [address] Historical LMR Provider 01/06/17 Mily Ball MD [address] [place] [address] Orthopedics & Sports Medicine, [facility] [place] [address] Historical LMR Provider 01/06/17 documented as of this encounter Additional Source Comments The information contained in this document represents components of the legal health record. It is not the complete legal health record.[facility]
--- OUTSIDE RECORDS SUMMARY | 2025-03-05 22:40 | XMS_ITS | Encounter Summary ---
Author Organization [facility] Address [address] [facility] [address] [place] [address] Phone Care Team Providers Care Production Sorter Name Role Phone Keri Gil LANDSCAPING AND GROUNDSKEEPING LABORER Primary Care Provider Lolis Rowe LANDSCAPING AND GROUNDSKEEPING LABORER Unavailable [phone] Claudy Ramsey MD, MS Unavailable Susie Michael LANDSCAPING AND GROUNDSKEEPING LABORER Unavailable Keri Gil LANDSCAPING AND GROUNDSKEEPING LABORER Unavailable Jennifer Henson LANDSCAPING AND GROUNDSKEEPING LABORER Unavailable [phone] Lionel Reich MD Unavailable Mily Ball MD Unavailable Keri Gil LANDSCAPING AND GROUNDSKEEPING LABORER Primary Care Provider Italo Bedolla MD, MPH Primary Care Provider + Encounter Details Date Type Department Care Team (Late st Contact Info) Description 09/06/2020 Ancillary Orders [facility],Outside Imaging [address] [place], [place] [phone] System, Provider Not In, [facility] [address] [address] Social History Tobacco Use Types Packs/Day Years [...] on filedocumented in this encounter Care Teams Production Sorter Relationship Specialty Start Date End Date Keri Gil NP PCP - General Family Medicine 07/22/15 09/18/24 Keri Gil NP [address] [place] [address] PCP - General Nurse Practitioner 09/19/24 10/01/24 Italo Bedolla MD, MPH [address] [place] [address] PCP - General Family Medicine 10/02/24 Lolis Rowe NP [address] [place] [address] Historical LMR Provider 01/06/17 03/29/21 Claudy Ramsey MD, MS [address] [place] [address] Historical LMR Provider 01/06/17 03/29/21 Susie Michael NP [address] [place] [address] Historical LMR Provider 01/06/17 2 Keri Gil LANDSCAPING AND GROUNDSKEEPING LABORER Historical LMR Provider 01/06/17 Jennifer Henson NP [address] [place] [address] Historical LMR Provider 01/06/17 2 Lionel Reich MD [address] [place] [address] 102 [place] [address] [email or web address] Historical LMR Provider 01/06/17 Mily Ball MD [address] [place] [address] Orthopedics & Sports Medicine, [facility] [place] [address] Historical LMR Provider 01/06/17 documented as of this encounter Additional Source Comments The information contained in this document represents components of the legal health record. It is not the complete legal health record.[facility]
--- OUTSIDE RECORDS SUMMARY | 2025-03-05 22:40 | XMS_ITS | Encounter Summary ---
Author Organization [facility] Address [address] [place] [address] Phone Care Team Providers Care Cone Chocolate Dipper Name Role Phone Keri Gil OPTICAL GLASS SILVERER Primary Care Provider Lolis Rowe OPTICAL GLASS SILVERER Unavailable [phone] Claudy Ramsey MD, MS Unavailable [phone] Susie Michael OPTICAL GLASS SILVERER Unavailable Keri Gil OPTICAL GLASS SILVERER Unavailable [phone] Jennifer Henson OPTICAL GLASS SILVERER Unavailable [phone] Lionel Reich MD Unavailable Mily Ball MD Unavailable [phone] Keri Gil OPTICAL GLASS SILVERER Primary Care Provider Italo Bedolla MD, MPH Primary Care Provider + Encounter Details Date Type Department Care Team (Late st Contact Info) Description 07/03/2020 Procedure Pass [facility] [address] [place] [address] Social History Tobacco Use Types Packs/Day Years [...] 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 Not on file Not o n file documented as of this encounter Plan of Treatment Not on file documented as of this encounter Visit Diagnoses Not on filedocumented in this encounter Care Teams Cone Chocolate Dipper Relationship Specialty Start Date End Date Keri Gil OPTICAL GLASS SILVERER PCP - General Family Medicine 07/22/15 09/18/24 Keri Gil NP [address] [place] [address] PCP - General Nurse Practitioner 09/19/24 10/01/24 Italo Bedolla MD, MPH [address] [place] [address] PCP - General Family Medicine 10/02/24 Lolis Rowe OPTICAL GLASS SILVERER [address] [place] [address] Historical LMR Provider 01/06/17 03/29/21 Claudy Ramsey MD, MS [address] [place] [address] Historical LMR Provider 01/06/17 03/29/21 Susie Michael NP [address] [place] [address] Historical LMR Provider 01/06/17 2 Keri Gil NP Historical LMR Provider 01/06/17 Jennifer Henson NP [address] [place] [address] Historical LMR Provider 01/06/17 2 Lionel Reich MD [address] [place] [address] 102 [place] [address] [email or web address] Historical LMR Provider 01/06/17 Mily Ball MD [address] [place] [address] Orthopedics & Sports Medicine, [place] [address] Historical LMR Provider 01/06/17 documented as of this encounter Additional Source Comments The information contained in this document represents components of the legal health record. It is not the complete legal health record.[facility]
--- OUTSIDE RECORDS SUMMARY | 2025-03-05 22:40 | XMS_ITS | Encounter Summary ---
Author Organization [facility] Address [address] [facility] [address] [place] [address] Phone Care Team Providers Care Fertilizer Loader Name Role Phone Keri Gil SQL ENGINEER Primary Care Provider Lolis Rowe SQL ENGINEER Unavailable [phone] Claudy Ramsey MD, MS Unavailable Susie Michael SQL ENGINEER Unavailable Keri Gil SQL ENGINEER Unavailable [phone] Jennifer Henson SQL ENGINEER Unavailable [phone] Lionel Reich MD Unavailable Mily Ball MD Unavailable Keri Gil SQL ENGINEER Primary Care Provider Italo Bedolla MD, MPH Primary Care Provider + Encounter Details Date Type Department Care Team (Late st Contact Info) Description 09/06/2020 Ancillary Orders [facility],Outside Imaging 30 [place], [place] [phone] System, Provider Not In, [facility] [address] [address] Social History Tobacco Use Types Packs/Day Years [...] on filedocumented in this encounter Care Teams Fertilizer Loader Relationship Specialty Start Date End Date Keri Gil NP PCP - General Family Medicine 07/22/15 09/18/24 Keri Gil NP [address] [place] [address] PCP - General Nurse Practitioner 09/19/24 10/01/24 Italo Bedolla MD, MPH [address] [place] [address] PCP - General Family Medicine 10/02/24 Lolis Rowe NP [address] [place] [address] Historical LMR Provider 01/06/17 03/29/21 Claudy Ramsey MD, MS [address] [place] [address] Historical LMR Provider 01/06/17 03/29/21 Susie Michael NP [address] [place] [address] Historical LMR Provider 01/06/17 2 Keri Gil SQL ENGINEER Historical LMR Provider 01/06/17 Jennifer Henson NP [address] [place] [address] Historical LMR Provider 01/06/17 2 Lionel Reich MD [address] [place] [address] [address] [place] [address] [email or web address] Historical LMR Provider 01/06/17 Mily Ball MD [address] [place] [address] Orthopedics & Sports Medicine, [place] [address] Historical LMR Provider 01/06/17 documented as of this encounter Additional Source Comments The information contained in this document represents components of the legal health record. It is not the complete legal health record.[facility]
--- OUTSIDE RECORDS SUMMARY | 2025-03-05 22:40 | XMS_ITS | Encounter Summary ---
Author Organization [facility] Address [address] [place] [address] Phone Care Team Providers Care Software Sales Consultant Name Role Phone Keri Gil COUNTY DIRECTOR Primary Care Provider Llois Rowe COUNTY DIRECTOR Unavailable [phone] Claudy Ramsey MD, MS Unavailable Susie Michael COUNTY DIRECTOR Unavailable [phone] Keri Gil COUNTY DIRECTOR Unavailable [phone] Jennifer Henson COUNTY DIRECTOR Unavailable [phone] Lionel Reich MD Unavailable Mily Ball MD Unavailable [phone] Keri Gil COUNTY DIRECTOR Primary Care Provider Italo Bedolla MD, [...] MD Phone: tel: fax: mailto:[email or web address] [facility] [address] [place] [address] Phone: tel: Referral ID Status Reason Start Date Expiration Date Visits Re quested Visits Authorized [id number] Closed 08/01/2020 09/29/2020 1 1 Encounter Details Date Type Department Care Team (Latest Contact Info) Description 08/01/2020 Transcribe Orders Virtual Department [address] [place] [address] Ismael Zhao MD [address] [place] [address], [address] [place], [place] [phone] [email or web address] Blurred vision (Primary Dx); Numbness of [...] sequences were then obtained. FINDINGS: No abnormal pcaco-[id number]-ubyjj blood or fluid collection, mass, or mass [...] sequences were then obtained. FINDINGS: No abnormal yvgch-pgycf-cerys blood or fluid collection, mass, or masseffect [...] sensation documented in this encounter Care Teams Software Sales Consultant Relationship Specialty Start Date End Date Keri Gil COUNTY DIRECTOR PCP - General Family Medicine 07/22/15 09/18/24 Keri Gil COUNTY DIRECTOR [address] [place] [address] PCP - General Nurse Practitioner 09/19/24 10/01/24 Italo Bedolla MD, MPH [address] [place] [address] [email or web address] PCP - General Family Medicine 10/02/24 Lolis Rowe NP [address] [place] [address] [email or web address] Historical LMR Provider 01/06/17 03/29/21 Claudy Ramsey MD, MS [address] [place] [address] [email or web address] Historical LMR Provider 01/06/17 03/29/21 Susie Michael, FORREST [address] [place] [address] Historical LMR Provider 01/06/17 2 Keri Gil COUNTY DIRECTOR Historical LMR Provider 01/06/17 Jennifer Henson NP [address] [place] [address] Historical LMR Provider 01/06/17 2 Lionel Reich MD 22 [facility], [address] [place] [address] [email or web address] Historical LMR Provider 01/06/17 Mily Ball MD [address] [place] [address] Orthopedics & Sports Medicine, [place] [address] [email or web address] Historical LMR Provider 01/06/17 documented as of this encounter Additional Source Comments The information contained in this document represents components of the legal health record. It is not the complete legal health record.[facility]
--- OUTSIDE RECORDS SUMMARY | 2025-03-05 22:40 | XMS_ITS | Encounter Summary ---
Author Organization [facility] Address [address] [place] [address] Phone Care Team Providers Care Chief Data Officer Name Role Phone Keri Gil CRIMINAL COURT JUDGE Primary Care Provider Keri Gil CRIMINAL COURT JUDGE Unavailable [phone] Lionel Reich MD Unavailable [phone] Mily Ball MD Unavailable [phone] JUDGE Primary Care Provider [phone] Italo Bedolla MD, MPH Primary Care Provider + Reason for Referral * MRI/CAT Scan - Closed Specialty Diagnoses / Procedures Referred By Contparth t Referred To Contact Radiology Diagnoses Left hip pain Procedures MRI Pelvis (GI/) CHG MRI, PELVIS, W/O CONTRAST Earle Scott MD [address] [place] [address] Phone: tel: fax: [email or web address] Referral ID Status Reason Start Date Expiration Date Visits Re quested Visits Authorized [id number] Closed 05/20/2023 07/18/2023 1 1 Encounter Details Date Type Department Care Team (Latest Contact Info) Description 05/20/2023 Transcribe Orders Virtual Department [address] [place] [address] Earle Scott MD [address] [place] [address] [email or web address] Left hip pain (Primary Dx) Social History [...] clinician's provided indication for this examination in Epic:Outside Radiology Order; hip pain TECHNIQUE: Multiplanar MR [...] endometrioma. RECOMMENDATION: Pelvic ultrasound. Earle Scott MD IM MR PELVIS Final Result documented in this encounter Visit Diagnoses Diagnosis Left hip pain- Primary Pain in joint, pelvic region and thigh Left hip pain Pain in joint, pelvic region and thigh documented in this encounter Care Teams Chief Data Officer Relationship Specialty Start Date End Date Keri Gil NP PCP - General Family Medicine 07/22/15 09/18/24 Keri Gil NP [address] [place] [address] PCP - General Nurse Practitioner 09/19/24 10/01/24 Italo Bedolla MD, MPH [address] [place] [address] [email or web address] PCP - General Family Medicine 10/02/24 Keri Gil NP Historical LMR Provider 01/06/17 Lionel Reich MD [address] [place] [address], [address] [place] [address] [email or web address] Historical LMR Provider 01/06/17 Mily Ball MD [address] [place] [address] Orthopedics & Sports Medicine, [facility] [place] [address] Historical LMR Provider 01/06/17 documented as of this encounter Additional Source Comments The information contained in this document represents components of the legal health record. It is not the complete legal health record.[facility]
--- OUTSIDE RECORDS SUMMARY | 2025-03-05 22:40 | XMS_ITS | Clinical Summary ---
Author Organization [facility] Address [address] [place] [address] Care Team Providers Care Contact Lens Assistant Name Role Phone Italo Bedolla Primary Care Provider [phone] Allergies Active Allergy Reactions Criticality Noted Date [...] Encounters Date Type Department Care Team Description 01/23/2025 Orders Only [facility] [address] [place] [address] Bertrand Sol MD Abdominal hernia without obstruction and without gangrene, recurrence not specified, unspecified hernia type (Primary Dx) 12/21/2024 myChart Message [facility] [address] [place] [address] Career Professional: Saurabh Ledesma MD MRI denied by insurance 12/06/2024 10:00 AM EDT Follow-Up [facility] [address] [place] [address] Saurabh Méndez MD Left inguinal pain (Primary Dx) 12/06/2024 10:00 AM EDT Follow-Up [facility] [address] [place] [address] Alan Maldonado MD Left groin pain (Primary [...] , 02/15/2022, 01/05/2022, Additional history exists COVID-19 Vaccine (4 - 2024-2 6 season) 2024 02/18/2021, 06/21/2020, 05/30/2020 DTaP,Tdap,and Td Vaccines (3 - Td or Tdap) 11/11/2032 11/11/2022, 12/19/2013 Insurance [facility] Care Teams Contact Lens Assistant Relationship Specialty Start Date End Date Italo Bedolla [address] [place] [address] PCP - General Family Medicine 09/27/23
--- OUTSIDE RECORDS SUMMARY | 2025-03-05 22:40 | XMS_ITS | Encounter Summary ---
Author Organization [facility] Address [address] [place] [address] Phone Care Team Providers Care Electrical Design Technologist Name Role Phone Keri Gil COOK SEAFOOD Primary Care Provider Lolis Rowe COOK SEAFOOD Unavailable [phone] Claudy Ramsey MD, MS Unavailable Susie Michael COOK SEAFOOD Unavailable [phone] Keri Gil COOK SEAFOOD Unavailable [phone] Jennifer Henson COOK SEAFOOD Unavailable [phone] Lionel Reich MD Unavailable Mily Ball MD Unavailable Keri Gil COOK SEAFOOD Primary Care Provider Italo Bedolla MD, MPH Primary Care Provider + Encounter Details Date Type Department Care Team (Latest Contact Info) Description 06/10/2017 Prep for Surgery [facility] [address] [place] [address] Mily Ball MD [address] [place] [address] [facility] [place] [address] Mass of finger of right [...] lump documented in this encounter Care Teams Electrical Design Technologist Relationship Specialty Start Date End Date Keri Gil NP PCP - General Family Medicine 07/22/15 09/18/24 Keri Gil NP [address] [place] [address] PCP - General Nurse Practitioner 09/19/24 10/01/24 Italo Bedolla MD, MPH [address] [place] [address] PCP - General Family Medicine 10/02/24 Lolis Rowe NP [address] [place] [address] Historical LMR Provider 01/06/17 03/29/21 Claudy Ramsey MD, MS [address] [place] [address] [email or web address] Historical LMR Provider 01/06/17 03/29/21 Susie Michael NP [address] [place] [address] Historical LMR Provider 01/06/17 2 Keri Gil COOK SEAFOOD Historical LMR Provider 01/06/17 Jennifer Henson NP [address] [place] [address] Historical LMR Provider 01/06/17 2 Lionel Reich MD [address] [place] [address] [address] [place] [address] [email or web address] Historical LMR Provider 01/06/17 Mily Ball MD [address] [place] [address] Orthopedics & Sports Medicine, [facility] [place] [address] Historical LMR Provider 01/06/17 documented as of this encounter Additional Source Comments The information contained in this document represents components of the legal health record. It is not the complete legal health record.[facility]
--- OUTSIDE RECORDS SUMMARY | 2025-03-05 22:40 | XMS_ITS | Encounter Summary ---
Author Organization [facility] Address [address] [place] [address] Phone Care Team Providers Care Consumer Marketing Manager Name Role Phone Keri Gil STOPPING BUILDER Primary Care Provider Lolis Rowe STOPPING BUILDER Unavailable [phone] Claudy Ramsey MD, MS Unavailable Susie Michael STOPPING BUILDER Unavailable [phone] Keri Gil STOPPING BUILDER Unavailable [phone] Jennifer Henson STOPPING BUILDER Unavailable [phone] Lionel Reich MD Unavailable Mily Ball MD Unavailable [phone] Keri Gil STOPPING BUILDER Primary Care Provider Italo Bedolla MD, MPH Primary Care Provider + Encounter Details Date Type Department Care Team (Late st Contact Info) Description 08/01/2020 Procedure Pass [address] [place] [address] Social History Tobacco Use Types Packs/Day Years [...] on filedocumented in this encounter Care Teams Consumer Marketing Manager Relationship Specialty Start Date End Date Keir Gil STOPPING BUILDER PCP - General Family Medicine 07/22/15 09/18/24 Keri Gil NP [address] [place] [address] PCP - General Nurse Practitioner 09/19/24 10/01/24 Italo Bedolla MD, MPH [address] [place] [address] PCP - General Family Medicine 10/02/24 Lolis Rowe STOPPING BUILDER [address] [place] [address] Historical LMR Provider 01/06/17 03/29/21 Claudy Ramsey MD, MS [address] [place] [address] Historical LMR Provider 01/06/17 03/29/21 Susie Michael NP [address] [place] [address] Historical LMR Provider 01/06/17 2 Keri Gil STOPPING BUILDER Historical LMR Provider 01/06/17 Jennifer Henson NP [address] [place] [address] Historical LMR Provider 01/06/17 2 Lionel Reich MD [address] [place] [address] [address] [place] [address] [email or web address] Historical LMR Provider 01/06/17 Mily Ball MD [address] [place] [address] Orthopedics & Sports Medicine, [place] [address] Historical LMR Provider 01/06/17 documented as of this encounter Additional Source Comments The information contained in this document represents components of the legal health record. It is not the complete legal health record.[facility]
--- OUTSIDE RECORDS SUMMARY | 2025-03-05 22:40 | XMS_ITS | Encounter Summary ---
Author Organization [facility] Address [address] [place] [address] [place] [address] Phone Care Team Providers Care Sponge Packer Name Role Phone Keri Gil TEXTILE BAG SEWER Primary Care Provider Keri Gil TEXTILE BAG SEWER Unavailable [phone] Lionel Reich MD Unavailable Mily Ball MD Unavailable [phone] Keri Gil TEXTILE BAG SEWER Primary Care Provider Italo Bedolla MD, MPH Primary Care Provider + Encounter Details Date Type Department Care Team (Late st Contact Info) Description 05/20/2023 Procedure Pass [address] [place] [address] Social History Tobacco Use Types Packs/Day Years [...] on filedocumented in this encounter Care Teams Sponge Packer Relationship Specialty Start Date End Date Keri Gil TEXTILE BAG SEWER PCP - General Family Medicine 07/22/15 09/18/24 Keri Gil NP [address] [place] [address] PCP - General Nurse Practitioner 09/19/24 10/01/24 Italo Bedolla MD, MPH [address] [place] [address] [email or web address] PCP - General Family Medicine 10/02/24 Keri Gil TEXTILE BAG SEWER Historical LMR Provider 01/06/17 Lionel Reich MD [address] [place] [address], [facility] [address] [place] [address] Historical LMR Provider 01/06/17 Mily Ball MD [address] [place] [address] Orthopedics & Sports Medicine, [facility] [place] [address] Historical LMR Provider 10/18/17 documented as of this encounter Additional Source Comments The information contained in this document represents components of the legal health record. It is not the complete legal health record.[facility]
--- OUTSIDE RECORDS SUMMARY | 2025-03-05 22:40 | XMS_ITS | Data Portability ---
Author Organization [facility] Address [address] [place] [address] [place], [place] [address] Care Team Providers Care Shoe Repairman Name Role Phone DOUGIE CRAIN Primary Care Provider IRA QUICK Referring Provider [phone] DOUGIE CRAIN Primary Care Provider [phone] IRA QUICK OTHER Assessment Encounter Date Assessment [...] 75 mg, trazodone as needed 100 mg, Kenly Thyroid 32 mg. Neurological exam is normal. [...] of TMJ. Erica Rogers MBA, PT [address] [facility]. [address] [place] [address] [email or web address] We will send a referral to the [...] 021 mian 1 Erica Rogers PT, [address] [place], [address], 22:50:10 Procedures None recorded. Surgeries None recorded. [...] Not available Not available Not available 11/11/2020 [id number] SNOMED [facility] 09:16:25 Medications Name Sig Start [...] Not Available Not Available No t Available Kenly Thyroid 30 mg tablet active Not Available [...] Not Available Not Available No t Available Kenly Thyroid active Not Available Not Available Not [...] Updated DateTime 11/11/2020 157.48 cm 43.9 kg/m2 266273.1 7 g 12 /min Tracee [facility] 11/11/2020 09:19:03 Social History Question Answer Notes LastModified by Organizat ion Details LastModified Time Tobacco Smoking Status Never Smoker [facility] 11/11/2020 09:20:12 What Is Your Level Of Caffeine Consumption? Moderate 1 Cup Information not available 11/11/2020 What Is The Highest Grade Or Level Of School You Have Completed Or The Highest Degree You Have Received? 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 Health Concerns Section Related Observation LastModified by Organization Detai ls LastModified Time None Recorded Concern Status LastModified by Organization Details LastModified Time None Recorded Advance Directives Directive None Recorded Payers Insurance Date Sequence Insurance Name Policy Number Policy Rosas Covered Member ID Rosas Member ID Guarantor Name 01/10/2021 1 [place] [id number] Demetria Sprague [id number] Demetria Darcie Notes Date Note Type [...] teaming for which she has consulted with [facility] who have referred her to our [...] diagnosis of TMJ, perhaps initially from an sap consultant. The jaw discomfort is swollen and painful [...] many more hours previously. Emanuel [place] MD [address] [place] [address] [place], [address], [facility] Neurology [facility] 11/11/2020 10:43:17 OBGyn Episode No OBEpisode recorded.
--- OUTSIDE RECORDS SUMMARY | 2025-03-05 22:40 | XMS_ITS | Encounter Summary ---
Author Organization [facility] Address [address] [place] [address] Phone Care Team Providers Care Service Car Driver Name Role Phone Keri Gil INSPECTOR DIALS Primary Care Provider Lolis Rowe INSPECTOR DIALS Unavailable [phone] Claudy Ramsey MD, MS Unavailable Susie Michael INSPECTOR DIALS Unavailable Keri Gil INSPECTOR DIALS Unavailable [phone] Jennifer Henson INSPECTOR DIALS Unavailable [phone] Lionel Reich MD Unavailable Mily Ball MD Unavailable [phone] Keri Gil INSPECTOR DIALS Primary Care Provider Italo Bedolla MD, MPH Primary Care Provider + Encounter Details Date Type Department Care Team (Late st Contact Info) Description 07/03/2020 Procedure Pass [facility] [address] [place] [address] Social History Tobacco Use Types Packs/Day Years [...] on filedocumented in this encounter Care Teams Service Car Driver Relationship Specialty Start Date End Date Keri Gil INSPECTOR DIALS PCP - General Family Medicine 07/22/15 09/18/24 Keri Gil NP [address] [place] [address] PCP - General Nurse Practitioner 09/19/24 10/01/24 Italo Bedolla MD, MPH [address] [place] [address] PCP - General Family Medicine 10/02/24 Lolis Rowe INSPECTOR DIALS [address] [place] [address] Historical LMR Provider 01/06/17 03/29/21 Claudy Ramsey MD, MS [address] [place] [address] Historical LMR Provider 01/06/17 03/29/21 Susie Michael NP [address] [place] [address] Historical LMR Provider 01/06/17 2 Keri Gil NP Historical LMR Provider 01/06/17 Jennifer Henson NP [address] [place] [address] Historical LMR Provider 01/06/17 2 Lionel Reich MD [address] [place] [address] [address] [place] [address] [email or web address] Historical LMR Provider 01/06/17 Mily Ball MD [address] [place] [address] Orthopedics & Sports Medicine, [place] [address] Historical LMR Provider 01/06/17 documented as of this encounter Additional Source Comments The information contained in this document represents components of the legal health record. It is not the complete legal health record.[facility]
--- OUTSIDE RECORDS SUMMARY | 2025-03-05 22:41 | XMS_ITS | Encounter Summary ---
Author Organization [facility] Address [address] [facility] [address] [place] [address] Phone Care Team Providers Care Machine Hoop Maker Helper Name Role Phone Keri Gil COVER INSPECTOR Primary Care Provider Lolis Rowe COVER INSPECTOR Unavailable [phone] Claudy Ramsey MD, MS Unavailable Susie Michael COVER INSPECTOR Unavailable Keri Gil COVER INSPECTOR Unavailable [phone] Jennifer Henson COVER INSPECTOR Unavailable [phone] Lionel Reich MD Unavailable Mily Ball MD Unavailable Keri Gil COVER INSPECTOR Primary Care Provider Italo Bedolla MD, MPH Primary Care Provider + Encounter Details Date Type Department Care Team (Late st Contact Info) Description 09/06/2020 Ancillary Orders [facility],Outside Imaging [address] [place], [place] [address]60 System, Provider Not In, [facility] [address] [address] Social History Tobacco Use Types Packs/Day Years [...] on filedocumented in this encounter Care Teams Machine Hoop Maker Helper Relationship Specialty Start Date End Date Keri Gil NP PCP - General Family Medicine 07/22/15 09/18/24 Keri Gil NP [address] [place] [address] PCP - General Nurse Practitioner 09/19/24 10/01/24 Italo Bedolla MD, MPH [address] [place] [address] PCP - General Family Medicine 10/02/24 Lolis Rowe NP [address] [place] [address] Historical LMR Provider 01/06/17 03/29/21 Claudy Ramsey MD, MS [address] [place] [address] Historical LMR Provider 01/06/17 03/29/21 Susie Michael NP [address] [place] [address] Historical LMR Provider 01/06/17 2 Keri Gil NP Historical LMR Provider 01/06/17 Jennifer Henson NP [address] [place] [address] Historical LMR Provider 01/06/17 2 Lionel Reich MD [address] [place] [address] [address] [place] [address] [email or web address] Historical LMR Provider 01/06/17 Miyl Ball MD [address] [place] [address] Orthopedics & Sports Medicine, [facility] [place] [address] Historical LMR Provider 01/06/17 documented as of this encounter Additional Source Comments The information contained in this document represents components of the legal health record. It is not the complete legal health record.[facility]
--- OUTSIDE RECORDS SUMMARY | 2025-03-05 22:41 | XMS_ITS | Encounter Summary ---
Author Organization [facility] Address [address] [place] [address] Phone Care Team Providers Care Head Of Stock Name Role Phone Keri Gil CLAMP JIG ASSEMBLER Primary Care Provider [phone] Lolis Rowe CLAMP JIG ASSEMBLER Unavailable [phone] Claudy Ramsey MD, MS Unavailable Susie Michael CLAMP JIG ASSEMBLER Unavailable [phone] Keri Gil CLAMP JIG ASSEMBLER Unavailable [phone] Jennifer Henson CLAMP JIG ASSEMBLER Unavailable [phone] Lionel Reich MD Unavailable Mily Ball MD Unavailable Keri Gil CLAMP JIG ASSEMBLER Primary Care Provider Italo Bedolla MD, MPH Primary Care Provider + Encounter Details Date Type Department Care Team (Late st Contact Info) Description 06/16/2017 Procedure Pass OR Admitting Dept - Virtual Department [address] [place] [address] Social History Tobacco Use Types [...] on filedocumented in this encounter Care Teams Head Of Stock Relationship Specialty Start Date End Date Keri Gil CLAMP JIG ASSEMBLER PCP - General Family Medicine 07/22/15 09/18/24 Keri Gil NP [address] [place] [address] PCP - General Nurse Practitioner 09/19/24 10/01/24 Italo Bedolla MD, MPH [address] [place] [address] PCP - General Family Medicine 10/02/24 Lolis Rowe CLAMP JIG ASSEMBLER [address] [place] [address] Historical LMR Provider 01/06/17 03/29/21 Claudy Ramsey MD, MS [address] [place] [address] Historical LMR Provider 01/06/17 03/29/21 Susie Michael NP [address] [place] [address] Historical LMR Provider 01/06/17 2 Keri Gil NP Historical LMR Provider 01/06/17 Jennifer Henson NP [address] [place] [address] Historical LMR Provider 01/06/17 2 Lionel Reich MD [address] [place] [address] 102 [place] [address] [email or web address] Historical LMR Provider 01/06/17 Mily Ball MD [address] [place] [address] Orthopedics & Sports Medicine, [facility] [place] [address] Historical LMR Provider 01/06/17 documented as of this encounter Additional Source Comments The information contained in this document represents components of the legal health record. It is not the complete legal health record.[facility]
--- OUTSIDE RECORDS SUMMARY | 2025-03-05 22:41 | XMS_ITS | Encounter Summary ---
Author Organization [facility] Address [address] [place] [address] Phone Care Team Providers Care Farm Implement Engine Mechanic Name Role Phone Keri Gil GIN OPERATOR Primary Care Provider Lolis Rowe GIN OPERATOR Unavailable [phone] Claudy Ramsey MD, MS Unavailable Susie Michael GIN OPERATOR Unavailable [phone] Keri Gil GIN OPERATOR Unavailable [phone] Jennifer Henson GIN OPERATOR Unavailable [phone] Lionel Reich MD Unavailable Mily Ball MD Unavailable Keri Gil GIN OPERATOR Primary Care Provider Italo Bedolla MD, MPH Primary Care Provider + Encounter Details Date Type Department Care Team (Latest Contact Info) Description 11/07/2018 Transcribe Orders [facility] Phleb Phyllis [address] [address] Lynne Wade PA-C 310 Jill Zelaya, Janak. [address] [place] [address] Change in bowel habit (Primary Dx) Social [...] PM EDT) FECAL OCC BLD 1 DATE [facility] Occult bld, stool, #1 Negative Negative [facility] FECAL OCC BLD 2 DATE [facility] OCCULT BLD, STOOL, #2 Negative Negative [facility] FECAL OCC BLD 3 DATE [facility] FECAL OCC BLD 3 RSLT Negative Negative [facility] Stool (Stool) 11/22/2018 12: 04 PM EDT 11/22/2018 12:06 PM EDT us Lynne Wade PA-C BODY FLUIDS AND STOOLS ORDERABL ES Final Result Performing Organization Address [facility]/ZIP Co de Phone Number [address] [address] * Stool fat/fiber exam (11/16/2018 10:07 AM EDT) FATTY ACID NORMAL NORMAL [facility] Neutral Fat, stool NORMAL NORMAL [facility] Stool (Stool) 11/16/2018 10: 07 AM EDT 11/16/2018 10:11 AM EDT us Lynne Wade PA-C BODY FLUIDS AND STOOLS ORDERABL ES Final Result Performing Organization Address [facility]/ZIP Co de Phone Number [address] [address] * Giardia antigen screen (11/16/2018 10:07 AM EDT) ST GIARDIA ANTIGEN Negative Negative [facility] DPT OF LAB MED AND PAT+ Stool (Stool) 11/16/2018 10: 07 AM EDT 11/16/2018 10:11 AM EDT us Lynne Wade PA-C LAB BODY FLUIDS AND STOOL ORDER DEISY Final Result [facility]PT OF LAB MED AND PAT+ [address] [place] [address] * Fecal leukocyte examination (11/16/2018 10:07 AM EDT) Special Requests None 11/16/2018 10:07 AM EDT [facility] GRAM STAIN NO WBC'S Observed 11/17/2018 8:04 AM EDT [facility] Stool (Stool) 11/16/2018 10: 07 AM EDT 11/16/2018 10:11 AM EDT us Lynne Wade PA-C LAB BODY FLUIDS AND STOOL ORDER DEISY Final Result Performing Organization Address [facility]/ZIP Co de Phone Number [address] [address] * Stool culture (11/16/2018 10:07 AM EDT) Special Requests None 11/16/2018 10:07 AM EDT [facility] Stool Culture NO SALMONELLA, SHIGELLA OR CAMPYLOBACTER ISOLATED 11/17/2018 7:53 AM EDT [facility] Stool (Stool) 11/16/2018 10: 07 AM EDT 11/16/2018 10:11 AM EDT us Lynne Wade PA-C LAB MICROBIOLOGY CULTURE ORDERA BLES Final Result Performing Organization Address [facility]/ZIP Co de Phone Number [address] [address] * C. DIFFICILE PCR (11/16/2018 10:07 AM EDT) C.DIFFICILE PCR Negative Negative [facility] C.DIFFICILE STRAIN PRESUMPTIVE NEGATIVE PRESUMPTIVE NEGATIVE [facility] Comment:Detection of 027/NAP 1/BI strains of C.difficile is presumptive and is solely for epidemiological purposes and is not intended to guide or monitor treatment of infections. Stool (Stool) 11/16/2018 10: 07 AM EDT 11/16/2018 10:12 AM EDT Lynne Wade PA-C LAB BODY FLUIDS AND STOOL ORDER DEISY Final Result Performing Organization Address [facility] Co de Phone Number [address] [address] * Ova and parasites, stool (11/10/2018 10:10 AM EDT) Special Requests None 11/16/2018 10:10 AM EDT [facility] DIRECT EXAM NO PARASITES FOUND BY DIRECT OR CONCENTRATION METHODS 11/23/2018 1:12 PM EDT [facility] DIRECT EXAM No parasites found by Trichrome Stain 11/23/2018 1:12 PM EDT [facility] Stool (Stool) 11/10/2018 10: 10 AM EDT 11/16/2018 10:14 AM EDT Lynne Wade PA-C LAB BODY FLUIDS AND STOOL ORDER DEISY Final Result [address] [address] * Ova and parasites, stool (11/09/2018 10:09 AM EDT) Special Requests None 11/16/2018 10:09 AM EDT [facility] DIRECT EXAM NO PARASITES FOUND BY DIRECT OR CONCENTRATION METHODS 11/23/2018 1:08 PM EDT [facility] DIRECT EXAM No parasites found by Trichrome Stain 11/23/2018 1:08 PM EDT [facility] Stool (Stool) 11/09/2018 10: 09 AM EDT 11/16/2018 10:13 AM EDT us Lynne Wade PA-C LAB BODY FLUIDS AND STOOL ORDER DEISY Final Result Performing Organization Address [facility]/ZIP Co de Phone Number [address] [address] * Ova and parasites, stool (11/08/2018 10:09 AM EDT) Special Requests None 11/16/2018 10:09 AM EDT [facility] DIRECT EXAM NO PARASITES FOUND BY DIRECT OR CONCENTRATION METHODS 11/23/2018 1:04 PM EDT [facility] DIRECT EXAM No parasites found by Trichrome Stain 11/23/2018 1:04 PM EDT [facility] Stool (Stool) 11/08/2018 10: 09 AM EDT 11/16/2018 10:12 AM EDT us Lynne Wade PA-C LAB BODY FLUIDS AND STOOL ORDER DEISY Final Result Performing Organization Address [facility]/ZIP Co de Phone Number [address] [address] * TSH (11/07/2018 10:10 AM EDT) TSH 0.90 0.27 - 4.20 uIU/mL [facility] Blood 11/07/2018 10:1 0 AM EDT 11/07/2018 10:19 AM EDT us Lynne Wade PA-C LAB BLOOD BKR ORDERABLES Final Result Performing Organization Address [facility]/ZIP Co de Phone Number [address] [address] * Immunoglobulin A (11/07/2018 10:10 AM EDT) IgA 221 70 - 400 mg/dL [facility] Blood 11/07/2018 10:1 0 AM EDT 11/07/2018 10:19 AM EDT us Lynne Wade PA-C LAB BLOOD BKR ORDERABLES Final Result [address] [address] * (ABNORMAL) C-Reactive Protein (11/07/2018 10:10 AM EDT) C REACTIVE PROTEIN 4.5(H) 0.0 - 4.0 mg/L [facility] Blood 11/07/2018 10:1 0 AM EDT 11/07/2018 10:19 AM EDT us Lynne Wade PA-C LAB BLOOD BKR ORDERABLES Final Result Performing Organization Address [facility] Co de Phone Number [address] [address] * Comprehensive metabolic panel (11/07/2018 10:10 AM EDT) SODIUM 139 133 - 146 mmol/L [facility] POTASSIUM 4.0 3.3 - 5.1 mmol/L [facility] CHLORIDE 103 96 - 108 mmol/L [facility] CO2 23 21 - 35 mmol/L [facility] BUN 10 6 - 19 mg/dL [facility] CREATININE 0.50 0.5 - 1.5 mg/dL [facility] GLUCOSE 92 70 - 99 mg/dL [facility] ALBUMIN 4.2 3.9 - 4.8 g/dL [facility] TOTAL PROTEIN 6.6 6.5 - 8.0 g/dL [facility] CALCIUM 9.8 8.4 - 10.3 mg/dL [facility] ALKALINE PHOSPHATASE 70 39 - 117 U/L [facility] TOTAL BILIRUBIN 0.2 0.0 - 1.2 mg/dL [facility] AST 28 0 - 37 U/L [facility] ALT 17 0 - 40 U/L [facility] GLOBULIN 2.4 1 - 4.8 g/dL [facility] EGFR >120 >59 mL/min/1.7 3m2 [facility] Comment:If patient is black, multiply result by 1.159. Estimated glomerular filtration rate calculated using the CKD-EPI equation. ANION GAP 17 10 - 20 mmol/L [facility] Blood 11/07/2018 10:1 0 AM EDT 11/07/2018 10:19 AM EDT us Lynne Wade PA-C LAB BLOOD BKR ORDERABLES Final Result Performing Organization Address [facility]/ZIP Co de Phone Number [address] [address] * CBC (11/07/2018 10:10 AM EDT) WBC 8.70 3.40 - 11.20 K/uL [facility] RBC 4.59 3.80 - 4.80 M/uL [facility] HGB 14.0 12.0 - 15.0 g/dL [facility] HCT 41.1 36.0 - 46.0 % [facility] PLT 276 130 - 400 K/uL [facility] MCV 89.5 79.0 - 98.0 fL [facility] MCH 30.5 27.0 - 34.8 pg [facility] MCHC 34.1 31.5 - 36.0 g/dL [facility] RDW 12.8 10.8 - 14.6 % [facility] MPV 11.1 9.4 - 12.4 fl [facility] NRBC 0.00 0.00 /100 WBCs [facility] ABSOLUTE NRBC 0.00 0.00 K/uL [facility] Blood 11/07/2018 10:1 0 AM EDT 11/07/2018 10:19 AM EDT us Lynne Wade PA-C LAB BLOOD BKR ORDERABLES Final Result Performing Organization Address [facility]/ZIP Co de Phone Number [address] [address] * Tissue transglutaminase IgA (11/07/2018 10:10 AM EDT) TTG IGA ANTIBODY <1.2 <4.0 (Negative) U/mL [facility] Blood 11/07/2018 10:1 0 AM EDT 11/07/2018 10:19 AM EDT us Lynne Wade PA-C LAB BLOOD BKR ORDERABLES Final Result [facility] [address] [place] [address] documented in this encounter Visit Diagnoses Diagnosis Change in bowel habit- Primary documented in this encounter Care Teams Farm Implement Engine Mechanic Relationship Specialty Start Date End Date Keri Gil NP PCP - General Family Medicine 07/22/15 09/18/24 Keri Gil GIN OPERATOR [address] [place] [address] PCP - General Nurse Practitioner 09/19/24 10/01/24 Italo Bedolla MD, MPH [address] [place] [address] [email or web address] PCP - General Family Medicine 10/02/24 Lolis Rowe GIN OPERATOR [address] [place] [address] [email or web address] Historical LMR Provider 01/06/17 03/29/21 Claudy Ramsey MD, MS [address] [address] [email or web address] Historical LMR Provider 01/06/17 03/29/21 Susie Michael, FORREST [address] [place] [address] Historical LMR Provider 01/06/17 2 Keri Gil NP Historical LMR Provider 01/06/17 Jennifer Henson NP [address] [place] [address] Historical LMR Provider 01/06/17 2 Lionel Reich MD [address] [place] [address], [facility] [address] [place] [address] Historical LMR Provider 01/06/17 Mily Ball MD [address] [place] [address] Orthopedics & Sports Medicine, [facility] [place] [address] Historical LMR Provider 01/06/17 documented as of this encounter Additional Source Comments The information contained in this document represents components of the legal health record. It is not the complete legal health record.[facility]
--- OUTSIDE RECORDS SUMMARY | 2025-03-05 22:41 | XMS_ITS | Encounter Summary ---
Author Organization [facility] Address [address] [place] [address] Phone Care Team Providers Care Tool Maintenance Worker Name Role Phone Keri Gil PHYS THERAPIST Primary Care Provider [phone] Lolis Rowe PHYS THERAPIST Unavailable [phone] Claudy Ramsey MD, MS Unavailable Susie Michael PHYS THERAPIST Unavailable Keri Gil PHYS THERAPIST Unavailable [phone] Jennifer Henson PHYS THERAPIST Unavailable [phone] Lionel Reich MD Unavailable Mily Ball MD Unavailable [phone] Keri Gil PHYS THERAPIST Primary Care Provider Italo Bedolla MD, MPH Primary Care Provider + Reason for Referral * MRI/CAT Scan - Closed Specialty Diagnoses / Procedures Referred By Willie t Referred To Contact Radiology Diagnoses Dizziness and giddiness Procedures CT Head CHG CT SCAN,HEAD/BRAIN,W/O CONTRAST MATL CHG CT SCAN HEAD CONTRAST CHG CT SCAN HEAD COMBO Keri Gil, PHYS THERAPIST Phone: tel: fax: Referral ID Status Reason Start Date Expiration Date Visits Re quested Visits Authorized [id number] Closed 05/17/2020 07/15/2020 1 1 Encounter Details Date Type Department Care Team (Latest Contact Info) Description 05/21/2020 Transcribe Orders Virtual Department 30 [place] [address] Keri Gil NP [address] [place] [address] Dizziness and giddiness (Primary Dx) Social History [...] giddiness documented in this encounter Care Teams Tool Maintenance Worker Relationship Specialty Start Date End Date Keri Gil NP PCP - General Family Medicine 07/22/15 09/18/24 Keri Gil NP [address] [place] [address] PCP - General Nurse Practitioner 09/19/24 10/01/24 Italo Bedolla MD, MPH [address] [place] [address] PCP - General Family Medicine 10/02/24 Lolis Rowe, PHYS THERAPIST [address] [place] [address] [email or web address] Historical LMR Provider 01/06/17 03/29/21 Claudy Ramsey MD, MS [address] [place] [address] [email or web address] Historical LMR Provider 01/06/17 03/29/21 Susie Michael, FORREST [address] [place] [address] Historical LMR Provider 01/06/17 2 Keri Gil NP Historical LMR Provider 01/06/17 Jennifer Henson NP [address] [place] [address] Historical LMR Provider 01/06/17 2 Lionel Reich MD [address] [place] [address] Historical LMR Provider 01/06/17 Mily Ball MD [address] [place] [address] Orthopedics & Sports Medicine, [place] [address] Historical LMR Provider 01/06/17 documented as of this encounter Additional Source Comments The information contained in this document represents components of the legal health record. It is not the complete legal health record.[facility]
--- OUTSIDE RECORDS SUMMARY | 2025-03-05 22:41 | XMS_ITS | Encounter Summary ---
Author Organization [facility] Address [address] [place] [address] [place] [address] Phone Care Team Providers Care Necktie Centralizing Machine Operator Name Role Phone Keri Gil SMALL ENGINE TRAINER Primary Care Provider [phone] Keri Gil SMALL ENGINE TRAINER Unavailable [phone] Lionel Reich MD Unavailable [phone] Mily Ball MD Unavailable Keri Gil SMALL ENGINE TRAINER Primary Care Provider Italo Bedolla MD, MPH Primary Care Provider + Encounter Details Date Type Department Care Team (Late st Contact Info) Description 04/17/2024 Procedure [facility], Ct Scan - [address] [address] Social History Tobacco Use Types Packs/Day Years [...] on filedocumented in this encounter Care Teams Necktie Centralizing Machine Operator Relationship Specialty Start Date End Date Keri Gil SMALL ENGINE TRAINER PCP - General Family Medicine 07/22/15 09/18/24 Keri Gil NP [address] [place] [address] PCP - General Nurse Practitioner 09/19/24 10/01/24 Italo Bedolla MD, MPH [address] [place] [address] PCP - General Family Medicine 10/02/24 Keri Gil SMALL ENGINE TRAINER Historical LMR Provider 01/06/17 Lionel Reich MD [address] [place] [address], [facility] [address] [place] [address] Historical LMR Provider 01/06/17 Mily Ball MD [address] [place] [address] Orthopedics & Sports Medicine, [facility] [place] [address] Historical LMR Provider 01/06/17 documented as of this encounter Additional Source Comments The information contained in this document represents components of the legal health record. It is not the complete legal health record.[facility]
--- OUTSIDE RECORDS SUMMARY | 2025-03-05 22:41 | XMS_ITS | Encounter Summary ---
Author Organization [facility] Address [address] [facility] [address] [address] [place] [address] Phone Care Team Providers Care Cartoon Designer Name Role Phone Keri Gil NP Unavailable [phone] Lionel Reich MD Unavailable [phone] Mily Ball MD Unavailable Italo Bedolla MD, MPH Primary Care Provider + Reason for Visit * Reason Onset Date Comments Patient Returned Call 02/23/2025 Encounter Details Date Type Department Care Team (Late st Contact Info) Description 02/23/2025 Telephone [facility] General Surgical Care [address] [place] [address] Bhakti Berry, COOKER LOADER [address] [facility], 2nd [place] [address] [email or web address] Patient Returned Call Social History Tobacco Use Types Packs/Day Years [...] on file documented as of this encounter Progress Notes * Lamar Lolis - 02/23/2025 4:14 PM EST PT lvm on 02/23 returning a missed call to reschedule appt with Bhakti. Please advise. [facility] Call Center CSS Agent (Please do not reply to this user, as this inbox is not monitored. Thank you.) Thank you. documented in this encounter Plan of Treatment Not on file documented as of this encounter Visit Diagnoses Not on filedocumented in this encounter Care Teams Cartoon Designer Relationship Specialty Start Date End Date Italo Bedolla MD, MPH [address] [place] [address] [email or web address] PCP - General Family Medicine 10/02/24 Keri Gil NP Historical LMR Provider 01/06/17 Lionel Reich MD [address] [place] [address], [address] [place] [address] [email or web address] Historical LMR Provider 01/06/17 Mily Ball MD [address] [place] [address] Orthopedics & Sports Medicine, [facility] [address] [email or web address] Historical LMR Provider 01/06/17 documented as of this encounter Additional Source Comments The information contained in this document represents components of the legal health record. It is not the complete legal health record.[facility]
--- OUTSIDE RECORDS SUMMARY | 2025-03-05 22:41 | XMS_ITS | Encounter Summary ---
Author Organization [facility] Address [address] [place] [address] Phone Care Team Providers Care Weigher Alloy Name Role Phone Keri Gil AUTO SERVICE WRITER Primary Care Provider Lolis Rowe AUTO SERVICE WRITER Unavailable Claudy Ramsey MD, MS Unavailable Susie Michael AUTO SERVICE WRITER Unavailable [phone] Keri Gil AUTO SERVICE WRITER Unavailable [phone] Jennifer Henson AUTO SERVICE WRITER Unavailable Lionel Reich MD Unavailable Mily Ball MD Unavailable [phone] Keri Gil AUTO SERVICE WRITER Primary Care Provider Italo Bedolla MD, MPH Primary Care Provider + Reason for Referral * MRI/CAT Scan - Closed Specialty Diagnoses / Procedures Referred By Willie t Referred To Contact Radiology Diagnoses Acute sinusitis, recurrence not specified, unspecified location Procedures CT Face Shahana Loaiza MD Phone: tel: fax: [email or web address] Referral ID Status Reason Start Date Expiration Date Visits Re quested Visits Authorized [id number] Closed 01/18/2017 03/18/2017 1 1 Encounter Details Date Type Department Care Team (Late st Contact Info) Description 01/18/2017 Ancillary Orders Virtual Department [address] [place] [address] Shahana Loaiza MD [address] [facility], [address] [place] [address] [email or web address] Acute sinusitis, recurrence not specified, unspecified [...] CTDIvol: mGy POS [id number] Shahana Loaiza MD IM CT HEAD/NECK Final Res ult documented in this encounter Visit Diagnoses Diagnosis Acute sinusitis, recurrence not specified, unspecified location Acute sinusitis, recurrence not specified, unspecified location documented in this encounter Care Teams Weigher Alloy Relationship Specialty Start Date End Date Keri Gil NP PCP - General Family Medicine 07/22/15 09/18/24 Keri Gil NP [address] [place] [address] PCP - General Nurse Practitioner 09/19/24 10/01/24 Italo Bedolla MD, MPH [address] [place] [address] PCP - General Family Medicine 10/02/24 Lolis Rowe, AUTO SERVICE WRITER [address] [place] [address] Historical LMR Provider 01/06/17 03/29/21 Claudy Ramsey MD, MS [address] [place] [address] Historical LMR Provider 01/06/17 03/29/21 Susie Michael, FORREST [address] [place] [address] Historical LMR Provider 01/06/17 2 Keri Gil NP Historical LMR Provider 01/06/17 Jennifer Henson AUTO SERVICE WRITER [address] [place] [address] Historical LMR Provider 01/06/17 2 Lionel Reich MD [address] [place] [address] Historical LMR Provider 01/06/17 Mily Ball MD [address] [place] [address] Orthopedics & Sports Medicine, [facility] [place] [address] Historical LMR Provider 01/06/17 documented as of this encounter Additional Source Comments The information contained in this document represents components of the legal health record. It is not the complete legal health record.[facility]
--- OUTSIDE RECORDS SUMMARY | 2025-03-05 22:41 | XMS_ITS | Patient Health Record ---
Author Organization [facility] Address [address] [place] [address] Support Name Relationship Address Phone Jeffery Saavedra Emergency Contact [address] [place] [address] Demetria Sprague Guarantor Unknown [phone] Reason For Referral No Information Medications Medication [...] Coverage End Date [employer]BS PPO [address] [place], [place] [id number] Demetria Sprague Self - patient is the insured
--- OUTSIDE RECORDS SUMMARY | 2025-03-05 22:41 | XMS_ITS | Encounter Summary ---
Author Organization [facility] Address [address] [place] [address] Phone Care Team Providers Care Construction Cost Estimator Name Role Phone Keri Gil ROUGE SIFTER AND MILLER Primary Care Provider Lolis Rowe ROUGE SIFTER AND MILLER Unavailable [phone] Claudy Ramsey MD, MS Unavailable Susie Michael ROUGE SIFTER AND MILLER Unavailable Keri Gil ROUGE SIFTER AND MILLER Unavailable [phone] Jennifer Henson ROUGE SIFTER AND MILLER Unavailable Lionel Reich MD Unavailable Mily Ball MD Unavailable [phone] Keri Gil ROUGE SIFTER AND MILLER Primary Care Provider Italo Bedolla MD, MPH Primary Care Provider + Reason for Referral * Physical Therapy (Routine) - Closed Specialty Diagnoses / Procedures Referred By Willie gaming Referred To Contact Physical Therapy Diagnoses Encounter for rehabilitation Raman Mcclelland MD Phone: tel: fax: [email or web address]:[email or web address] [address] [place] [address] Phone: tel: Referral ID Status Reason Start Date Expiration Date Visits Re quested Visits Authorized [id number] Closed 01/24/2019 01/25/2020 1 1 Encounter Details Date Type Department Care Team (Latest Contact Info) Description 01/24/2019 Transcribe Orders [facility] Rehabilitation Services [address] [place] [address] Raman Mcclelland MD [address] [address] [email or web address] Encounter for rehabilitation (Primary Dx) Social [...] Diagnoses Orde r Schedule Ambulatory referral to [facility] Physical Therapy Outpatient Referral Routine Encounter for rehabilitation Ordered: 01/24/2019 documented as of this encounter Visit Diagnoses Diagnosis Encounter for rehabilitation- Primary documented in this encounter Care Teams Construction Cost Estimator Relationship Specialty Start Date End Date Keri Gil NP PCP - General Family Medicine 07/22/15 09/18/24 Keri Gil NP [address] [place] [address] PCP - General Nurse Practitioner 09/19/24 10/01/24 Italo Bedolla MD, MPH [address] [place] [address] PCP - General Family Medicine 10/02/24 Lolis Rowe, ROUGE SIFTER AND MILLER [address] [place] [address] [email or web address] Historical LMR Provider 01/06/17 03/29/21 Claudy Ramsey MD, MS [address] [place] [address] [email or web address] Historical LMR Provider 01/06/17 03/29/21 Susie Michael NP [address] [place] [address] Historical LMR Provider 01/06/17 2 Keri Gil NP Historical LMR Provider 01/06/17 Jennifer Henson NP [address] [place] [address] Historical LMR Provider 01/06/17 2 Lionel Reich MD [address] [place] [address] [email or web address] Historical LMR Provider 01/06/17 Mily Ball MD [address] [place] [address] Orthopedics & Sports Medicine, [facility] [place] [address] Historical LMR Provider 01/06/17 documented as of this encounter Additional Source Comments The information contained in this document represents components of the legal health record. It is not the complete legal health record.[facility]
--- OUTSIDE RECORDS SUMMARY | 2025-03-05 22:41 | XMS_ITS | Encounter Summary ---
Author Organization [facility] Address [address] [place] [address] Phone Care Team Providers Care Field Seismologist Name Role Phone Keri Gil JUNIOR RECRUITER Primary Care Provider Lolis Rowe JUNIOR RECRUITER Unavailable [phone] Claudy Ramsey MD, MS Unavailable Susie Michael JUNIOR RECRUITER Unavailable [phone] Keri Gil JUNIOR RECRUITER Unavailable [phone] Jennifer Henson JUNIOR RECRUITER Unavailable [phone] Lionel Reich MD Unavailable Mily Ball MD Unavailable [phone] Keri Gil JUNIOR RECRUITER Primary Care Provider Italo Bedolla MD, MPH Primary Care Provider + Reason for Referral * Physical Therapy (Routine) - Closed Specialty Diagnoses / Procedures Referred By Willie gaming Referred To Contact Physical Therapy Diagnoses Encounter for rehabilitation Sariah Rios MD [address] [place] [address] Phone: tel: fax: [facility] [address] [place] [address] Phone: tel: Referral ID Status Reason Start Date Expiration Date Visits Re quested Visits Authorized [id number] Closed 04/05/2019 03/21/2020 30 30 Encounter Details Date Type Department Care Team (Latest Contact Info) Description 04/05/2019 Transcribe Orders [facility] Rehabilitation Services [address] [place] [address] Sariah Rios MD [address] [place] [address] Encounter for rehabilitation (Primary Dx) Social History [...] Diagnosis Comments AMB REFERRAL TO [facility] PHYSICAL THERAPY Routine 05/15/2019 5:34 PM EST Encounter for rehabilitation documented in this encounter Results * Ambulatory referral to [facility] Physical Therapy (05/15/2019 5:34 PM EST) us Sariah Rios MD AMB [facility] REFERRALS Final Res ult documented in this encounter Visit Diagnoses Diagnosis Encounter for rehabilitation- Primary documented in this encounter Care Teams Field Seismologist Relationship Specialty Start Date End Date Keri Gil NP PCP - General Family Medicine 07/22/15 09/18/24 Keri Gil NP [address] [place] [address] PCP - General Nurse Practitioner 09/19/24 10/01/24 Italo Bedolla MD, MPH [address] [place] [address] PCP - General Family Medicine 10/02/24 Lolis Rowe, JUNIOR RECRUITER [address] [place] [address] [email or web address] Historical LMR Provider 01/06/17 03/29/21 Claudy Ramsey MD, MS [address] [place] [address] [email or web address] Historical LMR Provider 01/06/17 03/29/21 Susie Michael, FORREST [address] [place] [address] Historical LMR Provider 01/06/17 2 Keri Gil JUNIOR RECRUITER Historical LMR Provider 01/06/17 Jennifer Henson, JUNIOR RECRUITER [address] [place] [address] Historical LMR Provider 01/06/17 2 Lionel Reich MD [address] [place] [address] Historical LMR Provider 01/06/17 Mily Ball MD [address] [place] [address] Orthopedics & Sports Medicine, [facility] [place] [address] Historical LMR Provider 01/06/17 documented as of this encounter Additional Source Comments The information contained in this document represents components of the legal health record. It is not the complete legal health record.[facility]
--- OUTSIDE RECORDS SUMMARY | 2025-03-05 22:41 | XMS_ITS | Encounter Summary ---
Author Organization [facility] Address [address] [place] [address] [place] [address] Phone Care Team Providers Care Compound Finisher Name Role Phone Keri Gil PATTERN CHANGER AND REPAIRER Unavailable [phone] Lionel Reich MD Unavailable [phone] Mily Ball MD Unavailable [phone] Italo Bedolla MD, MPH Primary Care Provider + Reason for Referral * MRI/CAT Scan - Closed Specialty Diagnoses / Procedures Referred By Willie t Referred To Contact Radiology Diagnoses Abdominal pain, unspecified abdominal location Procedures CT Abdomen/Pelvis CHG CT SCAN,ABDOMENT AND PELVIS,W CONTRAST Stew Sarabia MD [address] [place] [address] Phone: tel: fax: [email or web address]:[email or web address] Referral ID Status Reason Start Date Expiration Date Visits Re quested Visits Authorized [id number] Closed 10/11/2024 12/09/2025 1 1 Encounter Details Date Type Department Care Team (Latest Contact Info) Description 10/11/2024 Transcribe Orders Virtual Department [address] [place] [address] Stew Sarabia MD [address] [place] [address] [email or web address] Abdominal pain, unspecified abdominal location (Primary Dx) [...] as of this encounter Results * CT ABDOMEN/PELVIS WITH CONTRAST (11/18/2024 1:55 PM EDT) Anatomical Region Laterality Modality Abdomen, Pelvis Computed Tomogra phy 11/21/2024 10:5 1 PM EDT Impressions 11/21/2024 10:58 PM EDT 1. No explanation for pain. Narrative 11/21/2024 10:[address] ABDOMEN/PELVIS WITH CONTRAST Referring clinician's provided indication for this examination in Epic: Outside Radiology Order; ABDOMINAL PAIN, USPECIFIED ABDOMINAL [...] for this examination in Epic:Outside Radiology Order; ABDOMINAL PAIN, USPECIFIED ABDOMINAL LOCATION [...] MD IMG CT ABD/PELVIS Final Resul t documented in this encounter Visit Diagnoses Diagnosis Abdominal pain, unspecified abdominal location- Primary Abdominal pain, unspecified abdominal location documented in this encounter Care Teams Compound Finisher Relationship Specialty Start Date End Date Italo Bedolla MD, MPH [address] [place] [address] [email or web address] PCP - General Family Medicine 10/02/24 Keri Gil PATTERN CHANGER AND REPAIRER Historical LMR Provider 01/06/17 Lionel Reich MD 22 [facility] [address] [place] [address] [email or web address] Historical LMR Provider 01/06/17 Mily Ball MD [address] [place] [address] Orthopedics & Sports Medicine, [place] [address] [email or web address] Historical LMR Provider 01/06/17 documented as of this encounter Additional Source Comments The information contained in this document represents components of the legal health record. It is not the complete legal health record.[facility]
--- OUTSIDE RECORDS SUMMARY | 2025-03-05 22:41 | XMS_ITS | Encounter Summary ---
Author Organization [facility] Address [address] [place] [address] Phone Care Team Providers Care Clerical Car Checker Name Role Phone Keri Gil COBOL ENGINEER Primary Care Provider Lolis Rowe COBOL ENGINEER Unavailable [phone] Claudy Ramsey MD, MS Unavailable Susie Michael COBOL ENGINEER Unavailable [phone] Keri Gil COBOL ENGINEER Unavailable [phone] Jennifer Henson COBOL ENGINEER Unavailable [phone] Lionel Reich MD Unavailable Mily Ball MD Unavailable Keri Gil COBOL ENGINEER Primary Care Provider Italo Bedolla MD, MPH Primary Care Provider + Encounter Details Date Type Department Care Team (Late st Contact Info) Description 01/18/2017 Procedure Pass [facility], Ct Scan - [address] [address] Social History Tobacco Use Types Packs/Day Years [...] on filedocumented in this encounter Care Teams Clerical Car Checker Relationship Specialty Start Date End Date Keri Gil, COBOL ENGINEER PCP - General Family Medicine 07/22/15 09/18/24 Keri Gil COBOL ENGINEER [address] [place] [address] PCP - General Nurse Practitioner 09/19/24 10/01/24 Italo Bedolla MD, MPH [address] [place] [address] PCP - General Family Medicine 10/02/24 Lolis Rowe, COBOL ENGINEER [address] [place] [address] Historical LMR Provider 01/06/17 03/29/21 Claudy Ramsey MD, MS [address] [place] [address] Historical LMR Provider 01/06/17 03/29/21 Susie Michael, FORREST [address] [place] [address] Historical LMR Provider 01/06/17 2 Keri Gil COBOL ENGINEER Historical LMR Provider 01/06/17 Jennifer Henson NP [address] [place] [address] Historical LMR Provider 01/06/17 2 Lionel Reich MD [address] [place] [address], [address] [place] [address] [email or web address] Historical LMR Provider 01/06/17 Mily aBll MD [address] [place] [address] Orthopedics & Sports Medicine, [place] [address] [email or web address] Historical LMR Provider 01/06/17 documented as of this encounter Additional Source Comments The information contained in this document represents components of the legal health record. It is not the complete legal health record.[facility]
--- OUTSIDE RECORDS SUMMARY | 2025-03-05 22:41 | XMS_ITS | Encounter Summary ---
Author Organization [facility] Address [address] [place] [address] Phone Care Team Providers Care Picking Machine Operator Helper Name Role Phone Keri Gil RN RENAL Primary Care Provider Lolis Rowe RN RENAL Unavailable [phone] Claudy Ramsey MD, MS Unavailable Susie Michael RN RENAL Unavailable Keri Gil RN RENAL Unavailable [phone] Jennifer Henson RN RENAL Unavailable [phone] Lionel Reich MD Unavailable Mily Ball MD Unavailable [phone] Keri Gil RN RENAL Primary Care Provider Italo Bedolla MD, MPH Primary Care Provider + Reason for Referral * Consultation (Elective) - Closed Specialty Diagnoses / Procedures Referred By Willie gaming Referred To Contact Neurology Diagnoses Encounter for consultation System, Provider Not In, PhD [address] [address] Referral ID Status Reason Start Date Expiration Date Visits Re quested Visits Authorized [id number] Closed 07/25/2015 07/24/2016 1 1 Encounter Details Date Type Department Care Team (Latest Contact Info) Description 07/25/2015 Transcribe Orders [facility] Department of Neurology [address] [facility], 8th Floor, [address] [place] [address] Keri Gil, RN RENAL [address] [place] [address] Encounter for consultation (Primary Dx) Social History [...] Diagnoses Orde r Schedule Ambulatory referral to [facility] Neurology Outpatient Referral Routine Encounter for consultation Ordered: 07/25/2015 documented as of this encounter Visit Diagnoses Diagnosis Encounter for consultation- Primary documented in this encounter Care Teams Picking Machine Operator Helper Relationship Specialty Start Date End Date Keri Gil NP PCP - General Family Medicine 07/22/15 09/18/24 Keri Gil NP [address] [place] [address] PCP - General Nurse Practitioner 09/19/24 10/01/24 Italo Bedolla MD, MPH [address] [place] [address] PCP - General Family Medicine 10/02/24 Lolis Rowe NP [address] [place] [address] Historical LMR Provider 01/06/17 03/29/21 Claudy Ramsey MD, MS [address] [place] [address] Historical LMR Provider 01/06/17 03/29/21 Susie Michael NP [address] [place] [address] Historical LMR Provider 01/06/17 2 Keri Gil NP Historical LMR Provider 01/06/17 Jennifer Henson NP [address] [place] [address] Historical LMR Provider 01/06/17 2 Lionel Reich MD [address] [place] [address] [address] [place] [address] Historical LMR Provider 01/06/17 Mily Ball MD [address] [place] [address] Orthopedics & Sports Medicine, [facility] [place] [address] Historical LMR Provider 01/06/17 documented as of this encounter Additional Source Comments The information contained in this document represents components of the legal health record. It is not the complete legal health record.[facility]
--- OUTSIDE RECORDS SUMMARY | 2025-03-05 22:41 | XMS_ITS | Clinical Summary ---
Author Organization [facility] Address [address] [place] [address] Phone Care Team Providers Care Mid Level Practitioner Name Role Phone Keri Gil NP Unavailable [phone] Lionel Reich MD Unavailable [phone] Mily Ball MD Unavailable [phone] Italo Bedolla MD, MPH Primary Care [...] by mouth nightly at bedtime. Active omega 6-wrh-aed-fish oil 1,000 mg (120 mg-180 mg) Cap [...] Encounters Date Type Department Care Team Description 02/23/2025 Telephone [facility] [address] [place] [address] Bhakti Berry, EPIC AMBULATORY ANALYST Patient Returned Call from Last 3 Months Immunizations Immunization Administration [...] DIABETES 12/13/2022 08/30/2019 TSH LEVEL 05/13/2023 05/13/2022, 10/20, 04/22/2017 PAP SMEAR 08/13/2023 08/12/2020, 0305/2015, 05/16/2015 Adult Td,Tdap Booster 12/20/2023 12/19/2013 INFLUENZA VACCINE (#1) 2024 , 02/15/2022, 01/05/2022, Additional history exists COVID-19 VACCINE ( season) 2024 02/18/2021, 06/21/2020, 05/30/2020 COLOGUARD 02/13/2025 FIT TEST 02/13/2025 FOBT 02/13/2025 11/22/2018 SIGMOIDOSCOPY 02/13/2025 VIRTUAL COLONOSCOPY 02/13/2025 COLONOSCOPY 10/03/2031 10/02/2024, 01/06/2019 COLORECTAL CANCER SCREENING 10/03/2031 PNEUMOCOCCAL VACCINES (0-49 years) Aged Out 12/19/2013 [...] Procedure Name Priority Date/Time Associated Diagnosis Comments ENDOSCOPY, COLON 10/02/2024 11:3 0 AM EDT TSH WITH REFLEX Routine 05/13/2022 2:18 PM EST , unspecified gestational age PAP TEST Routine 08/12/2020 12:00 AM EDT FECAL OCCULT BLOOD, MULTIPLE Routine 11/22/2018 12:04 PM EDT Change in bowel habit from Last 3 Months or Most Recently Relevant to Health Maintenance Results * ENDOSCOPY, COLON (10/02/2024 11:30 AM EDT) Narrative Transcriptions Carlos Graves MD - 10/02/2024 11:30 AM EDT [facility] Patient Name: Freddie White MD:: CARLOS GRAVES MD, Procedure Date: 10/02/2024 11:30 AM Date of : 1985 Age: 38 Admit Type: Outpatient Gender: Female Room: [facility] Referring MD: Italo Bedolla MD Exam Type: [...] monitored continuously. The Olympus adult variable colonoscope [id number] #1 was introduced through the anus and advanced to the cecum, identified by the appendiceal orifice, ileocecal valve and palpation. The colonoscopy was somewhat difficult due to the patient's bodyhabitus. Successful completion of the procedure was aided by increasing the dose of sedation medication. The patient tolerated the procedure. The quality of the bowel preparation was evaluated using the BBPS([place] Bowel Preparation Scale) with scores of: RightColon [...] 11:30 AM Procedure Code(s): --- Professional --- 63299, Colonoscopy, flexible; diagnostic, including collection of specimen(s) by brushing or washing, when performed (separateprocedure) --- Technical --- 60433, Colonoscopy, flexible; diagnostic, including collection of specimen(s) by brushing or washing, when performed (separateprocedure) Diagnosis Code(s): --- Professional --- Z86.010, Personal history of colonic polyps K64.8, Other hemorrhoids Q43.8, Other specified congenital malformations of intestine --- Technical --- Z86.010, Personal history of colonic polyps K64.8, Other hemorrhoids Q43.8, Other specified congenital malformations of intestine CPT copyright 2021 [employer]. All rights reserved. The codes documented in this report are preliminary and upon engine dispatcher reviewmay be revised to meet current compliance requirements. Procedure Date: 10/02/2024 11:30:[address] [place] [address] us Iatlo Bedolla MD, MPH GI PROCEDURE ORDERABLES Final Result * TSH with reflex (05/13/2022 2:18 PM EST) TSH 1.00 0.27 - 4.20 uIU/mL [facility] Blood 05/13/2022 2:18 PM EST 05/13/2022 2:21 PM EST us Tracee Pruitt [facility] BLOOD BKR ORDERABLES F inal Result [address] [address] * Pap Smear (08/12/2020 12:00 AM EDT) 08/12/2020 08/13/2020 8:4 2 AM EDT Narrative SEE NARRATIVE - 08/20/2020 2:30 PM EDT [address] [address] Project Manager Finance: Jamilah Snow MD [facility] Cytology Report FINAL DIAGNOSIS A. PAP SMEAR [...] 52, 56, 58, 59, 66, 68) by [employer] Onclarity HR-HPV analysis. Clinical correlation is advised. This HPV test was performed at [facility], [address] [place] [address]. This test has been FDA approved for [facility]Path cervical cytology specimens. The accuracy and precision of this test for all other specimen sources has been verified in the Cytopathology Laboratory of the [facility] and has not been cleared or approved by the U.S. Food and Drug Administration. Clinical correlation is advised. CLINICAL HISTORY Date of Last Menstrual Period: Not Provided Menstrual History: Unknown Other Clinical Conditions: Screening Pap SPECIMEN SOURCE A: PAP SMEAR (SUREPATH) CE Patient Name: FREDDIE BAH : 1985 (Age: 34) Sex: F [facility] Date of Collection: 08/12/2020 Date of Reported: 08/20/2020 14:30 Results to: Marti Moreno MD us Marti Moreno MD CYTOLOGY ORDERABLES Final Result SEE NARRATIVE * Fecal occult blood, multiple (11/22/2018 12:04 PM EDT) FECAL OCC BLD 1 DATE [facility] Occult bld, stool, #1 Negative Negative [facility] FECAL OCC BLD 2 DATE [facility] OCCULT BLD, STOOL, #2 Negative Negative [facility] FECAL OCC BLD 3 DATE [facility] FECAL OCC BLD 3 RSLT Negative Negative [facility] Stool (Stool) 11/22/2018 12: 04 PM EDT 11/22/2018 12:06 PM EDT Lynne Wade PA-C BODY FLUIDS AND STOOLS ORDERABL ES Final Result [facility] [address] [place] [address] from Last 3 Months or Most Recently Relevant to Health Maintenance Insurance O O O O O O O O NEW EB HMO Advance Directives For more information, please contact: [phone] (9AM - 5PM [place] Wednesday[facility]) * Full Code (Presumed) (Latest Code Status on File) Date Activated Date Inactivated Comments 06/16/2017 6:17 AM 06/16/2017 10:59 AM Care Teams Mid Level Practitioner Relationship Specialty Start Date End Date Italo Bedolla MD, MPH [address] [place] [address] PCP - General Family Medicine 10/02/24 Keri Gil CLOTH DOUBLING MACHINE OPERATOR Historical LMR Provider 01/06/17 Lionel Reich MD [address] [place] [address] [address] [place] [address] Historical LMR Provider 01/06/17 Mily Ball MD [address] [place] [address] Orthopedics & Sports Medicine, [place] [address] Historical LMR Provider 01/06/17 Additional Source Comments The information contained in this document represents components of the legal health record. It is not the complete legal health record.[facility]
--- OUTSIDE RECORDS SUMMARY | 2025-03-05 22:41 | XMS_ITS | Encounter Summary ---
Author Organization [facility] Address [address] [place] [address] Phone Care Team Providers Care Station Inspector Name Role Phone Keri Gil ADVANCED SEAL DELIVERY SYSTEM Primary Care Provider Lolis Rowe [employer]AL DELIV[employer] SYSTEM Unavailable [phone] Claudy Ramsye MD, MS Unavailable [phone] Susie Michael [employer]ED SEAL DELIVERY SYSTEM Unavailable Keri Gil [employer]VANCED SEAL DELIVERY SYSTEM Unavailable [phone] Jennifer Henson [employer]AL DELIVERY SYSTEM Unavailable [phone] Lionel Reich MD Unavailable Mily Ball MD Unavailable [phone] Keri Gil [employer]ED SEAL DELIVERY SYSTEM Primary Care Provider Italo Bedolla MD, MPH Primary Care Provider + Encounter Details Date Type Department Care Team (Late st Contact Info) Description 01/06/2019 Procedure Pass [facility]oscopy Admitting Dept Virtual Department [address] [place] [address] Social History Tobacco Use Types [...] on filedocumented in this encounter Care Teams Station Inspector Relationship Specialty Start Date End Date Keri Gil [employer] PCP - General Family Medicine 07/22/15 09/18/24 Keri Gil NP [address] [place] [address] PCP - General Nurse Practitioner 09/19/24 10/01/24 Italo Bedolla MD, MPH [address] [place] [address] PCP - General Family Medicine 10/02/24 Lolis Rowe NP [address] [place] [address] Historical LMR Provider 01/06/17 03/29/21 Claudy Ramsey MD, MS [address] [place] [address] Historical LMR Provider 01/06/17 03/29/21 Susie Michael NP [address] [place] [address] Historical LMR Provider 01/06/17 2 Keri Gil [employer]AL [employer] Historical LMR Provider 01/06/17 Jennifer Henson NP [address] [place] [address] Historical LMR Provider 01/06/17 2 Lionel Reich MD [address] [place] [address] [address] [place] [address] Historical LMR Provider 01/06/17 Mily Ball MD [address] [place] [address] Orth[facility] Sports Medicine, [place] [address] Historical LMR Provider 01/06/17 documented as of this encounter Additional Source Comments The information contained in this document represents components of the legal health record. It is not the complete legal health record.[facility]
--- OUTSIDE RECORDS SUMMARY | 2025-03-05 22:41 | XMS_ITS | Encounter Summary ---
Author Organization [facility] Address [address] [place] [address] Phone Care Team Providers Care Manager Portable Name Role Phone Keri Gil SIGN MAINTENANCE Primary Care Provider Lolis Rowe SIGN MAINTENANCE Unavailable [phone] Claudy Ramsey MD, MS Unavailable Susie Michael SIGN MAINTENANCE Unavailable Keri Gil SIGN MAINTENANCE Unavailable Jennifer Henson SIGN MAINTENANCE Unavailable [phone] Lionel Reich MD Unavailable [phone] Mily Ball MD Unavailable [phone] Keri Gil SIGN MAINTENANCE Primary Care Provider Italo Bedolla MD, MPH Primary Care Provider + Encounter Details Date Type Department Care Team (Late st Contact Info) Description 08/30/2019 Procedure Pass [facility], Ct Scan - [address] [address] Social History Tobacco Use Types Packs/Day Years [...] filedocumented in this encounter Care Teams Manager Portable Relationship Specialty Start Date End Date Keri Gil SIGN MAINTENANCE PCP - General Family Medicine 07/22/15 09/18/24 Keri Gil NP [address] [place] [address] PCP - General Nurse Practitioner 09/19/24 10/01/24 Italo Bedolla MD, MPH [address] [place] [address] PCP - General Family Medicine 10/02/24 Lolis Rowe SIGN MAINTENANCE [address] [place] [address] Historical LMR Provider 01/06/17 03/29/21 Claudy Ramsey MD, MS [address] [place] [address] Historical LMR Provider 01/06/17 03/29/21 Susie Michael NP [address] [place] [address] Historical LMR Provider 01/06/17 2 Keri Gil NP Historical LMR Provider 01/06/17 Jennifer Henson NP [address] [place] [address] Historical LMR Provider 01/06/17 2 Lionel Reich MD [address] [place] [address] [address] [place] [address] [email or web address] Historical LMR Provider 01/06/17 Mily Ball MD [address] [place] [address] Orthopedics [facility] Sports Medicine, [place] [address] Historical LMR Provider 01/06/17 documented as of this encounter Additional Source Comments The information contained in this document represents components of the legal health record. It is not the complete legal health record.[facility]
--- OUTSIDE RECORDS SUMMARY | 2025-03-05 22:41 | XMS_ITS | Encounter Summary ---
Author Organization [facility] Address [address] [place] [address] Phone Care Team Providers Care Guard Range Name Role Phone Keri Gil CAREER LAW CLERK Primary Care Provider Lolis Rowe CAREER LAW CLERK Unavailable [phone] Claudy Ramsey MD, MS Unavailable [phone] Susie Michael CAREER LAW CLERK Unavailable Keri Gil CAREER LAW CLERK Unavailable [phone] Jennifer Henson CAREER LAW CLERK Unavailable [phone] Lionel Reich MD Unavailable Mily Ball MD Unavailable Keri Gil CAREER LAW CLERK Primary Care Provider Italo Bedolla MD, MPH Primary Care Provider + Encounter Details Date Type Department Care Team (Late st Contact Info) Description 05/21/2020 Procedure Pass [facility], Ct Scan - [address] [id number] Social History Tobacco Use Types Packs/Day Years [...] on filedocumented in this encounter Care Teams Guard Range Relationship Specialty Start Date End Date Keri Gil CAREER LAW CLERK PCP - General Family Medicine 07/22/15 09/18/24 Keri Gil NP [address] [place] [address] PCP - General Nurse Practitioner 09/19/24 10/01/24 Italo Bedolla MD, MPH [address] [place] [address] PCP - General Family Medicine 10/02/24 Lolis Rowe CAREER LAW CLERK [address] [place] [address] Historical LMR Provider 01/06/17 03/29/21 Claudy Ramsey MD, MS [address] [place] [address] Historical LMR Provider 01/06/17 03/29/21 Susie Michael NP [address] [place] [address] Historical LMR Provider 01/06/17 2 Keri Gil CAREER LAW CLERK Historical LMR Provider 01/06/17 Jennifer Henson NP [address] [place] [address] Historical LMR Provider 01/06/17 2 Lionel Reich MD [address] [place] [address] [address] [place] [address] [email or web address] Historical LMR Provider 01/06/17 Mily Ball MD [address] [place] [address] Orthopedics & Sports Medicine, [place] [address] Historical LMR Provider 01/06/17 documented as of this encounter Additional Source Comments The information contained in this document represents components of the legal health record. It is not the complete legal health record.[facility]
--- OUTSIDE RECORDS SUMMARY | 2025-03-05 22:42 | XMS_ITS | Encounter Summary ---
Author Organization [facility] Address [address] [place] [address] [place] [address] Phone Care Team Providers Care Picker And Sorter Load And Unload Name Role Phone Keri Gil PLEATING MACHINE OPERATOR Unavailable [phone] Lionel Reich MD Unavailable [phone] Mily Ball MD Unavailable Italo Bedolla MD, MPH Primary Care Provider + Encounter Details Date Type Department Care Team (Late st Contact Info) Description 10/18/2024 Ancillary Orders [facility], X-Ray - [address] [address] Rose Mary Da Silva, [place] [address] [place] [address] [email or web address] Spondylosis (Primary Dx) Social History Tobacco Use [...] clinician's provided indication for this examination in [facility]: spondylosis COMPARISON: CT abdomen and pelvis 08/30/2019 [...] clinician's provided indication for this examination in [facility]:spondylosis COMPARISON: CT abdomen and pelvis 08/30/2019 FINDINGS: [...] myelopathy documented in this encounter Care Teams Picker And Sorter Load And Unload Relationship Specialty Start Date End Date Italo Bedolla MD, MPH [address] [place] [address] PCP - General Family Medicine 10/02/24 Keri Gil, PLEATING MACHINE OPERATOR Historical LMR Provider 01/06/17 Lionel Reich MD [address] [place] [address], [facility] [address] [place] [address] Historical LMR Provider 01/06/17 Mily Ball MD [address] [place] [address] Orthopedics & Sports Medicine, [facility] [place] [address] Historical LMR Provider 01/06/17 documented as of this encounter Additional Source Comments The information contained in this document represents components of the legal health record. It is not the complete legal health record.[facility]
--- OUTSIDE RECORDS SUMMARY | 2025-03-05 22:42 | XMS_ITS | Encounter Summary ---
Author Organization [facility] Address [address] [place] [address] [place] [address] Phone Care Team Providers Care Merchant Tailor Name Role Phone Keri Gil PSYCHIATRIC REGISTERED NURSE Unavailable [phone] Lionel Reich MD Unavailable [phone] Mily Ball MD Unavailable Italo Bedolla MD, MPH Primary Care Provider + Encounter Details Date Type Department Care Team (Late st Contact Info) Description 10/02/2024 Procedure Pass [facility] Endoscopy Admitting Dept Virtual Department [address] [place] [address] Social History Tobacco Use Types Packs/Day Years [...] on filedocumented in this encounter Care Teams Merchant Tailor Relationship Specialty Start Date End Date Italo Bedolla MD, MPH [address] [place] [address] [email or web address] PCP - General Family Medicine 10/02/24 Keri Gil NP Historical LMR Provider 01/06/17 Lionel Reich MD [address] [facility], [address] [place] [address] Historical LMR Provider 01/06/17 Mily Ball MD [address] [place] [address] Orthopedics & Sports Medicine, [place] [address] Historical LMR Provider 01/06/17 documented as of this encounter Additional Source Comments The information contained in this document represents components of the legal health record. It is not the complete legal health record.[facility]
== END 2025-03-05 16:59 | disposition home or self-care (01) ==
LOC: HO.HOP 16:58
PROVIDERS: PCP Family Medicine; Visit Provider Clinical Nurse Specialist Psychiatric/Mental Health
DX: F33.1 Major depressive disorder, recurrent, moderate (principal); F90.0 Attention-deficit hyperactivity disorder, predominantly inattentive type; F42.2 Mixed obsessional thoughts and acts
CPT/HCPCS: 99214